=== PATIENT | male | born 1935 | race Caucasian/White ===

== ENCOUNTER 2017-06-15 08:08 | Inpatient (IN) | payer MEDICARE, MEDICAID ==
[~2017-06-15] VITALS: Ht 162.6 cm; Wt 70.8 kg
[~2017-06-15 08:08] MED LIST: ACETAMINOPHEN500 MG ORAL; ALENDRONATE SOD70 MG ORAL; ANTACID168 MG PO; ASPIRIN-LOW81 MG PO; AVODART0.5 MG PO; COLACE250 MG ORAL; DIOVAN HCT 3201 EAC1 ORAL; DIOVAN320 MG ORAL; DOXAZOSIN MESYLA4 MG ORAL; FLOMAX0.4 MG ORAL; GABAPENTIN300 MG ORAL; GABAPENTIN400 MG PO; IBUPROFEN200 MG ORAL; LIDODERM700 M1 TDERMAL; MIRALAX17 G2 ORAL; MYLANTA30 M1 PO; OMEPRAZOLE20 M2 PO; OXYCONTIN10 MG ORAL; OYSCO 500+D TA1 EAC1 PO; OYSTER SHELL W1 EACH PO; PANTOPRAZOLE SO40 MG ORAL; RA HI-CAL PLUS1 EACH PO; ROXICODONE5 MG ORAL; SENNA-GEN8.6 M1 ORAL; TRAMADOL HCL50 MG ORAL; ZOCOR20 M1 ORAL; ZOCOR20 MG ORAL
--- NOTE | 2017-06-15 08:47 | Emergency Room Report ---
History of Present Illness General Chief Complaint: Nausea, Vomiting, and Diarrhea Source: Patient Present Illness HPI 82-year-old male with hypertension p/w nausea and vomiting diarrhea for 2 days Pt reports n/v, 1 episodes of nbnb vomiting,4 episodes of watery non bloody diarrhea Denies any abdominal pain Denies fever, chills. No hx of abdominal surgeries. No history of recent hospitalizations, no recent antibiotic use Allergies: Coded Allergies: No Known Allergies (Unverified , 08/05/12) Patient History Past Medical History: see triage record Past Surgical History: none Pertinent Family History: none Reviewed Nursing Documentation: PMH: Agreed, PSxH: Agreed Nursing Documentation-PMH Past Medical History: No History, Except For Hx Cardiac Problems: Yes Hx Hypertension: Yes - high cholesterol Hx Cancer: Yes Hx Gastrointestinal Problems: Yes Hx Neurological Problems: Yes Review of Systems All Other Systems: negative except mentioned in HPI Physical Exam Vital Signs Date Time Temp Pulse Resp B/P (MAP) Pulse Ox O2 Delivery O2 Flow Rate FiO2 06/15/17 08:10 97.8 62 18 87/55 96 Room Air 97.9 Sp02 EP Interpretation: reviewed, normal General Appearance: alert, GCS 15, non-toxic, mild distress Head: normocephalic, atraumatic Eyes: bilateral eye normal inspection, bilateral eye PERRL, bilateral eye EOMI ENT: normal ENT inspection, normal pharynx, normal voice, moist mucus membranes Neck: normal inspection, full range of motion, supple Respiratory: normal inspection, lungs clear, normal breath sounds, no respiratory distress, no retraction, no wheezing, speaking full sentences, chest symmetrical Cardiovascular #1: normal inspection, regular rate, rhythm, no edema, normal capillary refill Cardiovascular #2: 2+ radial (R), 2+ radial (L) Gastrointestinal: normal inspection, non tender, soft, non-distended, no guarding, other - nontender throughout Musculoskeletal: back normal, non-tender, other - b/l elbows unable to fully extend since Neurologic: normal inspection, alert, oriented x3, responsive, motor strength/ tone normal, sensory intact, normal gait, speech normal Psychiatric: normal inspection, judgement/insight normal, memory normal Skin: normal inspection, normal color, no rash, warm/dry, well hydrated, normal turgor Medical Decision Making Diagnostic Impression: Primary Impression: Nausea, vomiting, and diarrhea Additional Impression: Anemia ER Course 82-year-old male nausea vomiting and diarrhea Differential Diagnosis: Gastritis, gastroenteritis, cholecystitis, appendicitis, diverticulitis, SBO, mesenteric ischemia, cardiac, UTI/pyelo At this time abdomen is soft nontender, not likely to have acute intra- abdominal surgical pathology, will hold CT for now. Plan: Basic labs, ua, ekg IV fluids Zofran ER course: patient given fluids/zofran anemic on lab work, states has hx of anemia mild elevation lipase but not criteria for pancreatitis mild elevation lactate getting fluids repeat abd exam nontender and soft. Disposition: Patient is to be admitted to med surg Dr Marsh Please note that this Emergency Department Report was dictated using [place] [employer] setter technology software, occasionally this can lead to erroneous entry secondary to interpretation by the dictation equipment EKG Diagnostic Results EP Interpretation: Yes Rate: normal Rhythm: NSR ST Segments: No acute changes, PVCs ASA given to patient: No Rhythm Strip EP Interpretation: Yes Rate: 70 Rhythm: NSR, no PVCs, no ectopy Chest X-ray CXR: Ordered: Yes 1 view Indication: Chest pain EP interpretation: Yes Interpretation: No consolidation, no effusion, no PTX, no acute cardiopulmonary disease Impression: No acute disease Electronically signed by Elliott Bryant MD Laboratory Tests Test 06/15/17 08:45 06/15/17 08:48 Urine Color Pale yellow Urine Appearance Clear Urine pH 6 (4.5-8.0) Urine Specific [place] 1.015 (1.005-1.035) Urine Protein Negative (NEGATIVE) Urine Glucose (UA) Negative (NEGATIVE) Urine Ketones Negative (NEGATIVE) Urine Occult Blood Negative (NEGATIVE) Urine Nitrite Negative (NEGATIVE) Urine Bilirubin Negative (NEGATIVE) Urine Urobilinogen Normal MG/DL (0.0-1.0) Urine Leukocyte Esterase Negative (NEGATIVE) White Blood Count 3.4 K/UL (4.8-10.8) L Red Blood Count 2.82 M/UL (4.70-6.10) L Hemoglobin 7.4 G/DL (14.2-18.0) L Hematocrit 23.6 % (42.0-52.0) L Mean Corpuscular Volume 84 FL (80-99) Mean Corpuscular Hemoglobin 26.4 PG (27.0-31.0) L Mean Corpuscular Hemoglobin Concent 31.5 G/DL (32.0-36.0) L Red Cell Distribution Width 14.2 % (11.6-14.8) Platelet Count 319 K/UL (150-450) Mean Platelet Volume 6.1 FL (6.5-10.1) L Neutrophils (%) (Auto) % (45.0-75.0) Lymphocytes (%) (Auto) % (20.0-45.0) Monocytes (%) (Auto) % (1.0-10.0) Eosinophils (%) (Auto) % (0.0-3.0) Basophils (%) (Auto) % (0.0-2.0) Differential Total Cells Counted 100 Neutrophils % (Manual) 61 % (45-75) Lymphocytes % (Manual) 26 % (20-45) Monocytes % (Manual) 9 % (1-10) Eosinophils % (Manual) 4 % (0-3) H Basophils % (Manual) 0 % (0-2) Band Neutrophils 0 % (0-8) Platelet Estimate Adequate Platelet Morphology Normal Hypochromasia 2+ Anisocytosis 1+ Sodium Level 136 MMOL/L (136-145) Potassium Level 4.1 MMOL/L (3.5-5.1) Chloride Level 104 MMOL/L (98-107) Carbon Dioxide Level 26 MMOL/L (21-32) Anion Gap 6 mmol/L (5-15) Blood Urea Nitrogen 28 mg/dL (7-18) H Creatinine 1.5 MG/DL (0.55-1.30) H Estimate Glomerular Filtration Rate mL/min (>60) Glucose Level 131 MG/DL (74-106) H Lactic Acid Level 2.30 mmol/L (0.66-2.22) H Calcium Level 9.0 MG/DL (8.5-10.1) Total Bilirubin 0.4 MG/DL (0.2-1.0) Aspartate Amino Transferase (AST) 19 U/L (15-37) Alanine Aminotransferase (ALT) 23 U/L (12-78) Alkaline Phosphatase 72 U/L (46-116) Pro-B-Type Natriuretic Peptide 454 pg/mL (0-125) H Total Protein 6.7 G/DL (6.4-8.2) Albumin 3.3 G/DL (3.4-5.0) L Globulin 3.4 g/dL Albumin/Globulin Ratio 1.0 (1.0-2.7) Lipase 625 U/L (73-393) H Microbiology Date/Time Source Procedure Growth Status 06/15/17 09:25 Nasal Nares Influenza Types A,B Antigen (IKER) - Final Complete Last Vital Signs Date Time Temp Pulse Resp B/P (MAP) Pulse Ox O2 Delivery O2 Flow Rate FiO2 06/15/17 08:10 97.8 62 18 87/55 96 Room Air 97.9 Disposition: HOME, SELF-CARE Condition: Improved Elliott Bryant M.D. Jun 15, 2017 08:47
[2017-06-15 08:59] LABS: HEMATOCRIT 23.6 % (42.0-52.0); HEMOGLOBIN 7.4 G/DL (14.2-18.0); MEAN CORPUSCULAR VOLUME 84 FL (80-99); PLATELET COUNT 319 K/UL (150-450); RED BLOOD COUNT 2.82 M/UL (4.70-6.10); RED CELL DISTRIBUTION WIDTH 14.2 % (11.6-14.8); WHITE BLOOD COUNT 3.4 K/UL (4.8-10.8)
[2017-06-15 08:59] LABS: APPEARANCE,URINE CLEAR; BILIRUBIN, URINE NEGATIVE (NEGATIVE); COLOR,URINE PALE YELLOW; GLUCOSE, URINE (UA) NEGATIVE (NEGATIVE); KETONES,URINE NEGATIVE (NEGATIVE); LEUKOCYTE ESTERASE ,URINE NEGATIVE (NEGATIVE); NITRITE,URINE NEGATIVE (NEGATIVE); PH,URINE 6 (4.5-8.0); PROTEIN,URINE NEGATIVE (NEGATIVE); UROBILINOGEN,URINE NORMAL MG/DL (0.0-1.0)
[2017-06-15] MEDS ORDERED: ZANTAC150 MG ORAL (09:02)
[2017-06-15] MEDS ORDERED: ASPIRIN81 MG ORAL (09:02)
[2017-06-15] MEDS ORDERED: CLOPIDOGREL75 MG ORAL (09:02)
[2017-06-15] MEDS ORDERED: ISOSORBIDE MONO30 M1 PO (09:02)
[2017-06-15] MEDS ORDERED: METOPROLOL SUCC25 MG ORAL (09:02)
[2017-06-15] MEDS ORDERED: AMLODIPINE BESY10 MG ORAL (09:02)
[2017-06-15 09:13] LABS: ANION GAP 6 mmol/L (5-15); BLOOD UREA NITROGEN 28 mg/dL (7-18); CARBON DIOXIDE 26 MMOL/L (21-32); CHLORIDE 104 MMOL/L (98-107); CREATININE 1.5 MG/DL (0.55-1.30); POTASSIUM 4.1 MMOL/L (3.5-5.1); SODIUM 136 MMOL/L (136-145)
[2017-06-15 09:19] VITALS: BP 87/55
[2017-06-15 09:24] LABS: ALANINE AMINOTRANSFERASE 23 U/L (12-78); ALBUMIN 3.3 G/DL (3.4-5.0); ALKALINE PHOSPHATASE 72 U/L (46-116); ASPARTATE AMINO TRANSFERASE 19 U/L (15-37); BILIRUBIN,TOTAL 0.4 MG/DL (0.2-1.0)
--- NOTE | 2017-06-15 10:45 | Diagnostic Imaging Report ---
Indication: Chest pain Technique: One view of the chest Comparison: 05/26/2015 Findings: Inspiration is suboptimal. There is probably retrocardiac hiatal hernia. Some atelectasis is seen at the right lung base and left retrocardiac region. Lungs and pleural spaces are otherwise clear. The heart is borderline enlarged. Impression: No definite acute process. Findings as noted
[2017-06-15] MEDS ORDERED: ATORVASTATIN CA10 MG ORAL (11:49)
[2017-06-15] MEDS ORDERED: Nitroglycerin Subl 0.4mg tab SL PRN (13:00)
[2017-06-15] MEDS ORDERED: Milk of Magnesia 30ml Ud ORAL PRN (13:00)
[2017-06-15] MEDS: Metoprolol Succinate XL 25mg tab ORAL SCH (13:00)
[2017-06-15] MEDS: Pantoprazole Inj IV SCH ×2 (15:11→21:39)
[2017-06-15 15:20] VITALS: BP 97/53
[2017-06-15 16:19] LABS: APPEARANCE,URINE CLEAR; BILIRUBIN, URINE NEGATIVE (NEGATIVE); COLOR,URINE PALE YELLOW; GLUCOSE, URINE (UA) NEGATIVE (NEGATIVE); KETONES,URINE NEGATIVE (NEGATIVE); LEUKOCYTE ESTERASE ,URINE NEGATIVE (NEGATIVE); NITRITE,URINE NEGATIVE (NEGATIVE); PH,URINE 6.5 (4.5-8.0); PROTEIN,URINE NEGATIVE (NEGATIVE); UROBILINOGEN,URINE NORMAL MG/DL (0.0-1.0)
--- NOTE | 2017-06-15 17:00 | History and Physical Report ---
DATE OF ADMISSION: 06/15/2017 CHIEF COMPLAINT/REASON FOR HOSPITALIZATION: The patient is an 82-year-old male, admitted with anemia, nausea, vomiting, diarrhea, and likely occult gastrointestinal bleed. HISTORY OF PRESENT ILLNESS: The patient is well known to me, has a history of hypertension, gastritis, osteoarthritis, and post-polio syndrome. 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 He presents now with a hemoglobin of 7.5, nausea and vomiting, and one episode of diarrhea. He has had a cough for several weeks, but no fever or chills. The family is concerned that he may have had a flu, but the rapid flu test was negative. There are no fever or chills. Because of the above, he is admitted to the hospital. PAST SURGICAL HISTORY: Prostatectomy, prostate biopsy, bilateral total knee replacement, bilateral cataracts. MEDICATIONS: Alendronate 70 mg once a week, amlodipine 10 mg daily, aspirin 81 mg two tablets daily, Plavix 75 mg daily, gabapentin 1200 mg at bedtime, isosorbide 30 mg daily, metoprolol succinate 25 mg daily, ranitidine 150 mg b.i.d., atorvastatin 10 mg at bedtime, Tylenol p.r.n. He took tramadol in the past, but not recently. ALLERGIES: None known. HABITS: He is nonsmoker and nondrinker. No use of illicit drugs. SOCIAL HISTORY: He lives at home. 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 Has family nearby. He is from his . His daughter is very involved with his care and I spoke to her today, Code Status. He is Full Code now, but does not want prolonged life support in case Code is unsuccessful. SYSTEM REVIEW: HEAD EYES, EARS, NOSE, AND THROAT: He wears bilateral hearing aids. He has had cataract surgery with stable vision. ENDOCRINE: No diabetes or thyroid disease. PULMONARY: No asthma, TB, or chronic cough, but he has had a cough recently for a few weeks. CARDIAC: He has had chest pains, abnormal stress test, but elected not to have angiography. Chest pains are under control with medical management. No history of myocardial infarction. GASTROINTESTINAL: He has had prior episodes of heme-positive stool, treated with PPI. This was apparently when he was taking possibly nonsteroidal anti-inflammatory agents but this was a few years ago. GENITOURINARY: No dysuria, hematuria, or kidney stones. He is voiding well now post prostatectomy. He has also had Lupron in the past for prostate cancer. His PSAs have been normal. 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 NEUROLOGIC: No CVA, syncope, or seizures. He walks short distances with a walker, but mostly uses a wheelchair. MUSCULOSKELETAL: Additionally, he has had low back pain. I believe lumbar spine compression fracture. HEMATOLOGIC/ONCOLOGIC: Stable. Prostate cancer as above. He has had iron-deficiency anemia, treated with IV iron in the past. PHYSICAL EXAMINATION: GENERAL: The patient is an alert man, in no acute distress. He was seen with nurses at the bedside. VITAL SIGNS: As follows, temperature 97.9 degrees, respirations 18, and blood pressure 87/55, pulse oximetry 96%. HEAD EYES, EARS, NOSE, AND THROAT: Sclerae are nonicteric. Ocular motions intact in all directions. Oral mucosa slightly dry. He is hard of hearing. NECK: No adenopathy. LUNGS: He has a moderate cough and very faint expiratory rhonchi. HEART: Rhythm is regular with a 1 to 2/6 systolic ejection murmur. ABDOMEN: Soft. No organomegaly or tenderness. GENITOURINARY: Penis and testes normal. Rectal shows a prostate slightly enlarged, 1 to 2+/4. No discrete nodules. Light brown stool on the glove. EXTREMITIES: No edema, cyanosis or clubbing. There are contractures in the elbow and total knee replacements. NEUROLOGIC: He is alert and responsive. Cranial nerves are intact. PERTINENT LABORATORY DATA: Show white count of 3.4, hemoglobin of 7.4, platelets 319. Electrolytes normal, BUN 28, creatinine 1.5, glucose 131. Lactic acid 2.3 and 1.3. IMPRESSION: 1. Gastrointestinal bleed, likely upper gastrointestinal bleed secondary to gastritis or peptic ulcer. This may be exacerbated by taking Plavix and aspirin. 2. History of recent cerebrovascular accident with no residual. 3. History of coronary artery disease. 4. History of hypertension with low blood pressure now, likely due to volume depletion and blood pressure medicines. PLAN: The patient will be hydrated. We spoke to his daughter and he is Full Code now but, does not want prolonged life support. Family has agreed to transfuse and watch him closely in view of these comorbidities. Qunetin Marsh M.D. DR: Lillian JOB#: [id number] CC:
[2017-06-15 20:00] VITALS: BP 125/67
--- NOTE | 2017-06-15 20:25 | General Progress Note ---
Assessment/Plan Assessment/Plan GI CONSULT Dictated Will arrange for EGD tomorrow Will consider colonoscopy later this week Thank you Colin Flores MD Subjective Allergies: Coded Allergies: No Known Allergies (Unverified , 08/05/12) Objective Last 24 Hour Vital Signs Date Time Temp Pulse Resp B/P (MAP) Pulse Ox O2 Delivery O2 Flow Rate FiO2 06/15/17 15:20 98.2 78 20 97/53 96 06/15/17 13:00 89 97/53 06/15/17 09:19 97.9 18 87/55 96 Room Air 97.9 06/15/17 08:10 97.8 62 18 87/55 96 Room Air 97.9 Laboratory Tests 06/15/17 08:45: Urine Color Pale yellow, Urine Appearance Clear, Urine pH 6, Urine Specific [place] 1.015, Urine Protein Negative, Urine Glucose (UA) Negative, Urine Ketones Negative, Urine Occult Blood Negative, Urine Nitrite Negative, Urine Bilirubin Negative, Urine Urobilinogen Normal, Urine Leukocyte Esterase Negative 06/15/17 08:48: White Blood Count 3.4L, Red Blood Count 2.82L, Hemoglobin 7.4L, Hematocrit 23.6L , Mean Corpuscular Volume 84, Mean Corpuscular Hemoglobin 26.4L, Mean Corpuscular Hemoglobin Concent 31.5L, Red Cell Distribution Width 14.2, Platelet Count 319, Mean Platelet Volume 6.1L, Neutrophils (%) (Auto) , Lymphocytes (%) (Auto) , Monocytes (%) (Auto) , Eosinophils (%) (Auto) , Basophils (%) (Auto) , Differential Total Cells Counted 100, Neutrophils % ( Manual) 61, Lymphocytes % (Manual) 26, Monocytes % (Manual) 9, Eosinophils % ( Manual) 4H, Basophils % (Manual) 0, Band Neutrophils 0, Platelet Estimate Adequate, Platelet Morphology Normal, Hypochromasia 2+, Anisocytosis 1+, Sodium Level 136, Potassium Level 4.1, Chloride Level 104, Carbon Dioxide Level 26, Anion Gap 6, Blood Urea Nitrogen 28H, Creatinine 1.5H, Estimat Glomerular Filtration Rate , Glucose Level 131H, Lactic Acid Level 2.30H, Calcium Level 9.0 , Total Bilirubin 0.4, Aspartate Amino Transf (AST/SGOT) 19, Alanine Aminotransferase (ALT/SGPT) 23, Alkaline Phosphatase 72, Pro-B-Type Natriuretic Peptide 454H, Total Protein 6.7, Albumin 3.3L, Globulin 3.4, Albumin/Globulin Ratio 1.0, Lipase 625H 06/15/17 10:34: Lactic Acid Level 1.30 06/15/17 15:00: Troponin I 0.023 06/15/17 15:15: Urine Color Pale yellow, Urine Appearance Clear, Urine pH 6.5, Urine Specific [place] 1.010, Urine Protein Negative, Urine Glucose (UA) Negative, Urine Ketones Negative, Urine Occult Blood Negative, Urine Nitrite Negative, Urine Bilirubin Negative, Urine Urobilinogen Normal, Urine Leukocyte Esterase Negative , Urine RBC 0-2H, Urine WBC 0, Urine Squamous Epithelial Cells None, Urine Bacteria Occasional Height (Feet): 4 Height (Inches): 11.00 Weight (Pounds): 145 TIFFANIETOBYANYI Jun 15, 2017 20:25
[2017-06-15] MEDS ORDERED: Sorbitol Solution UD 30ml ORAL ONE (20:30)
[2017-06-16] VITALS (11 sets, daily range): BP systolic 109–152; BP diastolic 55–77
--- NOTE | 2017-06-16 03:45 | Consultation ---
DATE OF CONSULTATION: 06/15/2017 GASTROENTEROLOGY CONSULTATION CONSULTING PHYSICIAN: Montserrat Flores M.D. REFERRING PHYSICIAN: Quentin Marsh M.D. CHIEF COMPLAINT: I was asked to see this patient by Dr. Quentin Marsh for evaluation of severe anemia as well as diarrhea. HISTORY OF PRESENT ILLNESS: The patient is a pleasant 82-year-old man, who has had flu-like symptoms for past month or so. For the past day or two, the patient noted nausea, vomiting, and diarrhea and was brought to the emergency room where he was found to have severe anemia and was therefore admitted. He is receiving his first blood transfusion. He denies any abdominal issues at this time. He has had cough for several weeks. Daughter thinks the patient has had colonoscopy about 5 or 10 years ago, but has never had an endoscopy. He does take aspirin and Plavix on a daily basis for history of stroke, but he is also on ranitidine twice daily. He denies gastroesophageal reflux symptoms. PAST MEDICAL HISTORY: History of prostatectomy, status post prostate biopsy, bilateral total knee replacements, bilateral cataracts, history of gastritis, osteoarthritis, post-polio syndrome, history of stroke in 2017 with minimal residual, history of anemia about three years ago which is now worse, and hypercholesterolemia. MEDICATIONS: See chart list for details. ALLERGIES: None. FAMILY HISTORY: Noncontributory. SOCIAL HISTORY: The patient lives at home. 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 He also has two daughters who look after his affairs. He is Full Code. PHYSICAL EXAMINATION: GENERAL: A pleasant man seen in his room. HEENT: Normocephalic and atraumatic. Sclerae anicteric. Oropharynx is clear. NECK: Supple. CHEST: Clear to auscultation. CARDIOVASCULAR: Revealed regular rate. ABDOMEN: Soft with good bowel sounds. There is no organomegaly. EXTREMITIES: Revealed no edema. LABORATORY DATA: Noted. ASSESSMENT: This patient presents with severe anemia requiring blood transfusion. He did have some degree of slight anemia in the past also and he did have since low blood counts and may be chronic in nature, however, on this admission, his counts are worse requiring blood transfusion. The patient should undergo an upper endoscopy to evaluate his upper gastrointestinal tract since the daughter noted the patient's stools appeared to be dark in appearance. Should the endoscopy be negative, then colonoscopy can be this week. Also, the patient may be considered for subsequent colonoscopy at a later date as medically feasible. Indications, risks, alternatives, and possible complications of both procedures were explained to the patient's daughter and all questions were answered. The patient's daughter states that she makes all decisions for this patient and will sign the forms. In addition, the patient does have recent history of diarrhea and therefore, his stool will be checked for Clostridium difficile and for cultures. Since he is anemic, also stool occult blood will be tested. RECOMMENDATIONS: 1. NPO after midnight except medications. 2. IV fluids. 3. Serial CBC. 4. Hold aspirin and Plavix endoscopy tomorrow. 5. Colonoscopy at a later date. Thank you for asking me to participate in the care of this patient. Montserrat Flores M.D. DR: CHRISTINE JOB#: [id number] CC:
--- NOTE | 2017-06-16 07:24 | Anethesia Preoperative Eval ---
Anesthesia Pre-op PMH/ROS General Date of Evaluation: Jun 16, 2017 Time of Evaluation: 07:20 Anesthesiologist: mikayla ASA Score: ASA 3 Mallampati Score Class I : Soft palate, uvula, fauces, pillars visible Class II: Soft palate, uvula, fauces visible Class III: Soft palate, base of uvula visible Class IV: Only hard plate visible Mallampati Classification: Class II Surgeon: shin Diagnosis: dysphagia Surgical Procedure: egd Anesthesia History: none Social History: smoking - nonsmoker Family History: no anesthesia problems Allergies: Coded Allergies: No Known Allergies (Unverified , 08/05/12) Medications: see eMAR Past Medical History Cardiovascular: Reports: HTN Pulmonary: Reports: asthma Gastrointestinal/Genitourinary: Reports: GERD, other - uti, prostate cancer, gi bleed Neurologic/Psychiatric: Reports: CVA Musculoskeletal/Integumentary: Reports: other - vertebral compressioin fx Anesthesia Pre-op Phys. Exam Physician Exam Last Vital Signs Date Time Temp Pulse Resp B/P (MAP) Pulse Ox O2 Delivery O2 Flow Rate FiO2 06/16/17 04:00 98.4 67 21 109/56 97 06/16/17 04:00 Room Air Constitutional: NAD Neurologic: CN 2-12 intact Cardiovascular: RRR Respiratory: CTA Gastrointestinal: S/NT/ND Airway Exam Mallampati Score: Class II MO: limited Neck: short TMD: 2fb ROM: limited Anesthesia Pre-op A/P Labs Hematology Test 06/15/17 08:48 White Blood Count 3.4 K/UL (4.8-10.8) L Red Blood Count 2.82 M/UL (4.70-6.10) L Hemoglobin 7.4 G/DL (14.2-18.0) L Hematocrit 23.6 % (42.0-52.0) L Mean Corpuscular Volume 84 FL (80-99) Mean Corpuscular Hemoglobin 26.4 PG (27.0-31.0) L Mean Corpuscular Hemoglobin Concent 31.5 G/DL (32.0-36.0) L Red Cell Distribution Width 14.2 % (11.6-14.8) Platelet Count 319 K/UL (150-450) Mean Platelet Volume 6.1 FL (6.5-10.1) L Neutrophils (%) (Auto) % (45.0-75.0) Lymphocytes (%) (Auto) % (20.0-45.0) Monocytes (%) (Auto) % (1.0-10.0) Eosinophils (%) (Auto) % (0.0-3.0) Basophils (%) (Auto) % (0.0-2.0) Differential Total Cells Counted 100 Neutrophils % (Manual) 61 % (45-75) Lymphocytes % (Manual) 26 % (20-45) Monocytes % (Manual) 9 % (1-10) Eosinophils % (Manual) 4 % (0-3) H Basophils % (Manual) 0 % (0-2) Band Neutrophils 0 % (0-8) Platelet Estimate Adequate Platelet Morphology Normal Hypochromasia 2+ Anisocytosis 1+ Chemistry Test 06/15/17 08:48 06/15/17 10:34 06/15/17 15:00 Sodium Level 136 MMOL/L (136-145) Potassium Level 4.1 MMOL/L (3.5-5.1) Chloride Level 104 MMOL/L (98-107) Carbon Dioxide Level 26 MMOL/L (21-32) Anion Gap 6 mmol/L (5-15) Blood Urea Nitrogen 28 mg/dL (7-18) H Creatinine 1.5 MG/DL (0.55-1.30) H Estimat Glomerular Filtration Rate mL/min (>60) Glucose Level 131 MG/DL (74-106) H Lactic Acid Level 2.30 mmol/L (0.66-2.22) H 1.30 mmol/L (0.66-2.22) Calcium Level 9.0 MG/DL (8.5-10.1) Total Bilirubin 0.4 MG/DL (0.2-1.0) Aspartate Amino Transf (AST/SGOT) 19 U/L (15-37) Alanine Aminotransferase (ALT/SGPT) 23 U/L (12-78) Alkaline Phosphatase 72 U/L (46-116) Pro-B-Type Natriuretic Peptide 454 pg/mL (0-125) H Total Protein 6.7 G/DL (6.4-8.2) Albumin 3.3 G/DL (3.4-5.0) L Globulin 3.4 g/dL Albumin/Globulin Ratio 1.0 (1.0-2.7) Lipase 625 U/L (73-393) H Troponin I 0.023 ng/mL (0.000-0.056) Risk Assessment & Plan Assessment: asa3 Plan: mac Status Change Before Surgery: No Pre-Antibiotics Drug: MARTHA Perdue Jun 16, 2017 07:24
[2017-06-16] MEDS: Pantoprazole Inj IV SCH ×2 (08:37→20:49)
[2017-06-16] MEDS: Metoprolol Succinate XL 25mg tab ORAL SCH (08:38)
[2017-06-16 08:39] LABS: BASOPHILS % (AUTO) 0.9 % (0.0-2.0); HEMATOCRIT 26.5 % (42.0-52.0); HEMOGLOBIN 8.8 G/DL (14.2-18.0); LYMPHOCYTES % (AUTO) 26.4 % (20.0-45.0); MEAN CORPUSCULAR VOLUME 84 FL (80-99); MONOCYTES % (AUTO) 12.1 % (1.0-10.0); NEUTROPHILS % (AUTO) 55.7 % (45.0-75.0); PLATELET COUNT 234 K/UL (150-450); RED BLOOD COUNT 3.16 M/UL (4.70-6.10); RED CELL DISTRIBUTION WIDTH 14.1 % (11.6-14.8); WHITE BLOOD COUNT 3.8 K/UL (4.8-10.8)
[2017-06-16 08:54] LABS: INR 1.1 (0.9-1.1)
[2017-06-16 09:23] LABS: ALANINE AMINOTRANSFERASE 13 U/L (12-78); ALBUMIN 2.6 G/DL (3.4-5.0); ALBUMIN/GLOBULIN RATIO 0.9 (1.0-2.7); ALKALINE PHOSPHATASE 60 U/L (46-116); ANION GAP 6 mmol/L (5-15); ASPARTATE AMINO TRANSFERASE 19 U/L (15-37); BILIRUBIN,TOTAL 0.4 MG/DL (0.2-1.0); BLOOD UREA NITROGEN 17 mg/dL (7-18); CALCIUM 7.5 MG/DL (8.5-10.1); CARBON DIOXIDE 23 MMOL/L (21-32); CHLORIDE 112 MMOL/L (98-107); CREATININE 1.3 MG/DL (0.55-1.30); POTASSIUM 4.2 MMOL/L (3.5-5.1); SODIUM 141 MMOL/L (136-145)
--- NOTE | 2017-06-16 13:57 | General Progress Note ---
Assessment/Plan Problem List: (1) Hypotension ICD Codes: I95.9 - Hypotension, unspecified SNOMED: 84811199 (2) Dehydration ICD Codes: E86.0 - Dehydration SNOMED: 01718094 (3) Anemia ICD Codes: D64.9 - Anemia, unspecified SNOMED: 423419644 (4) GI bleed ICD Codes: K92.2 - Gastrointestinal hemorrhage, unspecified SNOMED: 32192283 (5) Nausea, vomiting, and diarrhea ICD Codes: R11.2 - Nausea with vomiting, unspecified; R19.7 - Diarrhea, unspecified SNOMED: 4001935 Status Narrative bp better, no aangina, for EGD, venofer for iron deficiency Subjective Constitutional: Reports: weakness HEENT: Reports: no symptoms Cardiovascular: Reports: no symptoms Respiratory: Reports: cough Gastrointestinal/Abdominal: Reports: no symptoms Genitourinary: Reports: no symptoms Neurologic/Psychiatric: Reports: no symptoms Endocrine: Reports: no symptoms Hematologic/Lymphatic: Reports: anemia Allergies: Coded Allergies: No Known Allergies (Unverified , 08/05/12) Objective Last 24 Hour Vital Signs Date Time Temp Pulse Resp B/P (MAP) Pulse Ox O2 Delivery O2 Flow Rate FiO2 06/16/17 11:44 97.5 61 19 140/77 98 06/16/17 08:38 73 139/74 06/16/17 08:15 97.1 64 20 130/65 99 06/16/17 08:00 64 61 73 06/16/17 04:00 98.4 67 21 109/56 97 06/16/17 04:00 Room Air 06/16/17 00:00 Room Air 06/16/17 00:00 98.3 65 20 116/59 98 06/15/17 20:00 98.5 71 21 125/67 100 06/15/17 20:00 Room Air 06/15/17 15:20 98.2 78 20 97/53 96 Intake and Output 06/15/17 06/16/17 19:00 07:00 Intake Total 240 ml 500 ml Output Total 550 ml 575 ml Balance -310 ml -75 ml Intake Oral 240 ml Blood Product 500 ml Output Urine Total 550 ml 575 ml Laboratory Tests 06/15/17 15:00: Troponin I 0.023 06/15/17 15:15: Urine Color Pale yellow, Urine Appearance Clear, Urine pH 6.5, Urine Specific [place] 1.010, Urine Protein Negative, Urine Glucose (UA) Negative, Urine Ketones Negative, Urine Occult Blood Negative, Urine Nitrite Negative, Urine Bilirubin Negative, Urine Urobilinogen Normal, Urine Leukocyte Esterase Negative , Urine RBC 0-2H, Urine WBC 0, Urine Squamous Epithelial Cells None, Urine Bacteria Occasional 06/16/17 06:42: Troponin I 0.009, White Blood Count 3.8L, Red Blood Count 3.16L, Hemoglobin 8.8L , Hematocrit 26.5L, Mean Corpuscular Volume 84, Mean Corpuscular Hemoglobin 27.9 , Mean Corpuscular Hemoglobin Concent 33.2, Red Cell Distribution Width 14.1, Platelet Count 234, Mean Platelet Volume 6.1L, Neutrophils (%) (Auto) 55.7, Lymphocytes (%) (Auto) 26.4, Monocytes (%) (Auto) 12.1H, Eosinophils (%) (Auto) 5.0H, Basophils (%) (Auto) 0.9, Prothrombin Time 11.7H, Prothromb Time International Ratio 1.1, Activated Partial Thromboplast Time 26, Sodium Level 141, Potassium Level 4.2, Chloride Level 112H, Carbon Dioxide Level 23, Anion Gap 6, Blood Urea Nitrogen 17, Creatinine 1.3, Estimat Glomerular Filtration Rate , Glucose Level 85, Calcium Level 7.5L, Total Bilirubin 0.4, Aspartate Amino Transf (AST/SGOT) 19, Alanine Aminotransferase (ALT/SGPT) 13, Alkaline Phosphatase 60, Total Protein 5.6L, Albumin 2.6L, Globulin 3.0, Albumin/ Globulin Ratio 0.9L, Prostate Specific Antigen 3.48, Thyroid Stimulating Hormone (TSH) 0.863 Height (Feet): 4 Height (Inches): 11.00 Weight (Pounds): 156 General Appearance: no apparent distress EENT: normal ENT inspection Neck: non-tender Cardiovascular: normal rate, regular rhythm Respiratory/Chest: lungs clear Abdomen: non tender, soft Edema: no edema noted Arm (L), no edema noted Arm (R), no edema noted Leg (L), no edema noted Leg (R), no edema noted Pedal (L), no edema noted Pedal (R), no edema noted Generalized 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
[2017-06-16 14:31] LABS: % IRON SATURATION 4 % (15-50); IRON 11 ug/dL (50-175); TOTAL IRON BINDING CAPACITY 260 ug/dL (250-450)
--- NOTE | 2017-06-16 14:31 | Anethesia Preoperative Eval ---
Anesthesia Pre-op PMH/ROS General Date of Evaluation: Jun 16, 2017 Anesthesiologist: Amando ASA Score: ASA 3 Mallampati Score Class I : Soft palate, uvula, fauces, pillars visible Class II: Soft palate, uvula, fauces visible Class III: Soft palate, base of uvula visible Class IV: Only hard plate visible Mallampati Classification: Class II Surgeon: Sandra Diagnosis: ?GI bleed Surgical Procedure: EGD Anesthesia History: none Family History: no anesthesia problems Allergies: Coded Allergies: No Known Allergies (Unverified , 08/05/12) Medications: see eMAR Past Medical History Cardiovascular: Reports: HTN, Denies: CAD, ID, valve dz, arrhythmia, other Pulmonary: Reports: asthma, Denies: COPD, NOELLE, other Gastrointestinal/Genitourinary: Reports: GERD, other - ? GI bleed, Denies: CRI, ESRD Neurologic/Psychiatric: Reports: CVA, Denies: dementia, depression/anxiety, TIA, other Endocrine: Denies: DM, hypothyroidism, steroids, other HEENT: Denies: cataract (L), cataract (R), glaucoma, THREE AFFILIATED (L), THREE AFFILIATED (R), other Hematology/Immune: Reports: anemia, other - prostate cancer, Denies: DVT, bleeding disorder Musculoskeletal/Integumentary: Reports: other - vertebral compression fx, Denies: OA, RA, DJD, DDD, edema PSxH Narrative: TKR, cataract sx Anesthesia Pre-op Phys. Exam Physician Exam Last Vital Signs Date Time Temp Pulse Resp B/P (MAP) Pulse Ox O2 Delivery O2 Flow Rate FiO2 06/16/17 11:44 97.5 61 19 140/77 98 06/16/17 04:00 Room Air Constitutional: NAD Cardiovascular: RRR Respiratory: CTA Airway Exam Mallampati Score: Class II Neck: short Anesthesia Pre-op A/P Labs Hematology Test 06/16/17 06:42 White Blood Count 3.8 K/UL (4.8-10.8) L Red Blood Count 3.16 M/UL (4.70-6.10) L Hemoglobin 8.8 G/DL (14.2-18.0) L Hematocrit 26.5 % (42.0-52.0) L Mean Corpuscular Volume 84 FL (80-99) Mean Corpuscular Hemoglobin 27.9 PG (27.0-31.0) Mean Corpuscular Hemoglobin Concent 33.2 G/DL (32.0-36.0) Red Cell Distribution Width 14.1 % (11.6-14.8) Platelet Count 234 K/UL (150-450) Mean Platelet Volume 6.1 FL (6.5-10.1) L Neutrophils (%) (Auto) 55.7 % (45.0-75.0) Lymphocytes (%) (Auto) 26.4 % (20.0-45.0) Monocytes (%) (Auto) 12.1 % (1.0-10.0) H Eosinophils (%) (Auto) 5.0 % (0.0-3.0) H Basophils (%) (Auto) 0.9 % (0.0-2.0) Coagulation Test 06/16/17 06:42 Prothrombin Time 11.7 SEC (9.30-11.50) H Prothromb Time International Ratio 1.1 (0.9-1.1) Activated Partial Thromboplast Time 26 SEC (23-33) Chemistry Test 06/15/17 15:00 06/16/17 06:42 Troponin I 0.023 ng/mL (0.000-0.056) 0.009 ng/mL (0.000-0.056) Sodium Level 141 MMOL/L (136-145) Potassium Level 4.2 MMOL/L (3.5-5.1) Chloride Level 112 MMOL/L (98-107) H Carbon Dioxide Level 23 MMOL/L (21-32) Anion Gap 6 mmol/L (5-15) Blood Urea Nitrogen 17 mg/dL (7-18) Creatinine 1.3 MG/DL (0.55-1.30) Estimat Glomerular Filtration Rate mL/min (>60) Glucose Level 85 MG/DL (74-106) Calcium Level 7.5 MG/DL (8.5-10.1) L Iron Level Pending Unsaturated Iron Binding Pending Ferritin Pending Total Bilirubin 0.4 MG/DL (0.2-1.0) Aspartate Amino Transf (AST/SGOT) 19 U/L (15-37) Alanine Aminotransferase (ALT/SGPT) 13 U/L (12-78) Alkaline Phosphatase 60 U/L (46-116) Total Protein 5.6 G/DL (6.4-8.2) L Albumin 2.6 G/DL (3.4-5.0) L Globulin 3.0 g/dL Albumin/Globulin Ratio 0.9 (1.0-2.7) L Prostate Specific Antigen 3.48 ng/mL (0.13-4.0) Thyroid Stimulating Hormone (TSH) 0.863 uiU/mL (0.358-3.740) Risk Assessment & Plan Assessment: ASA III Plan: MAC Status Change Before Surgery: No Pre-Antibiotics Drug: N/A SHANNAN MCGRAW M.D. Jun 16, 2017 14:31
--- NOTE | 2017-06-16 14:35 | Immediate Post-Op Evaluation ---
Immediate Post-Op Evalulation Immediate Post-Op Evalulation Procedure: EGD Date of Evaluation: Jun 16, 2017 Time of Evaluation: 16:30 IV Fluids: 300 Blood Products: 0 Estimated Blood Loss: 0 Urinary Output: 0 Blood Pressure Systolic: 120 Blood Pressure Diastolic: 68 Pulse Rate: 57 Respiratory Rate: 16 O2 Sat by Pulse Oximetry: 99 Temperature (Fahrenheit): 97.3 Pain Score (1-10): 0 Nausea: No Vomiting: No Complications 0 Patient Status: awake, reacts, patent, none Hydration Status: adequate Drug: N/A SHANNAN MCGRAW M.D. Jun 16, 2017 14:35
--- NOTE | 2017-06-16 14:36 | 48 Hour Post Anesthesia Eval ---
Post Anesthesia Evaluation Procedure: EGD Date of Evaluation: Jun 16, 2017 Airway: patent Nausea: No Vomiting: No Pain Intensity: 0 Hydration Status: adequate Cardiopulmonary Status: at baseline Mental Status/LOC: patient returned to baseline Post-Anesthesia Complications: 0 Follow-up care needed: N/A - further care as per primary team SHANNAN MCGRAW M.D. Jun 16, 2017 14:36
[2017-06-16 14:44] LABS: FERRITIN 13 NG/ML (8-388)
[2017-06-16] MEDS ORDERED: DiphenhydrAMINE 50mg/ml Inj IVP PRN (14:45)
--- NOTE | 2017-06-16 15:21 | Cardiology Report ---
APPROVED REPORT EKG Measurement Heart [id number] OR 140P52 [id number] [id number] Sinus rhythm with premature supraventricular complexes Incomplete right bundle branch block Borderline ECG
--- NOTE | 2017-06-16 15:24 | Cardiology Report ---
APPROVED REPORT EKG Measurement Heart [id number] SD 140P56 [id number] Sinus rhythm with premature supraventricular complexes Incomplete right bundle branch block Borderline ECG
[2017-06-16] MEDS ORDERED: LR 1000ml 1,000 ML IVLG SCH (15:30)
[2017-06-16] MEDS ORDERED: Propofol 200mg/20ml IV ONE (16:00)
[2017-06-16] MEDS ORDERED: Lidocaine 1% MPF 10mg/ml 5ml ONE (16:00)
[2017-06-16] MEDS ORDERED: NS 500ML IV ONE (16:05)
--- NOTE | 2017-06-16 16:08 | Pre-Procedure Note/Attestation ---
Pre-Procedure Note/Attestation Complete Prior to Procedure Planned Procedure: not applicable Procedure Narrative: EGD Indications for Procedure Pre-Operative Diagnosis: UGIB Attestation I attest that I discussed the nature of the procedure; its benefits; risks and complications; and alternatives (and the risks and benefits of such alternatives ), prior to the procedure, with the patient (or the patient's legal agency sales representative). I attest that, if there was a reasonable possibility of needing a blood transfusion, the patient (or the patient's legal agency sales representative) was given the [facility] standardized written summary, pursuant to the Rik Wallace Blood Safety Act ([place] Health and Safety Code # 1645, as amended). I attest that I re-evaluated the patient just prior to the surgery and that there has been no change in the patient's H&P, except as documented below: ZACKERY MORENO Jun 16, 2017 16:08
--- NOTE | 2017-06-16 16:12 | General Progress Note ---
Assessment/Plan Assessment/Plan Assessment - Diarrhea - Anemia Recommendations - EGD today - ASA and plavix on hold - follow for recurrent diarrhea Sx - consider colonoscopy at later date POST PROCEDURE - 8-9 cm hiatal hernia - GERD with esophageal ulcer - mild non-erosive duodenitis Rec: - BID PPI - Possible colonoscopy later this week or outpatient Subjective Allergies: Coded Allergies: No Known Allergies (Unverified , 08/05/12) Subjective Feels better hungry no further diarrhea no BM overnight NPO for EGD today Objective Last 24 Hour Vital Signs Date Time Temp Pulse Resp B/P (MAP) Pulse Ox O2 Delivery O2 Flow Rate FiO2 06/16/17 11:44 97.5 61 19 140/77 98 06/16/17 08:38 73 139/74 06/16/17 08:15 97.1 64 20 130/65 99 06/16/17 08:00 64 61 73 06/16/17 04:00 98.4 67 21 109/56 97 06/16/17 04:00 Room Air 06/16/17 00:00 Room Air 06/16/17 00:00 98.3 65 20 116/59 98 06/15/17 20:00 98.5 71 21 125/67 100 06/15/17 20:00 Room Air Intake and Output 06/15/17 06/16/17 19:00 07:00 Intake Total 240 ml 625 ml Output Total 550 ml 575 ml Balance -310 ml 50 ml Intake Oral 240 ml IV Total 125 ml Blood Product 500 ml Output Urine Total 550 ml 575 ml Laboratory Tests 06/16/17 06:42: White Blood Count 3.8L, Red Blood Count 3.16L, Hemoglobin 8.8L, Hematocrit 26.5L , Mean Corpuscular Volume 84, Mean Corpuscular Hemoglobin 27.9, Mean Corpuscular Hemoglobin Concent 33.2, Red Cell Distribution Width 14.1, Platelet Count 234, Mean Platelet Volume 6.1L, Neutrophils (%) (Auto) 55.7, Lymphocytes ( %) (Auto) 26.4, Monocytes (%) (Auto) 12.1H, Eosinophils (%) (Auto) 5.0H, Basophils (%) (Auto) 0.9, Prothrombin Time 11.7H, Prothromb Time International Ratio 1.1, Activated Partial Thromboplast Time 26, Sodium Level 141, Potassium Level 4.2, Chloride Level 112H, Carbon Dioxide Level 23, Anion Gap 6, Blood Urea Nitrogen 17, Creatinine 1.3, Estimat Glomerular Filtration Rate , Glucose Level 85, Calcium Level 7.5L, Iron Level 11L, Total Iron Binding Capacity 260, Percent Iron Saturation 4L, Unsaturated Iron Binding 249, Ferritin 13, Total Bilirubin 0.4, Aspartate Amino Transf (AST/SGOT) 19, Alanine Aminotransferase ( ALT/SGPT) 13, Alkaline Phosphatase 60, Troponin I 0.009, Total Protein 5.6L, Albumin 2.6L, Globulin 3.0, Albumin/Globulin Ratio 0.9L, Prostate Specific Antigen 3.48, Thyroid Stimulating Hormone (TSH) 0.863 Height (Feet): 4 Height (Inches): 11.00 Weight (Pounds): 156 Objective Elderly man NCAT supple CTA RRR Soft NT ND no edema ZACKERY MORENO Jun 16, 2017 16:12
--- NOTE | 2017-06-16 16:25 | Endoscopy Procedure Note ---
Endoscopy Procedure Note General Indication for Procedure: UGIB Procedures Performed: EGD Operative Findings/Diagnosis: HH, GERD, EE Specimen: none Pt Tolerated Procedure Well: Yes Estimated Blood Loss: none Anesthesia Anesthesiologist: see notes Anesthesia: MAC Medications Medication Given: see anesthesia record Inserted Devices Implant(s) used?: No GI Core Measures 50 yrs or older w/o bx or poly: Not Applicable 10yrs. F/U not recommended: Not Applicable If not recommended, why?: ZACKERY MORENO Jun 16, 2017 16:25
--- NOTE | 2017-06-16 16:26 | Brief Operative Note ---
Immediate Post Operative Note Operative Note Chief Complaint: UGIB Pre-op Diagnosis: UGIB Procedure: EGD Post-op Diagnosis: - 8-9 cm hiatal hernia - GERD with esophageal ulcer - mild non-erosive duodenitis Surgeon: shin Anesthesiologist: see report Anesthesia: MAC Specimen: none Complications: none Condition: stable Fluids: recorded Estimated Blood Loss: none Drains: none Implant(s) used?: No ZACKERY MORENO Jun 16, 2017 16:26
[2017-06-16] MEDS ORDERED: Sorbitol Solution UD 30ml ORAL ONE (16:45)
[2017-06-16] MEDS: Iron Sucrose 100 MG in NS 55 ML IV SCH (21:09)
[2017-06-17] VITALS: BP 151/82
--- NOTE | 2017-06-17 00:30 | Procedure Note ---
DATE OF PROCEDURE: 06/16/2017 PROCEDURE: Upper gastrointestinal endoscopy. SURGEON: Montserrat Flores M.D. ANESTHESIA: Please see the separate anesthesiologist's notes for details. PRE-ENDOSCOPIC DIAGNOSIS: Anemia. POST-ENDOSCOPIC DIAGNOSES: 1. An 8 to 9 cm hiatal hernia. 2. Mild hernia neck erosions consistent with Micah ulcerations. 3. Gastroesophageal reflux with reflux related ulcerations in the lower esophagus. PROCEDURE: The procedure, its risks, indications, alternatives, and possible complications were explained and an informed consent was obtained. The patient was then sedated in the left lateral decubitus position and a diagnostic upper endoscope was introduced through oropharynx and advanced to the duodenum without difficulty. The endoscope was then gradually withdrawn and the mucosa was examined carefully. Examination of the upper gastrointestinal mucosa revealed the above-mentioned findings. There was no active bleeding. The endoscope was removed, and the patient was sent to recovery in good condition. COMPLICATIONS: None. ASSESSMENT: Large hiatal hernias can at times explain long-term blood loss with iron deficiency anemia due to recurrent lower esophageal ulcerations as well as Micah style ulcerations. The patient, however, should also undergo a colonoscopy at a later date to rule out any lower gastrointestinal lesion. RECOMMENDATIONS: 1. Resume clear liquid diet. 2. Proton pump inhibitor. 3. Reflux precautions. 4. Check and treat Helicobacter pylori in stool or breath test. 5. Colonoscopy at a later date. Thank you for asking me to participate in the care of this patient. Montserrat Flores M.D. DR: CHRISTINE JOB#: [id number] CC: Jeff Hensley M.D.; Fax#: [phone] [facility]
[2017-06-17 04:00] VITALS: BP 122/61
[2017-06-17] MEDS ORDERED: Nulytely 4L ORAL ONE (07:00)
[2017-06-17 08:08] VITALS: BP 129/68
[2017-06-17] MEDS: Pantoprazole Inj IV SCH ×2 (08:52→21:14)
[2017-06-17] MEDS: Metoprolol Succinate XL 25mg tab ORAL SCH (08:52)
[2017-06-17 09:34] LABS: BASOPHILS % (AUTO) 0.6 % (0.0-2.0); EOSINOPHILS % (AUTO) 2.4 % (0.0-3.0); HEMATOCRIT 27.5 % (42.0-52.0); MEAN CORPUSCULAR VOLUME 84 FL (80-99); MONOCYTES % (AUTO) 8.4 % (1.0-10.0); NEUTROPHILS % (AUTO) 68.7 % (45.0-75.0); PLATELET COUNT 223 K/UL (150-450); RED BLOOD COUNT 3.26 M/UL (4.70-6.10); RED CELL DISTRIBUTION WIDTH 14.1 % (11.6-14.8); WHITE BLOOD COUNT 4.4 K/UL (4.8-10.8)
[2017-06-17 09:54] LABS: ANION GAP 7 mmol/L (5-15); BLOOD UREA NITROGEN 11 mg/dL (7-18); CALCIUM 7.7 MG/DL (8.5-10.1); CARBON DIOXIDE 24 MMOL/L (21-32); CHLORIDE 109 MMOL/L (98-107); CREATININE 1.2 MG/DL (0.55-1.30); POTASSIUM 3.8 MMOL/L (3.5-5.1); SODIUM 140 MMOL/L (136-145)
[2017-06-17] MEDS ORDERED: Magnesium Citrate Liq Btl ORAL ONE (11:00)
[2017-06-17 12:15] VITALS: BP 150/69
--- NOTE | 2017-06-17 15:23 | General Progress Note ---
Assessment/Plan Problem List: (1) Hypotension ICD Codes: I95.9 - Hypotension, unspecified SNOMED: 48409314 (2) Dehydration ICD Codes: E86.0 - Dehydration SNOMED: 20441632 (3) Anemia ICD Codes: D64.9 - Anemia, unspecified SNOMED: 943437893 (4) GI bleed ICD Codes: K92.2 - Gastrointestinal hemorrhage, unspecified SNOMED: 76794012 (5) Nausea, vomiting, and diarrhea ICD Codes: R11.2 - Nausea with vomiting, unspecified; R19.7 - Diarrhea, unspecified SNOMED: 6243954 Assessment/Plan egd noted, prep for colonoscopy remains weak Subjective Constitutional: Reports: weakness HEENT: Reports: no symptoms Cardiovascular: Reports: no symptoms Respiratory: Reports: no symptoms Gastrointestinal/Abdominal: Reports: diarrhea Genitourinary: Reports: no symptoms Neurologic/Psychiatric: Reports: pre-existing deficit Endocrine: Reports: no symptoms Hematologic/Lymphatic: Reports: anemia Allergies: Coded Allergies: No Known Allergies (Unverified , 08/05/12) Objective Last 24 Hour Vital Signs Date Time Temp Pulse Resp B/P (MAP) Pulse Ox O2 Delivery O2 Flow Rate FiO2 06/17/17 14:40 97.5 06/17/17 12:15 97.5 57 22 150/69 99 Nasal Cannula 2.0 97.5 06/17/17 08:52 62 126/58 06/17/17 08:08 97.4 59 19 129/68 99 Nasal Cannula 2.0 97.4 06/17/17 08:00 62 68 68 06/17/17 04:00 97.7 63 19 122/61 98 97.7 06/17/17 00:00 97.6 66 19 151/82 100 97.6 06/16/17 22:00 68 68 06/16/17 20:00 97.4 62 19 151/74 99 97.4 06/16/17 16:55 97.8 60 14 139/55 99 Nasal Cannula 3.0 97.8 06/16/17 16:48 100 Nasal Cannula 4.0 06/16/17 16:47 Nasal Cannula 4.0 06/16/17 16:45 58 15 140/67 99 Nasal Cannula 3.0 06/16/17 16:35 57 17 139/70 99 Nasal Cannula 3.0 06/16/17 16:30 55 17 125/76 100 Nasal Cannula 3.0 06/16/17 16:28 207.1 57 16 99 06/16/17 16:25 97.3 57 15 120/68 99 Nasal Cannula 4.0 97.3 06/16/17 16:00 54 56 63 06/16/17 16:00 97.3 59 20 152/75 97 97.3 Intake and Output 06/16/17 06/17/17 19:00 07:00 Intake Total 1155 ml 390 ml Output Total 950 ml 650 ml Balance 205 ml -260 ml Intake Oral 200 ml IV Total 955 ml 390 ml Output Urine Total 950 ml 650 ml # Voids 2 # Bowel Movements 3 Laboratory Tests 06/16/17 22:10: Stool Occult Blood Negative 06/17/17 08:10: White Blood Count 4.4L, Red Blood Count 3.26L, Hemoglobin 9.0L, Hematocrit 27.5L , Mean Corpuscular Volume 84, Mean Corpuscular Hemoglobin 27.7, Mean Corpuscular Hemoglobin Concent 32.9, Red Cell Distribution Width 14.1, Platelet Count 223, Mean Platelet Volume 6.1L, Neutrophils (%) (Auto) 68.7, Lymphocytes ( %) (Auto) 20.0, Monocytes (%) (Auto) 8.4, Eosinophils (%) (Auto) 2.4, Basophils (%) (Auto) 0.6, Sodium Level 140, Potassium Level 3.8, Chloride Level 109H, Carbon Dioxide Level 24, Anion Gap 7, Blood Urea Nitrogen 11, Creatinine 1.2, Estimat Glomerular Filtration Rate , Glucose Level 89, Calcium Level 7.7L Height (Feet): 4 Height (Inches): 11.00 Weight (Pounds): 154 General Appearance: no apparent distress, alert EENT: normal ENT inspection Neck: normal alignment Cardiovascular: normal rate, regular rhythm Respiratory/Chest: lungs clear Abdomen: non tender, soft, no organomegaly Edema: no edema noted Arm (L), no edema noted Arm (R), no edema noted Leg (L), no edema noted Leg (R), no edema noted Pedal (L), no edema noted Pedal (R), no edema noted 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
[2017-06-17 16:00] VITALS: BP 103/71
[2017-06-17 20:00] VITALS: BP 119/57
--- NOTE | 2017-06-17 21:12 | General Progress Note ---
Assessment/Plan Assessment/Plan Assessment - Diarrhea - Anemia - 8-9 cm Hiatal hernia - possibly the etiology of anemia - GERD with esophageal ulcer Recommendations - Colonoscopy in am - ASA and plavix on hold - follow for recurrent diarrhea Sx Subjective Allergies: Coded Allergies: No Known Allergies (Unverified , 08/05/12) Subjective tolerating clears could not tolerate Golytely-->changed to Mag Citrate (++) BM Objective Last 24 Hour Vital Signs Date Time Temp Pulse Resp B/P (MAP) Pulse Ox O2 Delivery O2 Flow Rate FiO2 06/17/17 20:23 Nasal Cannula 2.0 28 06/17/17 20:23 98 Nasal Cannula 2.0 28 06/17/17 20:00 98.1 72 20 119/57 98 98.1 06/17/17 16:00 98.1 93 20 103/71 100 98.1 06/17/17 16:00 106 151 85 06/17/17 15:39 97.5 06/17/17 14:40 97.5 06/17/17 12:15 97.5 57 22 150/69 99 Nasal Cannula 2.0 97.5 06/17/17 08:52 62 126/58 06/17/17 08:08 97.4 59 19 129/68 99 Nasal Cannula 2.0 97.4 06/17/17 08:00 62 68 68 06/17/17 04:00 97.7 63 19 122/61 98 97.7 06/17/17 00:00 97.6 66 19 151/82 100 97.6 06/16/17 22:00 68 68 Intake and Output 06/16/17 06/17/17 19:00 07:00 Intake Total 1155 ml 390 ml Output Total 950 ml 650 ml Balance 205 ml -260 ml Intake Oral 200 ml IV Total 955 ml 390 ml Output Urine Total 950 ml 650 ml # Voids 2 # Bowel Movements 3 Laboratory Tests 06/16/17 22:10: Stool Occult Blood Negative 06/17/17 08:10: White Blood Count 4.4L, Red Blood Count 3.26L, Hemoglobin 9.0L, Hematocrit 27.5L , Mean Corpuscular Volume 84, Mean Corpuscular Hemoglobin 27.7, Mean Corpuscular Hemoglobin Concent 32.9, Red Cell Distribution Width 14.1, Platelet Count 223, Mean Platelet Volume 6.1L, Neutrophils (%) (Auto) 68.7, Lymphocytes ( %) (Auto) 20.0, Monocytes (%) (Auto) 8.4, Eosinophils (%) (Auto) 2.4, Basophils (%) (Auto) 0.6, Sodium Level 140, Potassium Level 3.8, Chloride Level 109H, Carbon Dioxide Level 24, Anion Gap 7, Blood Urea Nitrogen 11, Creatinine 1.2, Estimat Glomerular Filtration Rate , Glucose Level 89, Calcium Level 7.7L Height (Feet): 4 Height (Inches): 11.00 Weight (Pounds): 154 Objective Elderly man NCAT supple CTA RRR Soft NT ND no edema ZACKERY MORENO Jun 17, 2017 21:12
[2017-06-17] MEDS: Iron Sucrose 100 MG in NS 55 ML IV SCH (21:14)
[2017-06-18] VITALS (10 sets, daily range): BP systolic 119–162; BP diastolic 66–86
--- NOTE | 2017-06-18 06:57 | Anethesia Preoperative Eval ---
Anesthesia Pre-op PMH/ROS General Date of Evaluation: Jun 18, 2017 Time of Evaluation: 06:52 Anesthesiologist: mikayla ASA Score: ASA 3 Mallampati Score Class I : Soft palate, uvula, fauces, pillars visible Class II: Soft palate, uvula, fauces visible Class III: Soft palate, base of uvula visible Class IV: Only hard plate visible Mallampati Classification: Class II Surgeon: shin Diagnosis: gi bleed Surgical Procedure: colonoscopy Anesthesia History: none Social History: smoking - nonsmoker Allergies: Coded Allergies: No Known Allergies (Unverified , 08/05/12) Past Medical History Cardiovascular: Reports: HTN, HI, other - chest pain Pulmonary: Reports: asthma Gastrointestinal/Genitourinary: Reports: GERD, other - intractable hiccups, uti , prostate cancer, gi bleed, gerd, Neurologic/Psychiatric: Reports: CVA, depression/anxiety Hematology/Immune: Reports: anemia PSxH Narrative: cataract sx, knee sx Anesthesia Pre-op Phys. Exam Physician Exam Last Vital Signs Date Time Temp Pulse Resp B/P (MAP) Pulse Ox O2 Delivery O2 Flow Rate FiO2 06/18/17 04:00 98.2 67 20 130/70 99 Nasal Cannula 98.2 06/18/17 04:00 2.0 06/17/17 20:23 28 Constitutional: NAD Neurologic: CN 2-12 intact Cardiovascular: RRR Respiratory: CTA Gastrointestinal: S/NT/ND Airway Exam Mallampati Score: Class II MO: limited Neck: short TMD: 2fb ROM: limited Teeth: missing Anesthesia Pre-op A/P Labs Hematology Test 06/17/17 08:10 White Blood Count 4.4 K/UL (4.8-10.8) L Red Blood Count 3.26 M/UL (4.70-6.10) L Hemoglobin 9.0 G/DL (14.2-18.0) L Hematocrit 27.5 % (42.0-52.0) L Mean Corpuscular Volume 84 FL (80-99) Mean Corpuscular Hemoglobin 27.7 PG (27.0-31.0) Mean Corpuscular Hemoglobin Concent 32.9 G/DL (32.0-36.0) Red Cell Distribution Width 14.1 % (11.6-14.8) Platelet Count 223 K/UL (150-450) Mean Platelet Volume 6.1 FL (6.5-10.1) L Neutrophils (%) (Auto) 68.7 % (45.0-75.0) Lymphocytes (%) (Auto) 20.0 % (20.0-45.0) Monocytes (%) (Auto) 8.4 % (1.0-10.0) Eosinophils (%) (Auto) 2.4 % (0.0-3.0) Basophils (%) (Auto) 0.6 % (0.0-2.0) Chemistry Test 06/17/17 08:10 Sodium Level 140 MMOL/L (136-145) Potassium Level 3.8 MMOL/L (3.5-5.1) Chloride Level 109 MMOL/L (98-107) H Carbon Dioxide Level 24 MMOL/L (21-32) Anion Gap 7 mmol/L (5-15) Blood Urea Nitrogen 11 mg/dL (7-18) Creatinine 1.2 MG/DL (0.55-1.30) Estimat Glomerular Filtration Rate mL/min (>60) Glucose Level 89 MG/DL (74-106) Calcium Level 7.7 MG/DL (8.5-10.1) L Risk Assessment & Plan Assessment: asa3 Plan: mac Status Change Before Surgery: No Pre-Antibiotics Drug: MARTHA Perdue Jun 18, 2017 06:57
[2017-06-18 07:28] LABS: BASOPHILS % (AUTO) 0.7 % (0.0-2.0); EOSINOPHILS % (AUTO) 2.8 % (0.0-3.0); HEMATOCRIT 27.7 % (42.0-52.0); LYMPHOCYTES % (AUTO) 23.9 % (20.0-45.0); MEAN CORPUSCULAR VOLUME 84 FL (80-99); MONOCYTES % (AUTO) 9.9 % (1.0-10.0); NEUTROPHILS % (AUTO) 62.7 % (45.0-75.0); PLATELET COUNT 234 K/UL (150-450); RED BLOOD COUNT 3.28 M/UL (4.70-6.10); RED CELL DISTRIBUTION WIDTH 14.1 % (11.6-14.8); WHITE BLOOD COUNT 3.9 K/UL (4.8-10.8)
[2017-06-18 07:48] LABS: ANION GAP 7 mmol/L (5-15); BLOOD UREA NITROGEN 12 mg/dL (7-18); CALCIUM 7.6 MG/DL (8.5-10.1); CARBON DIOXIDE 24 MMOL/L (21-32); CHLORIDE 112 MMOL/L (98-107); CREATININE 1.2 MG/DL (0.55-1.30); POTASSIUM 3.5 MMOL/L (3.5-5.1); SODIUM 143 MMOL/L (136-145)
[2017-06-18] MEDS: Metoprolol Succinate XL 25mg tab ORAL SCH (08:46)
[2017-06-18] MEDS: Pantoprazole Inj IV SCH (08:46)
[2017-06-18] MEDS ORDERED: Lidocaine 1% MPF 10mg/ml 5ml ONE (10:00)
[2017-06-18] MEDS ORDERED: Propofol 200mg/20ml IV ONE (10:00)
[2017-06-18] MEDS ORDERED: Glycopyrrolate 0.2mg/ml 1ml Vial ONE (10:00)
[2017-06-18] MEDS ORDERED: NS 500ML IV ONE (10:10)
--- NOTE | 2017-06-18 10:11 | Pre-Procedure Note/Attestation ---
Pre-Procedure Note/Attestation Complete Prior to Procedure Planned Procedure: not applicable Procedure Narrative: colon Indications for Procedure Pre-Operative Diagnosis: UGIBanemia Attestation I attest that I discussed the nature of the procedure; its benefits; risks and complications; and alternatives (and the risks and benefits of such alternatives ), prior to the procedure, with the patient (or the patient's legal quality audit representative). I attest that, if there was a reasonable possibility of needing a blood transfusion, the patient (or the patient's legal quality audit representative) was given the [facility] standardized written summary, pursuant to the [place] Blood Safety Act ([place] Health and Safety Code # 1645, as amended). I attest that I re-evaluated the patient just prior to the surgery and that there has been no change in the patient's H&P, except as documented below: ZACKERY MORENO Jun 18, 2017 10:10
--- NOTE | 2017-06-18 11:06 | Endoscopy Procedure Note ---
Endoscopy Procedure Note General Indication for Procedure: Anemia Procedures Performed: colonoscopy Operative Findings/Diagnosis: divertic, normal TI Specimen: none Pt Tolerated Procedure Well: Yes Estimated Blood Loss: none Anesthesia Anesthesiologist: Brendon Delacruz Anesthesia: MAC Medications Medication Given: see anesthesia record Inserted Devices Implant(s) used?: No GI Core Measures 50 yrs or older w/o bx or poly: Not Applicable 10yrs. F/U not recommended: Not Applicable If not recommended, why?: ZACKERY MORENO Jun 18, 2017 11:06
--- NOTE | 2017-06-18 11:08 | Brief Operative Note ---
Immediate Post Operative Note Operative Note Chief Complaint: anemia Pre-op Diagnosis: anemia Procedure: colon Post-op Diagnosis: - 8-9 cm hiatal hernia - GERD with esophageal ulcer - mild non-erosive duodenitis Surgeon: shin Anesthesiologist: bhargav ibrahim Anesthesia: MAC Specimen: yes Complications: none Condition: stable Fluids: recorded Estimated Blood Loss: none Drains: none Implant(s) used?: No ZACKERY MORENO Jun 18, 2017 11:08
--- NOTE | 2017-06-18 11:10 | General Progress Note ---
Assessment/Plan Assessment/Plan Assessment - Anemia - 8-9 cm Hiatal hernia - possibly the etiology of anemia - GERD with esophageal ulcer Recommendations - Colonoscopy today - ASA and plavix on hold - resume after colonoscopy - PPI half-way for HH and GERD Subjective Allergies: Coded Allergies: No Known Allergies (Unverified , 08/05/12) Subjective (++) BM with prep NPO for colonoscopy Objective Last 24 Hour Vital Signs Date Time Temp Pulse Resp B/P (MAP) Pulse Ox O2 Delivery O2 Flow Rate FiO2 06/18/17 08:46 67 130/70 06/18/17 08:20 97.5 62 17 134/74 Nasal Cannula 97.5 06/18/17 08:00 62 61 06/18/17 04:00 98.2 67 20 130/70 99 Nasal Cannula 98.2 06/18/17 04:00 Nasal Cannula 2.0 06/18/17 00:00 97.5 68 20 119/66 97 97.5 06/18/17 00:00 Nasal Cannula 2.0 06/17/17 22:03 72 84 77 06/17/17 20:23 Nasal Cannula 2.0 28 06/17/17 20:23 98 Nasal Cannula 2.0 28 06/17/17 20:00 Nasal Cannula 2.0 06/17/17 20:00 98.1 72 20 119/57 98 98.1 06/17/17 16:00 98.1 93 20 103/71 100 98.1 06/17/17 16:00 106 151 85 06/17/17 15:39 97.5 06/17/17 14:40 97.5 06/17/17 12:15 97.5 57 22 150/69 99 Nasal Cannula 2.0 97.5 Intake and Output 06/17/17 06/18/17 19:00 07:00 Intake Total 480 ml 1065 ml Output Total 600 ml 250 ml Balance -120 ml 815 ml Intake Oral 480 ml IV Total 1065 ml Output Urine Total 600 ml 250 ml # Voids 4 3 # Bowel Movements 1 5 Laboratory Tests 06/18/17 06:12: White Blood Count 3.9L, Red Blood Count 3.28L, Hemoglobin 9.0L, Hematocrit 27.7L , Mean Corpuscular Volume 84, Mean Corpuscular Hemoglobin 27.4, Mean Corpuscular Hemoglobin Concent 32.5, Red Cell Distribution Width 14.1, Platelet Count 234, Mean Platelet Volume 6.1L, Neutrophils (%) (Auto) 62.7, Lymphocytes ( %) (Auto) 23.9, Monocytes (%) (Auto) 9.9, Eosinophils (%) (Auto) 2.8, Basophils (%) (Auto) 0.7, Sodium Level 143, Potassium Level 3.5, Chloride Level 112H, Carbon Dioxide Level 24, Anion Gap 7, Blood Urea Nitrogen 12, Creatinine 1.2, Estimat Glomerular Filtration Rate , Glucose Level 76, Calcium Level 7.6L Height (Feet): 5 Height (Inches): 4.00 Weight (Pounds): 156 Objective Elderly man NCAT supple CTA RRR Soft NT ND no edema ZACKERY MORENO Jun 18, 2017 11:10
[2017-06-18] MEDS ORDERED: Atropine Inj 1mg/10ml Syr IV PRN (11:15)
[2017-06-18] MEDS ORDERED: fentaNYL 100 mcg/2 mL IV PRN (11:15)
[2017-06-18] MEDS ORDERED: DiphenhydrAMINE 50mg/ml Inj IVP PRN (11:15)
[2017-06-18] MEDS ORDERED: Midazolam 2mg/2ml Inj IVP PRN (11:15)
--- NOTE | 2017-06-18 11:15 | Brief Operative Note ---
Immediate Post Operative Note Operative Note Chief Complaint: anemia Pre-op Diagnosis: anemia Procedure: colon Post-op Diagnosis: severe L tics, mild R tics, normal TI Surgeon: alena Anesthesiologist: bhargav ibrahim Anesthesia: moderate sedation Specimen: none Complications: none Condition: stable Fluids: recorded Estimated Blood Loss: none Drains: none Implant(s) used?: No ZACKERY MORENO Jun 18, 2017 11:15
--- NOTE | 2017-06-18 12:27 | Immediate Post-Op Evaluation ---
Immediate Post-Op Evalulation Immediate Post-Op Evalulation Procedure: colonoscopy Date of Evaluation: Jun 18, 2017 Time of Evaluation: 11:33 IV Fluids: 450ml 0.9ns Blood Products: none Estimated Blood Loss: negligible Blood Pressure Systolic: 151 Blood Pressure Diastolic: 80 Pulse Rate: 72 Respiratory Rate: 18 O2 Sat by Pulse Oximetry: 100 Temperature (Fahrenheit): 97.1 Pain Score (1-10): 0 Nausea: No Vomiting: No Complications none Patient Status: awake, reacts, patent Hydration Status: adequate Drug: MARTHA Perdue Jun 18, 2017 12:27
--- NOTE | 2017-06-18 12:30 | 48 Hour Post Anesthesia Eval ---
Post Anesthesia Evaluation Procedure: colonoscopy Date of Evaluation: Jun 18, 2017 Time of Evaluation: 11:35 Blood Pressure Systolic: 162 0: 86 Pulse Rate: 79 Respiratory Rate: 18 Temperature (Fahrenheit): 97.1 O2 Sat by Pulse Oximetry: 100 Airway: patent Nausea: No Vomiting: No Pain Intensity: 0 Hydration Status: adequate Cardiopulmonary Status: ekg obtained revealing nsr, rbbb no pac noted. preop ekg revealed sinus tachycardia psvc (PACs), rbbb. pt is hemodynamically stable Mental Status/LOC: patient returned to baseline Post-Anesthesia Complications: none Follow-up care needed: N/A MARTHA DAVIS Jun 18, 2017 12:30
[2017-06-18] MEDS ORDERED: Tubing IV Secondary IV ONE (16:32)
--- NOTE | 2017-06-18 21:02 | Procedure Note ---
DATE OF PROCEDURE: 06/18/2017 PROCEDURE: Colonoscopy. SURGEON: Montserrat Flores M.D. ANESTHESIA: Please see the separate anesthesiologist notes for details. PRE-ENDOSCOPIC DIAGNOSIS: Anemia. POST-ENDOSCOPIC DIAGNOSES: 1. Severe left-sided and mild right-sided colonic diverticulosis. 2. Normal terminal ileum. 3. No pathology to explain the patient's anemia was identified. DESCRIPTION OF PROCEDURE: The procedure, its risks, indications, alternatives, and possible complications were explained and an informed consent was obtained. The patient was then sedated. A rectal exam was done, which was unremarkable. The colonoscope was then introduced in the rectum and advanced to the terminal ileum. Findings were as listed above. The colonoscope was removed and the patient was sent to recovery in good condition. COMPLICATIONS: None. RECOMMENDATIONS: 1. Resume oral diet. 2. High-fiber intake. 3. Monitor CBC. 4. Proton-pump inhibitor and reflux precautions. Thank you very much. Montserrat Flores M.D. DR: CHRISTINE JOB#: [id number] CC:
--- NOTE | 2017-06-19 00:16 | Discharge Summary ---
DATE OF ADMISSION: 06/15/2017 DATE OF DISCHARGE: 06/18/2017 PERTINENT HISTORY: The patient is an 82-year-old man, admitted with anemia, nausea, vomiting, diarrhea, and likely chronic gastrointestinal bleeding. There is a history of CVA, prior polio, gastritis, osteoarthritis, and prostate cancer. PERTINENT PHYSICAL FINDINGS: See the dictated History and Physical. VITAL SIGNS: The patient had blood pressure of 87/55. HEENT: Oral mucosa is slightly dry. He is hard of hearing. NECK: No adenopathy. LUNGS: He has moderate cough with faint expiratory rhonchi. HEART: Regular rhythm with a 1 to 2/6 systolic ejection murmur. ABDOMEN: Soft. No tenderness. RECTAL: Prostate enlarged, grade 1-2/4. No discrete nodules. Light brown stool. EXTREMITIES: No edema, cyanosis, or clubbing. There are contractures in the elbows and total knee replacement. COURSE IN THE HOSPITAL: The patient had severe anemia with hemoglobin as low as 7.4 and he was transfused and given iron for anemia of blood loss. He also had dehydration with a BUN 28, and creatinine 1.5 on admission, improved to 12 and 1.2. He was seen by Dr. Flores in GI consultation and received PPI and endoscopy. Findings showed a large hiatal hernia and esophageal ulcer, which may have been the source of bleeding and he also was found on colonoscopy to have diverticular disease, but no overt bleeding. The patient at the time of discharge was stable, alert, able to the eat. No abdominal pain. Lungs clear. Heart, regular rhythm. Abdomen is soft and nontender. His blood pressure was normal and he was discharged home in stable condition. FINAL DIAGNOSES: 1. Gastrointestinal bleeding. 2. Hiatal hernia. 3. Esophageal ulcer. 4. Gastroesophageal reflux disease. 5. History of cerebrovascular accident. 6. Hypovolemic shock. 7. Dehydration. 8. History of hypertension. 9. History osteoarthritis. 10. 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 DISCHARGE DISPOSITION: Home on no added salt diet. DISCHARGE MEDICATIONS: Per the discharge medication list. FOLLOWUP: Follow up in the office of Dr. Marsh. Quentin Marsh M.D. DR: EAMON JOB#: [id number] CC:
== END 2017-06-18 16:33 | disposition home or self-care (01) | DRG 377 ==
LOC: EMR 08:50 → EDBEDREQ 09:13 → 4E 09:30 → EDBEDREQ 09:59 → SDSOVERFLO 06-17 14:30 → 4E 06-17 14:31
PROC: 0DJ08ZZ Inspection of Upper Intestinal Tract, Via Natural or Artificial Opening Endoscopic (ICD-10-PCS; principal; 2017-06-15)
PROC: 30233N1 Transfusion of Nonautologous Red Blood Cells into Peripheral Vein, Percutaneous Approach (ICD-10-PCS; principal; 2017-06-15)
PROC: 0DJD8ZZ Inspection of Lower Intestinal Tract, Via Natural or Artificial Opening Endoscopic (ICD-10-PCS; 2017-06-18)
DX: K25.4 Chronic or unspecified gastric ulcer with hemorrhage (principal); R57.1 Hypovolemic shock; I95.9 Hypotension, unspecified; E86.0 Dehydration; D64.9 Anemia, unspecified; K22.11 Ulcer of esophagus with bleeding; K92.2 Gastrointestinal hemorrhage, unspecified; R11.2 Nausea with vomiting, unspecified; R19.7 Diarrhea, unspecified; K44.9 Diaphragmatic hernia without obstruction or gangrene; K21.9 Gastro-esophageal reflux disease without esophagitis; K29.80 Duodenitis without bleeding; Z86.73 Personal history of transient ischemic attack (TIA), and cerebral infarction without residual deficits; I10 Essential (primary) hypertension; M19.90 Unspecified osteoarthritis, unspecified site; G14 Postpolio syndrome; Z79.02 Long term (current) use of antithrombotics/antiplatelets; I25.10 Atherosclerotic heart disease of native coronary artery without angina pectoris; Z85.46 Personal history of malignant neoplasm of prostate; M24.522 Contracture, left elbow; M24.521 Contracture, right elbow; K57.90 Diverticulosis of intestine, part unspecified, without perforation or abscess without bleeding; Z96.653 Presence of artificial knee joint, bilateral
CPT/HCPCS: 36415; 71045; 80048; 80053; 80329; 81001; 81003; 82270; 82728; 83540; 83550; 83605; 83690; 83880; 84153; 84443; 84484; 85007; 85025; 85610; 85730; 86710; 86850; 86900; 86901; 86920; 87040; 87045; 87324; 93005; 94003; 94150; 94760; 99285; J2405

== ENCOUNTER 2017-07-22 15:49 | Inpatient (IN) | payer MEDICARE, MEDICAID ==
[~2017-07-22] VITALS: Ht 134.6 cm; Wt 65.8 kg
[~2017-07-22 15:49] MED LIST changes: +AMLODIPINE BESY10 MG ORAL; +ASPIRIN81 MG ORAL; +ATORVASTATIN CA10 MG ORAL; +CLOPIDOGREL75 MG ORAL; +ISOSORBIDE MONO30 M1 PO; +METOPROLOL SUCC25 MG ORAL; +ZANTAC150 MG ORAL
[2017-07-22] MEDS ORDERED: Sodium Chloride 500ML 500 ML IV ONE (16:02)
[2017-07-22] MEDS ORDERED: DIOVAN160 MG ORAL (16:07)
--- NOTE | 2017-07-22 16:10 | Emergency Room Report ---
History of Present Illness General Chief Complaint: Abnormal Labs Source: Patient Present Illness HPI 82-year-old male presents ED. Patient referred from PMD office for low hemoglobin. PMD is Dr. Marsh. Patient has history of chronic GI bleed. Denies vomiting blood. Denies any blood in stool. Denies any blood thinners. Denies chest pain or shortness of breath. Denies abdominal pain nausea or vomiting. No other aggravating or relieving factors. Denies any other associated symptoms Allergies: Coded Allergies: No Known Allergies (Unverified , 08/05/12) Patient History Past Medical History: HTN, asthma, GERD, GI bleed, CVA/TIA Pertinent Family History: none Social History: Denies: smoking, alcohol use, drug use Immunizations: UTD Reviewed Nursing Documentation: PMH: Agreed; PSxH: Agreed Nursing Documentation-PMH Hx Cardiac Problems: Yes Hx Hypertension: Yes Hx Asthma: Yes Hx Cancer: Yes Hx Gastrointestinal Problems: Yes Hx Neurological Problems: Yes Hx Cerebrovascular Accident: Yes Review of Systems All Other Systems: negative except mentioned in HPI Physical Exam Vital Signs Date Time Temp Pulse Resp B/P (MAP) Pulse Ox O2 Delivery O2 Flow Rate FiO2 07/22/17 16:01 98.1 73 19 116/56 98 Room Air 98.1 Sp02 EP Interpretation: reviewed, normal General Appearance: no apparent distress, alert, GCS 15, non-toxic Head: normocephalic, atraumatic Eyes: bilateral eye normal inspection, bilateral eye PERRL ENT: hearing grossly normal, normal pharynx, no angioedema, normal voice Neck: full range of motion, supple/symm/no masses Respiratory: chest non-tender, lungs clear, normal breath sounds, speaking full sentences Cardiovascular #1: regular rate, rhythm, no edema Cardiovascular #2: 2+ carotid (R), 2+ carotid (L), 2+ radial (R), 2+ radial (L) , 2+ dorsalis pedis (R), 2+ dorsalis pedis (L) Gastrointestinal: normal bowel sounds, non tender, soft, non-distended, no guarding, no rebound Rectal: deferred Genitourinary: normal inspection, no CVA tenderness Musculoskeletal: back normal, gait/station normal, normal range of motion, non- tender Neurologic: alert, oriented x3, responsive, motor strength/tone normal, sensory intact, speech normal Psychiatric: judgement/insight normal, memory normal, mood/affect normal, no suicidal/homicidal ideation Reflexes: 3+ bicep (R), 3+ bicep (L), 3+ tricep (R), 3+ tricep (L), 3+ knee (R) , 3+ knee (L) Skin: normal color, no rash, warm/dry, well hydrated Lymphatic: no adenopathy Medical Decision Making Diagnostic Impression: Primary Impression: GI bleed Qualified Codes: K92.2 - Gastrointestinal hemorrhage, unspecified Additional Impressions: Anemia Qualified Codes: D64.9 - Anemia, unspecified Renal insufficiency UTI (urinary tract infection) Qualified Codes: N39.0 - Urinary tract infection, site not specified ER Course Hospital Course 82-year-old male presents to ED with low hemoglobin on lab work. 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 After initial history and physical I ordered labs, IV fluids, EKG Labs - no leukocytosis, Hb/Hct 5.9/18.5. BUN/Cr 32/1.6. UA + bacteria EKG - RBB, no acute ischemic changes interpreted by me Vital stable. PRBCs transfused. Consent obtained. Antibiotics given. Case discussed with Dr. Marsh and he agreed to accept the patient to his service for further care and support I feel this is a highly complex case requiring extensive working including EKG/ Rhythm strip, Xray/CT/US, Blood/urine lab work, repeat exams while in ED, and administration of strong opiates/narcotics for pain control, admission to hospital or close patient follow up. Diagnosis - GI bleed, anemia, renal insufficiency, UTI Patient admitted to telemetry in serious condition Labs Test 07/22/17 16:30 07/22/17 16:40 Urine Color Pale yellow Urine Appearance Cloudy Urine pH 7 (4.5-8.0) Urine Specific [place] 1.010 (1.005-1.035) Urine Protein Negative (NEGATIVE) Urine Glucose (UA) Negative (NEGATIVE) Urine Ketones Negative (NEGATIVE) Urine Occult Blood 2+ (NEGATIVE) Urine Nitrite Negative (NEGATIVE) Urine Bilirubin Negative (NEGATIVE) Urine Urobilinogen Normal MG/DL (0.0-1.0) Urine Leukocyte Esterase 2+ (NEGATIVE) Urine RBC 0-2 /HPF (0 - 0) Urine WBC 0-2 /HPF (0 - 0) Urine Squamous Epithelial Cells None /LPF (NONE/OCC) Urine Amorphous Sediment Many /LPF (NONE) Urine Bacteria Moderate /HPF (NONE) White Blood Count 4.2 K/UL (4.8-10.8) Red Blood Count 2.26 M/UL (4.70-6.10) Hemoglobin 5.9 G/DL (14.2-18.0) Hematocrit 18.5 % (42.0-52.0) Mean Corpuscular Volume 82 FL (80-99) Mean Corpuscular Hemoglobin 26.2 PG (27.0-31.0) Mean Corpuscular Hemoglobin Concent 32.1 G/DL (32.0-36.0) Red Cell Distribution Width 17.2 % (11.6-14.8) Platelet Count 287 K/UL (150-450) Mean Platelet Volume 6.5 FL (6.5-10.1) Neutrophils (%) (Auto) % (45.0-75.0) Lymphocytes (%) (Auto) % (20.0-45.0) Monocytes (%) (Auto) % (1.0-10.0) Eosinophils (%) (Auto) % (0.0-3.0) Basophils (%) (Auto) % (0.0-2.0) Prothrombin Time 11.3 SEC (9.30-11.50) Prothromb Time International Ratio 1.1 (0.9-1.1) Activated Partial Thromboplast Time 23 SEC (23-33) Sodium Level 142 MMOL/L (136-145) Potassium Level 4.4 MMOL/L (3.5-5.1) Chloride Level 108 MMOL/L (98-107) Carbon Dioxide Level 28 MMOL/L (21-32) Anion Gap 7 mmol/L (5-15) Blood Urea Nitrogen 32 mg/dL (7-18) Creatinine 1.6 MG/DL (0.55-1.30) Estimat Glomerular Filtration Rate mL/min (>60) Glucose Level 109 MG/DL (74-106) Calcium Level 8.6 MG/DL (8.5-10.1) Total Bilirubin 0.2 MG/DL (0.2-1.0) Aspartate Amino Transf (AST/SGOT) 16 U/L (15-37) Alanine Aminotransferase (ALT/SGPT) 21 U/L (12-78) Alkaline Phosphatase 69 U/L (46-116) Total Creatine Kinase 46 U/L (26-308) Creatine Kinase MB < 0.5 NG/ML (0.0-3.6) Creatine Kinase MB Relative Index 1.0 Troponin I 0.010 ng/mL (0.000-0.056) Total Protein 6.0 G/DL (6.4-8.2) Albumin 2.8 G/DL (3.4-5.0) Globulin 3.2 g/dL Albumin/Globulin Ratio 0.9 (1.0-2.7) Lipase 235 U/L (73-393) EKG Diagnostic Results Rate: normal Rhythm: NSR ST Segments: no acute changes ASA given to the pt in ED: No Rhythm Strip Diag. Results EP Interpretation: yes Rhythm: NSR, no PVC's, no ectopy Last Vital Signs Date Time Temp Pulse Resp B/P (MAP) Pulse Ox O2 Delivery O2 Flow Rate FiO2 07/22/17 16:01 98.1 73 19 116/56 98 Room Air 98.1 Status: improved Disposition: ADMITTED INPATIENT Condition: Serious Josh Esposito MD Jul 22, 2017 16:10
[2017-07-22] MEDS ORDERED: Pantoprazole Inj IV ONE (16:15)
[2017-07-22 16:38] VITALS: BP 116/56
[2017-07-22 16:57] LABS: HEMATOCRIT 18.5 % (42.0-52.0); MEAN CORPUSCULAR VOLUME 82 FL (80-99); PLATELET COUNT 287 K/UL (150-450); RED BLOOD COUNT 2.26 M/UL (4.70-6.10); RED CELL DISTRIBUTION WIDTH 17.2 % (11.6-14.8); WHITE BLOOD COUNT 4.2 K/UL (4.8-10.8)
[2017-07-22 17:03] LABS: HEMOGLOBIN 5.9 G/DL (14.2-18.0)
[2017-07-22 17:08] LABS: APPEARANCE,URINE CLOUDY; BILIRUBIN, URINE NEGATIVE (NEGATIVE); COLOR,URINE PALE YELLOW; GLUCOSE, URINE (UA) NEGATIVE (NEGATIVE); KETONES,URINE NEGATIVE (NEGATIVE); LEUKOCYTE ESTERASE ,URINE 2+ (NEGATIVE); NITRITE,URINE NEGATIVE (NEGATIVE); PH,URINE 7 (4.5-8.0); PROTEIN,URINE NEGATIVE (NEGATIVE); UROBILINOGEN,URINE NORMAL MG/DL (0.0-1.0)
[2017-07-22 17:09] LABS: INR 1.1 (0.9-1.1)
[2017-07-22 17:13] LABS: ANION GAP 7 mmol/L (5-15); BLOOD UREA NITROGEN 32 mg/dL (7-18); CALCIUM 8.6 MG/DL (8.5-10.1); CARBON DIOXIDE 28 MMOL/L (21-32); CHLORIDE 108 MMOL/L (98-107); CREATININE 1.6 MG/DL (0.55-1.30); POTASSIUM 4.4 MMOL/L (3.5-5.1); SODIUM 142 MMOL/L (136-145)
[2017-07-22 17:26] LABS: ALANINE AMINOTRANSFERASE 21 U/L (12-78); ALBUMIN 2.8 G/DL (3.4-5.0); ALBUMIN/GLOBULIN RATIO 0.9 (1.0-2.7); ALKALINE PHOSPHATASE 69 U/L (46-116); ASPARTATE AMINO TRANSFERASE 16 U/L (15-37); BILIRUBIN,TOTAL 0.2 MG/DL (0.2-1.0); CKMB < 0.5 NG/ML (0.0-3.6); CREATINE KINASE 46 U/L (26-308)
[2017-07-22 18:11] VITALS: BP 123/59
[2017-07-22 21:00] VITALS: BP 120/75
[2017-07-22] MEDS ORDERED: Miralax 17gm pkt ORAL PRN (21:15)
[2017-07-22] MEDS ORDERED: Acetaminophen 500mg (ES) tab ORAL PRN (21:15)
[2017-07-22] MEDS ORDERED: Docusate 250mg cap ORAL PRN (21:15)
[2017-07-23] VITALS: BP 126/64
[2017-07-23] MEDS: Sennosides 8.6mg ORAL SCH ×3 (00:09→17:16)
[2017-07-23] MEDS: Sucralfate 1gm tab ORAL SCH ×4 (00:10→16:30)
[2017-07-23 04:00] VITALS: BP 139/86
[2017-07-23 08:00] VITALS: BP 139/68
--- NOTE | 2017-07-23 08:46 | History and Physical Report ---
DATE OF ADMISSION: 07/22/2017 CHIEF COMPLAINT AND REASON FOR HOSPITALIZATION: The patient was admitted for severe anemia. HISTORY OF PRESENT ILLNESS: The patient is well known to me for many years. He has a history of gastritis and hiatal hernia and was hospitalized here on 05/26/2017 for low back pain and on 06/15/2017 when he had anemia and GI bleed. During that admission, he had endoscopic procedures and was seen by Dr. Flores and had large hiatal hernia with gastritis. He also had a colonoscopy. Aspirin and Plavix were held for some time and subsequently were resumed. He has had a prior stroke and underlying coronary disease. The patient has had post-polio syndrome with contractures of his arms. He has had chronic low back pain, which is better lately. He has had a history of prostate cancer with a stable course and no metastatic disease. SURGERIES: Prostatectomy, prostate biopsy, bilateral total knee replacements, bilateral cataracts. HOME MEDICATIONS: Fosamax, atorvastatin, gabapentin, aspirin, Toprol, nitroglycerin, Imdur, amlodipine, Plavix, valsartan, ranitidine, and Namenda XR. ALLERGIES: None known. HABITS: He is a nondrinker and nonsmoker. No use of illicit drugs. REVIEW OF SYSTEMS: HEAD, EYES, EARS, NOSE, AND THROAT: He wears bilateral hearing aids. He has had cataract surgery with stable vision. ENDOCRINE: No diabetes or thyroid disease. PULMONARY: No chronic cough or asthma or TB. CARDIAC: He had chest pains and an abnormal stress test as an outpatient, but elected not to have angiography. No recent chest pains. GASTROINTESTINAL: See above. GENITOURINARY: No dysuria, hematuria, or kidney stones. In the past, he took Lupron for prostate cancer, but his PSA's have been normal and Lupron was stopped for more than a year. 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 He had been using a walker, but now he is mostly in a wheelchair. He has had low back pain. NEUROLOGIC: History of CVA with minimal residual within the last 6 months, for which he was placed on Plavix and aspirin. HEMATOLOGIC: He has had a drop in his hemoglobin and iron deficiency anemia. Hemoglobin in my office this week 6.6, and last month was more than 8.5, and prior to that was normal prior to his GI bleed. PHYSICAL EXAMINATION: GENERAL: The patient is an alert man, seen in the emergency room. VITAL SIGNS: Recorded in the computer. HEAD, EYES, EARS, NOSE, AND THROAT: Sclerae are nonicteric. Ocular motions intact in all directions. Oral mucosa slightly dry. NECK: No adenopathy or thyroid enlargement. LUNGS: Clear. HEART: Regular rhythm. No murmur. ABDOMEN: Soft without organomegaly or masses. RECTAL: Light brown stool on the glove. Prostate is enlarged 1/4. I feel no nodules. EXTREMITIES: No edema, cyanosis, or clubbing. There are bilateral total knees and contractures at the elbows. NEUROLOGIC: He is alert and responsive. Cranial nerves are intact. No focal findings. IMPRESSION: 1. Anemia, iron deficiency, with gradual worsening anemia, likely due to slow gastrointestinal bleeding from hiatal hernia and severe gastritis. 2. History of recently taking aspirin and Plavix post cerebrovascular accident. 3. History of hypertension. 4. History of hyperlipidemia. 5. History of post-polio syndrome. 6. History of cerebrovascular accident with minimal residual. PLAN: His aspirin and Plavix will be discontinued. We will continue PPIs. Family and he agreed to transfusion and we will observe his clinical course. Quentin Marsh M.D. DR: TYE JOB#: [id number] CC:
[2017-07-23] MEDS ORDERED: Imdur 30mg tab ORAL SCH (09:00)
[2017-07-23] MEDS ORDERED: Metoprolol Succinate XL 25mg tab ORAL SCH (09:00)
[2017-07-23 10:02] LABS: BASOPHILS % (AUTO) 0.7 % (0.0-2.0); EOSINOPHILS % (AUTO) 2.3 % (0.0-3.0); HEMATOCRIT 29.2 % (42.0-52.0); HEMOGLOBIN 9.8 G/DL (14.2-18.0); LYMPHOCYTES % (AUTO) 13.5 % (20.0-45.0); MEAN CORPUSCULAR VOLUME 83 FL (80-99); MONOCYTES % (AUTO) 7.4 % (1.0-10.0); NEUTROPHILS % (AUTO) 76.2 % (45.0-75.0); PLATELET COUNT 255 K/UL (150-450); RED BLOOD COUNT 3.52 M/UL (4.70-6.10); RED CELL DISTRIBUTION WIDTH 14.6 % (11.6-14.8); WHITE BLOOD COUNT 5.4 K/UL (4.8-10.8)
[2017-07-23 10:12] LABS: ANION GAP 10 mmol/L (5-15); BLOOD UREA NITROGEN 26 mg/dL (7-18); CALCIUM 8.3 MG/DL (8.5-10.1); CARBON DIOXIDE 23 MMOL/L (21-32); CHLORIDE 107 MMOL/L (98-107); CREATININE 1.5 MG/DL (0.55-1.30); POTASSIUM 3.8 MMOL/L (3.5-5.1); SODIUM 140 MMOL/L (136-145)
[2017-07-23 12:00] VITALS: BP 142/76
[2017-07-23] MEDS ORDERED: OMEPRAZOLE40 M1 ORAL (16:45)
[2017-07-23] MEDS ORDERED: CARAFATE1 G1 ORAL (16:45)
--- NOTE | 2017-07-23 22:58 | General Progress Note ---
Assessment/Plan Assessment/Plan GI CONSULT Seen today Dictated Sandra Subjective Allergies: Coded Allergies: No Known Allergies (Unverified , 08/05/12) Objective Last 24 Hour Vital Signs Date Time Temp Pulse Resp B/P (MAP) Pulse Ox O2 Delivery O2 Flow Rate FiO2 07/23/17 12:00 97.3 68 19 142/76 99 Room Air 97.3 07/23/17 08:45 82 139/86 07/23/17 08:45 139/86 07/23/17 08:00 97.3 71 20 139/68 99 Room Air 97.3 07/23/17 04:19 82 07/23/17 04:00 97.7 75 20 139/86 98 Room Air 97.7 07/23/17 00:00 97.9 85 20 126/64 98 Room Air 97.9 07/22/17 23:44 89 Intake and Output 07/22/17 07/23/17 19:00 07:00 # Voids 1 1 Laboratory Tests 07/23/17 09:40: White Blood Count 5.4, Red Blood Count 3.52L, Hemoglobin 9.8#L, Hematocrit 29.2# L, Mean Corpuscular Volume 83, Mean Corpuscular Hemoglobin 27.8, Mean Corpuscular Hemoglobin Concent 33.5, Red Cell Distribution Width 14.6, Platelet Count 255, Mean Platelet Volume 6.1L, Neutrophils (%) (Auto) 76.2H, Lymphocytes (%) (Auto) 13.5L, Monocytes (%) (Auto) 7.4, Eosinophils (%) (Auto) 2.3, Basophils (%) (Auto) 0.7, Sodium Level 140, Potassium Level 3.8, Chloride Level 107, Carbon Dioxide Level 23, Anion Gap 10, Blood Urea Nitrogen 26H, Creatinine 1.5H, Estimat Glomerular Filtration Rate , Glucose Level 130H, Calcium Level 8.3L Height (Feet): 4 Height (Inches): 5.00 Weight (Pounds): 145 ZACKERY MORENO Jul 23, 2017 22:58
--- NOTE | 2017-07-24 00:31 | Discharge Summary ---
DATE OF ADMISSION: 07/22/2017 DATE OF DISCHARGE: 07/23/2017 PERTINENT HISTORY: The patient admitted with severe anemia. He has had hemoglobin in the office. He was hospitalized recently and found to have severe gastritis and hiatal hernia. PERTINENT PHYSICAL FINDINGS: See the dictated History and Physical. GENERAL: The patient is alert, in no distress. LUNGS: Clear. HEART: Regular rhythm. ABDOMEN: Soft without organomegaly or tenderness. Rectal shows light brown stool on the glove. EXTREMITIES: No edema. COURSE IN THE HOSPITAL: The patient had hemoglobin of 5.9 and he was transfused. Hemoglobin 9.8. BUN 32, creatinine 1.6, repeat 26 and 1.5. He felt well after the above, had no nausea or vomiting, no rectal bleeding, and he was discharged home in stable condition. FINAL DIAGNOSES: 1. Iron-deficiency anemia. 2. History of gastritis and hiatal hernia. 3. History of prior CVA. 4. History of hypertension. 5. History of prostate cancer without recurrence. 6. History of hyperlipidemia. 7. History of post-polio syndrome. 8. History of hypertension. DISCHARGE DISPOSITION: He was discharged home. Medications per the discharge medication list. In specific his aspirin and Plavix were discontinued. Omeprazole 40 mg daily and Carafate 1 gram t.i.d. has been added. Quentin Marsh M.D. DR: Steph JOB#: [id number] CC:
--- NOTE | 2017-07-24 06:02 | Consultation ---
DATE OF CONSULTATION: 07/23/2017 NOTE: POOR AUDIO GASTROENTEROLOGY CONSULTATION CONSULTING PHYSICIAN: Montserrat Flores M.D. CHIEF COMPLAINT: I was asked to see this patient by Dr. Quentin Marsh for evaluation of anemia. HISTORY OF PRESENT ILLNESS: The patient is a pleasant 82-year-old man with a history of gastrointestinal bleeding, comes in to the hospital due to severe anemia. He has received some blood transfusion and he feels much better now and was discharged today subsequently. The patient on a recent admission and at that time, underwent an endoscopy and then subsequently colonoscopy. The endoscopy showed a large hiatal hernia with gastritis and esophagitis and gastroesophageal reflux, which was presumed to be the site of his bleeding. His colonoscopy was unremarkable. His aspirin and Plavix were held for some time and apparently subsequently resumed. The patient has had postpolio syndrome with contractures. He denies any abdominal pain. PAST MEDICAL HISTORY: History of prostatectomy, bilateral total knee replacements, bilateral cataracts, history of gastritis, hiatal hernia, gastroesophageal reflux, and hypertension. ALLERGIES: None. REVIEW OF SYSTEMS: Otherwise negative. PHYSICAL EXAMINATION: GENERAL: A pleasant man, seen in his room. HEENT: Normocephalic and atraumatic. Sclerae anicteric. Oropharynx clear. NECK: Supple. CHEST: Clear to auscultation. CARDIOVASCULAR: Reveals a regular rate. ABDOMEN: Soft, obese with good bowel sounds. EXTREMITIES: Revealed no edema. LABORATORY DATA: Laboratory data were noted. ASSESSMENT: This patient presents with recurrent anemia, which is treated by blood transfusion. The patient has already had a GI workup and I suspect that his recurrent bleeding is from his large hiatal hernia with gastroesophageal reflux. He should be on a long-term proton pump inhibitor and also with reflux precautions. Iron supplementation was given. RECOMMENDATIONS: Per above discussion and per orders written in the chart. Thank you for asking me to participate in the care of this patient. Montserrat Flores M.D. DR: DIANA JOB#: [id number] CC: ALEKSANDER
== END 2017-07-23 18:26 | disposition home health service (06) | DRG 379 ==
LOC: EMR 16:45 → 2E 16:49 → EDBEDREQ 17:16
PROC: 30233N1 Transfusion of Nonautologous Red Blood Cells into Peripheral Vein, Percutaneous Approach (ICD-10-PCS; principal; 2017-07-23)
DX: K29.71 Gastritis, unspecified, with bleeding (principal); K44.9 Diaphragmatic hernia without obstruction or gangrene; D50.9 Iron deficiency anemia, unspecified; I10 Essential (primary) hypertension; E78.5 Hyperlipidemia, unspecified; G14 Postpolio syndrome; Z79.82 Long term (current) use of aspirin; Z79.02 Long term (current) use of antithrombotics/antiplatelets; Z86.73 Personal history of transient ischemic attack (TIA), and cerebral infarction without residual deficits; Z96.653 Presence of artificial knee joint, bilateral
CPT/HCPCS: 36415; 80048; 80053; 81003; 82550; 82553; 83690; 84484; 85007; 85025; 85610; 85730; 86850; 86900; 86901; 86920; 87086; 87181; 93005; 99285

== ENCOUNTER 2018-05-09 02:55 | Inpatient (IN) | payer MEDICARE, MEDICAID ==
[~2018-05-09] VITALS: Ht 152.4 cm; Wt 69.1 kg
[~2018-05-09 02:55] MED LIST changes: +CARAFATE1 G1 ORAL; +DIOVAN160 MG ORAL; +OMEPRAZOLE40 M1 ORAL
[2018-05-09] MEDS ORDERED: UNOBMED ×2 (03:04→07:40)
[2018-05-09 03:10] VITALS: BP 130/62
--- NOTE | 2018-05-09 03:10 | NUR ---
ED Nurse Note: Pt was brought in ED by Ambulance from home. c/o chest pain today, 11/03. Pt is A/O X4, Vital signs stable at this time. waitng for orders.
[2018-05-09] MEDS ORDERED: Nitroglycerin 2% oint pkt TOPIC ONE (03:15)
--- NOTE | 2018-05-09 03:21 | Emergency Room Report ---
History of Present Illness General Chief Complaint: Chest Pain Source: Patient, Family Member Present Illness HPI Patient presents with chest pain and shortness of breath. Apparently this is been going on nightly for one week. In the past week however he gets better with nitroglycerin. Tonight he didn't get better was quite anxious and felt like he was choking and couldn't breathe. The pain is left-sided radiating to his left shoulder. He will not quantitative at this time. There is nausea without any vomiting. He has no diarrhea. There's been no fevers chills or productive cough. Patient also is been retaining fluid with increased edema in his legs. He supposed be taking something for the edema but the daughter doesn' t know what it is. The patient is a poor historian. The last time the patient was hospitalized for "his heart" was one year ago according to family. In the medical record his heart attack was March 2017. Discharge summary from June 2017 reveals these diagnoses: 1. Iron-deficiency anemia. 2. History of gastritis and hiatal hernia. 3. History of prior CVA. 4. History of hypertension. 5. History of prostate cancer without recurrence. 6. History of hyperlipidemia. 7. History of post-polio syndrome. 8. History of hypertension. Allergies: Coded Allergies: No Known Allergies (Unverified , 08/05/12) Patient History Limited by: medical condition Past Medical History: see triage record, old chart reviewed Past Surgical History: other - knee and hip surgery Social History: Denies: smoking Social History Narrative With family Reviewed Nursing Documentation: PMH: Agreed; PSxH: Agreed Nursing Documentation-PMH Hx Cardiac Problems: Yes Hx Hypertension: Yes Hx Asthma: Yes Hx Cancer: Yes Hx Gastrointestinal Problems: Yes Hx Neurological Problems: Yes Hx Cerebrovascular Accident: Yes Review of Systems All Other Systems: limited Physical Exam Vital Signs Date Time Temp Pulse Resp B/P (MAP) Pulse Ox O2 Delivery O2 Flow Rate FiO2 05/09/18 03:00 97.5 97 16 121/61 98 Room Air Sp02 EP Interpretation: reviewed, normal General Appearance: no apparent distress, alert, Chronically Ill Head: normocephalic Eyes: bilateral eye PERRL, bilateral eye other - arcus ENT: moist mucus membranes Neck: supple Respiratory: lungs clear, normal breath sounds Cardiovascular #1: regular rate, rhythm, edema Cardiovascular #2: 2+ radial (R) Gastrointestinal: normal inspection, normal bowel sounds, non tender, no mass, non-distended Rectal: heme positive stool Musculoskeletal: other - deformity of elbows and MCP joints Neurologic: alert, motor weakness, other - Decreased hearing, oriented - X2 Psychiatric: mood/affect normal, other - Poor memory Skin: pallor Procedures Critical Care Time Critical Care Time Total Critical Care Time: 45 min bedside evaluation and treatment excludes procedures (EKG). Reason for critical care: Profound anemia in the face of cardiac illness, GI bleed Possible complications: hypotension, hypertension, AR, shock, arrhythmias, metabolic acidosis, end organ damage, respiratory failure. Interventions: Aspirin, nitrates, blood transfusion, Protonix Course: Patient presents with chest pain. Evaluation reveals profound anemia. In addition troponin is positive. Aspirin and nitrates have been started for the chest pain. Blood bank was called to arrange for transfusion. Risks and benefits of transfusion discussed with patient and family. Transfusions begun and tolerated well. Consultations: nursing staff, EMS, family, blood bank Performed by: Dr. Anthony Tolerated well condition = serious Medical Decision Making Diagnostic Impression: Primary Impression: NSTEMI (non-ST elevation myocardial infarction) Additional Impressions: Chest pain Qualified Codes: R07.89 - Other chest pain CHF (congestive heart failure) Qualified Codes: I50.9 - Heart failure, unspecified GI bleed Qualified Codes: K92.2 - Gastrointestinal hemorrhage, unspecified Profound anemia Qualified Codes: D62 - Acute posthemorrhagic anemia UTI (urinary tract infection) Qualified Codes: N39.0 - Urinary tract infection, site not specified ER Course Patient presents with chest pain and dyspnea. Differential includes acute microinfarction, congestive heart failure, GERD amongst others. Patient will be evaluated with EKG, chest x-ray and labs. Clinically he looks like he is in failure and will be treated with aspirin, nitroglycerin paste and Lasix. He's a poor historian and most likely will need to be observed to exclude acute myocardial damage. EKG without injury. Chest x-ray mild increased taylor. CBC with critical anemia. Mildly elevated BNP. Urinalysis with pyuria. Mild renal insufficiency. Rectal reveals guaiac positive stools. Protonix begun for GI bleed. Lab called with positive troponin. Aspirin and nitrates have been given. Discussed with blood bank need for emergent transfusion. In addition risks and benefits were discussed with family. He has received transfusions in the past. Rocephin given for UTI. Patient denies pain. Blood transfusion initiated. Patient tolerating well. Admit to stepdown unit Dr. Marsh. Laboratory Tests Test 05/09/18 04:10 White Blood Count 3.6 K/UL (4.8-10.8) L Red Blood Count 2.34 M/UL (4.70-6.10) L Hemoglobin 5.2 G/DL (14.2-18.0) *L Hematocrit 17.3 % (42.0-52.0) L Mean Corpuscular Volume 74 FL (80-99) L Mean Corpuscular Hemoglobin 22.4 PG (27.0-31.0) L Mean Corpuscular Hemoglobin Concent 30.3 G/DL (32.0-36.0) L Red Cell Distribution Width 20.1 % (11.6-14.8) H Platelet Count 299 K/UL (150-450) Mean Platelet Volume 6.5 FL (6.5-10.1) Neutrophils (%) (Auto) % (45.0-75.0) Lymphocytes (%) (Auto) % (20.0-45.0) Monocytes (%) (Auto) % (1.0-10.0) Eosinophils (%) (Auto) % (0.0-3.0) Basophils (%) (Auto) % (0.0-2.0) Neutrophils % (Manual) Pending Lymphocytes % (Manual) Pending Platelet Estimate Pending Platelet Morphology Pending Prothrombin Time 11.7 SEC (9.30-11.50) H Prothrombin Time INR 1.1 (0.9-1.1) PTT 22 SEC (23-33) L Urine Color Pale yellow Urine Appearance Slightly cloudy Urine pH 7 (4.5-8.0) Urine Specific [place] 1.015 (1.005-1.035) Urine Protein 1+ (NEGATIVE) H Urine Glucose (UA) Negative (NEGATIVE) Urine Ketones Negative (NEGATIVE) Urine Blood Negative (NEGATIVE) Urine Nitrite Negative (NEGATIVE) Urine Bilirubin Negative (NEGATIVE) Urine Urobilinogen Normal MG/DL (0.0-1.0) Urine Leukocyte Esterase 2+ (NEGATIVE) H Urine RBC Pending Urine WBC Pending Urine Squamous Epithelial Cells Pending Urine Bacteria Pending Sodium Level 140 MMOL/L (136-145) Potassium Level 4.1 MMOL/L (3.5-5.1) Chloride Level 107 MMOL/L (98-107) Carbon Dioxide Level 24 MMOL/L (21-32) Anion Gap 9 mmol/L (5-15) Blood Urea Nitrogen 29 mg/dL (7-18) H Creatinine 1.5 MG/DL (0.55-1.30) H Estimate Glomerular Filtration Rate mL/min (>60) Glucose Level 126 MG/DL (74-106) H Calcium Level 8.9 MG/DL (8.5-10.1) Total Bilirubin 0.3 MG/DL (0.2-1.0) Aspartate Amino Transferase (AST) 20 U/L (15-37) Alanine Aminotransferase (ALT) 27 U/L (12-78) Alkaline Phosphatase 78 U/L (46-116) Total Creatine Kinase 73 U/L (26-308) Troponin I 0.301 ng/mL (0.000-0.056) Pro-B-Type Natriuretic Peptide 4565 pg/mL (0-125) H Total Protein 6.3 G/DL (6.4-8.2) L Albumin 3.2 G/DL (3.4-5.0) L Globulin 3.1 g/dL Albumin/Globulin Ratio 1.0 (1.0-2.7) EKG Diagnostic Results Rate: normal Rhythm: NSR ST Segments: no acute changes - incomplete RBBB Rhythm Strip Diag. Results EP Interpretation: yes Rhythm: NSR, no PVC's, no ectopy Chest X-Ray Diagnostic Results Chest X-Ray Diagnostic Results : Chest X-Ray Ordered: Yes # of Views/Limited/Complete: 1 View Indication: Other EP Interpretation: Yes Interpretation: no effusion, no pneumothorax, other - chf Impression: Other Electronically Signed by: Electronically signed by Jerad Anthony MD Status: improved Disposition: ADMITTED INPATIENT Condition: Serious Jerad Anthony MD May 09, 2018 03:21
--- NOTE | 2018-05-09 03:50 | NUR ---
ED Nurse Note: Blood and urine sample collected and sent to Lab.
--- NOTE | 2018-05-09 04:23 | NUR ---
ED Nurse Note: Meds given as ordered.
[2018-05-09 04:35] LABS: HEMATOCRIT 17.3 % (42.0-52.0); MEAN CORPUSCULAR VOLUME 74 FL (80-99); PLATELET COUNT 299 K/UL (150-450); RED BLOOD COUNT 2.34 M/UL (4.70-6.10); RED CELL DISTRIBUTION WIDTH 20.1 % (11.6-14.8); WHITE BLOOD COUNT 3.6 K/UL (4.8-10.8)
[2018-05-09 04:37] LABS: HEMOGLOBIN 5.2 G/DL (14.2-18.0)
[2018-05-09 04:40] LABS: ANION GAP 9 mmol/L (5-15); BLOOD UREA NITROGEN 29 mg/dL (7-18); CALCIUM 8.9 MG/DL (8.5-10.1); CARBON DIOXIDE 24 MMOL/L (21-32); CHLORIDE 107 MMOL/L (98-107); CREATININE 1.5 MG/DL (0.55-1.30); POTASSIUM 4.1 MMOL/L (3.5-5.1); SODIUM 140 MMOL/L (136-145)
[2018-05-09 04:49] LABS: APPEARANCE,URINE SLIGHTLY CLOUDY; BILIRUBIN, URINE NEGATIVE (NEGATIVE); COLOR,URINE PALE YELLOW; GLUCOSE, URINE (UA) NEGATIVE (NEGATIVE); KETONES,URINE NEGATIVE (NEGATIVE); LEUKOCYTE ESTERASE ,URINE 2+ (NEGATIVE); NITRITE,URINE NEGATIVE (NEGATIVE); PH,URINE 7 (4.5-8.0); PROTEIN,URINE 1+ (NEGATIVE); UROBILINOGEN,URINE NORMAL MG/DL (0.0-1.0)
[2018-05-09 04:56] LABS: ALANINE AMINOTRANSFERASE 27 U/L (12-78); ALBUMIN 3.2 G/DL (3.4-5.0); ALKALINE PHOSPHATASE 78 U/L (46-116); ASPARTATE AMINO TRANSFERASE 20 U/L (15-37); BILIRUBIN,TOTAL 0.3 MG/DL (0.2-1.0); CREATINE KINASE 73 U/L (26-308)
--- NOTE | 2018-05-09 05:03 | Diagnostic Imaging Report ---
EXAM: XR Chest, 1 View CLINICAL HISTORY: CP TECHNIQUE: Frontal view of the chest. COMPARISON: 06/15/17 FINDINGS: Lungs: Low lung volumes with bronchovascular crowding. Mild linear interstitial prominence could be incidental, or could represent atypical infection or pulmonary edema in the proper clinical context. No focal consolidation, pleural effusion, or pneumothorax. Pleural space: See above. Heart: Mild cardiomegaly likely at least partially secondary to low lung volumes and portable technique. Mediastinum: Unremarkable. Bones/joints: Unremarkable. IMPRESSION: 1. Low lung volumes with bronchovascular crowding. 2. Mild linear interstitial prominence could be incidental, or could represent atypical infection or pulmonary edema in the proper clinical context. 3. Mild cardiomegaly likely at least partially secondary to low lung volumes and portable technique. 4. Otherwise no acute cardiopulmonary disease. 5. To better characterize these findings, recommend formal frontal and lateral chest radiographs.
[2018-05-09 05:09] LABS: INR 1.1 (0.9-1.1)
[2018-05-09] MEDS ORDERED: Pantoprazole Inj IVP ONE (05:15)
[2018-05-09] MEDS ORDERED: cefTRIAXone 1 GM in NS 55 ML IVPB ONE (06:15)
--- NOTE | 2018-05-09 07:10 | NUR ---
HAND-OFF: Report given to John SPEARS/ Ayo/PRATIK for continue care. Pt is A/O X4. Blood is not ready yet at this time. Pt's wheelchair at bed side.
[2018-05-09] MEDS ORDERED: Miralax 17gm pkt ORAL PRN (08:15)
[2018-05-09] MEDS ORDERED: Nitroglycerin Subl 0.4mg tab SL PRN (08:15)
[2018-05-09] MEDS ORDERED: Milk of Magnesia 30ml Ud ORAL PRN (08:15)
[2018-05-09 08:20] VITALS: BP 104/56
--- NOTE | 2018-05-09 08:20 | NUR ---
ED Nurse Note: Blood was picked up from lab after verifying with orthodontic lab technician at the lab. Blood was checked with another rn prior to begin transfusion. Transfusion started at 75cc/hr with 250ml of NS primed. VS was checked prior to transfusion and stable. Pt denied pain or chills. Nurse staying at the bedside to monitor pt.
--- NOTE | 2018-05-09 08:35 | NUR ---
ED Nurse Note: Post 15 minutes after start of blood transfusion VS done. 98.3F, 90/min, 101/52, 100%, denied pain or chills. No adverse reaction noted. Pt stable.
--- NOTE | 2018-05-09 08:40 | NUR ---
ED Nurse Note: Attempted to give report but nurse was not available. will try again.
[2018-05-09] MEDS ORDERED: Aspirin Baby 81mg ORAL SCH (09:00)
[2018-05-09] MEDS ORDERED: Docusate 100mg cap ORAL SCH (09:00)
[2018-05-09] MEDS ORDERED: Metoprolol Succinate XL 25mg tab ORAL SCH (09:00)
[2018-05-09] MEDS ORDERED: Imdur 30mg tab ORAL SCH (09:00)
--- NOTE | 2018-05-09 09:02 | NUR ---
ED Nurse Note: Report given to PRATIK Quinones with recent VS and lab, dx, admit doctor, blood transfusion status. Pt is stable. Pt will be transferred.
[2018-05-09 09:10] VITALS: BP 104/72
--- NOTE | 2018-05-09 09:15 | NUR ---
ED Nurse Note: Pt was stable and cleared to be transferred to [facility] by dr Anthony and dr Marsh. RN to RN report given. Blood transfusion continuing at 100cc/hr without adverse reaction. Pt was transferred to the unit and PRATIK Cheema received the patient and went over beloning list and signed. Pt settled and was stable in new room.
--- NOTE | 2018-05-09 09:20 | NUR ---
NURSE NOTES: Received pt fr ED,a new admission,brought to SDU per eloise awake,alert in no acute distress,denies any co chest pain at this time, with ongoing bld transfusion Ist unit of PRBC to RFA,IV site intact,SR up x2 HOB elevated ,bed lock in lowest position,will continue to monitor pt.Report given by Shanita CARTER RN.
[2018-05-09 11:16] LABS: ALANINE AMINOTRANSFERASE 26 U/L (12-78); ALBUMIN 3.1 G/DL (3.4-5.0); ALKALINE PHOSPHATASE 69 U/L (46-116); ANION GAP 6 mmol/L (5-15); ASPARTATE AMINO TRANSFERASE 23 U/L (15-37); BILIRUBIN,TOTAL 0.3 MG/DL (0.2-1.0); BLOOD UREA NITROGEN 27 mg/dL (7-18); CALCIUM 8.7 MG/DL (8.5-10.1); CARBON DIOXIDE 26 MMOL/L (21-32); CHLORIDE 107 MMOL/L (98-107); CREATININE 1.5 MG/DL (0.55-1.30); POTASSIUM 3.8 MMOL/L (3.5-5.1); SODIUM 139 MMOL/L (136-145)
[2018-05-09] MEDS: Pantoprazole Inj IVP SCH ×2 (11:27→21:07)
[2018-05-09] MEDS: Calcium Carbonate 500mg w/Vit D 200iu tab ORAL SCH ×2 (11:29→17:34)
[2018-05-09] MEDS: Docusate 250mg cap ORAL SCH ×3 (11:29→17:35)
[2018-05-09] MEDS: Sucralfate 1gm tab ORAL SCH ×3 (11:34→21:07)
--- NOTE | 2018-05-09 11:45 | NUR ---
NURSE NOTES: Ongoing bld transfusion completed,toleated well ,no transfusion reaction presented,V/S monitored and noted stable.
[2018-05-09 12:00] VITALS: BP 147/74
--- NOTE | 2018-05-09 12:25 | NUR ---
NURSE NOTES: Transfused 2nd unit of PRBC,V/S monitored,no bld transfusion reaction noted,family members at bedside, updated on pt's status.
--- NOTE | 2018-05-09 13:42 | General Progress Note ---
Assessment/Plan Assessment/Plan Assessment - Recurrent anemia, microcytic - h/o Hiatal hernia - H/o GERD Recommendations - transfuse PRN - Venofer x 5 days - PPI / carafate - Message left with DTR to discuss EGD/Colonoscopy - cardiology evaluation and clearance Thank you Montserrat Flores MD Subjective Allergies: Coded Allergies: No Known Allergies (Unverified , 08/05/12) Objective Last 24 Hour Vital Signs Date Time Temp Pulse Resp B/P (MAP) Pulse Ox O2 Delivery O2 Flow Rate FiO2 05/09/18 12:00 84 05/09/18 12:00 96.8 77 18 147/74 (98) 100 05/09/18 12:00 Nasal Cannula 2.0 05/09/18 11:29 147/74 05/09/18 11:28 97 147/74 05/09/18 10:29 Nasal Cannula 2.0 05/09/18 10:03 85 05/09/18 09:45 Nasal Cannula 2.0 05/09/18 09:15 98.3 85 17 104/72 100 Room Air 05/09/18 09:10 98.3 85 17 104/72 100 Room Air 05/09/18 08:20 98.2 85 17 104/56 100 Room Air 05/09/18 08:20 98.2 85 17 05/09/18 04:23 131/60 05/09/18 03:10 97.6 94 16 130/62 98 Room Air 05/09/18 03:10 92 16 Room Air 05/09/18 03:00 97.5 97 16 121/61 98 Room Air Intake and Output 05/08/18 05/09/18 19:00 07:00 Intake Total 100 ml Output Total 450 ml Balance -350 ml Intake Oral 100 ml Output Urine Total 450 ml Laboratory Tests 05/09/18 04:10: White Blood Count 3.6L, Red Blood Count 2.34L, Hemoglobin 5.2*L, Hematocrit 17.3L, Mean Corpuscular Volume 74L, Mean Corpuscular Hemoglobin 22.4L, Mean Corpuscular Hemoglobin Concent 30.3L, Red Cell Distribution Width 20.1H, Platelet Count 299, Mean Platelet Volume 6.5, Neutrophils (%) (Auto) , Lymphocytes (%) (Auto) , Monocytes (%) (Auto) , Eosinophils (%) (Auto) , Basophils (%) (Auto) , Differential Total Cells Counted 100, Neutrophils % ( Manual) 76H, Lymphocytes % (Manual) 17L, Monocytes % (Manual) 6, Eosinophils % ( Manual) 1, Basophils % (Manual) 0, Band Neutrophils 0, Platelet Estimate Adequate, Platelet Morphology Normal, Hypochromasia 3+, Anisocytosis 3+, Microcytosis 2+, Ovalocytes Rare, Prothrombin Time 11.7H, Prothromb Time International Ratio 1.1, Activated Partial Thromboplast Time 22L, Urine Color Pale yellow, Urine Appearance Slightly cloudy, Urine pH 7, Urine Specific [place] 1.015, Urine Protein 1+H, Urine Glucose (UA) Negative, Urine Ketones Negative, Urine Blood Negative, Urine Nitrite Negative, Urine Bilirubin Negative , Urine Urobilinogen Normal, Urine Leukocyte Esterase 2+H, Urine RBC 0-2H, Urine WBC 10-15H, Urine Squamous Epithelial Cells ModerateH, Urine Transitional Epithelial Cells FewH, Urine Amorphous Sediment FewH, Urine Bacteria Few, Sodium Level 140, Potassium Level 4.1, Chloride Level 107, Carbon Dioxide Level 24, Anion Gap 9, Blood Urea Nitrogen 29H, Creatinine 1.5H, Estimat Glomerular Filtration Rate , Glucose Level 126H, Calcium Level 8.9, Total Bilirubin 0.3, Aspartate Amino Transf (AST/SGOT) 20, Alanine Aminotransferase (ALT/SGPT) 27, Alkaline Phosphatase 78, Total Creatine Kinase 73, Troponin I 0.301H, Pro-B- Type Natriuretic Peptide 4565H, Total Protein 6.3L, Albumin 3.2L, Globulin 3.1, Albumin/Globulin Ratio 1.0 05/09/18 09:43: Sodium Level 139, Potassium Level 3.8, Chloride Level 107, Carbon Dioxide Level 26, Anion Gap 6, Blood Urea Nitrogen 27H, Creatinine 1.5H, Estimat Glomerular Filtration Rate , Glucose Level 101, Calcium Level 8.7, Total Bilirubin 0.3, Aspartate Amino Transf (AST/SGOT) 23, Alanine Aminotransferase (ALT/SGPT) 26, Alkaline Phosphatase 69, Troponin I 0.700H, Total Protein 6.3L, Albumin 3.1L, Globulin 3.2, Albumin/Globulin Ratio 1.0 Height (Feet): 5 Height (Inches): 8.00 Weight (Pounds): 150 Montserrat Flores MD May 09, 2018 13:42
[2018-05-09] MEDS ORDERED: Sorbitol Solution UD 30ml ORAL SCH ×2 (14:00→17:40)
--- NOTE | 2018-05-09 15:01 | Cardiology Report ---
APPROVED REPORT EKG Measurement Heart [id number] Sinus rhythm with premature atrial complexes Incomplete right bundle branch block Nonspecific ST abnormality Prolonged QT Abnormal ECG
--- NOTE | 2018-05-09 15:17 | NUR ---
CASE MANAGEMENT: INITIAL REVIEW 05/09/2018 83 YO M PRESENTED TO ED FROM HOME CC: [facility] PMHx: HTN. ASTHMA. CVA. SI:CP. T 97.5 HR 97 RR 16 B/P 121/61 SATS 98% ON RA WBC 3.6 HGB 5.2 HCT 17.3 BUN 29 CR 1.5 GLU 126 TROPONIN 0.301 BNP 4565 IS: ASA PO X1 NITRO TOP X1 LASIX IV X1 PATIENT ADMITTED TO [facility] 05/09/2018 @ 0500 DCP: PATIENT TO BE DISCHARGED TO HOME ONCE MEDICALLY CLEARED. PLAN OF CARE: TRANSFUSE PER PARAMETERS GI CONSULT>> POSSIBLE EGD/COLONOSCOPY CARDIO EVAL Addendum: 05/09/18 at 1844 by Grace Mack CM INTERQUAL MET FOR ACUTE
--- NOTE | 2018-05-09 15:45 | NUR ---
NURSE NOTES: On going Bld transfusion completed,V/S monitored,pt stable no bld transfusion reaction presented,family member at bedside visiting pt.
[2018-05-09 16:00] VITALS: BP 126/77
--- NOTE | 2018-05-09 16:10 | NUR ---
NURSE NOTES: transfused 3rd unit of PRBC,pt stable ,denies any c/o SOB or chest pain,bld transfusion tolerated.
--- NOTE | 2018-05-09 18:14 | History and Physical Report ---
DATE OF ADMISSION: 05/09/2018 CHIEF COMPLAINT AND REASON FOR HOSPITALIZATION: The patient is an 83-year-old man admitted with chest pain, shortness of breath, severe anemia. HISTORY OF PRESENT ILLNESS: The patient is well known to me. He has a history of post-polio syndrome, gastritis, recurrent GI bleeding, coronary artery disease, prior CVA. Apparently over the last week, he has had increasing weakness and recurrent chest pain, admitted for the above problems. He was found to have severe gastritis and hiatal hernia, has been maintained on PPI. In the past, he was on aspirin and Plavix in view of his prior stroke and coronary disease but the Plavix has been stopped but he has been maintained on aspirin. He has had dark apparently melanotic stool. He has chronic low back pain, history of prostate cancer without any metastatic disease. He lives at home with family and prior to this he was ambulatory with a walker mostly in a wheelchair. PAST SURGICAL HISTORY: Include prostatectomy, prostate biopsy, bilateral total knee replaced and bilateral cataracts. ALLERGIES: None known. HABITS: He is a nonsmoker and nondrinker. No use of illicit drugs. SYSTEM REVIEW: Head, Eyes, Ears, Nose, and throat, he wears bilateral hearing aids. He has had cataract surgery with stable vision. ENDOCRINE: No diabetes or thyroid disease. PULMONARY: No asthma, TB, or chronic cough. There is some questionable dyspnea this week. CARDIAC: He has had abnormal stress test in the past and elected not to have angiography. GASTROINTESTINAL: He has had recurrent upper GI bleeding and severe gastritis and hiatal hernia. GENITOURINARY: No dysuria, hematuria, or kidney stones. In the past several years ago, he took Lupron for prostate cancer but PSA has been normal and Lupron was stopped. MUSCULOSKELETAL: He has post-polio syndrome with contractures of the elbows and total knee replacement. He has generalized weakness. NEUROLOGIC: History of CVA with minimal residual. HEMATOLOGIC: History of iron-deficiency anemia and received intravenous iron in my office. MEDICATIONS: Home medications reviewed on the computer include the following. Aspirin 81 mg daily, Tylenol 1000 mg every 8 hours, Mylanta p.r.n., alendronate 70 mg once a week, amlodipine 10 mg daily which I am not sure if he is currently taking, Lipitor 10 mg daily, calcium carbonate one b.i.d., DSS 250 t.i.d., Avodart 0.5 mg daily, gabapentin 1200 mg at bedtime, isosorbide 30 mg daily, metoprolol 25 mg daily, omeprazole 40 mg b.i.d., MiraLAX as needed, Zantac 150 b.i.d., senna as needed, Carafate 1 g q.i.d., Diovan 160 mg daily. PHYSICAL EXAMINATION: GENERAL: The patient is a chronically ill-appearing elderly man, alert, no acute distress. He is not having chest pain at the time of my exam. VITAL SIGNS: Temperature 98.3, pulse 85, respirations 17, blood pressure 104/72. HEAD, EYES, EARS, NOSE, THROAT: He is hard of hearing. Sclerae are nonicteric. Ocular motions intact in all directions. Oral mucosa moist. NECK: No adenopathy. LUNGS: Clear. HEART: Regular rhythm. I hear no murmur. ABDOMEN: Soft without organomegaly or masses. GENITOURINARY: Penis and testes normal. RECTAL: Deferred, has been done many times in the past. EXTREMITIES: Show 1+ leg edema of the total knees. There are contractures in the elbow. NEUROLOGIC: He is alert and responsive. Ocular motions intact in all directions. Smile symmetric. Tongue is midline. He moves all extremities. PERTINENT LABORATORY DATA: Show white count of 3.6, hemoglobin 5.2, MCV 74, platelets 299. Sodium 140, potassium 4.1, chloride 107, CO2 of 24, BUN 29, creatinine 1.5. Troponin 0.301. BNP is 4565. IMPRESSION: 1. GI bleeding, acute on chronic, likely from gastritis. 2. Elevated troponin consistent with acute NV. 3. Elevated BNP and possible mild congestive heart failure. He received Lasix in the emergency room. 4. Post-polio syndrome. 5. History of prostate cancer. 6. Prior history of hypertension. 7. Iron-deficiency anemia. 8. Generalized weakness. PLAN: I have discussed in detail code status and so far he is Full Code as discussed with the family. He will be transfused, given iron, given cardiac regimen. Watch closely in view of his multiple comorbidities. Quentin Marsh M.D. DR: Steph JOB#: [id number] CC:
--- NOTE | 2018-05-09 18:59 | Consultation ---
DATE OF CONSULTATION: 05/09/2018 GASTROENTEROLOGY CONSULTATION: CONSULTING PHYSICIAN: Montserrat Flores M.D. REFERRING PHYSICIAN: Quentin Marsh M.D. CHIEF COMPLAINT: I was asked to see this patient by Dr. Quentin Marsh for evaluation of anemia. HISTORY OF PRESENT ILLNESS: The patient is an 83-year-old man with multiple medical problems who was brought into the hospital due to shortness of breath, weakness, and episode of melena. The patient has been seen previously in May and then again in June of this year. In May, he was noted to have anemia and underwent an endoscopy and colonoscopy. The endoscopy showed a large hiatal hernia with reflux esophageal ulcers in the lower esophagus. The colonoscopy was unremarkable including views of the terminal ileum. Aspirin and Plavix were held for some time. The patient was treated and the patient improved. However in June, he returned again with anemia and he was transfused again. Repeat endoscopic procedure was not done since it was done about a month previous to that. The recommendation was made for the patient to be on long-term proton pump inhibitors. Prior to admission medication list on the computer has been reviewed and includes Protonix, but this has not been verified with the family. I left a message with the patient's daughter to discuss the matters with her on the phone. In the meantime, the patient is receiving blood transfusion at this time and he is also undergoing cardiac evaluation. The patient herself does not offer much history and does not complain of any abdominal pain, nausea, vomiting, hematochezia, or any other GI symptomatology. PAST MEDICAL HISTORY: History of prostatectomy, bilateral total knee replacements, bilateral cataracts, history of gastritis, history of large hiatal hernia, history of gastroesophageal reflux disease, and history of hypertension. ALLERGIES: None. FAMILY HISTORY: Noncontributory. SOCIAL HISTORY: The patient has 4 children. He does not smoke or drink alcohol. His daughter looks after his affairs. Her name is Ana and her phone number is #[phone]. REVIEW OF SYSTEMS: Otherwise negative. PHYSICAL EXAMINATION: GENERAL: Pleasant, elderly man, seen in his room, in no distress. HEENT: Normocephalic and atraumatic. Sclerae anicteric. Oropharynx clear. NECK: Supple. CHEST: Clear to auscultation. CARDIOVASCULAR: Revealed a regular rate. ABDOMEN: Soft, flat. Good bowel sounds. There is no tenderness. EXTREMITIES: Trace edema bilaterally. Knee replacement scars. NEUROLOGIC: Nonfocal. LABORATORY DATA: Noted and it was remarkable that the patient's MCV was now down to 74 that previously was in the 80s. The patient's hemoglobin/hematocrit on admission was 5.2 and 17.3. ASSESSMENT: This patient presents with recurrent anemia despite apparent treatments with antisecretory therapy. The patient may have refractory gastroesophageal reflux disease and this will have to be re-evaluated with another endoscopy. Given the recurrence of the anemia and apparent microcytosis, another colonoscopy can also be considered and this will be offered to the patient's family. After that, a capsule endoscopy can also be considered to evaluate the small bowel. I left the message to the patient's family to call back to discuss these options. In the meantime, the patient will be treated similarly with blood transfusion and iron replacement intravenously. He should be placed on twice a day proton pump inhibitor and head of the bed should be elevated at all times. RECOMMENDATIONS: Per above discussion and per orders written in the chart. Thank you for asking me to participate in the care of this patient. Montserrat Flores M.D. DR: YVES JOB#: [id number] CC:
--- NOTE | 2018-05-09 19:30 | NUR ---
HAND-OFF: Report given to Iraj Obrien RN,pt resting in bed stable,still with ongoing blood transfusion running,family member at bedside.
[2018-05-09 20:00] VITALS: BP 130/90
--- NOTE | 2018-05-09 20:00 | NUR ---
NURSE NOTES: Received Pt is resting on the bed and awake and alert. Family at bedside. On O2 2L via nasal cannula and SaO2 98% noted. No fever noted. Finished 3rd PRBC blood transfusion without side effect. Iv site intact and no sign of infiltration noted. Placed fall precaution. Will continue to care plan.
--- NOTE | 2018-05-09 20:20 | NUR ---
NURSE NOTES: Pt is resting on the bed and awake and alert. On tele monitor with A-fib with HR 150-170's. V/S 130/95, BT : 97.7F and SaO2 98% noted. Denied pain or chest pain at this time. No SOB noted. Paged Dr. Marsh awaiting call back.
--- NOTE | 2018-05-09 20:30 | NUR ---
NURSE NOTES: Get sallie back from Dr. Marsh he said call to Dr. Phillips. Left message to Dr. Phillips and awaiting call back.
[2018-05-09] MEDS ORDERED: Iron Sucrose 100 MG in NS 55 ML IV SCH (21:00)
--- NOTE | 2018-05-09 21:10 | NUR ---
NURSE NOTES: Didn't call back from Dr. Alan Blancas gain and awaiting call back.
[2018-05-09 21:52] LABS: HEMATOCRIT 32.4 % (42.0-52.0); HEMOGLOBIN 10.2 G/DL (14.2-18.0); MEAN CORPUSCULAR VOLUME 80 FL (80-99); PLATELET COUNT 267 K/UL (150-450); RED BLOOD COUNT 4.05 M/UL (4.70-6.10); RED CELL DISTRIBUTION WIDTH 18.1 % (11.6-14.8); WHITE BLOOD COUNT 9.3 K/UL (4.8-10.8)
--- NOTE | 2018-05-09 21:54 | NUR ---
NURSE NOTES: Paged Dr. Phillips again and new order received. Will continue to monitor any change of condition.
[2018-05-09] MEDS ORDERED: Metoprolol Tartrate 10 MG in D5W 55 ML IVPB ONE (23:00)
--- NOTE | 2018-05-09 23:58 | NUR ---
NURSE NOTES: Pt is sleeping on the bed and still noted. A-fib with HR: 150-170's. Dr. Phillips visited and assessed Pt and given new order. Will continue to monitor any change of condition.
[2018-05-10] VITALS (42 sets, daily range): BP systolic 68–117; BP diastolic 30–78
--- NOTE | 2018-05-10 01:30 | NUR ---
NURSE NOTES: Noted HR is 150-170's with A-fib again. Left message to Dr. Phillips and awaiting call back.
--- NOTE | 2018-05-10 01:48 | NUR ---
NURSE NOTES: Call back from Dr. Phillips and new order received and will transfer Pt to ICU. Notified to Charge nurse and nurse scanner supervisor.
[2018-05-10] MEDS ORDERED: dilTIAZem HCl 25mg/5ml Inj IVP ONE ×2 (02:00)
--- NOTE | 2018-05-10 02:08 | NUR ---
NURSE NOTES: Call back from Dr. Phillips and new order received and will transfer Pt to ICU. Addendum: 05/10/18 at 0251 by TIEN SMITH RN RN charting error. Wrong time charting.
--- NOTE | 2018-05-10 02:10 | NUR ---
TRANSFER TO FLOOR: Patient transferred to ICU room 246-D. Report given to PRATIK Turcios. Belongings and medications given to PRATIK Turcios. Pt has denture and cell phone. Pt is awake and alert. Denied pain at this time. Family; Daughter; Caitlin Perez informed of transfer.
[2018-05-10] MEDS ORDERED: Nitroglycerin Subl 0.4mg tab SL PRN (02:15)
--- NOTE | 2018-05-10 02:30 | NUR ---
NURSE NOTES: at 0210 Received report from Iraj CHRISTIE. patient came from SDU 242-2 to ICU-D per DR. Phillips due to AFIB with RVR and patient with Cardizem drip order. Patient connected telemetry monitor HR AFIB 177. patient awake,alert able to make needs known to staff, Sinhala speaking. On 2L oxygen via N/C satting 98%. Denies any chest pain or discomfort. Body assessment done. Urinal at bedside. No s/s of acute distress noted. Instructed patient to use call light for assistance. Bed locked and in low position. Bed alarm on. Family aware of transfer. Will continue plan of care.
--- NOTE | 2018-05-10 02:45 | Consultation ---
DATE OF CONSULTATION: 05/09/2018 CARDIOLOGY CONSULTATION CONSULTING PHYSICIAN: Jerad Phillips M.D. REQUESTING PHYSICIAN: Quentin Marsh M.D. REASON FOR CONSULTATION: Rapid atrial fibrillation and elevated troponin level. HISTORY OF PRESENT ILLNESS: This 83-year-old male presented to the hospital with chest pain and shortness of breath as well as severe anemia with hemoglobin in the range of 5 g. He has had increasing weakness and recurring chest pain over the past week. He now has a known history of severe gastritis with hiatal hernia and reflux. He has had GI bleeding in the past due to the problems and has been on prior anti-platelet therapy that was tapered from aspirin and Plavix to aspirin alone. He has had dark black stool and has been increasingly weak and withdrawn. Since admission, he has had rapid atrial fibrillation and had an elevated troponin level prompting this consultation. He has had prior cardiac workups revealing the presence of single-vessel flow-limiting coronary artery disease and relatively preserved left ventricular ejection fraction. 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 MEDICATIONS: Prior to admission, reviewed and reconciled. ALLERGIES: None known. SOCIAL HISTORY: Negative for smoking, alcohol, or substance abuse. FAMILY HISTORY: Noncontributory. REVIEW OF SYSTEMS: He uses hearing aids. His hearing is poor. There is no history of abnormal blood clotting. He has been treated medically for his single-vessel coronary artery disease with stable angina. Most recent echocardiogram revealed ejection fraction in the range of 50% to 55%. His prostate cancer is in remission. 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 There is a prior history of stroke with minimal residual deficit. He has been on iron replacement for his anemia. PHYSICAL EXAMINATION: GENERAL: Ill-appearing, presently in no acute distress. VITAL SIGNS: Afebrile, blood pressure 104/70, pulse 148, and respiratory rate 18. HEENT: Conjunctivae pallor. Sclerae are anicteric. Oropharynx clear. NECK: Supple. No jugular venous distention or adenopathy. LUNGS: With good breath sounds. No wheezes or rales. CARDIAC: Irregularly irregular rhythm. Rapid rate. Normal S1 and S2. No appreciable murmur. ABDOMEN: Soft and nontender. EXTREMITIES: 1+ dependent edema. NEUROLOGIC: Nonfocal. LABORATORY AND DIAGNOSTIC DATA: On admission, hemoglobin 5.2, repeated post transfusions is 10. Sodium 140, potassium 4.1, bicarbonate 24, BUN 29, and creatinine 1.5. Troponin 0.301. Pro-natriuretic peptide 4565. EKG, sinus rhythm with premature atrial contractions, incomplete right bundle-branch block, and nonspecific ST change. Repeat EKG this afternoon reveals atrial fibrillation, rapid ventricular response, and nonspecific ST-T wave changes. IMPRESSION: 1. Severe anemia due to GI bleeding. 2. Acute coronary insufficiency due to above. 3. Paroxysmal atrial fibrillation with rapid ventricular response. 4. Ischemic cardiomyopathy. 5. Acute on chronic diastolic congestive heart failure. PLAN: 1. IV Cardizem x1 for rapid rate control followed by transition to IV maintenance made a beta-reji dosing around the clock. 2. Serial troponin level. 3. Topical nitrates. 4. Maintain hemoglobin above 8 g. 5. Hold all anti-platelet therapy. 6. Periodic diuresis based on clinical parameters and trending of natriuretic peptide assays. 7. We will follow closely. 8. The patient is high risk. Jerad Phillips M.D. DR: BEENA JOB#: [id number] CC:
--- NOTE | 2018-05-10 03:49 | NUR ---
NURSE NOTES: Patient Rhythm still AFIB with episode of long pauses like compensatory reaction from Ethan segovia, at 0417 converted to Sinus BP 82/44. Left message to Dr. Phillips by Charge nurse. Patient resting, denies any pain or chest pain. patient said he's hungry, offered food of choice according to diet. Will continue to monitor patient.Call light within easy reach. Addendum: 05/10/18 at 0439 by DONAL HAYDEN RN RN chart time for 0420.
--- NOTE | 2018-05-10 04:56 | NUR ---
NURSE NOTES: Dr. Phillips called back with new order Titrate to Cardizem 5mg/hr and give NS 250cc bolus x1 noted and carried out. patient and charge nurse aware.
[2018-05-10] MEDS ORDERED: NS 250 ML IVPB ONE (05:00)
[2018-05-10] MEDS ORDERED: Metoprolol Tartrate 10 MG in D5W 55 ML IVPB SCH (06:00)
[2018-05-10] MEDS: Sucralfate 1gm tab ORAL SCH ×4 (06:03→21:19)
--- NOTE | 2018-05-10 07:02 | NUR ---
NURSE NOTES: Patient BP 86/40 HR 66. Patient sleeping, arousable. Denies any chest pain or discomfort. Continue on Cardizem 5mg/hr. Call light within easy reach.
[2018-05-10 07:14] LABS: % IRON SATURATION 6 % (15-50); IRON 18 ug/dL (50-175); TOTAL IRON BINDING CAPACITY 300 ug/dL (250-450)
[2018-05-10 07:15] LABS: HEMATOCRIT 25.7 % (42.0-52.0); HEMOGLOBIN 8.4 G/DL (14.2-18.0); MEAN CORPUSCULAR VOLUME 79 FL (80-99); PLATELET COUNT 220 K/UL (150-450); RED BLOOD COUNT 3.26 M/UL (4.70-6.10); RED CELL DISTRIBUTION WIDTH 18.6 % (11.6-14.8); WHITE BLOOD COUNT 12.2 K/UL (4.8-10.8)
--- NOTE | 2018-05-10 07:31 | NUR ---
HAND-OFF: Report given to PRATIK Becerra. Patient BP 99/35 HR 69. Patient resting no s/s of acute distress noted.Called Ana Tucker patient's daughter and updated regarding the patient condition.
[2018-05-10 07:39] LABS: ANION GAP 8 mmol/L (5-15); BLOOD UREA NITROGEN 28 mg/dL (7-18); CALCIUM 8.1 MG/DL (8.5-10.1); CARBON DIOXIDE 25 MMOL/L (21-32); CHLORIDE 105 MMOL/L (98-107); FERRITIN 27 NG/ML (8-388); POTASSIUM 3.4 MMOL/L (3.5-5.1); SODIUM 138 MMOL/L (136-145)
--- NOTE | 2018-05-10 07:40 | NUR ---
NURSE NOTES: Received report from Karolina CHRISTIE. pt in bed, resting. Awakens to name and light shaking. A/0x3.Mexican speaking. Patient connected to monitor HR SR 90's. On 2L oxygen via N/C sat 98%. Denies any chest pain or discomfort. No s/s of acute distress noted, no active bleeding. Instructed patient to use call light for assistance. Bed locked and in low position. Bed alarm on. urinal at bedside. Cardizem drip at 3mg running via LT hand 22G. Will continue plan of care.
[2018-05-10] MEDS ORDERED: Miralax 17gm pkt ORAL PRN (08:15)
[2018-05-10] MEDS ORDERED: Milk of Magnesia 30ml Ud ORAL PRN (08:15)
[2018-05-10] MEDS: Imdur 30mg tab ORAL SCH ×2 (09:00→09:08)
[2018-05-10] MEDS: Docusate 250mg cap ORAL SCH ×3 (09:08→19:25)
[2018-05-10] MEDS: Calcium Carbonate 500mg w/Vit D 200iu tab ORAL SCH ×2 (09:08→19:25)
[2018-05-10] MEDS: Aspirin Baby 81mg ORAL SCH (09:09)
[2018-05-10] MEDS: Pantoprazole Inj IVP SCH ×2 (09:09→21:18)
--- NOTE | 2018-05-10 09:33 | NUR ---
P.T Note: P.T evaluation hold at this time. Pt was transferred to ICU. Will needed reorder to continue P.T evaluation when/as pt is stable.
--- NOTE | 2018-05-10 11:00 | NUR ---
NURSE NOTES: Pt is resting in bed, tv on. bed locked in low position. will continue to monitor.
--- NOTE | 2018-05-10 11:30 | NUR ---
NURSE NOTES: CALLED MD NELSON. LEFT MESSAGE WITH CALL CENTER TO REPORT TROPONIN LEVEL FROM THIS AM OF 0.937. AWAITING CALL BACK.
[2018-05-10] MEDS: Metoprolol 25mg tab ORAL SCH ×2 (12:00→19:26)
--- NOTE | 2018-05-10 12:00 | NUR ---
NURSE NOTES: pt BP trending low 90's. very fragile at this time. metoprolol 25mg PO. Held at this time.
--- NOTE | 2018-05-10 15:00 | NUR ---
NURSE NOTES: MD Marsh here to see pt. Order to give Lopressor when bop maintains in 100's, and to transfuse 1 unit PRBCS.
[2018-05-10] MEDS ORDERED: NS 275ml ONE (15:02)
[2018-05-10] MEDS ORDERED: Tubing IV Secondary IV ONE (15:02)
--- NOTE | 2018-05-10 15:05 | NUR ---
NURSE NOTES: Patient's BP has been SBP 88 - 91s. Lopressor has been held as a result. Msg left for Dr Phillips earlier. Patient HR is 60-70s is SR.
--- NOTE | 2018-05-10 15:06 | NUR ---
ST NOTE: BEDSIDE SWALLOW EVAL RECEIVED BEDSIDE SWALLOW EVAL ORDER CHART REVIEWED PRIOR THE EVALUATION PT IS A 83-YEAR-OLD MALE WHO WAS ADMITTED DUE TO CHEST PAIN. DYSPHAGIA RISK FACTORS: H/O CVA, ?DYSPHAGIA, PROBABLE APHASIA, LARGE HIATAL HERNIA, HTN, REFLUX ESOPHAGEAL ULCERS IN THE LOWER ESOPHAGUS, HTN, RAPID A-FIB, HEART ATTACK, PROSTATE CA, RE-CURRENT GI BLEED, POST-JIM SYNDROME PLOF: PT RESIDES AT HOME WITH FAMILY. CURRENT STATUS: PT SEEN AT BEDSIDE IN PM. ALERT, COOPERATIVE, ABLE TO FOLLOW SIMPLE DIRECTIONS, PT WITH NC(2L). GIVEN PO TRIALS: THIN(TSP/STRAW), NECTAR THICK(TSP), PUREE(TSP) AND MASTICATED CHOPPED FOOD PER RN, PT COUGHED ON THIN LIQUIDS INCONSISTENTLY. PER RN, PT'S DAUGHTER REPORTED THAT PT DECREASED ABILITY IN EXPRESSING HIMSELF VERBALLY. INITIAL IMPRESSION: PROBABLE MILD TO MODERATE OR WORSENED OROPHARYNGEAL DYSPHAGIA. PT EDENTULOUS. MILD INCREASED ORAL TRANSIT TIME AND OROPHARYNGEAL TRANSIT TIME, FAIR LARYNGEAL ELEVATION, IMMEDIATE COUGHING WITH THIN LIQUIDS(STRAW). DUE TO PT HAS H/O CVA, PT HAS RISK FOR (SILENT) ASPIRATION. RECOMMENDATIONS: 1. FOR QUALITY OF LIFE, CONTINUE ORAL DIET. CHANGED DIET TO [facility] SOFT(GROUND) WITH NECTAR THICK LIQUIDS 2. STRICT ASPIRATION/REFLUX PRECAUTIONS WITH 1TO1 ASSIST/SUPERVISION. 3. VIDEOSWALLOW STUDY IP OR OP. D/W LONI CHRISTIE. POSTED ASPIRATION/REFLUX PRECAUTIONS SIGN.
[2018-05-10 16:08] LABS: BASOPHILS % (AUTO) 0.3 % (0.0-2.0); EOSINOPHILS % (AUTO) 0.4 % (0.0-3.0); HEMATOCRIT 25.2 % (42.0-52.0); HEMOGLOBIN 8.1 G/DL (14.2-18.0); LYMPHOCYTES % (AUTO) 9.2 % (20.0-45.0); MEAN CORPUSCULAR VOLUME 79 FL (80-99); NEUTROPHILS % (AUTO) 83.1 % (45.0-75.0); PLATELET COUNT 218 K/UL (150-450); RED CELL DISTRIBUTION WIDTH 18.4 % (11.6-14.8); WHITE BLOOD COUNT 7.2 K/UL (4.8-10.8)
--- NOTE | 2018-05-10 16:38 | General Progress Note ---
Assessment/Plan Problem List: (1) anemia (2) anemia (3) anemia (4) Prostate cancer ICD Codes: C61 - Malignant neoplasm of prostate SNOMED: 159666687 (5) CHF (congestive heart failure) ICD Codes: I50.9 - Heart failure, unspecified SNOMED: 95957867 (6) GI bleed ICD Codes: K92.2 - Gastrointestinal hemorrhage, unspecified SNOMED: 84257998 (7) NSTEMI (non-ST elevation myocardial infarction) ICD Codes: I21.4 - Non-ST elevation (NSTEMI) myocardial infarction SNOMED: 271163407 (8) Atrial fibrillation with rapid ventricular response ICD Codes: I48.91 - Unspecified atrial fibrillation SNOMED: 705227252854308 (9) Gastritis ICD Codes: K29.70 - Gastritis, unspecified, without bleeding SNOMED: 4646659 Assessment/Plan transferred to icu, afib converted nsr with cardizem drip, no angina or abd pain , to monitor rhythem, transfuse 1 more unit prbc, venofer for iron deficiency, monitor cardiac and gi status, d/w daughter DNAR, icu orders updated, time 40min Subjective Constitutional: Reports: weakness Cardiovascular: Reports: irregular heart rate Respiratory: Reports: no symptoms Neurologic/Psychiatric: Reports: no symptoms Endocrine: Reports: no symptoms Allergies: Coded Allergies: No Known Allergies (Unverified , 08/05/12) Objective Last 24 Hour Vital Signs Date Time Temp Pulse Resp B/P (MAP) Pulse Ox O2 Delivery O2 Flow Rate FiO2 05/10/18 16:00 71 05/10/18 16:00 Nasal Cannula 2.0 05/10/18 15:00 69 14 91/42 (58) 97 05/10/18 14:30 69 18 88/40 (56) 97 05/10/18 14:00 74 18 101/57 (72) 98 05/10/18 13:30 70 17 107/65 (79) 97 05/10/18 13:00 69 16 100/49 (66) 100 05/10/18 12:00 Nasal Cannula 2.0 05/10/18 12:00 64 05/10/18 12:00 69 17 104/51 (68) 99 05/10/18 11:00 65 15 93/46 (62) 100 05/10/18 10:00 69 17 86/40 (55) 100 05/10/18 09:04 100 Nasal Cannula 2.0 28 05/10/18 09:03 Nasal Cannula 2.0 28 05/10/18 09:00 95/38 05/10/18 09:00 65 16 95/38 (57) 100 05/10/18 08:00 Nasal Cannula 2.0 05/10/18 08:00 69 16 81/49 (60) 100 05/10/18 08:00 90 05/10/18 07:30 98.6 65 15 93/42 (59) 100 05/10/18 07:00 66 17 86/40 (55) 100 05/10/18 06:15 71 17 90/49 (63) 100 05/10/18 06:00 72 17 75/30 (45) 100 05/10/18 05:30 73 17 85/40 (55) 100 05/10/18 05:00 73 17 81/35 (50) 100 05/10/18 04:45 74 19 83/45 (58) 99 05/10/18 04:15 73 19 68/41 (50) 99 05/10/18 04:00 Nasal Cannula 2.0 05/10/18 04:00 98.0 110 19 82/44 (57) 99 05/10/18 03:45 110 19 88/48 (61) 99 05/10/18 03:30 112 19 83/41 (55) 99 05/10/18 03:15 110 21 69/51 (57) 99 05/10/18 02:51 161 109/82 05/10/18 02:47 161 109/82 05/10/18 02:30 162 21 81/54 (63) 99 05/10/18 02:00 98.0 162 21 83/62 (69) 99 05/10/18 01:30 165 98/58 (71) 05/10/18 00:14 90 05/10/18 00:06 160 111/72 05/10/18 00:00 Nasal Cannula 2.0 05/10/18 00:00 98.8 165 18 109/74 (86) 100 05/10/18 00:00 179 05/09/18 22:42 165 135/90 05/09/18 20:40 167 05/09/18 20:00 97.7 80 18 130/90 (103) 100 05/09/18 20:00 Nasal Cannula 2.0 Intake and Output 05/09/18 05/10/18 19:00 07:00 Intake Total 1350 ml 410 ml Output Total 1350 ml 500 ml Balance 0 ml -90 ml Intake Oral 600 ml 60 ml IV Total 350 ml Blood Product 750 ml Output Urine Total 1350 ml 500 ml # Voids 2 # Bowel Movements 1 Laboratory Tests 05/09/18 21:30: White Blood Count 9.3#, Red Blood Count 4.05L, Hemoglobin 10.2#L, Hematocrit 32.4#L, Mean Corpuscular Volume 80#, Mean Corpuscular Hemoglobin 25.2L, Mean Corpuscular Hemoglobin Concent 31.4L, Red Cell Distribution Width 18.1H, Platelet Count 267, Mean Platelet Volume 6.1L, Neutrophils (%) (Auto) , Lymphocytes (%) (Auto) , Monocytes (%) (Auto) , Eosinophils (%) (Auto) , Basophils (%) (Auto) , Differential Total Cells Counted 100, Neutrophils % ( Manual) 91H, Lymphocytes % (Manual) 7L, Monocytes % (Manual) 2, Eosinophils % ( Manual) 0, Basophils % (Manual) 0, Band Neutrophils 0, Platelet Estimate Adequate, Platelet Morphology Normal, Hypochromasia 2+, Anisocytosis 2+ 05/10/18 05:35: White Blood Count 12.2H, Red Blood Count 3.26L, Hemoglobin 8.4L, Hematocrit 25.7L, Mean Corpuscular Volume 79L, Mean Corpuscular Hemoglobin 25.8L, Mean Corpuscular Hemoglobin Concent 32.6, Red Cell Distribution Width 18.6H, Platelet Count 220, Mean Platelet Volume 6.4L, Neutrophils (%) (Auto) , Lymphocytes (%) (Auto) , Monocytes (%) (Auto) , Eosinophils (%) (Auto) , Basophils (%) (Auto) , Differential Total Cells Counted 100, Neutrophils % ( Manual) 96H, Lymphocytes % (Manual) 2L, Monocytes % (Manual) 2, Eosinophils % ( Manual) 0, Basophils % (Manual) 0, Band Neutrophils 0, Platelet Estimate Adequate, Platelet Morphology Normal, Hypochromasia 1+, Anisocytosis 1+, Sodium Level 138, Potassium Level 3.4L, Chloride Level 105, Carbon Dioxide Level 25, Anion Gap 8, Blood Urea Nitrogen 28H, Creatinine 2.0H, Estimat Glomerular Filtration Rate , Glucose Level 115H, Calcium Level 8.1L, Iron Level 18L, Total Iron Binding Capacity 300, Percent Iron Saturation 6L, Unsaturated Iron Binding 282, Ferritin 27, Troponin I 0.937H, Thyroid Stimulating Hormone (TSH) 0.331L 05/10/18 15:10: White Blood Count 7.2, Red Blood Count 3.20L, Hemoglobin 8.1L, Hematocrit 25.2L , Mean Corpuscular Volume 79L, Mean Corpuscular Hemoglobin 25.4L, Mean Corpuscular Hemoglobin Concent 32.3, Red Cell Distribution Width 18.4H, Platelet Count 218, Mean Platelet Volume 6.2L, Neutrophils (%) (Auto) 83.1H, Lymphocytes (%) (Auto) 9.2L, Monocytes (%) (Auto) 7.0, Eosinophils (%) (Auto) 0.4, Basophils (%) (Auto) 0.3 Height (Feet): 5 Height (Inches): 8.00 Weight (Pounds): 150 EENT: normal ENT inspection, other - hearing Neck: normal alignment Cardiovascular: regular rhythm Respiratory/Chest: lungs clear, normal breath sounds Abdomen: non tender, soft Edema: 1+ Leg (L), 1+ Leg (R) 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
--- NOTE | 2018-05-10 17:15 | NUR ---
CASE MANAGEMENT: REVIEW SI: CHEST PAIN . ANEMIA T 98.6 HR 72 RR 17 BP 68/41 SAT 100% NC/2L H/H 8.1/25.2 TROPONIN I 0.937 IS: VENOFER IV QHS LIPITOR PO QHS GABAPENTIN PO QHS LOPRESSOR PO Q12HR ASA PO QD CARDIZEM IV Q24HR ICU STATUS DCP: PATIENT IS FROM HOME
--- NOTE | 2018-05-10 17:30 | NUR ---
NURSE NOTES: Diego caballero, will endorse to PM RN to taper Cardizem drip down at 1830.
--- NOTE | 2018-05-10 19:30 | NUR ---
NURSE NOTES: Recvd.quiet in bed awake,alert able to follows simple command upper/Lower ext.contracted.See V/S. Scope SR.Cardizem drip in progress at 3mg/hr.Hx of At-Fib with RVR.See Latest H/H.See order for poss.bld.Tx.Repositioned in Bed Kept Comfortable.
--- NOTE | 2018-05-10 20:05 | General Progress Note ---
Assessment/Plan Assessment/Plan Assessment - Recurrent anemia, microcytic - h/o Hiatal hernia - H/o GERD - a fib with RHR Recommendations - transfuse PRN - Venofer x 5 days - PPI / carafate - Message left with DTR to discuss - cardiology evaluation and f/u Subjective Allergies: Coded Allergies: No Known Allergies (Unverified , 08/05/12) Subjective transferred to ICU due to rapid a fib no abdominal pain no call back from daughter yet Objective Last 24 Hour Vital Signs Date Time Temp Pulse Resp B/P (MAP) Pulse Ox O2 Delivery O2 Flow Rate FiO2 05/10/18 19:26 73 115/56 05/10/18 16:00 71 05/10/18 16:00 Nasal Cannula 2.0 05/10/18 15:00 69 14 91/42 (58) 97 05/10/18 14:30 69 18 88/40 (56) 97 05/10/18 14:00 74 18 101/57 (72) 98 05/10/18 13:30 70 17 107/65 (79) 97 05/10/18 13:00 69 16 100/49 (66) 100 05/10/18 12:00 Nasal Cannula 2.0 05/10/18 12:00 64 05/10/18 12:00 69 17 104/51 (68) 99 05/10/18 11:00 65 15 93/46 (62) 100 05/10/18 10:00 69 17 86/40 (55) 100 05/10/18 09:04 100 Nasal Cannula 2.0 28 05/10/18 09:03 Nasal Cannula 2.0 28 05/10/18 09:00 95/38 05/10/18 09:00 65 16 95/38 (57) 100 05/10/18 08:00 Nasal Cannula 2.0 05/10/18 08:00 69 16 81/49 (60) 100 05/10/18 08:00 90 05/10/18 07:30 98.6 65 15 93/42 (59) 100 05/10/18 07:00 66 17 86/40 (55) 100 05/10/18 06:15 71 17 90/49 (63) 100 05/10/18 06:00 72 17 75/30 (45) 100 05/10/18 05:30 73 17 85/40 (55) 100 05/10/18 05:00 73 17 81/35 (50) 100 05/10/18 04:45 74 19 83/45 (58) 99 05/10/18 04:15 73 19 68/41 (50) 99 05/10/18 04:00 Nasal Cannula 2.0 05/10/18 04:00 98.0 110 19 82/44 (57) 99 05/10/18 03:45 110 19 88/48 (61) 99 05/10/18 03:30 112 19 83/41 (55) 99 05/10/18 03:15 110 21 69/51 (57) 99 05/10/18 02:51 161 109/82 05/10/18 02:47 161 109/82 05/10/18 02:30 162 21 81/54 (63) 99 05/10/18 02:00 98.0 162 21 83/62 (69) 99 05/10/18 01:30 165 98/58 (71) 05/10/18 00:14 90 05/10/18 00:06 160 111/72 05/10/18 00:00 Nasal Cannula 2.0 05/10/18 00:00 98.8 165 18 109/74 (86) 100 05/10/18 00:00 179 05/09/18 22:42 165 135/90 05/09/18 20:40 167 Intake and Output 05/09/18 05/10/18 19:00 07:00 Intake Total 1350 ml 410 ml Output Total 1350 ml 500 ml Balance 0 ml -90 ml Intake Oral 600 ml 60 ml IV Total 350 ml Blood Product 750 ml Output Urine Total 1350 ml 500 ml # Voids 2 # Bowel Movements 1 Laboratory Tests 05/09/18 21:30: White Blood Count 9.3#, Red Blood Count 4.05L, Hemoglobin 10.2#L, Hematocrit 32.4#L, Mean Corpuscular Volume 80#, Mean Corpuscular Hemoglobin 25.2L, Mean Corpuscular Hemoglobin Concent 31.4L, Red Cell Distribution Width 18.1H, Platelet Count 267, Mean Platelet Volume 6.1L, Neutrophils (%) (Auto) , Lymphocytes (%) (Auto) , Monocytes (%) (Auto) , Eosinophils (%) (Auto) , Basophils (%) (Auto) , Differential Total Cells Counted 100, Neutrophils % ( Manual) 91H, Lymphocytes % (Manual) 7L, Monocytes % (Manual) 2, Eosinophils % ( Manual) 0, Basophils % (Manual) 0, Band Neutrophils 0, Platelet Estimate Adequate, Platelet Morphology Normal, Hypochromasia 2+, Anisocytosis 2+ 05/10/18 05:35: White Blood Count 12.2H, Red Blood Count 3.26L, Hemoglobin 8.4L, Hematocrit 25.7L, Mean Corpuscular Volume 79L, Mean Corpuscular Hemoglobin 25.8L, Mean Corpuscular Hemoglobin Concent 32.6, Red Cell Distribution Width 18.6H, Platelet Count 220, Mean Platelet Volume 6.4L, Neutrophils (%) (Auto) , Lymphocytes (%) (Auto) , Monocytes (%) (Auto) , Eosinophils (%) (Auto) , Basophils (%) (Auto) , Differential Total Cells Counted 100, Neutrophils % ( Manual) 96H, Lymphocytes % (Manual) 2L, Monocytes % (Manual) 2, Eosinophils % ( Manual) 0, Basophils % (Manual) 0, Band Neutrophils 0, Platelet Estimate Adequate, Platelet Morphology Normal, Hypochromasia 1+, Anisocytosis 1+, Sodium Level 138, Potassium Level 3.4L, Chloride Level 105, Carbon Dioxide Level 25, Anion Gap 8, Blood Urea Nitrogen 28H, Creatinine 2.0H, Estimat Glomerular Filtration Rate , Glucose Level 115H, Calcium Level 8.1L, Iron Level 18L, Total Iron Binding Capacity 300, Percent Iron Saturation 6L, Unsaturated Iron Binding 282, Ferritin 27, Troponin I 0.937H, Thyroid Stimulating Hormone (TSH) 0.331L 05/10/18 15:10: White Blood Count 7.2, Red Blood Count 3.20L, Hemoglobin 8.1L, Hematocrit 25.2L , Mean Corpuscular Volume 79L, Mean Corpuscular Hemoglobin 25.4L, Mean Corpuscular Hemoglobin Concent 32.3, Red Cell Distribution Width 18.4H, Platelet Count 218, Mean Platelet Volume 6.2L, Neutrophils (%) (Auto) 83.1H, Lymphocytes (%) (Auto) 9.2L, Monocytes (%) (Auto) 7.0, Eosinophils (%) (Auto) 0.4, Basophils (%) (Auto) 0.3 Height (Feet): 5 Height (Inches): 8.00 Weight (Pounds): 150 Objective Elderly man NCAT supple CTR IR/IR abd soft NT ND no edema Montserrat Flores MD May 10, 2018 20:05
--- NOTE | 2018-05-10 20:30 | NUR ---
NURSE NOTES: 1 unit PRBC started inf.See V/S.Scope SR.Denies CP.Observed for S/S of Tx Reaction.
--- NOTE | 2018-05-10 20:43 | NUR ---
HAND-OFF: Report given to to transfuse 04/27 PRBC's and taper off cardiazem drip..
[2018-05-10] MEDS ORDERED: Iron Sucrose 100 MG in NS 55 ML IV SCH (21:00)
[2018-05-10] MEDS: Iron Sucrose 100 MG in NS 55 ML IV SCH (21:18)
--- NOTE | 2018-05-10 23:00 | NUR ---
NURSE NOTES: Above Bld.Tx.consumed,Transfusion satisfactory.See V/S.Scope Rhythm same.Due meds recvd.Hs care rendered.Cardizem drip Taper Off 1hr after metoprolol rcvd.
[2018-05-11] VITALS (24 sets, daily range): BP systolic 98–135; BP diastolic 48–93
--- NOTE | 2018-05-11 02:00 | NUR ---
NURSE NOTES: Sound asleep.resp. unlabored.P.Ud15-664% on 2L/NC.Off Cardizem drip.Scope remain SR occ.to rare pac's. .
--- NOTE | 2018-05-11 02:15 | Progress Note ---
DATE: 05/10/2018 SUBJECTIVE: The patient was transferred to the intensive care unit early this morning due to persistent rapid atrial fibrillation with lower range blood pressure despite infusions of metoprolol and diltiazem intravenously. I started a diltiazem drip in the emergency room and low range blood pressure was treated with fluid challenge. The patient ultimately converted to sinus rhythm. Blood pressure has remained on the low side. Hemoglobin has dropped again. PHYSICAL EXAMINATION: VITAL SIGNS: Blood pressure 93/42, pulse 65, respiratory rate 15. Afebrile. Monitored rhythm sinus with atrial ectopy. LUNGS: Good breath sounds. No wheezing. HEART: Regular rhythm and rate. Normal S1, S2 with a fourth heart sound. ABDOMEN: Soft, no edema. LABS: White count 12.2, hemoglobin 8.4. Potassium 3.4, BUN 28, creatinine 2.0. Troponin 0.937. Iron saturation 6%. IMPRESSION: 1. Severe anemia. 2. Chronic GI bleeding. 3. Severe iron deficiency. 4. Acute on chronic renal failure. 5. Hypokalemia. 6. Paroxysmal atrial fibrillation with rapid ventricular response. 7. Acute myocardial infarction precipitated by severe anemia and coronary hypoperfusion. 8. Mild protein-calorie malnutrition. PLAN: 1. Transfusion. 2. Serial hemoglobins. 3. Transition from IV diltiazem to oral regimen that includes diltiazem and beta-reji. 4. No anti-platelet or anticoagulant at this time. 5. IV iron replacement. 6. Monitor volume status and cardiorenal parameters closely. 7. Fluid challenge in between transfusions for low range blood pressure. Jerad Phillips M.D. DR: YARIEL JOB#: [id number] CC:
--- NOTE | 2018-05-11 04:00 | NUR ---
NURSE NOTES: Ashlee Bernal.blood drawn for cbc/cmp etc.spec.to Lab.Voided freely.Remain OFF amioda. drip Scope Pattern remain SINUS.No CP.Nuero status same.
[2018-05-11 05:51] LABS: BASOPHILS % (AUTO) 0.8 % (0.0-2.0); EOSINOPHILS % (AUTO) 2.6 % (0.0-3.0); HEMATOCRIT 27.4 % (42.0-52.0); HEMOGLOBIN 8.8 G/DL (14.2-18.0); MEAN CORPUSCULAR VOLUME 80 FL (80-99); MONOCYTES % (AUTO) 8.8 % (1.0-10.0); NEUTROPHILS % (AUTO) 68.8 % (45.0-75.0); PLATELET COUNT 213 K/UL (150-450); RED BLOOD COUNT 3.42 M/UL (4.70-6.10); RED CELL DISTRIBUTION WIDTH 18.5 % (11.6-14.8); WHITE BLOOD COUNT 4.4 K/UL (4.8-10.8)
[2018-05-11] MEDS: Sucralfate 1gm tab ORAL SCH ×4 (06:12→21:16)
[2018-05-11 06:34] LABS: ALANINE AMINOTRANSFERASE 23 U/L (12-78); ALBUMIN 2.7 G/DL (3.4-5.0); ALBUMIN/GLOBULIN RATIO 0.9 (1.0-2.7); ALKALINE PHOSPHATASE 63 U/L (46-116); ANION GAP 10 mmol/L (5-15); ASPARTATE AMINO TRANSFERASE 18 U/L (15-37); BILIRUBIN,TOTAL 0.9 MG/DL (0.2-1.0); BLOOD UREA NITROGEN 33 mg/dL (7-18); CALCIUM 8.1 MG/DL (8.5-10.1); CARBON DIOXIDE 24 MMOL/L (21-32); CHLORIDE 105 MMOL/L (98-107); CREATININE 1.9 MG/DL (0.55-1.30); POTASSIUM 3.9 MMOL/L (3.5-5.1); SODIUM 139 MMOL/L (136-145)
--- NOTE | 2018-05-11 07:15 | NUR ---
NURSE NOTES: Report received form PRATIK Dumont. Pt is awake, alert, and oriented. Mainly Faroese speaking. Sinus rhythm on supervisory clerk in 60's. On N/C 2L. O2 sat 100%. IV to right FA G20, left hand G22, and left UA G22 patent and asymptomatic. Bed in lowest position. Side rails up x3. Will resume plan of care.
[2018-05-11] MEDS: Pantoprazole Inj IVP SCH ×2 (08:53→20:28)
[2018-05-11] MEDS: Imdur 30mg tab ORAL SCH (08:53)
[2018-05-11] MEDS: Aspirin Baby 81mg ORAL SCH (08:53)
[2018-05-11] MEDS: Calcium Carbonate 500mg w/Vit D 200iu tab ORAL SCH ×2 (08:54→17:46)
[2018-05-11] MEDS: Docusate 250mg cap ORAL SCH ×3 (08:54→17:46)
[2018-05-11] MEDS: Metoprolol 25mg tab ORAL SCH ×2 (08:54→20:29)
--- NOTE | 2018-05-11 09:24 | NUR ---
NURSE NOTES: Fed patient 1:1. Pt ate 75% breakfast. Family at bedside. Will continue to monitor.
--- NOTE | 2018-05-11 10:00 | NUR ---
NURSE NOTES: Assisted to use commode for small normal BM. Pt back to bed and resting and watching TV.
--- NOTE | 2018-05-11 12:11 | NUR ---
NURSE NOTES: Family at bedside. Sinus rhythm on monitor car operator with HR 60's. New IVs inserted. Pt tolerated well. Will continue to monitor.
--- NOTE | 2018-05-11 12:59 | NUR ---
CASE MANAGEMENT: REVIEW SI: CHEST PAIN . ANEMIA T 98.1 HR 59 RR 14 BP 98/64 SAT 100% NC/2L WBC 4.4 H/H 8.8/27.4 BUN 33 CR 1.9 TROPONIN I 0.637 IS: VENOFER IV QHS LIPITOR PO QHS GABAPENTIN PO QHS LOPRESSOR PO Q12HR ASA PO QD CARDIZEM IV Q24HR ICU STATUS DCP: PATIENT IS FROM HOME
--- NOTE | 2018-05-11 13:58 | NUR ---
ST NOTE: SWALLOW/SPEECH/LANGUAGE STATUS FOLLOWED UP PT'S CONDITIONS. CHART REVIEWED. PT SEEN AT BEDSIDE IN PM. ALERT, COOPERATIVE, FOLLOWS SIMPLE DIRECTIONS. PT WITH NC(2L). PER PT, FEELING BETTER TODAY. PER RN, ODESSA BAIN, PT TOLERATED WELL WITH PUREED FOOD WITHOUT OVERT S/S OF ASPIRATION, HOWEVER, PT INCREASED MASTICATION TIME WITH GROUND FOOD, AND COUGHING WAS NOTED A FEW TIME DURING MEALS. LUNCH TRAY IS AT BEDSIDE, PT CONSUMED 50% OF THE TRAY. PT DECLINED FURTHER MASTICATED SOLID BUT TOOK A FEW TEASPOON OF NECTAR THICK LIQUIDS, MILD INCREASED ORAL TRANSIT TIME AND OROPHARYNGEAL TRANSIT TIME, FAIR LARYNGEAL ELEVATION, NO OVERT S/S OF ASPIRATION. CHANGED DIET TO MOIST PUREE WITH NECTAR THICK LIQUIDS WITH STRICT ASPIRATION PRECAUTIONS WITH 1TO1 FEEDING. UPDATED ASPIRATION PRECAUTIONS SIGN. D/W THE STAFF.
--- NOTE | 2018-05-11 14:02 | General Progress Note ---
Assessment/Plan Problem List: (1) anemia (2) anemia (3) anemia (4) Prostate cancer ICD Codes: C61 - Malignant neoplasm of prostate SNOMED: 913052254 (5) CHF (congestive heart failure) ICD Codes: I50.9 - Heart failure, unspecified SNOMED: 03447724 Qualifiers: Qualified Codes: I50.9 - Heart failure, unspecified (6) GI bleed ICD Codes: K92.2 - Gastrointestinal hemorrhage, unspecified SNOMED: 63635115 Qualifiers: Qualified Codes: K92.2 - Gastrointestinal hemorrhage, unspecified (7) NSTEMI (non-ST elevation myocardial infarction) ICD Codes: I21.4 - Non-ST elevation (NSTEMI) myocardial infarction SNOMED: 249025854 (8) Atrial fibrillation with rapid ventricular response ICD Codes: I48.91 - Unspecified atrial fibrillation SNOMED: 901313256994185 (9) Gastritis ICD Codes: K29.70 - Gastritis, unspecified, without bleeding SNOMED: 1677140 (10) KRISTINE (acute kidney injury) ICD Codes: N17.9 - Acute kidney failure, unspecified SNOMED: 15772861 Assessment/Plan transferred to icu, afib converted nsr with cardizem drip, now off, no angina or abd pain, to monitor rhythem, transfuse 1 more unit prbc 05/10 , venofer for iron deficiency, monitor cardiac and gi status, d/w daughter DNAR, kristine likely prerenal hydrate cautiously Subjective Constitutional: Reports: weakness HEENT: Reports: no symptoms Cardiovascular: Reports: no symptoms Respiratory: Reports: no symptoms Gastrointestinal/Abdominal: Reports: no symptoms Genitourinary: Reports: no symptoms Neurologic/Psychiatric: Reports: no symptoms Endocrine: Reports: no symptoms Hematologic/Lymphatic: Reports: anemia Allergies: Coded Allergies: No Known Allergies (Unverified , 08/05/12) Objective Last 24 Hour Vital Signs Date Time Temp Pulse Resp B/P (MAP) Pulse Ox O2 Delivery O2 Flow Rate FiO2 05/11/18 13:00 66 21 112/54 (73) 100 05/11/18 12:00 Nasal Cannula 2.0 05/11/18 12:00 62 17 98/64 (75) 100 05/11/18 11:00 61 17 124/56 (78) 99 05/11/18 10:00 65 17 124/56 (78) 99 05/11/18 09:00 70 16 116/55 (75) 100 05/11/18 08:54 60 115/51 05/11/18 08:53 115/51 05/11/18 08:00 60 14 115/51 (72) 100 05/11/18 08:00 Nasal Cannula 2.0 05/11/18 07:42 63 05/11/18 07:00 98.1 60 14 130/68 (88) 100 05/11/18 06:00 59 15 119/62 (81) 100 05/11/18 05:00 60 15 124/56 (78) 100 05/11/18 04:00 97.8 62 15 125/64 (84) 100 05/11/18 04:00 Nasal Cannula 2.0 05/11/18 04:00 64 05/11/18 03:00 60 14 114/55 (74) 100 05/11/18 02:00 60 15 110/54 (72) 100 05/11/18 01:00 60 15 105/52 (69) 100 05/11/18 00:00 60 05/11/18 00:00 98.3 57 24 106/51 (69) 100 05/11/18 00:00 Nasal Cannula 2.0 05/10/18 23:00 63 18 109/55 (73) 98 05/10/18 22:30 61 17 103/50 (67) 98 05/10/18 22:00 62 17 103/64 (77) 98 05/10/18 21:30 64 19 100/54 (69) 99 05/10/18 21:00 97.9 70 19 108/78 (88) 99 05/10/18 20:30 71 20 116/58 (77) 99 05/10/18 20:00 69 18 112/56 (74) 98 05/10/18 20:00 Nasal Cannula 2.0 05/10/18 20:00 71 05/10/18 19:30 70 18 115/64 (81) 98 05/10/18 19:26 73 115/56 05/10/18 19:00 70 18 115/56 (75) 98 05/10/18 18:30 69 17 115/64 (81) 97 05/10/18 18:00 98.6 69 16 117/58 (77) 98 05/10/18 17:30 67 14 108/55 (72) 98 05/10/18 17:00 68 16 103/52 (69) 98 05/10/18 16:30 71 18 99/64 (76) 98 05/10/18 16:00 71 05/10/18 16:00 Nasal Cannula 2.0 05/10/18 16:00 98.3 69 16 114/58 (76) 97 05/10/18 15:30 71 17 108/58 (75) 97 05/10/18 15:00 69 14 91/42 (58) 97 05/10/18 14:30 69 18 88/40 (56) 97 Intake and Output 05/10/18 05/11/18 19:00 07:00 Intake Total 503 ml 669 ml Output Total 150 ml 380 ml Balance 353 ml 289 ml Intake Oral 250 ml 300 ml IV Total 253 ml 69 ml Blood Product 300 ml Output Urine Total 150 ml 380 ml # Voids 2 Laboratory Tests 05/10/18 15:10: White Blood Count 7.2, Red Blood Count 3.20L, Hemoglobin 8.1L, Hematocrit 25.2L , Mean Corpuscular Volume 79L, Mean Corpuscular Hemoglobin 25.4L, Mean Corpuscular Hemoglobin Concent 32.3, Red Cell Distribution Width 18.4H, Platelet Count 218, Mean Platelet Volume 6.2L, Neutrophils (%) (Auto) 83.1H, Lymphocytes (%) (Auto) 9.2L, Monocytes (%) (Auto) 7.0, Eosinophils (%) (Auto) 0.4, Basophils (%) (Auto) 0.3 05/11/18 05:00: White Blood Count 4.4L, Red Blood Count 3.42L, Hemoglobin 8.8L, Hematocrit 27.4L , Mean Corpuscular Volume 80, Mean Corpuscular Hemoglobin 25.7L, Mean Corpuscular Hemoglobin Concent 32.1, Red Cell Distribution Width 18.5H, Platelet Count 213, Mean Platelet Volume 6.9, Neutrophils (%) (Auto) 68.8, Lymphocytes (%) (Auto) 19.0L, Monocytes (%) (Auto) 8.8, Eosinophils (%) (Auto) 2.6, Basophils (%) (Auto) 0.8, Sodium Level 139, Potassium Level 3.9, Chloride Level 105, Carbon Dioxide Level 24, Anion Gap 10, Blood Urea Nitrogen 33H, Creatinine 1.9H, Estimat Glomerular Filtration Rate , Glucose Level 83, Calcium Level 8.1L, Magnesium Level 1.7L, Total Bilirubin 0.9, Aspartate Amino Transf ( AST/SGOT) 18, Alanine Aminotransferase (ALT/SGPT) 23, Alkaline Phosphatase 63, Troponin I 0.637H, Pro-B-Type Natriuretic Peptide 2734H, Total Protein 5.8L, Albumin 2.7L, Globulin 3.1, Albumin/Globulin Ratio 0.9L Height (Feet): 5 Height (Inches): 8.00 Weight (Pounds): 143 General Appearance: no apparent distress, alert EENT: normal ENT inspection Neck: normal alignment Cardiovascular: normal rate, regular rhythm Respiratory/Chest: lungs clear, normal breath sounds Abdomen: non tender, soft, no organomegaly Edema: trace edema Neurologic: cardiology nurse practitioner II-XII grossly normal Quentin Marsh MD May 11, 2018 14:02
--- NOTE | 2018-05-11 15:00 | NUR ---
NURSE NOTES: Dr Marsh here to see the patient. Updated him with pt's current condition. Order to transfer pt to Tele received, noted, and carried out. Notified Charge nurse.
--- NOTE | 2018-05-11 17:50 | NUR ---
NURSE NOTES: Fed patient purred moist diet. Pt had90% dinner. No acute distress noted. Dr Phillips here to see the patient. Updated him with pt current condition. No new orders.
[2018-05-11] MEDS ORDERED: Magnesium Oxide 400mg tab ORAL SCH (18:00)
--- NOTE | 2018-05-11 19:20 | NUR ---
HAND-OFF: Report given to PRATIK Mcclain.
--- NOTE | 2018-05-11 19:21 | NUR ---
NURSE NOTES: Endorsement received from Priscilla chong RN. Patient awake and alert. Setswana speaking. Sinus rhythm on the monitor. On 2LPM nasal cannula. No complain of pain or discomfort. With right upper arm g22, left wrist g22, right wrist g22. Ongoing D5W 100ml/hr with a discontinue time at 1915H. IVF discontinued. Bed locked and in low position. Bed alarm on. Call light within reach.
--- NOTE | 2018-05-11 21:00 | NUR ---
NURSE NOTES: Patient reported mild pain on left leg. Assisted to reposition. PRN tylenol given.
[2018-05-11] MEDS: Iron Sucrose 100 MG in NS 55 ML IV SCH (21:16)
--- NOTE | 2018-05-11 22:01 | General Progress Note ---
Assessment/Plan Assessment/Plan Assessment - Recurrent anemia, microcytic - h/o Hiatal hernia - H/o GERD - a fib with RHR Recommendations - transfuse PRN - Venofer x 5 days - PPI / carafate - Message left with DTR to discuss - cardiology evaluation and f/u Subjective Allergies: Coded Allergies: No Known Allergies (Unverified , 08/05/12) Subjective Seen in ICU d/w RN HR better Objective Last 24 Hour Vital Signs Date Time Temp Pulse Resp B/P (MAP) Pulse Ox O2 Delivery O2 Flow Rate FiO2 05/11/18 21:53 97.7 05/11/18 20:29 70 135/72 05/11/18 20:00 Nasal Cannula 2.0 05/11/18 19:00 74 20 111/55 (73) 98 05/11/18 18:00 72 22 123/86 (98) 97 05/11/18 17:00 73 19 131/67 (88) 100 05/11/18 16:00 Nasal Cannula 2.0 05/11/18 16:00 97.7 70 17 109/55 (73) 100 05/11/18 15:43 69 05/11/18 15:00 68 18 108/49 (68) 99 05/11/18 14:00 68 21 108/48 (68) 99 05/11/18 13:00 66 21 112/54 (73) 100 05/11/18 12:05 61 05/11/18 12:00 Nasal Cannula 2.0 05/11/18 12:00 97.9 62 17 98/64 (75) 100 05/11/18 11:00 61 17 124/56 (78) 99 05/11/18 10:00 65 17 124/56 (78) 99 05/11/18 09:00 70 16 116/55 (75) 100 05/11/18 08:54 60 115/51 05/11/18 08:53 115/51 05/11/18 08:00 60 14 115/51 (72) 100 05/11/18 08:00 Nasal Cannula 2.0 05/11/18 07:42 63 05/11/18 07:00 98.1 60 14 130/68 (88) 100 05/11/18 06:00 59 15 119/62 (81) 100 05/11/18 05:00 60 15 124/56 (78) 100 05/11/18 04:00 97.8 62 15 125/64 (84) 100 05/11/18 04:00 Nasal Cannula 2.0 05/11/18 04:00 64 05/11/18 03:00 60 14 114/55 (74) 100 05/11/18 02:00 60 15 110/54 (72) 100 05/11/18 01:00 60 15 105/52 (69) 100 05/11/18 00:00 60 05/11/18 00:00 98.3 57 24 106/51 (69) 100 05/11/18 00:00 Nasal Cannula 2.0 05/10/18 23:00 63 18 109/55 (73) 98 05/10/18 22:30 61 17 103/50 (67) 98 05/10/18 22:00 62 17 103/64 (77) 98 Intake and Output 05/10/18 05/11/18 19:00 07:00 Intake Total 503 ml 669 ml Output Total 150 ml 380 ml Balance 353 ml 289 ml Intake Oral 250 ml 300 ml IV Total 253 ml 69 ml Blood Product 300 ml Output Urine Total 150 ml 380 ml # Voids 2 Laboratory Tests 05/11/18 05:00: White Blood Count 4.4L, Red Blood Count 3.42L, Hemoglobin 8.8L, Hematocrit 27.4L , Mean Corpuscular Volume 80, Mean Corpuscular Hemoglobin 25.7L, Mean Corpuscular Hemoglobin Concent 32.1, Red Cell Distribution Width 18.5H, Platelet Count 213, Mean Platelet Volume 6.9, Neutrophils (%) (Auto) 68.8, Lymphocytes (%) (Auto) 19.0L, Monocytes (%) (Auto) 8.8, Eosinophils (%) (Auto) 2.6, Basophils (%) (Auto) 0.8, Sodium Level 139, Potassium Level 3.9, Chloride Level 105, Carbon Dioxide Level 24, Anion Gap 10, Blood Urea Nitrogen 33H, Creatinine 1.9H, Estimat Glomerular Filtration Rate , Glucose Level 83, Calcium Level 8.1L, Magnesium Level 1.7L, Total Bilirubin 0.9, Aspartate Amino Transf ( AST/SGOT) 18, Alanine Aminotransferase (ALT/SGPT) 23, Alkaline Phosphatase 63, Troponin I 0.637H, Pro-B-Type Natriuretic Peptide 2734H, Total Protein 5.8L, Albumin 2.7L, Globulin 3.1, Albumin/Globulin Ratio 0.9L Height (Feet): 5 Height (Inches): 8.00 Weight (Pounds): 143 Objective Elderly man NCAT supple CTR IR/IR abd soft NT ND no edema Montserrat Flores MD May 11, 2018 22:01
--- NOTE | 2018-05-11 23:00 | Progress Note ---
DATE: 05/11/2018 CARDIOLOGY PROGRESS NOTE SUBJECTIVE: The patient feels better and is less congested with no new bleeding noted. He remains in sinus rhythm with atrial ectopy. OBJECTIVE: VITAL SIGNS: Blood pressure 112/54, pulse 66, respirations 21. LUNGS: Coarse breath sounds. HEART: Regular rhythm and rate. Normal S1, S2. ABDOMEN: Soft. EXTREMITIES: Trace edema. LABORATORY DATA: White count 4.4 and hemoglobin 8.8. Potassium 3.9, BUN 33, and creatinine 1.9. Troponin 0.637. Albumin 2.7. Pro-natriuretic peptide 2734. IMPRESSION: 1. Severe anemia. 2. GI bleed. 3. Acute myocardial infarction. 4. Acute on chronic diastolic congestive heart failure. 5. Hypertensive heart disease. 6. Post-polio syndrome. 7. Iron-deficiency anemia. 8. Paroxysmal atrial fibrillation. 9. Paroxysmal atrial ectopy. PLAN: 1. Transfer to telemetry unit. 2. Oral diltiazem. 3. Serial hemoglobin. 4. Avoid antiplatelet therapy. 5. Monitor electrolytes and replace accordingly. 6. Maintain beta-blockade, but discontinue aspirin due to bleeding risk. Jerad Phillips M.D. DR: DIONTE JOB#: [id number] CC:
--- NOTE | 2018-05-11 23:00 | NUR ---
NURSE NOTES: Patient asleep. Appears comfortable.
[2018-05-12] VITALS (12 sets, daily range): BP systolic 100–132; BP diastolic 51–84
--- NOTE | 2018-05-12 01:00 | NUR ---
NURSE NOTES: No shortness of breath. Sinus rhythm on the monitor
--- NOTE | 2018-05-12 03:00 | NUR ---
NURSE NOTES: Patient asleep. Vital signs stable.
--- NOTE | 2018-05-12 04:00 | NUR ---
NURSE NOTES: Patient awake, bed bath, change of linens done.
[2018-05-12 05:55] LABS: BASOPHILS % (AUTO) 0.6 % (0.0-2.0); EOSINOPHILS % (AUTO) 3.3 % (0.0-3.0); HEMATOCRIT 27.5 % (42.0-52.0); HEMOGLOBIN 8.6 G/DL (14.2-18.0); LYMPHOCYTES % (AUTO) 16.1 % (20.0-45.0); MEAN CORPUSCULAR VOLUME 81 FL (80-99); NEUTROPHILS % (AUTO) 69.9 % (45.0-75.0); PLATELET COUNT 197 K/UL (150-450); RED BLOOD COUNT 3.38 M/UL (4.70-6.10); WHITE BLOOD COUNT 4.7 K/UL (4.8-10.8)
--- NOTE | 2018-05-12 06:00 | NUR ---
TRANSFER TO FLOOR: Patient transferred to Telemetry room 220-2, endorsed to Lluvia RN, per SBAR. Belongings and medications endorsed to the nurse, kept at bedside. Patient's medications from home still at the pharmacy with the deposit tag kept in the patient's chart. Bed locked and in low position with alarm on. Instructed on how to use call light, patient verbalized understanding
--- NOTE | 2018-05-12 06:00 | NUR ---
NURSE NOTES: Patient transferred from ICU by eloise, no c/o pain,no respiratory distress noted ,tolerated portable oxygen well.Received report from PRATIK Mcclain.Patient A&Ox 4,Romansh speaking,SR on structural ironworker,2L/min N/C, diminished lung sound on auscultation,BS active in all quadrants,IV asymptomatic intact,no accucheck,skin intact,bed secured in a low safety position,call light within a reach,will continue to monitor.Belongings list signed,patient has walker at bedside.
[2018-05-12] MEDS ORDERED: Nitroglycerin Subl 0.4mg tab SL PRN (06:15)
[2018-05-12] MEDS: Sucralfate 1gm tab ORAL SCH ×4 (06:42→20:33)
[2018-05-12 07:10] LABS: ANION GAP 9 mmol/L (5-15); BLOOD UREA NITROGEN 27 mg/dL (7-18); CALCIUM 8.4 MG/DL (8.5-10.1); CARBON DIOXIDE 23 MMOL/L (21-32); CHLORIDE 109 MMOL/L (98-107); CREATININE 1.7 MG/DL (0.55-1.30); POTASSIUM 4.2 MMOL/L (3.5-5.1); SODIUM 141 MMOL/L (136-145)
--- NOTE | 2018-05-12 07:22 | NUR ---
HAND-OFF: Report given to PRATIK Cross.Patient stable.
--- NOTE | 2018-05-12 08:13 | NUR ---
NURSE NOTES: Pt in bed in low position, HOB in fowlers and pt eating breakfast on 1:1 feeder, Pt Ox3 and calm and cooperative, pt is a Kyrgyz speaker, IVs intact and asymptomatic, pt denies pain, pt bed bound, bed alarm on, no s/s of distress or sob noted.
[2018-05-12] MEDS ORDERED: Miralax 17gm pkt ORAL PRN (08:15)
[2018-05-12] MEDS ORDERED: Milk of Magnesia 30ml Ud ORAL PRN (08:15)
[2018-05-12] MEDS: Imdur 30mg tab ORAL SCH (09:25)
[2018-05-12] MEDS: Magnesium Oxide 400mg tab ORAL SCH ×3 (09:25→17:01)
[2018-05-12] MEDS: Calcium Carbonate 500mg w/Vit D 200iu tab ORAL SCH ×2 (09:25→17:00)
[2018-05-12] MEDS: Docusate 250mg cap ORAL SCH ×3 (09:25→17:00)
[2018-05-12] MEDS: Metoprolol 25mg tab ORAL SCH ×2 (09:26→20:34)
[2018-05-12] MEDS: Pantoprazole Inj IVP SCH ×2 (09:27→20:33)
--- NOTE | 2018-05-12 13:21 | NUR ---
ST NOTE: SWALLOW/SPEECH STATUS PT SEEN AT BEDSIDE IN PM. ALERT, COOPERATIVE. PT WITH NC(2L). ABLE TO EXPRESS BASIC WANTS AND NEEDS VERBALLY. PT COMPLETED LUNCH AND PT TOLERATED PUREE WITH NECTAR THICK LIQUIDS WITHOUT OVERT S/S OF ASPIRATION. PT CONSUMED 90-95% OF THE TRAY. PT REQUIRED 1TO1 FEEDING. D/W RNJARRED RE: PT'S CONDITIONS AND DIET CONSISTENCIES. SPOKE TO JOVANNA CANO. PER FREIGHT ELEVATOR ERECTOR, PT TOLERATED WELL WITH THE DIET WITHOUT OVERT S/S OF ASPIRATION.
[2018-05-12] MEDS ORDERED: Tubing IV Secondary IV ONE (15:03)
[2018-05-12] MEDS ORDERED: NS 275ml ONE (15:03)
--- NOTE | 2018-05-12 17:07 | NUR ---
CASE MANAGEMENT:REVIEW 05/12/18 SI: AMI. SEVERE ANEMIA. AC/CHR CHF. PAFIB 97.9 64 21 132/72 97% ON 2L/NC H/H-8.6/27.5 TROPONIN(+) 0.463 BUN+27 CR+1.7 IS: IV VENOFER QHS NEURONTIN QHS IMDUR PO QD LOPRESSOR PO Q12 IV PROTONIX Q12 CARAFATE PO AC+HS : TELEMETRY STATUS DCP: FROM HOME
--- NOTE | 2018-05-12 19:13 | General Progress Note ---
Assessment/Plan Problem List: (1) anemia (2) anemia (3) anemia (4) Prostate cancer ICD Codes: C61 - Malignant neoplasm of prostate SNOMED: 632238705 (5) CHF (congestive heart failure) ICD Codes: I50.9 - Heart failure, unspecified SNOMED: 33281417 Qualifiers: Qualified Codes: I50.9 - Heart failure, unspecified (6) GI bleed ICD Codes: K92.2 - Gastrointestinal hemorrhage, unspecified SNOMED: 93457965 Qualifiers: Qualified Codes: K92.2 - Gastrointestinal hemorrhage, unspecified (7) NSTEMI (non-ST elevation myocardial infarction) ICD Codes: I21.4 - Non-ST elevation (NSTEMI) myocardial infarction SNOMED: 091518419 (8) Atrial fibrillation with rapid ventricular response ICD Codes: I48.91 - Unspecified atrial fibrillation SNOMED: 602363196129430 (9) Gastritis ICD Codes: K29.70 - Gastritis, unspecified, without bleeding SNOMED: 1480457 (10) KRISTINE (acute kidney injury) ICD Codes: N17.9 - Acute kidney failure, unspecified SNOMED: 14511026 Assessment/Plan transferred to icu, afib converted nsr with cardizem drip, now off, no angina or abd pain, to monitor rhythem, transfuse 1 more unit prbc 05/10 , venofer for iron deficiency, monitor cardiac and gi status, d/w daughter DNAR, kristine likely prerenal hydrate cautiously, now on t3le unit, feels better, check cbc bmp in am Subjective Constitutional: Reports: weakness HEENT: Reports: no symptoms Cardiovascular: Reports: no symptoms Respiratory: Reports: no symptoms Gastrointestinal/Abdominal: Reports: no symptoms Genitourinary: Reports: no symptoms Neurologic/Psychiatric: Reports: pre-existing deficit Endocrine: Reports: no symptoms Hematologic/Lymphatic: Reports: anemia Allergies: Coded Allergies: No Known Allergies (Unverified , 08/05/12) Objective Last 24 Hour Vital Signs Date Time Temp Pulse Resp B/P (MAP) Pulse Ox O2 Delivery O2 Flow Rate FiO2 05/12/18 16:00 97.9 64 21 132/72 (92) 97 64 05/12/18 15:29 64 05/12/18 12:00 97.8 62 18 123/66 (85) 97 62 1/16/19 12:00 60 05/12/18 12:00 Nasal Cannula 2.0 05/12/18 09:56 97.7 05/12/18 09:26 68 127/73 05/12/18 09:25 127/73 05/12/18 08:17 Nasal Cannula 2.0 28 05/12/18 08:17 99 Nasal Cannula 2.0 28 05/12/18 08:00 100.7 20 127/73 (91) 98 05/12/18 08:00 Nasal Cannula 2.0 05/12/18 07:39 68 05/12/18 06:04 97.9 05/12/18 06:00 98.3 65 18 128/74 (92) 100 05/12/18 05:40 61 14 113/70 (84) 100 05/12/18 05:00 61 15 119/69 (86) 100 05/12/18 04:00 97.9 63 16 121/84 (96) 100 05/12/18 04:00 63 05/12/18 04:00 Nasal Cannula 2.0 05/12/18 03:00 61 16 100/53 (69) 100 05/12/18 02:00 63 14 132/83 (99) 100 05/12/18 02:00 61 100/53 05/12/18 01:00 64 16 117/59 (78) 100 05/12/18 00:00 Nasal Cannula 2.0 05/12/18 00:00 64 05/12/18 00:00 97.9 65 17 129/51 (77) 99 05/11/18 23:00 64 16 132/83 (99) 100 05/11/18 22:00 64 16 125/65 (85) 100 05/11/18 21:00 66 19 121/93 (102) 100 05/11/18 20:29 70 135/72 05/11/18 20:00 97.6 72 20 135/72 (93) 100 05/11/18 20:00 72 05/11/18 20:00 Nasal Cannula 2.0 28 05/11/18 20:00 Nasal Cannula 2.0 05/11/18 20:00 98 Nasal Cannula 2.0 28 Intake and Output 05/11/18 05/12/18 19:00 07:00 Intake Total 450 ml 260 ml Output Total 360 ml 1500 ml Balance 90 ml -1240 ml Intake Oral 100 ml 0 ml IV Total 350 ml 260 ml Output Urine Total 360 ml 1500 ml # Voids 2 5 # Bowel Movements 2 Laboratory Tests 05/12/18 04:20: White Blood Count 4.7L, Red Blood Count 3.38L, Hemoglobin 8.6L, Hematocrit 27.5L , Mean Corpuscular Volume 81, Mean Corpuscular Hemoglobin 25.5L, Mean Corpuscular Hemoglobin Concent 31.4L, Red Cell Distribution Width 19.0H, Platelet Count 197, Mean Platelet Volume 6.1L, Neutrophils (%) (Auto) 69.9, Lymphocytes (%) (Auto) 16.1L, Monocytes (%) (Auto) 10.0, Eosinophils (%) (Auto) 3.3H, Basophils (%) (Auto) 0.6, Sodium Level 141, Potassium Level 4.2, Chloride Level 109H, Carbon Dioxide Level 23, Anion Gap 9, Blood Urea Nitrogen 27H, Creatinine 1.7H, Estimat Glomerular Filtration Rate , Glucose Level 96, Calcium Level 8.4L, Troponin I 0.463H, Pro-B-Type Natriuretic Peptide 3156H Height (Feet): 5 Height (Inches): 8.00 Weight (Pounds): 161 General Appearance: no apparent distress, alert EENT: normal ENT inspection Neck: normal alignment Cardiovascular: normal rate, regular rhythm Respiratory/Chest: lungs clear Abdomen: non tender, soft Extremities: no calf tenderness Edema: trace edema Neurologic: exhibit designer II-XII grossly normal Quentin Marsh MD May 12, 2018 19:13
--- NOTE | 2018-05-12 19:29 | NUR ---
NURSE NOTES: Received report from Magda Melissa RN. Pt was on the BSC and had BM. Staff helped him to go back to the bed from BSC, and it is not safe for the pt due to unsteady gait. Using bedpan was instructed and pt verbalized the understanding. BSC was removed from the room. Currently, pt is restinh in the bed w/o distress in 2L NC, is able to make needs known. Safety measures are applied w/ bed alarm on, bed in lowest position w/ side rails up x2. Call light and side table are w/in reach. IV sites are asymptomatic for infection. Will follow plans of care.
--- NOTE | 2018-05-12 19:40 | NUR ---
NURSE NOTES: Per md gonzalez, he stated that if the pt blood chemistry remains the same or improves, pt would mostlikely leave tomorrow.
--- NOTE | 2018-05-12 19:46 | NUR ---
HAND-OFF: Report given to Juanita Obrien rn .
--- NOTE | 2018-05-12 20:47 | General Progress Note ---
Assessment/Plan Assessment/Plan Assessment - Recurrent anemia, microcytic - h/o Hiatal hernia - H/o GERD - a fib with RHR Recommendations - transfuse PRN - Venofer - PPI / carafate - DTR to get home med list - cardiology f/u - GI w/u can be done as outpatient Subjective Allergies: Coded Allergies: No Known Allergies (Unverified , 08/05/12) Subjective out of ICU feels OK d/w DTR DTR not sure if patient compliant with GI meds She will get me home med list tomorrow Objective Last 24 Hour Vital Signs Date Time Temp Pulse Resp B/P (MAP) Pulse Ox O2 Delivery O2 Flow Rate FiO2 05/12/18 20:34 69 109/79 05/12/18 19:01 69 05/12/18 16:00 97.9 64 21 132/72 (92) 97 64 05/12/18 15:29 64 05/12/18 12:00 97.8 62 18 123/66 (85) 97 62 05/12/18 12:00 60 05/12/18 12:00 Nasal Cannula 2.0 05/12/18 09:56 97.7 05/12/18 09:26 68 127/73 05/12/18 09:25 127/73 05/12/18 08:17 Nasal Cannula 2.0 28 05/12/18 08:17 99 Nasal Cannula 2.0 28 05/12/18 08:00 100.7 20 127/73 (91) 98 05/12/18 08:00 Nasal Cannula 2.0 05/12/18 07:39 68 05/12/18 06:04 97.9 05/12/18 06:00 98.3 65 18 128/74 (92) 100 05/12/18 05:40 61 14 113/70 (84) 100 05/12/18 05:00 61 15 119/69 (86) 100 05/12/18 04:00 97.9 63 16 121/84 (96) 100 05/12/18 04:00 63 05/12/18 04:00 Nasal Cannula 2.0 05/12/18 03:00 61 16 100/53 (69) 100 05/12/18 02:00 63 14 132/83 (99) 100 05/12/18 02:00 61 100/53 05/12/18 01:00 64 16 117/59 (78) 100 05/12/18 00:00 Nasal Cannula 2.0 05/12/18 00:00 64 05/12/18 00:00 97.9 65 17 129/51 (77) 99 05/11/18 23:00 64 16 132/83 (99) 100 05/11/18 22:00 64 16 125/65 (85) 100 05/11/18 21:00 66 19 121/93 (102) 100 Intake and Output 05/11/18 05/12/18 19:00 07:00 Intake Total 450 ml 260 ml Output Total 360 ml 1500 ml Balance 90 ml -1240 ml Intake Oral 100 ml 0 ml IV Total 350 ml 260 ml Output Urine Total 360 ml 1500 ml # Voids 2 5 # Bowel Movements 2 Laboratory Tests 05/12/18 04:20: White Blood Count 4.7L, Red Blood Count 3.38L, Hemoglobin 8.6L, Hematocrit 27.5L , Mean Corpuscular Volume 81, Mean Corpuscular Hemoglobin 25.5L, Mean Corpuscular Hemoglobin Concent 31.4L, Red Cell Distribution Width 19.0H, Platelet Count 197, Mean Platelet Volume 6.1L, Neutrophils (%) (Auto) 69.9, Lymphocytes (%) (Auto) 16.1L, Monocytes (%) (Auto) 10.0, Eosinophils (%) (Auto) 3.3H, Basophils (%) (Auto) 0.6, Sodium Level 141, Potassium Level 4.2, Chloride Level 109H, Carbon Dioxide Level 23, Anion Gap 9, Blood Urea Nitrogen 27H, Creatinine 1.7H, Estimat Glomerular Filtration Rate , Glucose Level 96, Calcium Level 8.4L, Troponin I 0.463H, Pro-B-Type Natriuretic Peptide 3156H Height (Feet): 5 Height (Inches): 8.00 Weight (Pounds): 161 Objective Elderly man NCAT supple CTR IR/IR abd soft NT ND no edema Montserrat Flores MD May 12, 2018 20:47
[2018-05-12] MEDS ORDERED: Iron Sucrose 100 MG in NS 55 ML IV SCH (21:00)
[2018-05-12] MEDS ORDERED: Loperamide 2mg cap ORAL PRN (21:00)
--- NOTE | 2018-05-12 21:05 | NUR ---
NURSE NOTES: Pt had one time of loose stool. Called Dr. Marsh's office at , and got TO per Dr. Mcdermott for Imodium 2mg in a cap, Q6HR. Will carry the order.
--- NOTE | 2018-05-12 23:07 | NUR ---
NURSE NOTES: Called DTR, Ana and updates are given. Pt is resting pleasantly in the bed w/o distress in 2L NC. Will continue to monitor.
--- NOTE | 2018-05-12 23:45 | Progress Note ---
CARDIOLOGY PROGRESS NOTE DATE: 05/12/2018 SUBJECTIVE: The patient did not have any new bleeding noted. Last packed red blood cell transfusion was 05/10/2018. He has no chest pain. He remains in sinus rhythm with nonsustained atrial ectopy. OBJECTIVE: VITAL SIGNS: Blood pressure 132/72, pulse 64, and respirations 21. LUNGS: Clear. CARDIAC: Regular. Normal S1, S2. ABDOMEN: Soft. No focal tenderness. EXTREMITIES: No edema. LABORATORY DATA: Hemoglobin 8.6. Potassium 4.2, BUN 27, and creatinine 1.7. Troponin down to 0.463 and Pro-natriuretic peptide is 3100. IMPRESSION: 1. Severe anemia. 2. Acute myocardial infarction. 3. Acute on chronic diastolic congestive heart failure. 4. Paroxysmal atrial fibrillation with rapid ventricular response, now maintaining sinus rhythm. 5. Premature atrial contractions. 6. Acute on chronic renal failure. PLAN: 1. Continue beta-reji and statin as well as long-acting nitrates. 2. No need for additional diltiazem. 3. Off anti-platelet therapy due to bleeding risk. 4. No plans for cardioembolic prophylaxis with anticoagulation either due to bleeding risk. 5. Monitor volume status and cardiorenal parameters. 6. Consider diuresis based on these findings. Jerad Phillips M.D. : SAM JOB#: [id number] CC:
[2018-05-13] VITALS: BP 117/81
[2018-05-13 04:00] VITALS: BP 129/65
[2018-05-13] MEDS: Sucralfate 1gm tab ORAL SCH ×3 (06:05→17:09)
--- NOTE | 2018-05-13 06:23 | NUR ---
NURSE NOTES: Bed had been zeroed with SCDs machine hanging when pt was off the bed. Today's daily wt is 152 lbs.
[2018-05-13 07:22] LABS: BASOPHILS % (AUTO) 0.7 % (0.0-2.0); EOSINOPHILS % (AUTO) 3.8 % (0.0-3.0); HEMATOCRIT 30.1 % (42.0-52.0); HEMOGLOBIN 9.5 G/DL (14.2-18.0); MEAN CORPUSCULAR VOLUME 80 FL (80-99); MONOCYTES % (AUTO) 10.6 % (1.0-10.0); NEUTROPHILS % (AUTO) 66.9 % (45.0-75.0); PLATELET COUNT 223 K/UL (150-450); RED BLOOD COUNT 3.75 M/UL (4.70-6.10); RED CELL DISTRIBUTION WIDTH 19.5 % (11.6-14.8); WHITE BLOOD COUNT 3.5 K/UL (4.8-10.8)
--- NOTE | 2018-05-13 07:22 | NUR ---
HAND-OFF: Report given to PRATIK Ram. Pt was cleaned and linens are changed. HOB kept >30 degree. Stable condition.
[2018-05-13 07:40] VITALS: BP 137/81
[2018-05-13 07:44] LABS: ANION GAP 10 mmol/L (5-15); BLOOD UREA NITROGEN 20 mg/dL (7-18); CALCIUM 8.6 MG/DL (8.5-10.1); CARBON DIOXIDE 25 MMOL/L (21-32); CHLORIDE 105 MMOL/L (98-107); CREATININE 1.6 MG/DL (0.55-1.30); POTASSIUM 3.6 MMOL/L (3.5-5.1); SODIUM 140 MMOL/L (136-145)
--- NOTE | 2018-05-13 08:36 | NUR ---
NURSE NOTES: Rcvd Report from Yo, pt in bed with HOB in high fowlers and in low position, pt eating breakfast in bed by himself, no complaints of pain denies pain, pt insist on using bedside commode and was instructed that it is dangers due to his inability to support himself and his weight, pt continues to insist to use the commode staff aware and will comply with patient wishes with 2 staff member always present in assisting the pt, IV intact, pt not receiving IV fluids, pt might be d/c today back to home. Ox4 Yi speaker, pt on 2L nc with O2 sat in the mid 90's, no s/s of distress noted.
[2018-05-13] MEDS: Metoprolol 25mg tab ORAL SCH (10:16)
[2018-05-13] MEDS: Imdur 30mg tab ORAL SCH (10:17)
[2018-05-13] MEDS: Calcium Carbonate 500mg w/Vit D 200iu tab ORAL SCH ×2 (10:17→17:08)
[2018-05-13] MEDS: Magnesium Oxide 400mg tab ORAL SCH ×3 (10:17→17:08)
[2018-05-13] MEDS: Docusate 250mg cap ORAL SCH ×3 (10:17→17:08)
[2018-05-13] MEDS: Pantoprazole Inj IVP SCH (10:17)
--- NOTE | 2018-05-13 10:17 | NUR ---
REHAB MED PT NOTE CONSULT SUNIL BRODYTED, PATIENT WILL BENEFIT FROM SKILLED PT DURING STAY FOR RETURN TO [facility]. RECOMMEND SNF VS HOME PT AT [place]. PLAN OF CARE INITIATED. MARLEEN PLAZA PT DPT Addendum: 05/13/18 at 1018 by MARLEEN PLAZA PT Amended: Links added.
--- NOTE | 2018-05-13 10:51 | NUR ---
NURSE NOTES: dr Marsh called regarding pt to fax over the labs and medication list to [phone], upon fax confirmation it stated unsuccessful, called Dr walsh and they gave me [phone] and [phone] faxed to both. numbers. called Dr walsh for confirmation.
[2018-05-13 12:00] VITALS: BP 134/71
[2018-05-13 16:00] VITALS: BP 121/70
--- NOTE | 2018-05-13 17:46 | General Progress Note ---
Assessment/Plan Assessment/Plan Assessment - Recurrent anemia, microcytic - h/o Hiatal hernia - H/o GERD - a fib with RHR Recommendations - transfuse PRN - Venofer - PPI / carafate - DTR to get home med list - cardiology f/u - GI w/u can be done as outpatient Subjective Allergies: Coded Allergies: No Known Allergies (Unverified , 08/05/12) Subjective out of ICU feels OK d/w DTR again not able to get me med list advised to make f/u to see me post d/c Objective Last 24 Hour Vital Signs Date Time Temp Pulse Resp B/P (MAP) Pulse Ox O2 Delivery O2 Flow Rate FiO2 05/13/18 16:00 98.3 83 22 121/70 (87) 95 05/13/18 12:00 99.2 60 20 134/71 (92) 97 05/13/18 11:51 58 05/13/18 10:17 102/66 05/13/18 10:16 66 102/66 05/13/18 08:30 Nasal Cannula 2.0 05/13/18 07:56 68 05/13/18 07:40 98.1 62 18 137/81 (99) 95 05/13/18 04:00 98.1 65 18 129/65 (86) 95 05/13/18 03:36 67 05/13/18 00:00 97.9 73 18 117/81 (93) 99 05/12/18 23:14 62 05/12/18 21:00 Nasal Cannula 2.0 05/12/18 20:47 Nasal Cannula 2.0 28 05/12/18 20:47 99 Nasal Cannula 2.0 28 05/12/18 20:34 69 109/79 05/12/18 20:00 98.2 69 20 109/79 (89) 100 05/12/18 19:01 69 Intake and Output 05/12/18 05/13/18 19:00 07:00 Intake Total 860 ml 240 ml Output Total 300 ml 2500 ml Balance 560 ml -2260 ml Intake Oral 860 ml 240 ml Output Urine Total 300 ml 2500 ml # Voids 4 # Bowel Movements 1 2 Laboratory Tests 05/13/18 06:34: White Blood Count 3.5L, Red Blood Count 3.75L, Hemoglobin 9.5L, Hematocrit 30.1L , Mean Corpuscular Volume 80, Mean Corpuscular Hemoglobin 25.4L, Mean Corpuscular Hemoglobin Concent 31.6L, Red Cell Distribution Width 19.5H, Platelet Count 223, Mean Platelet Volume 7.1, Neutrophils (%) (Auto) 66.9, Lymphocytes (%) (Auto) 18.0L, Monocytes (%) (Auto) 10.6H, Eosinophils (%) (Auto ) 3.8H, Basophils (%) (Auto) 0.7, Sodium Level 140, Potassium Level 3.6, Chloride Level 105, Carbon Dioxide Level 25, Anion Gap 10, Blood Urea Nitrogen 20H, Creatinine 1.6H, Estimat Glomerular Filtration Rate , Glucose Level 96, Calcium Level 8.6 Height (Feet): 5 Height (Inches): 8.00 Weight (Pounds): 152 Objective Elderly man NCAT supple CTR IR/IR abd soft NT ND no edema Montserrat Flores MD May 13, 2018 17:46
[2018-05-13] MEDS ORDERED: OMEPRAZOLE40 M1 ORAL (17:57)
[2018-05-13] MEDS ORDERED: METOPROLOL SUCC50 MG ORAL (17:57)
--- NOTE | 2018-05-13 18:46 | NUR ---
DISCHARGER ORDER NOTES recvd order for dc, family notified, aftercare plan and med recon given to the pt and family, IV removed, pt aware of discharge, daughter was contacted regarding dc, pt vital wnl, pt Ox4 which is baseline. 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
--- NOTE | 2018-05-13 18:51 | NUR ---
NURSE NOTES: Md Marsh gave patient 1 prescription for Metropolol 50mg TID for 30 and Omeprazole 40mg bid total of 60.. this will be to the family on [employer].
--- NOTE | 2018-05-13 19:06 | NUR ---
HAND-OFF: Report given to Radha Hodge.
--- NOTE | 2018-05-13 19:20 | NUR ---
NURSE NOTES: Report received from PRATIK Cross. Pt is lying comfortably in semi-fowlers with no signs of distress. Pt A+Ox4 and denies pain/SOB. Respirations are even and unlabored on room air. IV site removed for discharge. Bed is at lowest position, brakes engaged, siderails x2, bed alarm on, and call light within reach. Pt is in stable condition and will be discharged shortly upon family's arrival. Will continue to monitor.
[2018-05-13] MEDS ORDERED: Tubing IV Secondary IV ONE (19:44)
--- NOTE | 2018-05-13 19:48 | Cardiology Report ---
APPROVED REPORT EKG Measurement Heart [id number] GA 138P1 [id number] Normal sinus rhythm T wave abnormality, consider inferior ischemia T wave abnormality, consider anterior ischemia Abnormal ECG
--- NOTE | 2018-05-13 19:51 | NUR ---
NURSE NOTES: monitor tech, IV site, and wristband removed by previous shift. Belongings list and discharge paperwork signed by family member. Pt discharged safely with family.
--- NOTE | 2018-05-13 23:45 | Discharge Summary ---
DATE OF ADMISSION: 05/09/2018 DATE OF DISCHARGE: 05/13/2018 PERTINENT HISTORY: The patient is admitted with chest pain, shortness of breath, and severe anemia. He has a history of hiatal hernia, severe gastritis, coronary artery disease, post-polio syndrome, and prior CVA. PERTINENT PHYSICAL FINDINGS: GENERAL: The patient is alert, chronically ill-appearing. LUNGS: Clear. HEART: Regular rhythm. ABDOMEN: Soft. EXTREMITIES: A 1+ edema. NEUROLOGIC: No focal weakness. COURSE IN THE HOSPITAL: He had a hemoglobin of 5.2 on admission, elevated BNP of 4565, and elevated troponin of 0.301. He was transfused and given cardiac care. His chest pain abated. He also received IV iron in the hospital. He had paroxysmal atrial fibrillation since the ICU and placed on a Cardizem drip and converted to sinus rhythm and stayed in sinus rhythm. Consultants were Dr. Jerad Phillips and Dr. Flores. The patient improved. On the day of discharge, his hemoglobin was 9.5 and BUN 20 and creatinine 1.6. Potassium is 3.6. He had no abdominal pain or chest pain. Baring well. He is in sinus rhythm and was discharged home in stable condition. FINAL DIAGNOSES: 1. Severe anemia, secondary to blood loss. 2. Severe gastritis. 3. Hiatal hernia. 4. Acute [id number] myocardial infarction, provoked by severe anemia. 5. Paroxysmal atrial fibrillation. 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 DISCHARGE DISPOSITION: Home on a regular diet. DISCHARGE MEDICATIONS: Per the discharge medication list. FOLLOWUP: Follow up by Dr. Marsh in the office. Quentin Marsh M.D. DR: KRYSTAL JOB#: [id number] CC:
--- NOTE | 2018-05-14 01:45 | Progress Note ---
DATE: 05/13/2018 CARDIOLOGY PROGRESS NOTE: SUBJECTIVE: The patient has no recurring bleeding noted. He has no chest pain or shortness of breath or abdominal discomfort. He is at his baseline mentation. OBJECTIVE: VITAL SIGNS: Blood pressure 121/70, pulse 83, respirations 22. Monitored rhythm sinus with atrial ectopy. LUNGS: Good breath sounds. No wheezing. Regular rhythm and rate. Normal S1, S2 with a fourth heart sound. ABDOMEN: Soft. No edema. LABORATORY DATA: White count 3.5 and hemoglobin 9.5. Potassium 3.6, BUN 20, and creatinine 1.6. IMPRESSION: 1. Severe anemia, resolved posttransfusion. 2. GI bleeding, recovered due to GERD and hiatal hernia. 3. Paroxysmal atrial fibrillation with rapid ventricular response, now converted and maintained in sinus rhythm. 4. 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 5. Acute myocardial infarction precipitated by rapid atrial fibrillation and coronary hypoperfusion in the setting of known single-vessel coronary artery disease. PLAN: 1. Maintain current cardiovascular regimen. 2. Outpatient followup. 3. No anti-platelet or anticoagulants due to bleeding risk. Jerad Phillips M.D. DR: DIONTE JOB#: [id number] CC:
--- NOTE | 2018-05-14 02:00 | Progress Note ---
DATE: 05/13/2018 CARDIOLOGY PROGRESS NOTE: SUBJECTIVE: The patient has no recurring bleeding noted. He has no chest pain or shortness of breath or abdominal discomfort. He is at his baseline mentation. OBJECTIVE: VITAL SIGNS: Blood pressure 121/70, pulse 83, respirations 22. Monitored rhythm sinus with atrial ectopy. LUNGS: Good breath sounds. No wheezing. HEART: Regular rhythm and rate. Normal S1, S2 with a fourth heart sound. ABDOMEN: Soft. EXTREMITIES: No edema. LABORATORY DATA: White count 3.5 and hemoglobin 9.5. Potassium 3.6, BUN 20, and creatinine 1.6. IMPRESSION: 1. Severe anemia, resolved posttransfusion. 2. GI bleeding, recovered due to GERD and hiatal hernia. 3. Paroxysmal atrial fibrillation with rapid ventricular response, now converted and maintained in sinus rhythm. 4. 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 5. Acute myocardial infarction precipitated by rapid atrial fibrillation and coronary hypoperfusion in the setting of known single-vessel coronary artery disease. PLAN: 1. Maintain current cardiovascular regimen. 2. Outpatient followup. 3. No anti-platelet or anticoagulants due to bleeding risk. Jerad Phillips M.D. DR: DIONTE JOB#: [id number] CC:
== END 2018-05-13 19:45 | disposition home or self-care (01) | DRG 377 ==
LOC: EMR 04:00 → 2W 05:00 → EDBEDREQ 05:18 → EDBEDREQSVC 05:18 → EDBEDREQ 05:46 → ICU 05-10 02:05 → 2E 05-12 05:52
PROC: 30233N1 Transfusion of Nonautologous Red Blood Cells into Peripheral Vein, Percutaneous Approach (ICD-10-PCS; principal; 2018-05-09)
DX: K29.71 Gastritis, unspecified, with bleeding (principal); I50.33 Acute on chronic diastolic (congestive) heart failure; I21.4 Non-ST elevation (NSTEMI) myocardial infarction; D62 Acute posthemorrhagic anemia; I13.0 Hypertensive heart and chronic kidney disease with heart failure and stage 1 through stage 4 chronic kidney disease, or unspecified chronic kidney disease; N17.9 Acute kidney failure, unspecified; E44.1 Mild protein-calorie malnutrition; D50.0 Iron deficiency anemia secondary to blood loss (chronic); K21.9 Gastro-esophageal reflux disease without esophagitis; K44.9 Diaphragmatic hernia without obstruction or gangrene; N18.9 Chronic kidney disease, unspecified; I48.0 Paroxysmal atrial fibrillation; K29.70 Gastritis, unspecified, without bleeding; G14 Postpolio syndrome; Z96.653 Presence of artificial knee joint, bilateral; H91.90 Unspecified hearing loss, unspecified ear; I25.118 Atherosclerotic heart disease of native coronary artery with other forms of angina pectoris; Z85.46 Personal history of malignant neoplasm of prostate; I25.5 Ischemic cardiomyopathy; E87.6 Hypokalemia; I49.1 Atrial premature depolarization; Z79.82 Long term (current) use of aspirin; G89.29 Other chronic pain; M54.5 Low back pain; Z66 Do not resuscitate
CPT/HCPCS: 36415; 71045; 80048; 80053; 81003; 82550; 82728; 83540; 83550; 83735; 83880; 84443; 84484; 85007; 85025; 85610; 85730; 86850; 86900; 86901; 86920; 87086; 93005; 93306; 94760; 96365; 96375; 99285; J8499

== ENCOUNTER 2020-05-03 10:26 | Inpatient (IN) | payer MEDICARE, MEDICAID ==
[~2020-05-03] VITALS: Ht 157.5 cm; Wt 59.9 kg
[~2020-05-03 10:26] MED LIST changes: +METOPROLOL SUCC50 MG ORAL; +UNOBMED
[2020-05-03] MEDS ORDERED: dexAMETHasone 10mg/ml Inj IV ONE (10:45)
[2020-05-03] MEDS ORDERED: Azithromycin 500 MG in NS 275 ML IVPB ONE (10:45)
[2020-05-03] MEDS ORDERED: cefTRIAXone 1 GM in NS 55 ML IV ONE (10:45)
--- NOTE | 2020-05-03 10:54 | Emergency Room Report ---
History of Present Illness General Chief Complaint: Dyspnea/Respdistress Source: Patient, Family Member, Medical Record Present Illness HPI 85-year-old male with past medical history of hypertension, dyslipidemia, AFib, prostate CA, arthritis sent by Dr. Marsh for low SPO2 level. Patient was diagnosed with COVID-19 approximately 3 weeks ago and has had a complicated course. Daughter is at bedside and states that patient has had anorexia, fatigue, myalgias, shortness of breath, and dry cough. She states that he is barely eating. Patient lives alone usually, however has his nephew helping around the house to take care of him. The patient's symptoms were gradual onset, severity was moderate, duration since 21 days, however worse over the last 2 days. Quality: Generally weak Past medical history: Hypertension, dyslipidemia, arthritis, afib, prostate CA Past surgical history: Denies Smoking: Denies Alcohol use: Denies Drug use: Denies Review of systems: CONST: No fevers ++ chills, No night sweats PULMONARY: ++ cough, ++ shortness of breath CARDIAC: No chest pain, No palpitations GI: No vomiting, No diarrhea , No melena_or_BRBPR : No dysuria, No hematuria, No discharge NEURO: No new_focal_weakness_or_numbness, No confusion, No vision changes 14 point Review of Systems is otherwise negative except per HPI Physical Exam: GENERAL: Awake_alert_ nontoxic, no acute distress Spo2 88% on RA -normal EYES: Extraocular muscles are intact. Conjunctivae clear. Lids without swelling ENT: External nose and ear normal_in_appearance. Oropharynx clear. Head_atraumatic, Moist_oral_mucosa NECK: No JVD. No meningismus. No thyromegaly. Supple. Trachea midline RESP: Increased respiratory effort. Coarse breath sounds bilaterally. Subcostal retractions. Tachypneic CARDIAC: Tachycardic and regular rhytm. No_significant pedal edema. ABDOMEN: Soft. Nondistended. Nontender_No_rebound_or_guarding. No pulsatile mass MSK: Normal muscle tone, without rigidity. Extremities without asymmetric deformity or swelling. SKIN: Warm and dry. No visible cyanosis or pallor. No petechiae NEUROLOGIC: Alert, oriented x3. Motor_and_sensation_grossly_intact. No truncal ataxia. Gait_normal Psych: Normal mood and affect, normal judgment and insight - COORDINATION OF CARE Case was discussed with: Patient , Patient's Family , Patient's Physician Any labs and imaging that were ordered were interpreted as part of the medical decision making: Medical Decision Making/Plan: Differential includes COVID 19, pneumonia, bronchitis, CHF, pulmonary edema, pulmonary embolism, pleural effusion among others. On initial evaluation, patient looks dehydrated appearing. Mucous membranes are dry. He has significant work of breathing and is saturating 88% on room air. Due to this he was placed on supplemental oxygen with SPO2 greater than 90%. CXR shows multifocal pneumonia suggestive of COVID-19.. Seems to be consistent with pneumonia, rather than CHF. Labs show multiple abnormalities. Patient is septic from COVID-19. Currently not on pressors and not in septic shock. He has signs of endorgan damage including pulmonary, cardiac, and renal Patient has lactate elevation of 3.3. KRISTINE 2.7. Troponin 0.197, likely demand ischemia. BNP is also elevated at 6790. Patient refused NS 30 cc/kg bolus secondary to history of COVID-19, CHF, and renal disease. Cannot diurese patient due to sepsis EKG showed AFib RVR. BP is stable currently. Patient was rate controlled with diltiazem 20 mg IV as well as diltiazem 30 mg p.o. Presentation not consistent with ischemia / ACS. Based on the patients PSI/PORT score, has high enough mortality risk that inpatient admission for IV antibiotics and clinical observation is most appropriate. Patient given Ceftriaxone / Azithromycin/decadron and IVF. I spoke with Dr. Marsh, and reviewed the patients presentation, workup, results, and treatment. They will admit the patient for further care and evaluation, and assume care of the patient at this time. - CRITICAL CARE TIME - I spent 75 minutes of critical care time. This time excludes any separately billable procedures. Organ systems at risk include: Pulmonary / respiratory Treatments/Evaluations: Emergent and rapid respiratory assessment and management with continuous monitoring. Advanced airway equipment at the ready, while the patient's respiratory symptoms were stabilized. Given the patients presentation with pneumonia with hypoxic respiratory failure, there existed the potential for imminent deterioration in the patient's condition due to respiratory compromise. Organ systems at risk for failure without immediate intervention include pulmonary / respiratory. This time was spent reviewing the patients records, reviewing vital signs, reassessing the patients clinical status, discussing the case and care with staff and consultants, and performing high-complexity medical decision making. I considered the possibility of Bipap vs intubation , but at this time the patient is protecting their airway and maintaining their saturation on supplemental oxygen so will defer intubation at this time, although they will be closely monitored for any further deterioration. Allergies: Coded Allergies: No Known Allergies (Unverified , 08/05/12) COVID-19 Screening Contact w/high risk pt: No Experienced COVID-19 symptoms?: Yes COVID-19 Testing performed ACID DUMPER: Yes COVID-19 Screening: Positive COVID-19 COVID-19 Testing Source: 04/30/20 Nursing Documentation-[facility] Past Medical History: No History, Except For Hx Cardiac Problems: Yes Hx Hypertension: Yes Hx Asthma: Yes Hx Cancer: Yes Hx Gastrointestinal Problems: Yes Hx Neurological Problems: Yes Hx Cerebrovascular Accident: Yes Physical Exam Vital Signs Date Time Temp Pulse Resp B/P (MAP) Pulse Ox O2 Delivery O2 Flow Rate FiO2 05/03/20 10:41 76 24 136/83 (100) 89 Room Air Sp02 EP Interpretation: reviewed, abnormal Medical Decision Making Diagnostic Impression: Primary Impression: COVID-19 Additional Impressions: Renal failure NSTEMI (non-ST elevated myocardial infarction) CHF exacerbation Lactic acidosis Hypoxia Multifocal pneumonia Atrial fibrillation with rapid ventricular response KRISTINE (acute kidney injury) Hypertension Gastritis Prostate cancer EKG Diagnostic Results PA Scribe Text 12-lead EKG (interpreted by me) Time: 1116 Indication: Rhythm analysis Tracing visualized and Interpreted by me. Rhythm: afib RVR Rate: 163 bpm QTc: 549 Morphology: No_significant_ST_elevations_or_depressions, No STEMI Impression: Afib RVR Rhythm Strip Diag. Results Rhythm Strip Time: 13:26 Rate: 120 Rhythm: no PVC's, no ectopy Chest X-Ray Diagnostic Results Chest X-Ray Diagnostic Results : PA Scribe Text Chest X-Ray: Views: [ 1 ] view(s) Indication: Shortness of breath Findings: Normal heart size. Mediastinum normal. Multifocal infiltrate Impression: COVID-19, cardiomegaly, atelectasis The X-ray(s) were independently viewed and interpreted contemporaneously Electronically signed by , Anna Izaguirre DO Reevaluation Time: 11:24 Last Vital Signs Date Time Temp Pulse Resp B/P (MAP) Pulse Ox O2 Delivery O2 Flow Rate FiO2 05/03/20 10:41 76 24 136/83 (100) 89 Room Air Status: improved Disposition: ADMITTED INPATIENT Admit Decision Time: 12:00 Condition: Critical Anna Izaguirre D.O. May 03, 2020 10:54
[2020-05-03 11:00] VITALS: BP 132/81
--- NOTE | 2020-05-03 11:00 | NUR ---
ED Nurse Note: Pt wheeled into ED by family, pt is referred by Dr Marsh. He has c/o SOB, and per family member, was desating to 83% last night. Pt is set up on NC 5L 96%, HR 160, ERMD aware of vital signs. IV established, blood sent.
[2020-05-03] MEDS ORDERED: ALBUTEROL2.5 MG/3 M INH (11:03)
[2020-05-03] MEDS ORDERED: FERROUS SULFAT325 MG ORAL (11:03)
[2020-05-03] MEDS ORDERED: MONTELUKAST SOD10 MG ORAL (11:03)
[2020-05-03] MEDS ORDERED: AMOX TR-K CLV1 EAC1 ORAL (11:03)
[2020-05-03] MEDS ORDERED: NAMENDA10 MG ORAL (11:03)
[2020-05-03] MEDS ORDERED: ASPIRIN81 MG ORAL (11:03)
[2020-05-03] MEDS ORDERED: DYAZIDE1 CAP ORAL (11:03)
[2020-05-03] MEDS ORDERED: dilTIAZem HCl 25mg/5ml Inj IVP ONE ×2 (11:30→12:15)
[2020-05-03 12:08] LABS: HEMATOCRIT 54.3 % (42.0-52.0); HEMOGLOBIN 16.4 G/DL (14.2-18.0); MEAN CORPUSCULAR VOLUME 84 FL (80-99); PLATELET COUNT 275 K/UL (150-450); RED CELL DISTRIBUTION WIDTH 17.4 % (11.6-14.8); WHITE BLOOD COUNT 10.9 K/UL (4.8-10.8)
[2020-05-03] MEDS ORDERED: dilTIAZem HCl 30mg tab ORAL ONE (12:15)
[2020-05-03 12:17] LABS: ANION GAP 15 mmol/L (5-15); BLOOD UREA NITROGEN 93 mg/dL (7-18); CALCIUM 9.9 MG/DL (8.5-10.1); CARBON DIOXIDE 21 MMOL/L (21-32); CHLORIDE 115 MMOL/L (98-107); CREATININE 2.7 MG/DL (0.55-1.30); POTASSIUM 4.1 MMOL/L (3.5-5.1); SODIUM 151 MMOL/L (136-145)
[2020-05-03 12:19] LABS: INR 1.3 (0.9-1.1)
[2020-05-03] MEDS ORDERED: Nitroglycerin Subl 0.4mg tab SL PRN (12:30)
[2020-05-03] MEDS ORDERED: Miralax 17gm pkt ORAL PRN ×2 (12:30)
[2020-05-03] MEDS ORDERED: Albuterol ud Inhalation HHN PRN (12:30)
[2020-05-03] MEDS: dilTIAZem HCl 60mg tab ORAL SCH ×3 (12:30→23:23)
[2020-05-03] MEDS: dexAMETHasone 10mg/ml Inj IV SCH (12:30)
--- NOTE | 2020-05-03 12:30 | NUR ---
ED Nurse Note: HR down to 132. ERMD aware.
[2020-05-03 12:31] LABS: ALANINE AMINOTRANSFERASE 476 U/L (12-78); ALBUMIN 2.7 G/DL (3.4-5.0); ALBUMIN/GLOBULIN RATIO 0.5 (1.0-2.7); ALKALINE PHOSPHATASE 168 U/L (46-116); ASPARTATE AMINO TRANSFERASE 391 U/L (15-37); CREATINE KINASE 253 U/L (26-308); FERRITIN 558 NG/ML (8-388); LACTATE DEHYDROGENASE 658 U/L (81-234); PHOSPHORUS 3.9 MG/DL (2.5-4.9)
[2020-05-03] MEDS ORDERED: Albuterol 90mcg Inhaler 8gm INH PRN (12:45)
[2020-05-03] MEDS: Aspirin Baby 81mg ORAL SCH (12:48)
[2020-05-03] MEDS: Docusate 100mg cap ORAL SCH ×2 (12:49→20:38)
[2020-05-03 13:10] VITALS: BP 130/74
[2020-05-03 13:37] LABS: APPEARANCE,URINE CLEAR; BILIRUBIN, URINE NEGATIVE (NEGATIVE); GLUCOSE, URINE (UA) NEGATIVE (NEGATIVE); KETONES,URINE 1+ (NEGATIVE); LEUKOCYTE ESTERASE ,URINE 1+ (NEGATIVE); NITRITE,URINE NEGATIVE (NEGATIVE); PH,URINE 5 (4.5-8.0); PROTEIN,URINE 2+ (NEGATIVE); UROBILINOGEN,URINE NORMAL MG/DL (0.0-1.0)
[2020-05-03 13:44] LABS: COLOR,URINE YELLOW
--- NOTE | 2020-05-03 14:38 | Diagnostic Imaging Report ---
Procedure: XRAY Chest 1v Reason for study: Reason For Exam: COUGH Comparison films: 05/09/2018. FINDINGS: A single one view chest is obtained. Vascularity is normal. Bilateral hazy infiltrates noted. Cardiac and mediastinal silhouette are within normal limits. CP angles are sharp. The bony thorax appear unremarkable. IMPRESSION: Bilateral diffuse hazy infiltrates.
[2020-05-03] MEDS ORDERED: D5NS 1,000 ML IV SCH (15:00)
--- NOTE | 2020-05-03 15:14 | History and Physical Report ---
DATE OF ADMISSION: 05/03/2020 CHIEF COMPLAINT AND REASON FOR HOSPITALIZATION: The patient is admitted with hypoxemia, COVID-19 pneumonia, atrial fibrillation with rapid ventricular response. HISTORY OF PRESENT ILLNESS: The patient is well known to me, was seen in my office, I believe on 04/23/2020 with cough and wheezing, but no hypoxemia. He was given the medical management and subsequently had a COVID-19 test that was positive. The family elected to keep him at home and has been monitoring his pulse ox and symptoms, and today or late last night developed hypoxemia for the first time with saturation in the mid 80s, and the family called me and he came to the emergency room. He is in mild respiratory distress. He has had wheezing, anorexia, and cough and was dehydrated, encouraging oral fluids. 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 ALLERGIES: None known. PAST SURGICAL HISTORY: Bilateral total knee replacement, right total hip, left ankle surgery, right inguinal hernia, circumcision, prostate biopsy, right and left total knees. HOME MEDICATIONS: 1. Fosamax 70 mg once a week. 2. Atorvastatin 10 mg daily. 3. Gabapentin 800 mg at bedtime. 4. Toprol 50 mg daily. 5. Nitroglycerin p.r.n. 6. Omeprazole 40 mg daily. 7. Namenda XR 21 mg daily. 8. Aspirin 81 mg daily. 9. Tylenol p.r.n. 10. Multivitamins 1 daily. 11. Ferrous sulfate 325 mg daily. 12. Also recently, he has been started on dexamethasone 6 mg daily, doxycycline 100 mg b.i.d., and he received a dose of ivermectin one time. REVIEW OF SYSTEMS: HEAD, EYES, EARS, NOSE, AND THROAT: He has decreased hearing. Vision is good. ENDOCRINE: No diabetes or thyroid disease. PULMONARY: Problems as above. No prior history of TB. CARDIAC: History of hypertension and stable angina pectoris. Atrial fibrillation is new. GASTROINTESTINAL: He has had gastritis in the past with heme-positive stools and anemia. GENITOURINARY: No dysuria, hematuria. There is a history of prostate cancer. NEUROLOGIC: See history of present illness. PHYSICAL EXAMINATION: GENERAL: The patient is seen in the emergency department. VITAL SIGNS: Pulse went from 76 to 186, now is in the 130s, blood pressure 136/83, pulse ox 89 on room air. HEAD, EYES, EARS, NOSE, AND THROAT: He is hard of hearing. Sclerae are nonicteric. Oral mucosa is slightly dry. NECK: No adenopathy. LUNGS: Bilateral wheezing. He is in mild distress. HEART: Irregularly irregular. No murmur. ABDOMEN: Soft without organomegaly. EXTREMITIES: No edema. There are contractions of the elbow. He has total knees. NEUROLOGIC: He is alert. He is very weak. There is a facial asymmetry. He moves all extremities. LABORATORY DATA: Labs are pending. Imaging shows bilateral infiltrates consistent with COVID-19. IMPRESSION: 1. COVID-19 pneumonia. 2. Acute hypoxemic respiratory failure. 3. Atrial fibrillation with rapid ventricular response. 4. Coronary artery disease. 5. History of hypertension. 6. History of prostate cancer. 7. History of gastritis. 8. History of cognitive impairment, likely Alzheimer's. 9. History of lacunar stroke. 10. Dehydration. PLAN: DNR-directed plan. Detailed orders are given. We will watch him closely in view of his comorbidities. Appropriate consultations have been called. Case is discussed with the family. Quentin Marsh M.D. DR: SARAH JOB#: [id number] CC:
[2020-05-03 15:22] VITALS: BP 127/72
--- NOTE | 2020-05-03 16:32 | NUR ---
ED Nurse Note: Report given to Carola CHRISTIE.
[2020-05-03] MEDS: Potassium Chloride 10 MEQ in 1/2 NS 1000ml 1,000 ML IV SCH (16:38)
--- NOTE | 2020-05-03 17:10 | NUR ---
ED Nurse Note: Pt transferred to SDU with all belongings. Pt is a&ox0. Taken up with monitor.
--- NOTE | 2020-05-03 17:32 | NUR ---
NURSE NOTES: Pt received from Alana CHRISTIE. Pt awake alert eyes track. Vitals as follows: 20 resp, 151/69, 53 hr, 95 % on 5 liters NC, 96.6 F axillary. Flacc score 0. belongins form signed. tele box placed. no distress noted. Bed low and locked, call light placed within reach. reinforcement needed radiation safety officer light use as there is cognitive barrier. Medication brought up by Alana CHRISTIE, will take down to pharmacy shortly.
[2020-05-03] MEDS: Calcium Carbonate 500mg w/Vit D 200iu tab ORAL SCH (18:00)
[2020-05-03] MEDS: Sennosides 8.6mg tab ORAL SCH (18:52)
[2020-05-03] MEDS: Memantine 5 MG TAB ORAL SCH (18:53)
[2020-05-03] MEDS: Enoxaparin 80mg Inj SUBQ SCH (18:54)
--- NOTE | 2020-05-03 19:28 | NUR ---
NURSE NOTES: Received report from Naveen Adam, pt. in bed awake, appears to be alert to name x's1, no signs or symptoms of acute cardiac or respiratory distress noted, bed alarm on, side rails up x's3 and safety brakes engaged, call light within easy reach, pt. appears to be tolerating current NC settings 5L- sating at 95%- no distress noted, pt. appears clean and dry, Rt. AC 22G running 1/2NS +10 Meqs at 125cc/hr- Iv intact and patent, safety measures continued, will continue with plan of care. Addendum: 05/03/20 at 1938 by BRIANDA PEREZ RN RN correction to message above received report from NAVEEN DODGE- toby Adam.
--- NOTE | 2020-05-03 19:29 | NUR ---
NURSE HAND-OFF REPORT: Important Events on Shift:[Pt arrived from ED, cardizem given for fast heart rate, please note SCD's not placed because elevated D-Dimer] Patient Status: [DNR DNI] Diet: [Regular pending St eval, do not give thin liquids, pt can not tolerate] Pending Orders: [] Pending Results/Labs:[] Pending MD notification:[Ask Dr. Dalton for Venous duplex] Latest Vital Signs: Temperature 98.0 , Pulse 126 , B/P 151 /69 , Respiratory Rate 25 , O2 SAT 97 , Room Air, O2 Flow Rate 5.0 . Vital Sign Comment: [] EKG Rhythm: Sinus Tachycardia Rhythm change?: MD Notified?: - MD Response: Latest Mayo Fall Score: 60 Fall Risk: High Risk Safety Measures: Call light Within Reach, Bed Alarm Zone 1, Side Rails Side Rails x2, Bed position Low and Locked. Fall Precautions: Yellow Socks Yellow Gown Report given to [Sadie RN].
[2020-05-03 20:00] VITALS: BP 134/75
[2020-05-03] MEDS ORDERED: Imdur 30mg tab ORAL SCH (21:00)
--- NOTE | 2020-05-03 23:49 | NUR ---
NURSE NOTES: bed bath given, linens changed, oral care provided, repositioned and turned pt- pt. appears to be tolerating nasal canula settings- no distress noted, HOB elevated- Aspiration and skin precautions observed, isolation precautions observed, will continue to monitor pt. and with plan of care.
[2020-05-04] VITALS: BP 131/72
[2020-05-04] MEDS: Potassium Chloride 10 MEQ in 1/2 NS 1000ml 1,000 ML IV SCH ×4 (00:08→22:14)
[2020-05-04 04:00] VITALS: BP 121/68
[2020-05-04] MEDS: dilTIAZem HCl 60mg tab ORAL SCH (05:08)
--- NOTE | 2020-05-04 07:01 | NUR ---
NURSE HAND-OFF REPORT: Important Events on Shift:none Patient Status: stable Diet: Regular nektar thick Pending Orders: Pending Results/Labs: Pending MD notification: Latest Vital Signs: Temperature 97.1 , Pulse 118 , B/P 137 /62 , Respiratory Rate 22 , O2 SAT 96 , Room Air, O2 Flow Rate 5.0 . Vital Sign Comment: EKG Rhythm: A fib - A flutter w/ BBB, PVC Rhythm change?: N MD Notified?: - MD Response: Latest Mayo Fall Score: 60 Fall Risk: High Risk Safety Measures: Call light Within Reach, Bed Alarm Zone 3, Side Rails Side Rails x3, Bed position Low and Locked. Fall Precautions: Yellow Socks Yellow Gown Door Sign Patient Fall Education Report given to Naveen Srivastava, aware to f/u on any abnormal am labs.
[2020-05-04 07:07] LABS: HEMATOCRIT 44.2 % (42.0-52.0); HEMOGLOBIN 13.5 G/DL (14.2-18.0); MEAN CORPUSCULAR VOLUME 83 FL (80-99); PLATELET COUNT 263 K/UL (150-450); RED CELL DISTRIBUTION WIDTH 17.9 % (11.6-14.8); WHITE BLOOD COUNT 12.4 K/UL (4.8-10.8)
--- NOTE | 2020-05-04 07:08 | NUR ---
NURSE NOTES: Pt received from Sadie CHRISTIE. Pt in bed awake and resting. no distres noted. on NS 5 liters, Sat at 94%. Pt states he is hungry, will assist him with breakfast shortly. Bed low and locked call light within reach
[2020-05-04 07:31] LABS: CREATININE 1.9 MG/DL (0.55-1.30); POTASSIUM 3.6 MMOL/L (3.5-5.1)
[2020-05-04 08:00] VITALS: BP 120/86
[2020-05-04] MEDS: Docusate 100mg cap ORAL SCH (08:05)
--- NOTE | 2020-05-04 08:06 | NUR ---
NURSE NOTES: Please note, colace and protonix not given in am because pt cannot swallow whole pills and I cannot crush these two. Will ask Dr. Marsh for alternatives shortly.
[2020-05-04] MEDS: Aspirin Baby 81mg ORAL SCH (08:25)
[2020-05-04] MEDS: Sennosides 8.6mg tab ORAL SCH ×2 (08:25→17:07)
[2020-05-04] MEDS: Memantine 5 MG TAB ORAL SCH ×2 (08:25→17:07)
[2020-05-04] MEDS: Calcium Carbonate 500mg w/Vit D 200iu tab ORAL SCH (08:25)
[2020-05-04] MEDS: dexAMETHasone 10mg/ml Inj IV SCH (08:26)
--- NOTE | 2020-05-04 08:29 | NUR ---
NURSE NOTES: Re Fosamx, again cant crush, pt not able tp swallow whole foods, has weak cough even while feeding pure breakfast. Wll ask Dr. Marsh for alternative shortly.
[2020-05-04] MEDS: Montelukast 10mg tablet ORAL SCH (08:32)
[2020-05-04] MEDS ORDERED: Milk of Magnesia 30ml Ud ORAL PRN (09:45)
--- NOTE | 2020-05-04 10:16 | General Progress Note ---
Subjective ROS Limited/Unobtainable: Yes Allergies: Coded Allergies: No Known Allergies (Unverified , 08/05/12) Objective Last 24 Hour Vital Signs Date Time Temp Pulse Resp B/P (MAP) Pulse Ox O2 Delivery O2 Flow Rate FiO2 05/04/20 09:14 109 120/86 05/04/20 08:00 97.1 109 18 120/86 (97) 91 109 05/04/20 08:00 129 05/04/20 08:00 Nasal Cannula 5.0 05/04/20 05:08 118 137/62 05/04/20 04:00 5.0 05/04/20 04:00 Nasal Cannula 5.0 05/04/20 04:00 97.1 116 22 121/68 (85) 96 05/04/20 03:31 137 05/04/20 00:38 103 05/04/20 00:00 97.4 100 22 131/72 (91) 95 05/04/20 00:00 Nasal Cannula 5.0 05/04/20 00:00 5.0 05/03/20 23:23 111 132/78 05/03/20 20:38 134/75 05/03/20 20:38 125 134/75 05/03/20 20:00 97.1 125 24 134/75 (94) 94 05/03/20 20:00 5.0 05/03/20 20:00 Nasal Cannula 5.0 05/03/20 19:21 127 05/03/20 18:53 126 151/69 05/03/20 18:27 Nasal Cannula 5.0 05/03/20 17:10 98.0 119 25 124/76 97 Room Air 5.0 05/03/20 15:22 98.0 123 27 127/72 98 Room Air 05/03/20 13:10 98.0 144 25 130/74 97 Room Air 05/03/20 12:48 120 112/80 05/03/20 12:31 121 114/76 05/03/20 12:30 124 115/76 05/03/20 12:30 121 114/76 05/03/20 11:46 186 106/78 05/03/20 11:00 160 26 Nasal Cannula 5.0 96 05/03/20 11:00 98.0 160 26 132/81 96 Room Air 05/03/20 10:41 76 24 136/83 (100) 89 Room Air Intake and Output 05/03/20 05/04/20 19:00 07:00 Intake Total 125 ml 1484 ml Output Total 130 ml Balance -5 ml 1484 ml Intake Oral 0 ml IV Total 125 ml 1484 ml Output Urine Total 130 ml # Voids 1 3 Laboratory Tests 05/03/20 11:02: Arterial Blood pH 7.505H, Arterial Blood Partial Pressure CO2 24.6*L, Arterial Blood Partial Pressure O2 74.4L, Arterial Blood HCO3 19.0L, Arterial Blood Oxygen Saturation 94.8L, Arterial Blood Base Excess -2.1L, Samson Test Positive 05/03/20 11:30: White Blood Count 10.9H, Red Blood Count 6.50H, Hemoglobin 16.4, Hematocrit 54.3H, Mean Corpuscular Volume 84, Mean Corpuscular Hemoglobin 25.2L, Mean Corpuscular Hemoglobin Concent 30.1L, Red Cell Distribution Width 17.4H, Plat elet Count 275, Mean Platelet Volume 6.3L, Neutrophils (%) (Auto) , Lymphocytes (%) (Auto) , Monocytes (%) (Auto) , Eosinophils (%) (Auto) , Basophils (%) (Auto) , Differential Total Cells Counted 100, Neutrophils % (Manual) 97H, Lymphocytes % (Manual) 2L, Monocytes % (Manual) 1, Eosinophils % (Manual) 0, Basophils % (Manual) 0, Band Neutrophils 0, Platelet Estimate Adequate, Platelet Morphology Normal, Anisocytosis 1+, Prothrombin Time 13.8H, Prothromb Time International Ratio 1.3H, Activated Partial Thromboplast Time 26, D-Dimer 12.69H , Sodium Level 151H, Potassium Level 4.1, Chloride Level 115H, Carbon Dioxide Level 21, Anion Gap 15, Blood Urea Nitrogen 93H, Creatinine 2.7H, Estimat Glomerular Filtration Rate 22.6, Glucose Level 153H, Lactic Acid Level 3.30H, Calcium Level 9.9, Phosphorus Level 3.9, Magnesium Level 2.8H, Ferritin 558H, Total Bilirubin 1.0, Aspartate Amino Transf (AST/SGOT) 391H, Alanine Aminotransferase (ALT/SGPT) 476H, Alkaline Phosphatase 168H, Lactate Dehydrogenase 658H, Total Creatine Kinase 253, Troponin I 0.197H, C-Reactive Protein, Quantitative [Pending], Pro-B-Type Natriuretic Peptide 6790H, Total Protein 8.6H, Albumin 2.7L, Globulin 5.9, Albumin/Globulin Ratio 0.5L, Lipase 350 05/03/20 12:15: Urine Color Yellow, Urine Appearance Clear, Urine pH 5, Urine Specific Vida 1.020, Urine Protein 2+H, Urine Glucose (UA) Negative, Urine Ketones 1+H, Urine Blood Negative, Urine Nitrite Negative, Urine Bilirubin Negative, Urine Urobilinogen Normal, Urine Leukocyte Esterase 1+H, Urine RBC 0, Urine WBC 0-2, Urine Squamous Epithelial Cells Occasional, Urine Bacteria Occasional 05/04/20 04:29: White Blood Count 12.4H, Red Blood Count 5.30, Hemoglobin 13.5L, Hematocrit 44.2, Mean Corpuscular Volume 83, Mean Corpuscular Hemoglobin 25.6L, Mean Corpus cular Hemoglobin Concent 30.6L, Red Cell Distribution Width 17.9H, Platelet Count 263, Mean Platelet Volume 7.4, Neutrophils (%) (Auto) , Lymphocytes (%) (Auto) , Monocytes (%) (Auto) , Eosinophils (%) (Auto) , Basophils (%) (Auto) , Neutrophils % (Manual) [Pending], Lymphocytes % (Manual) [Pending], Platelet Estimate [Pending], Platelet Morphology [Pending], Sodium Level 155H, Potassium Level 3.6, Chloride Level 121H, Carbon Dioxide Level 22, Anion Gap 13, Blood Urea Nitrogen 91H, Creatinine 1.9H, Estimat Glomerular Filtration Rate 33.9, Glucose Level 149H, Calcium Level 9.0, Phosphorus Level 3.0, Magnesium Level 2.6H, Troponin I 0.121H Height (Feet): 5 Height (Inches): 2.00 Weight (Pounds): 132 General Appearance: alert, mild distress EENT: normal ENT inspection Neck: normal alignment Cardiovascular: regularly irregular, tachycardia Respiratory/Chest: rhonchi - bilaterally Abdomen: non tender Edema: no edema noted Arm (L), no edema noted Arm (R), no edema noted Leg (L), no edema noted Leg (R), no edema noted Pedal (L), no edema noted Pedal (R), no edema noted Generalized Neurologic: 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 forwarder 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 II-XII Assessment/Plan Problem List: (1) NSTEMI (non-ST elevated myocardial infarction) ICD Codes: I21.4 - Non-ST elevation (NSTEMI) myocardial infarction SNOMED: 17924946 (2) Multifocal pneumonia ICD Codes: J18.9 - Pneumonia, unspecified organism SNOMED: 592305953 (3) COVID-19 ICD Codes: U07.1 - COVID-19 SNOMED: 363481518 (4) Atrial fibrillation with rapid ventricular response ICD Codes: I48.91 - Unspecified atrial fibrillation SNOMED: 717822632382508 (5) KRISTINE (acute kidney injury) ICD Codes: N17.9 - Acute kidney failure, unspecified SNOMED: 93591099 (6) Dehydration ICD Codes: E86.0 - Dehydration SNOMED: 02362476 (7) Gastritis ICD Codes: K29.70 - Gastritis, unspecified, without bleeding SNOMED: 8538563 Assessment/Plan: continue steroids, hydration pul care, SS insulin increase diltiazem Quentin Marsh MD May 04, 2020 10:16
--- NOTE | 2020-05-04 11:23 | Consultation ---
History of Present Illness General Date patient seen: May 04, 2020 Time patient seen: 10:15 Chief Complaint: Dyspnea/Respdistress Referring physician: Dr Marsh Reason for Consultation: PNA, COVID Present Illness HPI 85 years old male with past medical history of hypertension, atrial fibrillation, prostate cancer, dyslipidemia, arthritis, diagnosed with COVID-19 approximately 3 weeks ago , had a complicated course . Patient apparently lives alone and according to his daughter had fatigue , myalgias ,shortness of breath , dry cough, and anorexia. Upon evaluation chest x-ray showed multifocal pneumonia , suggestive of COVID- 19. Patient was hypoxic and demonstrated significant work of breathing , saturating 88% on room air. Patient was placed on supplemental oxygen with subsequent improvement in saturation. Rapid COVID-19 in emergency department was positive. Ferritin 558, LDH 658 CRP not done D-dimer 12.69 Troponin 0.197, repeated 0.121 . EKG revealed atrial fibrillation with RVR , proBNP 6790 Rate was controlled with IV Cardizem and then started on Cardizem p.o. WBC 10.9, hemoglobin 16.4 ,hematocrit 54.3. This morning WBC 12.4. Sodium 151, chloride 115. BUN 93, creatinine 2.7. Glucose 153. Lactic acid 3.3. Elevated LFT AST 391m ALT 476 albumin 2.7 In emergency department patient received empiric antibiotic , liter of fluids and admitted for further management to [facility] isolation room. Pulmonary consult was requested to assist in management of this patient. Allergies: Coded Allergies: No Known Allergies (Unverified , 08/05/12) Medication History Scheduled Acetaminophen* (Tylenol Extra Strength*), 1,000 MG ORAL EVERY 8 HOURS Alendronate Sodium* (Fosamax*), 70 MG ORAL ONCE A WEEK, (Reported) Amlodipine Besylate* (Amlodipine Besylate*), 10 MG ORAL DAILY, (Reported) Amoxicillin/Potassium Clav 500-125 Mg Tab* (Amox Tr-K Clv 500-125 Mg Tab*), 1 TAB ORAL EVERY 12 HOURS, (Reported) Aspirin* (Aspirin*), 81 MG ORAL DAILY, (Reported) Atorvastatin Calcium* (Lipitor*), 10 MG ORAL BEDTIME, (Reported) Calcium Carbonate/Vitamin D3 ([place] 500+D Tablet), 1 EACH PO BID, (Reported) Docusate Sodium (Docusate Sodium), 250 MG ORAL TID Dutasteride (Avodart), 0.5 MG PO DAILY, (Reported) Ferrous Sulfate* (Ferrous Sulfate*), 324 MG ORAL DAILY, (Reported) Gabapentin* (Gabapentin*), 1,200 MG ORAL BEDTIME, (Reported) Isosorbide Mononitrate (Isosorbide Mononitrate Er), 30 MG PO DAILY, (Reported) Memantine Hcl* (Namenda*), 21 MG ORAL DAILY, (Reported) Metoprolol Succinate* (Metoprolol Succinate*), 25 MG ORAL DAILY, (Reported) Metoprolol Succinate* (Metoprolol Succinate*), 50 MG ORAL DAILY Montelukast Sodium* (Montelukast Sodium*), 10 MG ORAL DAILY, (Reported) Omeprazole (Omeprazole), 40 MG ORAL DAILY Omeprazole (Omeprazole), 40 MG ORAL DAILY Ranitidine Hcl* (Zantac*), 150 MG ORAL TWICE A DAY, (Reported) Sennosides (Senna-Gen), 17.2 MG ORAL BID Sucralfate* (Carafate*), 1 GM ORAL AC+HS Triamterene/Hctz (Triamterene-Hctz 37.5-25 mg Cp), 1 CAP ORAL DAILY, (Reported) Valsartan (Diovan), 160 MG ORAL BID, (Reported) Scheduled PRN Al Hydroxide/mg Hydroxide (Mag-Al Liquid), 30 ML PO Q4HR PRN for Hiccups Albuterol Sulfate* (Albuterol Sulfate Hhn*), 3 ML INH Q4H PRN for Shortness of Breath, (Reported) Polyethylene Glycol 3350* (Miralax*), 17 GM ORAL DAILY PRN for Constipation Miscellaneous Medications Unable to Obtain Medications (Unable To Obtain Meds), (Reported) Unable to Obtain Medications (Unable To Obtain Meds), (Reported) Patient History Healthcare decision maker Resuscitation status DNR/DNI status Advanced Directive on File Past Medical/Surgical History Past Medical/Surgical History: (1) Lumbar compression fracture (2) anemia (3) Renal failure (4) NSTEMI (non-ST elevated myocardial infarction) (5) CHF exacerbation (6) Hypertension (7) Prostate cancer (8) Gastritis (9) COVID-19 Review of Systems ROS Narrative unable to obtain given patient/s medical condition Physical Exam General Appearance: other - somnolent, arousable, thin, elderly Ukrainian male in NAD Lines, tubes and drains: peripheral HEENT: normocephalic, atraumatic, anicteric Neck: non-tender Respiratory/Chest: no respiratory distress, no accessory muscle use, other - few scattered rhonchi ; O2 5 L via NC Cardiovascular/Chest: irregularly irregular - A fib with RVR Abdomen: normal bowel sounds, non tender, soft Extremities: no calf tenderness, no edema Skin Exam: warm/dry Neurologic: abnormal gait Musculoskeletal: atrophy - BLE Last 24 Hour Vital Signs Date Time Temp Pulse Resp B/P (MAP) Pulse Ox O2 Delivery O2 Flow Rate FiO2 05/04/20 09:14 109 120/86 05/04/20 08:00 97.1 109 18 120/86 (97) 91 109 05/04/20 08:00 129 05/04/20 08:00 Nasal Cannula 5.0 05/04/20 05:08 118 137/62 05/04/20 04:00 5.0 05/04/20 04:00 Nasal Cannula 5.0 05/04/20 04:00 97.1 116 22 121/68 (85) 96 05/04/20 03:31 137 05/04/20 00:38 103 05/04/20 00:00 97.4 100 22 131/72 (91) 95 05/04/20 00:00 Nasal Cannula 5.0 05/04/20 00:00 5.0 05/03/20 23:23 111 132/78 05/03/20 20:38 134/75 05/03/20 20:38 125 134/75 05/03/20 20:00 97.1 125 24 134/75 (94) 94 05/03/20 20:00 5.0 05/03/20 20:00 Nasal Cannula 5.0 05/03/20 19:21 127 05/03/20 18:53 126 151/69 05/03/20 18:27 Nasal Cannula 5.0 05/03/20 17:10 98.0 119 25 124/76 97 Room Air 5.0 05/03/20 15:22 98.0 123 27 127/72 98 Room Air 05/03/20 13:10 98.0 144 25 130/74 97 Room Air 05/03/20 12:48 120 112/80 05/03/20 12:31 121 114/76 05/03/20 12:30 124 115/76 05/03/20 12:30 121 114/76 05/03/20 11:46 186 106/78 Intake and Output 05/03/20 05/04/20 19:00 07:00 Intake Total 125 ml 1484 ml Output Total 130 ml Balance -5 ml 1484 ml Intake Oral 0 ml IV Total 125 ml 1484 ml Output Urine Total 130 ml # Voids 1 3 Laboratory Tests Test 05/03/20 11:30 05/03/20 12:15 05/04/20 04:29 White Blood Count 10.9 K/UL (4.8-10.8) H 12.4 K/UL (4.8-10.8) H Red Blood Count 6.50 M/UL (4.70-6.10) H 5.30 M/UL (4.70-6.10) Hemoglobin 16.4 G/DL (14.2-18.0) 13.5 G/DL (14.2-18.0) L Hematocrit 54.3 % (42.0-52.0) H 44.2 % (42.0-52.0) Mean Corpuscular Volume 84 FL (80-99) 83 FL (80-99) Mean Corpuscular Hemoglobin 25.2 PG (27.0-31.0) L 25.6 PG (27.0-31.0) L Mean Corpuscular Hemoglobin Concent 30.1 G/DL (32.0-36.0) L 30.6 G/DL (32.0-36.0) L Red Cell Distribution Width 17.4 % (11.6-14.8) H 17.9 % (11.6-14.8) H Platelet Count 275 K/UL (150-450) 263 K/UL (150-450) Mean Platelet Volume 6.3 FL (6.5-10.1) L 7.4 FL (6.5-10.1) Neutrophils (%) (Auto) % (45.0-75.0) % (45.0-75.0) Lymphocytes (%) (Auto) % (20.0-45.0) % (20.0-45.0) Monocytes (%) (Auto) % (1.0-10.0) % (1.0-10.0) Eosinophils (%) (Auto) % (0.0-3.0) % (0.0-3.0) Basophils (%) (Auto) % (0.0-2.0) % (0.0-2.0) Differential Total Cells Counted 100 100 Neutrophils % (Manual) 97 % (45-75) H 93 % (45-75) H Lymphocytes % (Manual) 2 % (20-45) L 4 % (20-45) L Monocytes % (Manual) 1 % (1-10) 3 % (1-10) Eosinophils % (Manual) 0 % (0-3) 0 % (0-3) Basophils % (Manual) 0 % (0-2) 0 % (0-2) Band Neutrophils 0 % (0-8) 0 % (0-8) Platelet Estimate Adequate Adequate Platelet Morphology Normal Normal Anisocytosis 1+ 1+ Prothrombin Time 13.8 SEC (9.30-11.50) H Prothromb Time International Ratio 1.3 (0.9-1.1) H Activated Partial Thromboplast Time 26 SEC (23-33) D-Dimer 12.69 mg/L FEU (0.00-0.49) H Sodium Level 151 MMOL/L (136-145) H 155 MMOL/L (136-145) H Potassium Level 4.1 MMOL/L (3.5-5.1) 3.6 MMOL/L (3.5-5.1) Chloride Level 115 MMOL/L (98-107) H 121 MMOL/L (98-107) H Carbon Dioxide Level 21 MMOL/L (21-32) 22 MMOL/L (21-32) Anion Gap 15 mmol/L (5-15) 13 mmol/L (5-15) Blood Urea Nitrogen 93 mg/dL (7-18) H 91 mg/dL (7-18) H Creatinine 2.7 MG/DL (0.55-1.30) H 1.9 MG/DL (0.55-1.30) H Estimat Glomerular Filtration Rate 22.6 mL/min (>60) 33.9 mL/min (>60) Glucose Level 153 MG/DL (74-106) H 149 MG/DL (74-106) H Lactic Acid Level 3.30 mmol/L (0.4-2.0) H Calcium Level 9.9 MG/DL (8.5-10.1) 9.0 MG/DL (8.5-10.1) Phosphorus Level 3.9 MG/DL (2.5-4.9) 3.0 MG/DL (2.5-4.9) Magnesium Level 2.8 MG/DL (1.8-2.4) H 2.6 MG/DL (1.8-2.4) H Ferritin 558 NG/ML (8-388) H Total Bilirubin 1.0 MG/DL (0.2-1.0) Aspartate Amino Transf (AST/SGOT) 391 U/L (15-37) H Alanine Aminotransferase (ALT/SGPT) 476 U/L (12-78) H Alkaline Phosphatase 168 U/L (46-116) H Lactate Dehydrogenase 658 U/L (81-234) H Total Creatine Kinase 253 U/L (26-308) Troponin I 0.197 ng/mL (0.000-0.056) 0.121 ng/mL (0.000-0.056) C-Reactive Protein, Quantitative Pending Pro-B-Type Natriuretic Peptide 6790 pg/mL (0-125) H Total Protein 8.6 G/DL (6.4-8.2) H Albumin 2.7 G/DL (3.4-5.0) L Globulin 5.9 g/dL Albumin/Globulin Ratio 0.5 (1.0-2.7) L Lipase 350 U/L (73-393) Urine Color Yellow Urine Appearance Clear Urine pH 5 (4.5-8.0) Urine Specific May 1.020 (1.005-1.035) Urine Protein 2+ (NEGATIVE) H Urine Glucose (UA) Negative (NEGATIVE) Urine Ketones 1+ (NEGATIVE) H Urine Blood Negative (NEGATIVE) Urine Nitrite Negative (NEGATIVE) Urine Bilirubin Negative (NEGATIVE) Urine Urobilinogen Normal MG/DL (0.0-1.0) Urine Leukocyte Esterase 1+ (NEGATIVE) H Urine RBC 0 /HPF (0 - 0) Urine WBC 0-2 /HPF (0 - 0) Urine Squamous Epithelial Cells Occasional /LPF Urine Bacteria Occasional /HPF (NONE) Microbiology Date/Time Source Procedure Growth Status 1/7/21 11:30 Nasopharynx SARS-CoV-2 RdRp Gene Assay - Final Complete Height (Feet): 5 Height (Inches): 2.00 Weight (Pounds): 132 Medications Current Medications Medications (Trade) Dose Ordered Sig/Gilma Route PRN Reason Start Time Stop Time Status Last Admin Dose Admin Acetaminophen (Tylenol) 650 mg Q4H PRN ORAL Mild Pain (Pain Scale 1-3) 05/03/20 12:30 06/02/20 12:29 Acetaminophen (Tylenol) 650 mg Q4H PRN ORAL fever 05/03/20 12:30 06/02/20 12:29 Al Hydroxide/Mg Hydroxide (Mylanta) 30 ml Q4H PRN ORAL HICCUPS 05/03/20 12:30 06/02/20 12:29 Albuterol Sulfate (Proventil MDI) 1 puff Q4H PRN INH Shortness of Breath 05/03/20 12:45 08/01/20 12:44 Aspirin (ASA) 81 mg DAILY ORAL 05/03/20 12:30 06/17/20 12:29 05/04/20 08:25 Atorvastatin Calcium (Lipitor) 10 mg BEDTIME ORAL 05/03/20 21:00 08/01/20 20:59 05/03/20 20:37 Dexamethasone Sodium Phosphate (Decadron 10mg/ ml Inj) 6 mg DAILY IV 05/03/20 12:30 05/12/20 09:01 05/04/20 08:26 Dextrose (Dextrose 50%) 25 ml Q30M PRN IV Hypoglycemia 05/03/20 12:30 08/01/20 12:29 Dextrose (Dextrose 50%) 50 ml Q30M PRN IV Hypoglycemia 05/03/20 12:30 08/01/20 12:29 Diltiazem HCl (Cardizem Tab) 90 mg Q6HR ORAL 05/04/20 12:00 06/03/20 11:59 Enoxaparin Sodium (Lovenox) 70 mg Q24H SUBQ 05/03/20 18:00 08/01/20 17:59 05/03/20 18:54 Famotidine (Pepcid) 20 mg BID ORAL 05/04/20 18:00 08/02/20 17:59 Gabapentin (Neurontin) 400 mg QHS ORAL 05/04/20 21:00 06/03/20 20:59 Isosorbide Mononitrate (Imdur) 30 mg QHS ORAL 05/03/20 21:00 06/02/20 20:59 05/03/20 20:38 Magnesium Hydroxide (Mom) 30 ml BIDPRN PRN ORAL Constipation 05/04/20 09:45 06/03/20 09:44 Memantine (Namenda) 5 mg BID ORAL 05/03/20 18:00 06/02/20 17:59 05/04/20 08:25 Metoprolol Tartrate (Lopressor) 25 mg EVERY 12 HOURS ORAL 05/03/20 12:30 08/01/20 12:29 05/04/20 09:14 Montelukast Sodium (Singulair) 10 mg DAILY ORAL 05/04/20 09:00 08/02/20 08:59 05/04/20 08:32 Nitroglycerin (Ntg) 0.4 mg Q5M PRN SL Prn Chest Pain 05/03/20 12:30 06/02/20 12:29 Ondansetron HCl (Zofran) 4 mg Q6H PRN IVP Nausea & Vomiting 05/03/20 12:30 06/02/20 12:29 Polyethylene Glycol (Miralax) 17 gm DAILYPRN PRN ORAL Constipation 05/03/20 12:30 06/02/20 12:29 Potassium Chloride 10 meq/ Sodium Chloride 1,005 ml @ 125 mls/hr Q8H3M IV 05/03/20 16:00 06/02/20 15:59 05/04/20 00:08 Sennosides (Senokot) 17.2 mg BID ORAL 05/03/20 18:00 06/02/20 17:59 05/04/20 08:25 Assessment/Plan Status Narrative ASSESSMENT COVID PNA Elevated troponin, possible NSTEMI Atrial fibrillation with rapid ventricular response KRISTINE Dehydration Transaminitis Protein calorie malnutrition Prostate cancer PLAN OF CARE [facility] isolation Date of sx onset: about 3 wks prior to presentation to ED Positive test: rapid COVID 05/03/20 + O2 5 L NC titrate to keep sat > 92% HFA Dex Day# 2 ( 05/03/20 -) REM not a candidate given renal function DVT PPX: Lovenox D dimer -12.59-trend Trend CRP-pending Abx need -> per ID recs Aggressive hydration Monitor volumes and renal function serial troponin,cardio eval pending trend LFT ST eval pending aspiration precautions' nutritional consult Fup with consultants recs DNR/DNI status Discuss further GOC case discussed and evaluated by supervising physician Bethany Smith NP May 04, 2020 11:22
[2020-05-04 12:00] VITALS: BP 120/77
--- NOTE | 2020-05-04 12:28 | Cardiology Progress Note ---
Subjective DATE OF SERVICE: May 04, 2020 Alert Tolerates crushed meds Saturating 95% on 6L N/C Monitor: Atrial fibrillation with rapid rates Objective Last 24 Hour Vital Signs Date Time Temp Pulse Resp B/P (MAP) Pulse Ox O2 Delivery O2 Flow Rate FiO2 05/04/20 09:14 109 120/86 05/04/20 08:00 97.1 109 18 120/86 (97) 91 109 05/04/20 08:00 129 05/04/20 08:00 Nasal Cannula 5.0 05/04/20 05:08 118 137/62 05/04/20 04:00 5.0 05/04/20 04:00 Nasal Cannula 5.0 05/04/20 04:00 97.1 116 22 121/68 (85) 96 05/04/20 03:31 137 05/04/20 00:38 103 05/04/20 00:00 97.4 100 22 131/72 (91) 95 05/04/20 00:00 Nasal Cannula 5.0 05/04/20 00:00 5.0 05/03/20 23:23 111 132/78 05/03/20 20:38 134/75 05/03/20 20:38 125 134/75 05/03/20 20:00 97.1 125 24 134/75 (94) 94 05/03/20 20:00 5.0 05/03/20 20:00 Nasal Cannula 5.0 05/03/20 19:21 127 05/03/20 18:53 126 151/69 05/03/20 18:27 Nasal Cannula 5.0 05/03/20 17:10 98.0 119 25 124/76 97 Room Air 5.0 05/03/20 15:22 98.0 123 27 127/72 98 Room Air 05/03/20 13:10 98.0 144 25 130/74 97 Room Air 05/03/20 12:48 120 112/80 05/03/20 12:31 121 114/76 05/03/20 12:30 124 115/76 05/03/20 12:30 121 114/76 ROS: unchanged from 05/03/20 HEENT: normal ENT inspection RHYTHM: Afib, other - occ ventricular ectopy LUNGS: no accessory muscle use, bilateral rhonchi CARDIAC: normal S1 and S2, irregularly irregular ABDOMEN: normal bowel sounds, non tender, soft EXTREMITIES: normal range of motion, trace edema Laboratory Tests Test 05/03/20 12:15 05/04/20 04:29 Urine Color Yellow Urine Appearance Clear Urine pH 5 (4.5-8.0) Urine Specific [place] 1.020 (1.005-1.035) Urine Protein 2+ (NEGATIVE) H Urine Glucose (UA) Negative (NEGATIVE) Urine Ketones 1+ (NEGATIVE) H Urine Blood Negative (NEGATIVE) Urine Nitrite Negative (NEGATIVE) Urine Bilirubin Negative (NEGATIVE) Urine Urobilinogen Normal MG/DL (0.0-1.0) Urine Leukocyte Esterase 1+ (NEGATIVE) H Urine RBC 0 /HPF (0 - 0) Urine WBC 0-2 /HPF (0 - 0) Urine Squamous Epithelial Cells Occasional /LPF Urine Bacteria Occasional /HPF (NONE) White Blood Count 12.4 K/UL (4.8-10.8) H Red Blood Count 5.30 M/UL (4.70-6.10) Hemoglobin 13.5 G/DL (14.2-18.0) L Hematocrit 44.2 % (42.0-52.0) Mean Corpuscular Volume 83 FL (80-99) Mean Corpuscular Hemoglobin 25.6 PG (27.0-31.0) L Mean Corpuscular Hemoglobin Concent 30.6 G/DL (32.0-36.0) L Red Cell Distribution Width 17.9 % (11.6-14.8) H Platelet Count 263 K/UL (150-450) Mean Platelet Volume 7.4 FL (6.5-10.1) Neutrophils (%) (Auto) % (45.0-75.0) Lymphocytes (%) (Auto) % (20.0-45.0) Monocytes (%) (Auto) % (1.0-10.0) Eosinophils (%) (Auto) % (0.0-3.0) Basophils (%) (Auto) % (0.0-2.0) Differential Total Cells Counted 100 Neutrophils % (Manual) 93 % (45-75) H Lymphocytes % (Manual) 4 % (20-45) L Monocytes % (Manual) 3 % (1-10) Eosinophils % (Manual) 0 % (0-3) Basophils % (Manual) 0 % (0-2) Band Neutrophils 0 % (0-8) Platelet Estimate Adequate Platelet Morphology Normal Anisocytosis 1+ Sodium Level 155 MMOL/L (136-145) H Potassium Level 3.6 MMOL/L (3.5-5.1) Chloride Level 121 MMOL/L (98-107) H Carbon Dioxide Level 22 MMOL/L (21-32) Anion Gap 13 mmol/L (5-15) Blood Urea Nitrogen 91 mg/dL (7-18) H Creatinine 1.9 MG/DL (0.55-1.30) H Estimat Glomerular Filtration Rate 33.9 mL/min (>60) Glucose Level 149 MG/DL (74-106) H Calcium Level 9.0 MG/DL (8.5-10.1) Phosphorus Level 3.0 MG/DL (2.5-4.9) Magnesium Level 2.6 MG/DL (1.8-2.4) H Troponin I 0.121 ng/mL (0.000-0.056) Microbiology Date/Time Source Procedure Growth Status 05/03/20 11:30 Nasopharynx SARS-CoV-2 RdRp Gene Assay - Final Complete Assessment/Plan Assessment/Plan COVID 19 PNA PAFib with RVR Ac/chr diastolic CHF Acute coronary insuff with possible NSTEMI Cerebrovascular disease with dementia Hx GI bleed due to gastritis Additional therapy for rate control. May consider amiodarone conversion. Anti-virals/steroids/anti-coagulation Long acting meds changed - so they can be crushed. Jerad Phillips MD May 04, 2020 12:28
[2020-05-04] MEDS ORDERED: Metoprolol Tartrate 10 MG in D5W 55 ML IVPB SCH (12:34)
--- NOTE | 2020-05-04 12:36 | NUR ---
NURSE NOTES: Dr. Phillips here making rounds,notified troponin - 0.121 ,with medication ordered
--- NOTE | 2020-05-04 12:52 | Cardiology Report ---
APPROVED REPORT EKG Measurement Heart [id number] <Conclusion> Atrial fibrillation with rapid ventricular response with premature ventricular or aberrantly conducted complexes Right bundle branch block T wave abnormality, consider inferior ischemia Abnormal ECG
--- NOTE | 2020-05-04 12:56 | Cardiology Report ---
APPROVED REPORT EKG Measurement Heart [id number] [id number] <Conclusion> Atrial flutter with variable block Incomplete right bundle branch block ST & T wave abnormality, consider inferior ischemia ST & T wave abnormality, consider anterior ischemia Abnormal ECG
--- NOTE | 2020-05-04 13:15 | Consultation ---
DATE OF CONSULTATION: 05/04/2020 INFECTIOUS DISEASE CONSULTATION CONSULTING PHYSICIAN: Evan Canales MD. REFERRING PHYSICIAN: Quentin Marsh MD. REASON FOR CONSULTATION: COVID-19 pneumonia. HISTORY OF PRESENTING ILLNESS: This is an 85-year-old gentleman with history of inguinal hernia, bilateral total knee replacement, right total hip arthroplasty, left ankle surgery, and prostate biopsy, who comes in with respiratory distress and cough. He was found to have COVID-19 pneumonia and an Infectious Diseases consultation has been obtained for antibiotics. PAST MEDICAL HISTORY: 1. History of right-sided inguinal hernia. 2. History of total bilateral knee replacement. 3. History of right total hip replacement. 4. History of left ankle surgery. 5. Prostate biopsy. SOCIAL HISTORY: Unknown. FAMILY HISTORY: Unknown. REVIEW OF SYSTEMS: Unable to obtain currently. MEDICATIONS: As an inpatient, he is on gabapentin, famotidine, diltiazem, milk of magnesia, montelukast, Imdur, atorvastatin, Senokot, Namenda, enoxaparin, potassium, albuterol, dexamethasone, Mylanta, Zofran, MiraLAX, Tylenol, nitroglycerin, metoprolol, and aspirin. ALLERGIES: No known drug allergies. PHYSICAL EXAMINATION: VITAL SIGNS: Temperature 97.1, T-max of 98, pulse of 109, respiratory rate 18, blood pressure 120/86. O2 saturation of 91% on 5 liters of oxygen. Examination deferred due to COVID-19. LABORATORY DATA: White count 12.4, hemoglobin 13.5, hematocrit 44.2, MCV 83, platelet count 253,000, neutrophils of 93%. Sodium 155, potassium 3.6, chloride 121, bicarb 22, BUN 91, creatinine 1.9. Glucose 149. Calcium 9. AST 391, ALT 476, alkaline phosphatase 168. LDH 658. CK 253. Troponin 0.12. C-reactive protein pending. Beta-natriuretic peptide 6790. Total protein 8.6, albumin 2.7. UA is showing 0 to 2 white cells. COVID-19 test was positive. Chest x-ray is showing diffuse bilateral hazy infiltrates. ASSESSMENT: This is an 85-year-old gentleman with history of inguinal hernia and bilateral knee replacement, who comes in with cough and is found to have, 1. COVID-19 pneumonia. He is on 5 liters of oxygen with O2 saturation of 97%. 2. History of bilateral knee replacement. 3. History of inguinal hernia. 4. Renal failure. PLAN: 1. We will start the patient on ivermectin one dose. 2. Continue dexamethasone, day #2. 3. We will follow up the patient clinically. 4. Continue isolation. I would like to thank Dr. Quentin Marsh for this consultation. Evan Canales M.D. DR: HCRISTI JOB#: [id number] CC:
--- NOTE | 2020-05-04 13:21 | NUR ---
Care ManagerWeb User Experience Strategist 85 y/o male from home sent by Dr. Marsh CC: Respiratory distress, desaturation, reported by family, to 83% last night on RA SI: Respiratory Failure, COVID PNA, Leukocytosis, NSTEMI, KRISTINE, Afib with RVR T-98, HR-160, RR 26, BP 132/81 O2 5L NC WBC 10.9, Troponin 0.197, BUN 93, Creatinine 2.7, Pro B Beth 6790, Lactate Dehydrogenase Chest X ray-Bilateral diffuse hazy infiltrates. IS: NACL Bolus Decadron IV Rocephin IV Azithromycin IV Cardizem IVP X 3 D5/NS IV @ 100cc/hr Enoxaparin SQ ASA 81mg PO Metroprolol PO Nitroglycerin SL X 3 Admit to SDU SDU Status DCP: Pending hospitalization
[2020-05-04] MEDS: dilTIAZem HCl 90mg tab ORAL SCH ×3 (15:30→23:08)
--- NOTE | 2020-05-04 15:36 | NUR ---
NURSE NOTES: Please note delay in cardizem admin because pt was given IV metoprolol and did not want to give both at once. 1 hour after metoprolol however confirmed with Darlyn pharmacist that it would be ok to give.
--- NOTE | 2020-05-04 15:48 | NUR ---
NURSE NOTES: Pt lower abdomen noted to be slightly more firm than yesterday, did bladder scan. 202ml noted. left vm for Dr. gonzalez to ask if he wants to do a farley. Pt does void as evident by wet chucks. Penis not suitable for condom cath.
--- NOTE | 2020-05-04 15:58 | NUR ---
Speech Pathology Note (Bedside Dysphagia Evaluation) Brief Note: Mr. Tucker is an 85 year old male presents with progressive pulmonary insufficiency in setting of COVID 19 3 weeks ago. Pt was reportedly seen by PCP Dr. Marsh at his clinic on 04/23/2020 for worsening COVID symptoms. Subsequently pt was advised to take to ED on 05/03/2020 for hypoxemia in 80's on room. On 05/03/2020 at ED, In light of elevated inflammatory marker with abnormal CXR, hypoxemia and concerning for bacterial source of infection, he was given ceftriaxone, azithromycin, and dexamethasone along with IV fluid for dehydration with BUN/Creatine 93/2.7. Upon admission, Pt was consulted for cardiology for history of CAD, CHF, TIA possible embolic etiology in 2017 with elevated troponin and BNP at ED. Pulmonary and ID consulted for COVID 19 and dyspnea and hypoxemia. PMH/PSH: Prostate CA without metastasis, Childhood polio, CAD, CHF, Hyperlipidemia, HTN, Gastritis, Hiatal Hernia, bilateral knee replacement, total hip replacement, left ankle surgery, right inguinal hernia repair. ABG 05/03/2020: 7.505/24.6/74.4/19/98/-2.1 (5liter via NC) BUN/ Creatine: 91from 93 and 1.9 from 2.7 WBC 12.4 from 10.9. Vital Signs: Temp: 97.1~98.3, Pulse: 109~116, BP: 120/77~125/74, SPO2 91~96% 5 liter CODE Status: DNR/DNI Findings at bedside: Mr. Tucker presents with tachypnea (24~30/min). SPO2 is 89~93 on 5 liter. He is unable to complete sentence to express his needs in Swedish. He is clearly able to say "[place]qua" with one breathe at a time. The oral mucosa is very dry. He was given apple sauce, [place] thick water and thin water. He shows s.s of aspiration s.s on thin liquid water, characterized by cough and desaturation to 84. No cough or desaturation on thick liquid or apple sauce. Interpretation: 1. Oropharyngeal dysphagia with s.s of aspiration on thin liquid 2. Aspiration risk with tachypnea, hiatal hernia and dysphagia 3. High risk of respiratory failure Plan: 1. Pureed and thick liquid for medication -Supportive care 2. Aspiration precaution at all time 3. Supportive and comfort focus care if he continues to decline in pulmonary function, oxygenation Pankaj Bell
[2020-05-04 16:00] VITALS: BP 121/81
--- NOTE | 2020-05-04 16:30 | Consultation ---
DATE OF CONSULTATION: 05/03/2020 CARDIOLOGY CONSULTATION CONSULTING PHYSICIAN: Jerad Phillips MD REASON FOR CONSULTATION: Atrial fibrillation with rapid ventricular response. HISTORY OF PRESENT ILLNESS: This 85-year-old male was diagnosed 3 weeks ago with COVID-19. He has been managed at home. He has had increasing anorexia, fatigue, myalgias, weakness, and dry cough with shortness of breath. His oral intake has been minimal. His symptoms have progressed prompting hospitalization. The patient has not had chest pain or palpitations, but he was noted to have rapid atrial fibrillation in the emergency room. PAST MEDICAL HISTORY: Cerebrovascular disease, hypertensive heart disease, coronary atherosclerosis with history of myocardial infarction, paroxysmal atrial fibrillation, hyperlipidemia, osteoarthritis, degenerative disk disease, and prostate cancer. ALLERGIES: None known. MEDICATIONS: Reviewed and reconciled. FAMILY HISTORY: Noncontributory. SOCIAL HISTORY: Negative for smoking, alcohol, or substance abuse. REVIEW OF SYSTEMS: Outpatient echocardiogram in the last year revealed normal ejection fraction, a diastolic relaxation abnormality, mild degenerative valve disease with regurgitation, and minimal aortic stenosis. There is no history of flow-limiting coronary disease. The patient has a class 1 anginal pattern on long-acting nitrates. He has had history of diastolic heart failure compensated with his regular medications. He does have dependent edema at times. He does have prior history of atrial fibrillation, but that was only associated with prior GI bleed and hospital stay. There is no history of diabetes mellitus or thyroid disorder. PHYSICAL EXAMINATION: VITAL SIGNS: Oxygen saturation on room air 88%, blood pressure 147/62, heart rate 128, and respiratory rate 24. HEENT: Normocephalic and atraumatic. Temporal wasting. Oropharynx clear. Mucous membranes dry. NECK: Supple. Jugular venous pressure normal. No accessory muscle use. LUNGS: With coarse breath sounds and rhonchi. CARDIAC: Irregularly irregular rhythm. Rapid rate. Normal S1, S2 with a 1/6 systolic murmur at base. ABDOMEN: Soft, nontender. EXTREMITIES: Trace edema. NEUROLOGIC: Symmetric lower extremity weakness. Slight resting tremor. No asterixis. LABORATORY AND DIAGNOSTIC DATA: EKG, atrial flutter/fibrillation with rapid ventricular response and nonspecific ST-T wave changes. Chest x-ray reveals interstitial infiltrates. Labs reviewed. IMPRESSION: 1. COVID-19 pneumonia. 2. Paroxysmal atrial fibrillation and flutter with rapid ventricular response. 3. Acute coronary insufficiency and possible [id number] myocardial infarction with mild elevation of troponin level. 4. Hypoxia. 5. Acute on chronic diastolic congestive heart failure. 6. Hypovolemia and dehydration. 7. [id number] protein-calorie malnutrition. PLAN: Cardiac monitoring. IV beta-reji and diltiazem. Consideration for amiodarone conversion once metabolically stabilized. Oxygenation. Hydration. Anticoagulation with Lovenox. Monitor and replace electrolytes. Topical nitrates. Serial troponin level. Advance directives confirmed with the patient's daughter and Dr. Mrash for DNR. Jerad Phillips M.D. DR: Sujit JOB#: [id number] CC:
[2020-05-04] MEDS: Enoxaparin 80mg Inj SUBQ SCH (17:08)
--- NOTE | 2020-05-04 18:40 | NUR ---
NURSE HAND-OFF REPORT: Important Events on Shift:[no remarkable events, however pt heart continues to be tachy at rest (highs of 140;s) resolved with IV metoprolol and po cardizem. Pt also placed on venturi as he seems to breathe predominantly with his mouth and not nose. ] Patient Status: [DNR/DNI] Diet: [Regular pure moist] Pending Orders: [] Pending Results/Labs:[] Pending MD notification:[Please update Dr. Marsh about change in 02 delivery] Latest Vital Signs: Temperature 97.1 , Pulse 119 , B/P 131 /56 , Respiratory Rate 19 , O2 SAT 96 , Room Air, O2 Flow Rate 5.0 . Vital Sign Comment: [dropped to 90% on NC at end of shift, placed on venturi 10 liters 40%] EKG Rhythm: Atrial Fibrillation Rhythm change?: N MD Notified?: - MD Response: Latest Mayo Fall Score: 60 Fall Risk: High Risk Safety Measures: Call light Within Reach, Bed Alarm Zone 3, Side Rails Side Rails x3, Bed position Low and Locked. Fall Precautions: Yellow Socks Yellow Gown Door Sign Patient Fall Education Report given to [pending rn assignment]. Addendum: 05/04/20 at 1915 by Carola Waggoner RN Report given to Mary CHRISTIE
--- NOTE | 2020-05-04 19:19 | NUR ---
NURSE NOTES: Received report from Naveen Srivastava, pt. in bed awake, appears to be alert to name x's1, no signs or symptoms of acute cardiac or respiratory distress noted, appears to be resting comfortably in bed watching television, bed alarm on, side rails up x's3 and safety brakes engaged, call light within easy reach, pt. appears to be tolerating current Venturi mask settings 10 L fio2 at 40% - sating at 9%- no distress noted, pt. appears clean and dry, Rt. AC 22G running 1/2NS +10 MEQS at 125cc/hr- Iv intact and patent, safety measures continued, oral care provided, repositioned and turned pt., will continue with plan of care. Addendum: 05/04/20 at 1921 by BRIANDA PEREZ RN RN correction to message above sating at 94%.
[2020-05-04 20:00] VITALS: BP 122/62
--- NOTE | 2020-05-04 20:00 | NUR ---
NURSE NOTES pt. changed to Non-rebreather mask 15L Fio2 at 100%- as pt. was desating to mid 80's and SOB- pt. now sating at 98%- will continue to monitor pt. and with plan of care.
[2020-05-04] MEDS: Nitroglycerin 2% oint pkt TOPIC SCH (20:07)
[2020-05-04] MEDS: Metoprolol Tartrate 50mg tab ORAL SCH (20:07)
[2020-05-05] VITALS: BP 125/76
--- NOTE | 2020-05-05 01:00 | NUR ---
NURSE NOTES: bed bath given, linens changed, oral care provided, repositioned and turned pt- pt. appears to be tolerating current non-rebreather mask settings- sating at 98%-no distress noted, HOB elevated- Aspiration and skin precautions observed, isolation precautions observed, will continue to monitor pt. and with plan of care.
[2020-05-05 04:00] VITALS: BP 119/74
--- NOTE | 2020-05-05 04:18 | NUR ---
NURSE NOTES: Pt. sinus bradycardia on monitor- remains stable- asymptomatic- easily awoken to name- will do EKG and continue to monitor patient.
[2020-05-05] MEDS: dilTIAZem HCl 90mg tab ORAL SCH (05:04)
[2020-05-05 06:13] LABS: HEMATOCRIT 38.4 % (42.0-52.0); HEMOGLOBIN 12.5 G/DL (14.2-18.0); MEAN CORPUSCULAR VOLUME 81 FL (80-99); PLATELET COUNT 250 K/UL (150-450); RED BLOOD COUNT 4.72 M/UL (4.70-6.10); RED CELL DISTRIBUTION WIDTH 18.1 % (11.6-14.8); WHITE BLOOD COUNT 18.2 K/UL (4.8-10.8)
[2020-05-05 06:23] LABS: CALCIUM 8.2 MG/DL (8.5-10.1); CREATININE 1.5 MG/DL (0.55-1.30); POTASSIUM 3.9 MMOL/L (3.5-5.1)
--- NOTE | 2020-05-05 06:44 | NUR ---
NURSE NOTES: Several attempts made to insert another IV- tried with another RN- - but unsuccessful- will endorse to am nurse- to f/u with MD- regarding poss PICC line insertion.
--- NOTE | 2020-05-05 07:21 | NUR ---
NURSE NOTES: Received report from PRATIK Hernandez. Patient is AO x1 in bed asleep at this time. Patient on Non rebreather 15L satting at 95%, no signs of respiratory distress at this time. No pain or discomfort noted. Bed in lowest position, locked with side rails x2 up. Call light within reach.
--- NOTE | 2020-05-05 07:22 | NUR ---
NURSE HAND-OFF REPORT: Important Events on Shift:bradycardia Patient Status: stable Diet: nektar thick regular diet Pending Orders: Pending Results/Labs: Pending MD notification: Latest Vital Signs: Temperature 97.0 , Pulse 52 , B/P 113 /64 , Respiratory Rate 24 , O2 SAT 100 , Room Air, O2 Flow Rate 15.0 . Vital Sign Comment: EKG Rhythm: SB w/ BBB Rhythm change?: y Notified?: y Response: message left awaiting for call back. Latest Mayo Fall Score: 60 Fall Risk: High Risk Safety Measures: Call light Within Reach, Bed Alarm Zone 3, Side Rails Side Rails x3, Bed position Low and Locked. Fall Precautions: Yellow Socks Yellow Gown Door Sign Patient Fall Education Report given to PRATIK Suarez, aware to f/u on any abnormal am labs- and cardiac issues change in rhythm.
[2020-05-05 08:00] VITALS: BP 129/80
--- NOTE | 2020-05-05 08:01 | Pulmonology Progress Note ---
Subjective ROS Limited/Unobtainable: Yes Allergies: Coded Allergies: No Known Allergies (Unverified , 08/05/12) Subjective leukocytosis trending up, no fevers last night desaturated and was placed on 15 L VM troponin trending down creat trending down was in A fib with keena and recently converted to SB Objective Last 24 Hour Vital Signs Date Time Temp Pulse Resp B/P (MAP) Pulse Ox O2 Delivery O2 Flow Rate FiO2 05/05/20 05:04 52 113/64 05/05/20 04:00 97.0 59 24 119/74 (89) 100 05/05/20 04:00 Venturi Mask 15.0 05/05/20 03:30 47 05/05/20 00:00 97.5 61 22 125/76 (92) 96 05/05/20 00:00 Venturi Mask 15.0 05/04/20 23:43 53 05/04/20 23:08 54 115/63 05/04/20 20:07 122/62 05/04/20 20:07 89 122/62 05/04/20 20:00 Venturi Mask 15.0 05/04/20 20:00 97.7 88 20 122/62 (82) 96 05/04/20 19:24 104 05/04/20 18:24 119 131/56 05/04/20 16:00 104 05/04/20 16:00 97.1 98 19 121/81 (94) 96 98 05/04/20 16:00 Nasal Cannula 5.0 05/04/20 15:30 110 127/78 05/04/20 13:14 127 125/74 05/04/20 12:00 Nasal Cannula 5.0 05/04/20 12:00 108 05/04/20 12:00 98.3 101 19 120/77 (91) 97 101 05/04/20 09:14 109 120/86 05/04/20 08:00 97.1 109 18 120/86 (97) 91 109 05/04/20 08:00 129 05/04/20 08:00 Nasal Cannula 5.0 Intake and Output 0 05/04/20 05/05/20 19:00 07:00 Intake Total 1560 ml 1344 ml Output Total 400 ml Balance 1160 ml 1344 ml Intake Oral 250 ml IV Total 1310 ml 1344 ml Output Urine Total 400 ml # Voids 2 1 # Bowel Movements 1 Objective General Appearance: somnolent, arousable, thin, elderly C[place] male in NAD Lines, tubes and drains: peripheral HEENT: normocephalic, atraumatic, anicteric Neck: non-tender Respiratory/Chest: no respiratory distress, no accessory muscle use, other - few scattered rhonchi ; O2 5 L via NC Cardiovascular/Chest: irregularly irregular - A fib with RVR Abdomen: normal bowel sounds, non tender, soft Extremities: no calf tenderness, no edema Skin Exam: warm/dry Neurologic: abnormal gait Musculoskeletal: atrophy - BLE Microbiology Date/Time Source Procedure Growth Status 05/03/20 11:30 Nasopharynx SARS-CoV-2 RdRp Gene Assay - Final Complete Laboratory Tests 05/05/20 04:00: White Blood Count 18.2H, Red Blood Count 4.72, Hemoglobin 12.5L, Hematocrit 38.4L, Mean Corpuscular Volume 81, Mean Corpuscular Hemoglobin 26.4L, Mean Corpuscular Hemoglobin Concent 32.5, Red Cell Distribution Width 18.1H, Platelet Count 250, Mean Platelet Volume 6.9, Neutrophils (%) (Auto) , Lymphocytes (%) (Auto) , Monocytes (%) (Auto) , Eosinophils (%) (Auto) , Basophils (%) (Auto) , Neutrophils % (Manual) [Pending], Lymphocytes % (Manual) [Pending], Platelet Estimate [Pending], Platelet Morphology [Pending], D-Dimer 5.85H, Sodium Level 153H, Potassium Level 3.9, Chloride Level 123H, Carbon Dioxide Level 20L, Anion Gap 10, Blood Urea Nitrogen 81H, Creatinine 1.5H, Estimat Glomerular Filtration Rate 44.6, Glucose Level 130H, Calcium Level 8.2L, C-Reactive Protein, Quantitative [Pending] Current Medications Medications (Trade) Dose Ordered Sig/Gilma Route PRN Reason Start Time Stop Time Status Last Admin Dose Admin Acetaminophen (Tylenol) 650 mg Q4H PRN ORAL Mild Pain (Pain Scale 1-3) 05/03/20 12:30 06/02/20 12:29 Acetaminophen (Tylenol) 650 mg Q4H PRN ORAL fever 05/03/20 12:30 06/02/20 12:29 Al Hydroxide/Mg Hydroxide (Mylanta) 30 ml Q4H PRN ORAL HICCUPS 05/03/20 12:30 06/02/20 12:29 Albuterol Sulfate (Proventil MDI) 1 puff Q4H PRN INH Shortness of Breath 05/03/20 12:45 08/01/20 12:44 Aspirin (ASA) 81 mg DAILY ORAL 05/03/20 12:30 06/17/20 12:29 05/04/20 08:25 Atorvastatin Calcium (Lipitor) 10 mg BEDTIME ORAL 05/03/20 21:00 08/01/20 20:59 05/04/20 20:06 Dexamethasone Sodium Phosphate (Decadron 10mg/ ml Inj) 6 mg DAILY IV 05/03/20 12:30 05/12/20 09:01 05/04/20 08:26 Dextrose (Dextrose 50%) 25 ml Q30M PRN IV Hypoglycemia 05/03/20 12:30 08/01/20 12:29 Dextrose (Dextrose 50%) 50 ml Q30M PRN IV Hypoglycemia 05/03/20 12:30 08/01/20 12:29 Diltiazem HCl (Cardizem Tab) 90 mg Q6HR ORAL 05/04/20 12:00 06/03/20 11:59 05/04/20 18:24 Enoxaparin Sodium (Lovenox) 70 mg Q24H SUBQ 05/03/20 18:00 08/01/20 17:59 05/04/20 17:08 Famotidine (Pepcid) 20 mg BID ORAL 05/04/20 18:00 08/02/20 17:59 05/04/20 17:07 Gabapentin (Neurontin) 400 mg QHS ORAL 05/04/20 21:00 06/03/20 20:59 05/04/20 20:06 Magnesium Hydroxide (Mom) 30 ml BIDPRN PRN ORAL Constipation 05/04/20 09:45 06/03/20 09:44 Memantine (Namenda) 5 mg BID ORAL 05/03/20 18:00 06/02/20 17:59 05/04/20 17:07 Metoprolol Tartrate (Lopressor) 50 mg EVERY 12 HOURS ORAL 05/04/20 21:00 08/01/20 12:29 05/04/20 20:07 Montelukast Sodium (Singulair) 10 mg DAILY ORAL 05/04/20 09:00 08/02/20 08:59 05/04/20 08:32 Nitroglycerin (Nitro-Bid) 1 inch BEDTIME TOPIC 05/04/20 21:00 06/03/20 20:59 05/04/20 20:07 Nitroglycerin (Ntg) 0.4 mg Q5M PRN SL Prn Chest Pain 05/03/20 12:30 06/02/20 12:29 Ondansetron HCl (Zofran) 4 mg Q6H PRN IVP Nausea & Vomiting 05/03/20 12:30 06/02/20 12:29 Polyethylene Glycol (Miralax) 17 gm DAILYPRN PRN ORAL Constipation 05/03/20 12:30 06/02/20 12:29 Potassium Chloride 10 meq/ Sodium Chloride 1,005 ml @ 125 mls/hr Q8H3M IV 05/03/20 16:00 06/02/20 15:59 05/04/20 22:14 Sennosides (Senokot) 17.2 mg BID ORAL 05/03/20 18:00 06/02/20 17:59 05/04/20 17:07 Assessment/Plan Assessment/Plan ASSESSMENT COVID PNA Elevated troponin, possible NSTEMI Atrial fibrillation with rapid ventricular response KRISTINE Dehydration Transaminitis Protein calorie malnutrition Prostate cancer PLAN OF CARE DORIS isolation Date of sx onset: about 3 wks prior to presentation to ED Positive test: rapid COVID 05/03/20 + O2 15 L VM titrate to keep sat > 92% HFA Dex Day# 3 ( 05/03/20 -) REM not a candidate given renal function /p Ivermectin x 1 05/04 DVT PPX: Lovenox D dimer -12.59-5.85 Trend CRP-pending Abx need -> per ID recs, currently off abx fup CXR BSSE noted, high aspiration risk aspiration precautions Aggressive hydration Monitor volumes and renal function, creat trending down serial troponin -trending down cardio follows trend LFT nutritional consult Fup with consultants recs DNR/DNI status Discuss further GOC case discussed and evaluated by supervising physician Bethany Smith NP May 05, 2020 08:01
[2020-05-05] MEDS: Aspirin Baby 81mg ORAL SCH (08:44)
[2020-05-05] MEDS: Montelukast 10mg tablet ORAL SCH (08:44)
[2020-05-05] MEDS: Sennosides 8.6mg tab ORAL SCH ×2 (08:44→17:15)
[2020-05-05] MEDS: Memantine 5 MG TAB ORAL SCH ×2 (08:44→17:15)
[2020-05-05] MEDS: Potassium Chloride 10 MEQ in 1/2 NS 1000ml 1,000 ML IV SCH (08:46)
[2020-05-05] MEDS: Metoprolol Tartrate 50mg tab ORAL SCH ×2 (08:46→21:01)
[2020-05-05] MEDS: dexAMETHasone 10mg/ml Inj IV SCH (08:46)
--- NOTE | 2020-05-05 11:12 | Infectious Diseases Prog Note ---
Assessment/Plan Assessment/Plan A; COVID19 pneumonia Acute renal failure improving Hypoxemia Atrial fibrillation NSTEMI P: 1. Received ivermectin 2. Continue dexamethasone, day #3 3. We will follow up the patient clinically. 4. Continue isolation. Subjective ROS Limited/Unobtainable: Yes Constitutional: Denies: fever Neurologic: Reports: confusion, other - on restraint Allergies: Coded Allergies: No Known Allergies (Unverified , 08/05/12) Objective Last 24 Hour Vital Signs Date Time Temp Pulse Resp B/P (MAP) Pulse Ox O2 Delivery O2 Flow Rate FiO2 05/05/20 08:46 99 129/80 05/05/20 08:00 75 05/05/20 08:00 96.3 99 20 129/80 (96) 100 05/05/20 08:00 Venturi Mask 15.0 05/05/20 05:04 52 113/64 05/05/20 04:00 97.0 59 24 119/74 (89) 100 05/05/20 04:00 Venturi Mask 15.0 05/05/20 03:30 47 05/05/20 00:00 97.5 61 22 125/76 (92) 96 05/05/20 00:00 Venturi Mask 15.0 05/04/20 23:43 53 05/04/20 23:08 54 115/63 05/04/20 20:07 122/62 05/04/20 20:07 89 122/62 05/04/20 20:00 Venturi Mask 15.0 05/04/20 20:00 97.7 88 20 122/62 (82) 96 05/04/20 19:24 104 05/04/20 18:24 119 131/56 05/04/20 16:00 104 05/04/20 16:00 97.1 98 19 121/81 (94) 96 98 05/04/20 16:00 Nasal Cannula 5.0 05/04/20 15:30 110 127/78 05/04/20 13:14 127 125/74 05/04/20 12:00 Nasal Cannula 5.0 05/04/20 12:00 108 05/04/20 12:00 98.3 101 19 120/77 (91) 97 101 Height (Feet): 5 Height (Inches): 2.00 Weight (Pounds): 132 HEENT: mucous membranes moist Respiratory/Chest: other - oxygen by NRB mask 15 L/min Cardiovascular: normal rate Abdomen: soft, non tender Extremities: no edema, other - left arm deformity Neurologic/Psychiatric: alert, disoriented Microbiology Date/Time Source Procedure Growth Status 05/03/20 11:30 Nasopharynx SARS-CoV-2 RdRp Gene Assay - Final Complete Laboratory Tests Test 05/05/20 04:00 White Blood Count 18.2 K/UL (4.8-10.8) H Red Blood Count 4.72 M/UL (4.70-6.10) Hemoglobin 12.5 G/DL (14.2-18.0) L Hematocrit 38.4 % (42.0-52.0) L Mean Corpuscular Volume 81 FL (80-99) Mean Corpuscular Hemoglobin 26.4 PG (27.0-31.0) L Mean Corpuscular Hemoglobin Concent 32.5 G/DL (32.0-36.0) Red Cell Distribution Width 18.1 % (11.6-14.8) H Platelet Count 250 K/UL (150-450) Mean Platelet Volume 6.9 FL (6.5-10.1) Neutrophils (%) (Auto) % (45.0-75.0) Lymphocytes (%) (Auto) % (20.0-45.0) Monocytes (%) (Auto) % (1.0-10.0) Eosinophils (%) (Auto) % (0.0-3.0) Basophils (%) (Auto) % (0.0-2.0) Differential Total Cells Counted 100 Neutrophils % (Manual) 97 % (45-75) H Lymphocytes % (Manual) 1 % (20-45) L Monocytes % (Manual) 2 % (1-10) Eosinophils % (Manual) 0 % (0-3) Basophils % (Manual) 0 % (0-2) Band Neutrophils 0 % (0-8) Platelet Estimate Adequate Platelet Morphology Normal Anisocytosis 1+ D-Dimer 5.85 mg/L FEU (0.00-0.49) H Sodium Level 153 MMOL/L (136-145) H Potassium Level 3.9 MMOL/L (3.5-5.1) Chloride Level 123 MMOL/L (98-107) H Carbon Dioxide Level 20 MMOL/L (21-32) L Anion Gap 10 mmol/L (5-15) Blood Urea Nitrogen 81 mg/dL (7-18) H Creatinine 1.5 MG/DL (0.55-1.30) H Estimat Glomerular Filtration Rate 44.6 mL/min (>60) Glucose Level 130 MG/DL (74-106) H Calcium Level 8.2 MG/DL (8.5-10.1) L C-Reactive Protein, Quantitative Pending Current Medications Medications (Trade) Dose Ordered Sig/Gilma Route PRN Reason Start Time Stop Time Status Last Admin Dose Admin Acetaminophen (Tylenol) 650 mg Q4H PRN ORAL Mild Pain (Pain Scale 1-3) 05/03/20 12:30 06/02/20 12:29 Acetaminophen (Tylenol) 650 mg Q4H PRN ORAL fever 05/03/20 12:30 06/02/20 12:29 Al Hydroxide/Mg Hydroxide (Mylanta) 30 ml Q4H PRN ORAL HICCUPS 05/03/20 12:30 06/02/20 12:29 Albuterol Sulfate (Proventil MDI) 1 puff Q4H PRN INH Shortness of Breath 05/03/20 12:45 08/01/20 12:44 Aspirin (ASA) 81 mg DAILY ORAL 05/03/20 12:30 06/17/20 12:29 05/05/20 08:44 Atorvastatin Calcium (Lipitor) 10 mg BEDTIME ORAL 05/03/20 21:00 08/01/20 20:59 05/04/20 20:06 Dexamethasone Sodium Phosphate (Decadron 10mg/ ml Inj) 6 mg DAILY IV 05/03/20 12:30 05/12/20 09:01 05/05/20 08:46 Dextrose (Dextrose 50%) 25 ml Q30M PRN IV Hypoglycemia 05/03/20 12:30 08/01/20 12:29 Dextrose (Dextrose 50%) 50 ml Q30M PRN IV Hypoglycemia 05/03/20 12:30 08/01/20 12:29 Dextrose/ Electrolytes 1,000 ml @ 100 mls/hr Q10H IV 05/05/20 11:30 06/04/20 11:29 Diltiazem HCl (Cardizem Tab) 60 mg Q6HR ORAL 05/05/20 12:00 06/03/20 11:59 Enoxaparin Sodium (Lovenox) 70 mg Q24H SUBQ 05/03/20 18:00 08/01/20 17:59 05/04/20 17:08 Famotidine (Pepcid) 20 mg BID ORAL 05/04/20 18:00 08/02/20 17:59 05/05/20 08:45 Gabapentin (Neurontin) 400 mg QHS ORAL 05/04/20 21:00 06/03/20 20:59 05/04/20 20:06 Magnesium Hydroxide (Mom) 30 ml BIDPRN PRN ORAL Constipation 05/04/20 09:45 06/03/20 09:44 Memantine (Namenda) 5 mg BID ORAL 05/03/20 18:00 06/02/20 17:59 05/05/20 08:44 Metoprolol Tartrate (Lopressor) 50 mg EVERY 12 HOURS ORAL 05/04/20 21:00 08/01/20 12:29 05/05/20 08:46 Montelukast Sodium (Singulair) 10 mg DAILY ORAL 05/04/20 09:00 08/02/20 08:59 05/05/20 08:44 Nitroglycerin (Nitro-Bid) 1 inch BEDTIME TOPIC 05/04/20 21:00 06/03/20 20:59 05/04/20 20:07 Nitroglycerin (Ntg) 0.4 mg Q5M PRN SL Prn Chest Pain 05/03/20 12:30 06/02/20 12:29 Ondansetron HCl (Zofran) 4 mg Q6H PRN IVP Nausea & Vomiting 05/03/20 12:30 06/02/20 12:29 Polyethylene Glycol (Miralax) 17 gm DAILYPRN PRN ORAL Constipation 05/03/20 12:30 06/02/20 12:29 Sennosides (Senokot) 17.2 mg BID ORAL 05/03/20 18:00 06/02/20 17:59 05/05/20 08:44 Juanito Grier MD May 05, 2020 11:12
[2020-05-05 12:00] VITALS: BP 150/70
[2020-05-05] MEDS ORDERED: dilTIAZem HCl 60mg tab ORAL SCH (12:00)
--- NOTE | 2020-05-05 12:45 | Consultation ---
History of Present Illness General Date patient seen: May 05, 2020 Reason for Hospitalization: Dyspnea/Respdistress Present Illness HPI This is a very unfortunate 85-year-old male multimedical comorbidities upper extremity contractures who is currently Covid positive admitted to [facility] pneumonia on treatment identified to have poor peripheral access loss IV access and surgery called to evaluate and assist with care. Leukocytosis abnormal labs dehydration requiring resuscitation medications. Patient seen, patient evaluate, chart reviewed. Case discussed with nursing staff. Allergies: Coded Allergies: No Known Allergies (Unverified , 08/05/12) COVID-19 Screening Contact w/high risk pt: Yes Experienced COVID-19 symptoms?: Yes Coronavirus symptoms experienc: Shortness of Breath Medication History Scheduled Acetaminophen* (Tylenol Extra Strength*), 1,000 MG ORAL EVERY 8 HOURS Alendronate Sodium* (Fosamax*), 70 MG ORAL ONCE A WEEK, (Reported) Amlodipine Besylate* (Amlodipine Besylate*), 10 MG ORAL DAILY, (Reported) Amoxicillin/Potassium Clav 500-125 Mg Tab* (Amox Tr-K Clv 500-125 Mg Tab*), 1 TAB ORAL EVERY 12 HOURS, (Reported) Aspirin* (Aspirin*), 81 MG ORAL DAILY, (Reported) Atorvastatin Calcium* (Lipitor*), 10 MG ORAL BEDTIME, (Reported) Calcium Carbonate/Vitamin D3 ([place]co 500+D Tablet), 1 EACH PO BID, (Reported) Docusate Sodium (Docusate Sodium), 250 MG ORAL TID Dutasteride (Avodart), 0.5 MG PO DAILY, (Reported) Ferrous Sulfate* (Ferrous Sulfate*), 324 MG ORAL DAILY, (Reported) Gabapentin* (Gabapentin*), 1,200 MG ORAL BEDTIME, (Reported) Isosorbide Mononitrate (Isosorbide Mononitrate Er), 30 MG PO DAILY, (Reported) Memantine Hcl* (Namenda*), 21 MG ORAL DAILY, (Reported) Metoprolol Succinate* (Metoprolol Succinate*), 25 MG ORAL DAILY, (Reported) Metoprolol Succinate* (Metoprolol Succinate*), 50 MG ORAL DAILY Montelukast Sodium* (Montelukast Sodium*), 10 MG ORAL DAILY, (Reported) Omeprazole (Omeprazole), 40 MG ORAL DAILY Omeprazole (Omeprazole), 40 MG ORAL DAILY Ranitidine Hcl* (Zantac*), 150 MG ORAL TWICE A DAY, (Reported) Sennosides (Senna-Gen), 17.2 MG ORAL BID Sucralfate* (Carafate*), 1 GM ORAL AC+HS Triamterene/Hctz (Triamterene-Hctz 37.5-25 mg Cp), 1 CAP ORAL DAILY, (Reported) Valsartan (Diovan), 160 MG ORAL BID, (Reported) Scheduled PRN Al Hydroxide/mg Hydroxide (Mag-Al Liquid), 30 ML PO Q4HR PRN for Hiccups Albuterol Sulfate* (Albuterol Sulfate Hhn*), 3 ML INH Q4H PRN for Shortness of Breath, (Reported) Polyethylene Glycol 3350* (Miralax*), 17 GM ORAL DAILY PRN for Constipation Miscellaneous Medications Unable to Obtain Medications (Unable To Obtain Meds), (Reported) Unable to Obtain Medications (Unable To Obtain Meds), (Reported) Patient History Limited by: age, medical condition History Provided By: Medical Record, PMD Healthcare decision maker Resuscitation status Advanced Directive on File Past Medical/Surgical History Past Medical/Surgical History: (1) Intractable hiccups (2) Obstructed Chang catheter (3) Leaking of urine (4) Abnormal urogenital findings (5) Chang catheter in place (6) Gait abnormality (7) Hypotension (8) anemia (9) anemia (10) UTI (urinary tract infection) (11) GI bleed (12) Chest pain (13) Lactic acidosis (14) Renal failure (15) Hypoxia (16) NSTEMI (non-ST elevated myocardial infarction) (17) CHF exacerbation (18) Multifocal pneumonia (19) Gastritis (20) Prostate cancer (21) Hypertension (22) KRISTINE (acute kidney injury) (23) Atrial fibrillation with rapid ventricular response (24) COVID-19 (25) Dehydration (26) Lumbar compression fracture (27) anemia Review of Systems Review of Symptoms General ROS: no weight loss or fever Psychological ROS: no depression or mood changes, no memory loss Ophthalmic ROS: no visual changes or eye irritation ENT ROS: no nasal congestion, hearing loss, dizziness Allergy and Immunology ROS: no allergic symptoms or urticaria Hematological and Lymphatic ROS: no swollen glands, unusual bleeding or bruising Endocrine ROS: no polyuria, polydipsia, weight changes, temperature intolerance Respiratory ROS: no cough, shortness of breath, or wheezing Cardiovascular ROS: no chest pain or dyspnea on exertion Gastrointestinal ROS: denies abdominal pain, bright red blood in stool. Musculoskeletal ROS: no myalgias or arthralgias Neurological ROS: no TIA or stroke symptoms Dermatological ROS: no new or changing skin lesions, rashes or pruritis Physical Exam Physical Exam General appearance: alert, cooperative, no distress, appears stated age Head: Normocephalic, without obvious abnormality, atraumatic Eyes: conjunctivae/corneas clear. PERRL, EOM's intact. Fundi benign Throat: Lips, mucosa, and tongue normal. Teeth and gums normal Neck: supple, symmetrical, trachea midline, no adenopathy, thyroid: not enlarged, symmetric, no tenderness/mass/nodules, no carotid bruit and no JVD Lungs: clear to auscultation bilaterally Heart: regular rate and rhythm, S1, S2 normal, no murmur, click, rub or gallop Abdomen: soft, non-tender. Bowel sounds normal. No masses, no organomegaly Extremities: extremities contracted upper extremities limited access Pulses: 2+ and symmetric Skin: Skin color, texture, turgor normal. No rashes or lesions Neurologic: Grossly normal Last 24 Hour Vital Signs Date Time Temp Pulse Resp B/P (MAP) Pulse Ox O2 Delivery O2 Flow Rate FiO2 05/05/20 08:46 99 129/80 05/05/20 08:00 75 05/05/20 08:00 96.3 99 20 129/80 (96) 100 05/05/20 08:00 Venturi Mask 15.0 05/05/20 05:04 52 113/64 05/05/20 04:00 97.0 59 24 119/74 (89) 100 05/05/20 04:00 Venturi Mask 15.0 05/05/20 03:30 47 05/05/20 00:00 97.5 61 22 125/76 (92) 96 05/05/20 00:00 Venturi Mask 15.0 05/04/20 23:43 53 05/04/20 23:08 54 115/63 05/04/20 20:07 122/62 05/04/20 20:07 89 122/62 05/04/20 20:00 Venturi Mask 15.0 05/04/20 20:00 97.7 88 20 122/62 (82) 96 05/04/20 19:24 104 05/04/20 18:24 119 131/56 05/04/20 16:00 104 05/04/20 16:00 97.1 98 19 121/81 (94) 96 98 05/04/20 16:00 Nasal Cannula 5.0 05/04/20 15:30 110 127/78 05/04/20 13:14 127 125/74 Intake and Output 05/04/20 05/05/20 19:00 07:00 Intake Total 1560 ml 1344 ml Output Total 400 ml Balance 1160 ml 1344 ml Intake Oral 250 ml IV Total 1310 ml 1344 ml Output Urine Total 400 ml # Voids 2 1 # Bowel Movements 1 Laboratory Tests Test 05/05/20 04:00 White Blood Count 18.2 K/UL (4.8-10.8) H Red Blood Count 4.72 M/UL (4.70-6.10) Hemoglobin 12.5 G/DL (14.2-18.0) L Hematocrit 38.4 % (42.0-52.0) L Mean Corpuscular Volume 81 FL (80-99) Mean Corpuscular Hemoglobin 26.4 PG (27.0-31.0) L Mean Corpuscular Hemoglobin Concent 32.5 G/DL (32.0-36.0) Red Cell Distribution Width 18.1 % (11.6-14.8) H Platelet Count 250 K/UL (150-450) Mean Platelet Volume 6.9 FL (6.5-10.1) Neutrophils (%) (Auto) % (45.0-75.0) Lymphocytes (%) (Auto) % (20.0-45.0) Monocytes (%) (Auto) % (1.0-10.0) Eosinophils (%) (Auto) % (0.0-3.0) Basophils (%) (Auto) % (0.0-2.0) Differential Total Cells Counted 100 Neutrophils % (Manual) 97 % (45-75) H Lymphocytes % (Manual) 1 % (20-45) L Monocytes % (Manual) 2 % (1-10) Eosinophils % (Manual) 0 % (0-3) Basophils % (Manual) 0 % (0-2) Band Neutrophils 0 % (0-8) Platelet Estimate Adequate Platelet Morphology Normal Anisocytosis 1+ D-Dimer 5.85 mg/L FEU (0.00-0.49) H Sodium Level 153 MMOL/L (136-145) H Potassium Level 3.9 MMOL/L (3.5-5.1) Chloride Level 123 MMOL/L (98-107) H Carbon Dioxide Level 20 MMOL/L (21-32) L Anion Gap 10 mmol/L (5-15) Blood Urea Nitrogen 81 mg/dL (7-18) H Creatinine 1.5 MG/DL (0.55-1.30) H Estimat Glomerular Filtration Rate 44.6 mL/min (>60) Glucose Level 130 MG/DL (74-106) H Calcium Level 8.2 MG/DL (8.5-10.1) L C-Reactive Protein, Quantitative Pending Height (Feet): 5 Height (Inches): 2.00 Weight (Pounds): 132 Medications Current Medications Medications (Trade) Dose Ordered Sig/Gilma Route PRN Reason Start Time Stop Time Status Last Admin Dose Admin Acetaminophen (Tylenol) 650 mg Q4H PRN ORAL Mild Pain (Pain Scale 1-3) 05/03/20 12:30 06/02/20 12:29 Acetaminophen (Tylenol) 650 mg Q4H PRN ORAL fever 05/03/20 12:30 06/02/20 12:29 Al Hydroxide/Mg Hydroxide (Mylanta) 30 ml Q4H PRN ORAL HICCUPS 05/03/20 12:30 06/02/20 12:29 Albuterol Sulfate (Proventil MDI) 1 puff Q4H PRN INH Shortness of Breath 05/03/20 12:45 08/01/20 12:44 Aspirin (ASA) 81 mg DAILY ORAL 05/03/20 12:30 06/17/20 12:29 05/05/20 08:44 Atorvastatin Calcium (Lipitor) 10 mg BEDTIME ORAL 05/03/20 21:00 08/01/20 20:59 05/04/20 20:06 Dexamethasone Sodium Phosphate (Decadron 10mg/ ml Inj) 6 mg DAILY IV 05/03/20 12:30 05/12/20 09:01 05/05/20 08:46 Dextrose (Dextrose 50%) 25 ml Q30M PRN IV Hypoglycemia 05/03/20 12:30 08/01/20 12:29 Dextrose (Dextrose 50%) 50 ml Q30M PRN IV Hypoglycemia 05/03/20 12:30 08/01/20 12:29 Dextrose/ Electrolytes 1,000 ml @ 100 mls/hr Q10H IV 05/05/20 11:30 06/04/20 11:29 Diltiazem HCl (Cardizem Tab) 60 mg Q6HR ORAL 05/05/20 12:00 06/03/20 11:59 Enoxaparin Sodium (Lovenox) 70 mg Q24H SUBQ 05/03/20 18:00 08/01/20 17:59 05/04/20 17:08 Famotidine (Pepcid) 20 mg BID ORAL 05/04/20 18:00 08/02/20 17:59 05/05/20 08:45 Gabapentin (Neurontin) 400 mg QHS ORAL 05/04/20 21:00 06/03/20 20:59 05/04/20 20:06 Magnesium Hydroxide (Mom) 30 ml BIDPRN PRN ORAL Constipation 05/04/20 09:45 06/03/20 09:44 Memantine (Namenda) 5 mg BID ORAL 05/03/20 18:00 06/02/20 17:59 05/05/20 08:44 Metoprolol Tartrate (Lopressor) 50 mg EVERY 12 HOURS ORAL 05/04/20 21:00 08/01/20 12:29 05/05/20 08:46 Montelukast Sodium (Singulair) 10 mg DAILY ORAL 05/04/20 09:00 08/02/20 08:59 05/05/20 08:44 Nitroglycerin (Nitro-Bid) 1 inch BEDTIME TOPIC 05/04/20 21:00 06/03/20 20:59 05/04/20 20:07 Nitroglycerin (Ntg) 0.4 mg Q5M PRN SL Prn Chest Pain 05/03/20 12:30 06/02/20 12:29 Ondansetron HCl (Zofran) 4 mg Q6H PRN IVP Nausea & Vomiting 05/03/20 12:30 06/02/20 12:29 Polyethylene Glycol (Miralax) 17 gm DAILYPRN PRN ORAL Constipation 05/03/20 12:30 06/02/20 12:29 Sennosides (Senokot) 17.2 mg BID ORAL 05/03/20 18:00 06/02/20 17:59 05/05/20 08:44 Assessment/Plan Problem List: (1) Lactic acidosis Assessment & Plan: Patient with dehydration lactic acidosis abnormal labs requiring IV fluids and medications. Poor peripheral access at this time. Patient lost IV access. Considerations for central venous catheter was done. Given patient's condition overall comorbidities and current medications required including fluids will attempt further management with peripheral access though it is very difficult in this patient. Will consider peripherally inserted tunneled catheter as well and then considerations of central venous catheter as well if necessary. For now was able to obtain a hand IV peripherally. We will continue for this. If falter failure will proceed with potential PICC for central venous. Thank you for allowing participation care will follow recommendations ICD Codes: E87.2 - Acidosis SNOMED: 88845570, 07967670962802 (2) Renal failure ICD Codes: N19 - Unspecified kidney failure SNOMED: 27115418 (3) Hypoxia ICD Codes: R09.02 - Hypoxemia SNOMED: 476864061 (4) NSTEMI (non-ST elevated myocardial infarction) ICD Codes: I21.4 - Non-ST elevation (NSTEMI) myocardial infarction SNOMED: 33175089 (5) CHF exacerbation ICD Codes: I50.9 - Heart failure, unspecified SNOMED: 591162122, 87526329842386 (6) Multifocal pneumonia ICD Codes: J18.9 - Pneumonia, unspecified organism SNOMED: 966356794 (7) Gastritis ICD Codes: K29.70 - Gastritis, unspecified, without bleeding SNOMED: 3103881 (8) Prostate cancer ICD Codes: C61 - Malignant neoplasm of prostate SNOMED: 808525320 (9) Hypertension ICD Codes: I10 - Essential (primary) hypertension SNOMED: 96763513 (10) KRISTINE (acute kidney injury) ICD Codes: N17.9 - Acute kidney failure, unspecified SNOMED: 77129598 (11) Atrial fibrillation with rapid ventricular response ICD Codes: I48.91 - Unspecified atrial fibrillation SNOMED: 904532203838620 (12) COVID-19 Assessment & Plan: Covid positive on treatment Requiring fluids meds dec ICD Codes: U07.1 - COVID-19 SNOMED: 451255487 (13) Dehydration ICD Codes: E86.0 - Dehydration SNOMED: 39868291 (14) Lumbar compression fracture ICD Codes: S32.000A - Wedge compression fracture of unspecified lumbar vertebra, initial encounter for closed fracture SNOMED: 724401105 (15) anemia (16) Gait abnormality ICD Codes: R26.9 - Unspecified abnormalities of gait and mobility SNOMED: 10352982 (17) UTI (urinary tract infection) ICD Codes: N39.0 - Urinary tract infection, site not specified SNOMED: 84176130 (18) Chest pain ICD Codes: R07.9 - Chest pain, unspecified SNOMED: 74003873 (19) Hypotension ICD Codes: I95.9 - Hypotension, unspecified SNOMED: 76220555 (20) GI bleed ICD Codes: K92.2 - Gastrointestinal hemorrhage, unspecified SNOMED: 71320842 (21) Leaking of urine ICD Codes: R32 - Unspecified urinary incontinence SNOMED: 841279186 (22) Intractable hiccups ICD Codes: R06.6 - Hiccough SNOMED: 34845542 (23) Abnormal urogenital findings ICD Codes: R89.9 - Unspecified abnormal finding in specimens from other organs, systems and tissues SNOMED: 576086197 (24) Chang catheter in place ICD Codes: Z92.89 - Personal history of other medical treatment SNOMED: 502839337 (25) Obstructed Chang catheter ICD Codes: T83.098A - Other mechanical complication of other indwelling urethral catheter, initial encounter SNOMED: 355845990 (26) anemia (27) anemia Yamil Oquendo May 05, 2020 12:45
[2020-05-05] MEDS: D5W w/KCl 20mEq 1,000 ML IV SCH ×2 (12:59→21:02)
[2020-05-05] MEDS: dilTIAZem HCl 60mg tab ORAL SCH ×2 (14:43→21:04)
--- NOTE | 2020-05-05 15:59 | General Progress Note ---
Subjective ROS Limited/Unobtainable: Yes Allergies: Coded Allergies: No Known Allergies (Unverified , 08/05/12) Objective Last 24 Hour Vital Signs Date Time Temp Pulse Resp B/P (MAP) Pulse Ox O2 Delivery O2 Flow Rate FiO2 05/05/20 14:43 95 128/84 05/05/20 13:00 97 132/82 05/05/20 12:00 96.4 72 19 150/70 (96) 96 05/05/20 12:00 Venturi Mask 15.0 05/05/20 12:00 62 05/05/20 08:46 99 129/80 05/05/20 08:00 75 05/05/20 08:00 96.3 99 20 129/80 (96) 100 05/05/20 08:00 Venturi Mask 15.0 05/05/20 06:48 97 Non-Rebreather 15.0 100 05/05/20 05:04 52 113/64 05/05/20 04:00 97.0 59 24 119/74 (89) 100 05/05/20 04:00 Venturi Mask 15.0 05/05/20 03:30 47 05/05/20 00:00 97.5 61 22 125/76 (92) 96 05/05/20 00:00 Venturi Mask 15.0 05/04/20 23:43 53 05/04/20 23:08 54 115/63 05/04/20 20:07 122/62 05/04/20 20:07 89 122/62 05/04/20 20:00 Venturi Mask 15.0 05/04/20 20:00 97.7 88 20 122/62 (82) 96 05/04/20 19:24 104 05/04/20 18:24 119 131/56 05/04/20 16:00 104 05/04/20 16:00 97.1 98 19 121/81 (94) 96 98 05/04/20 16:00 Nasal Cannula 5.0 Intake and Output 05/04/20 05/05/20 19:00 07:00 Intake Total 1560 ml 1344 ml Output Total 400 ml Balance 1160 ml 1344 ml Intake Oral 250 ml IV Total 1310 ml 1344 ml Output Urine Total 400 ml # Voids 2 1 # Bowel Movements 1 Laboratory Tests 05/05/20 04:00: White Blood Count 18.2H, Red Blood Count 4.72, Hemoglobin 12.5L, Hematocrit 38.4L, Mean Corpuscular Volume 81, Mean Corpuscular Hemoglobin 26.4L, Mean Corpuscular Hemoglobin Concent 32.5, Red Cell Distribution Width 18.1H, Platelet Count 250, Mean Platelet Volume 6.9, Neutrophils (%) (Auto) , Lymphocytes (%) (Auto) , Monocytes (%) (Auto) , Eosinophils (%) (Auto) , Basophils (%) (Auto) , Differential Total Cells Counted 100, Neutrophils % (Manual) 97H, Lymphocytes % (Manual) 1L, Monocytes % (Manual) 2, Eosinophils % (Manual) 0, Basophils % (Ma nual) 0, Band Neutrophils 0, Platelet Estimate Adequate, Platelet Morphology Normal, Anisocytosis 1+, D-Dimer 5.85H, Sodium Level 153H, Potassium Level 3.9, Chloride Level 123H, Carbon Dioxide Level 20L, Anion Gap 10, Blood Urea Nitrogen 81H, Creatinine 1.5H, Estimat Glomerular Filtration Rate 44.6, Glucose Level 130H, Calcium Level 8.2L, C-Reactive Protein, Quantitative [Pending] Height (Feet): 5 Height (Inches): 2.00 Weight (Pounds): 132 General Appearance: alert Neck: normal alignment Cardiovascular: regular rhythm Respiratory/Chest: accessory muscle use Abdomen: non tender Edema: no edema noted Arm (L), no edema noted Arm (R), no edema noted Leg (L), no edema noted Leg (R), no edema noted Pedal (L), no edema noted Pedal (R), no edema noted Generalized Neurologic: other - old VII weak Assessment/Plan Problem List: (1) NSTEMI (non-ST elevated myocardial infarction) ICD Codes: I21.4 - Non-ST elevation (NSTEMI) myocardial infarction SNOMED: 46067215 (2) Multifocal pneumonia ICD Codes: J18.9 - Pneumonia, unspecified organism SNOMED: 971863887 (3) COVID-19 ICD Codes: U07.1 - COVID-19 SNOMED: 672643434 (4) Atrial fibrillation with rapid ventricular response ICD Codes: I48.91 - Unspecified atrial fibrillation SNOMED: 062854900274582 (5) KRISTINE (acute kidney injury) ICD Codes: N17.9 - Acute kidney failure, unspecified SNOMED: 58802406 (6) Dehydration ICD Codes: E86.0 - Dehydration SNOMED: 43852351 (7) Gastritis ICD Codes: K29.70 - Gastritis, unspecified, without bleeding SNOMED: 0950336 Assessment/Plan: continue steroids, hydration pul m care, SS insulin diltiazem tele, remains high risk Quentin Marsh MD May 05, 2020 15:59
[2020-05-05 16:00] VITALS: BP 138/80
[2020-05-05] MEDS: Enoxaparin 80mg Inj SUBQ SCH (17:17)
--- NOTE | 2020-05-05 17:36 | Cardiology Progress Note ---
Subjective DATE OF SERVICE: May 05, 2020 Alert Tolerates crushed meds Saturating 95% on 6L N/C Monitor: Atrial fibrillation with rapid rates has converted to sinus bradycardia with slow rates at times. Objective Last 24 Hour Vital Signs Date Time Temp Pulse Resp B/P (MAP) Pulse Ox O2 Delivery O2 Flow Rate FiO2 05/05/20 16:00 65 05/05/20 16:00 96.7 64 18 138/80 (99) 96 05/05/20 16:00 Venturi Mask 15.0 05/05/20 14:43 95 128/84 05/05/20 13:00 97 132/82 05/05/20 12:00 96.4 72 19 150/70 (96) 96 05/05/20 12:00 Venturi Mask 15.0 05/05/20 12:00 62 05/05/20 08:46 99 129/80 05/05/20 08:00 75 05/05/20 08:00 96.3 99 20 129/80 (96) 100 05/05/20 08:00 Venturi Mask 15.0 05/05/20 06:48 97 Non-Rebreather 15.0 100 05/05/20 05:04 52 113/64 05/05/20 04:00 97.0 59 24 119/74 (89) 100 05/05/20 04:00 Venturi Mask 15.0 05/05/20 03:30 47 05/05/20 00:00 97.5 61 22 125/76 (92) 96 05/05/20 00:00 Venturi Mask 15.0 05/04/20 23:43 53 05/04/20 23:08 54 115/63 05/04/20 20:07 122/62 05/04/20 20:07 89 122/62 05/04/20 20:00 Venturi Mask 15.0 05/04/20 20:00 97.7 88 20 122/62 (82) 96 05/04/20 19:24 104 05/04/20 18:24 119 131/56 ROS: unchanged from 05/03/20 HEENT: normal ENT inspection RHYTHM: NSR, SB, PACs, other - occ ventricular ectopy LUNGS: no accessory muscle use, bilateral rhonchi CARDIAC: normal S1 and S2, irregularly irregular ABDOMEN: normal bowel sounds, non tender, soft EXTREMITIES: normal range of motion, trace edema Laboratory Tests Test 05/05/20 04:00 White Blood Count 18.2 K/UL (4.8-10.8) H Red Blood Count 4.72 M/UL (4.70-6.10) Hemoglobin 12.5 G/DL (14.2-18.0) L Hematocrit 38.4 % (42.0-52.0) L Mean Corpuscular Volume 81 FL (80-99) Mean Corpuscular Hemoglobin 26.4 PG (27.0-31.0) L Mean Corpuscular Hemoglobin Concent 32.5 G/DL (32.0-36.0) Red Cell Distribution Width 18.1 % (11.6-14.8) H Platelet Count 250 K/UL (150-450) Mean Platelet Volume 6.9 FL (6.5-10.1) Neutrophils (%) (Auto) % (45.0-75.0) Lymphocytes (%) (Auto) % (20.0-45.0) Monocytes (%) (Auto) % (1.0-10.0) Eosinophils (%) (Auto) % (0.0-3.0) Basophils (%) (Auto) % (0.0-2.0) Differential Total Cells Counted 100 Neutrophils % (Manual) 97 % (45-75) H Lymphocytes % (Manual) 1 % (20-45) L Monocytes % (Manual) 2 % (1-10) Eosinophils % (Manual) 0 % (0-3) Basophils % (Manual) 0 % (0-2) Band Neutrophils 0 % (0-8) Platelet Estimate Adequate Platelet Morphology Normal Anisocytosis 1+ D-Dimer 5.85 mg/L FEU (0.00-0.49) H Sodium Level 153 MMOL/L (136-145) H Potassium Level 3.9 MMOL/L (3.5-5.1) Chloride Level 123 MMOL/L (98-107) H Carbon Dioxide Level 20 MMOL/L (21-32) L Anion Gap 10 mmol/L (5-15) Blood Urea Nitrogen 81 mg/dL (7-18) H Creatinine 1.5 MG/DL (0.55-1.30) H Estimat Glomerular Filtration Rate 44.6 mL/min (>60) Glucose Level 130 MG/DL (74-106) H Calcium Level 8.2 MG/DL (8.5-10.1) L C-Reactive Protein, Quantitative Pending Microbiology Date/Time Source Procedure Growth Status 05/03/20 11:30 Nasopharynx SARS-CoV-2 RdRp Gene Assay - Final Complete Assessment/Plan Assessment/Plan COVID 19 PNA PAFib with RVR converted Sinus bradycardia with PAC's due to meds. Ac/chr diastolic CHF Acute coronary insuff with possible NSTEMI Cerebrovascular disease with dementia Hx GI bleed due to gastritis Additional therapy for rate control. Anti-virals/steroids/anti-coagulation Long acting meds changed - so they can be crushed. Decreased cardizem dose in view of slow heart rate. Jerad Phillips MD May 05, 2020 17:36
--- NOTE | 2020-05-05 19:25 | NUR ---
NURSE HAND-OFF REPORT: Important Events on Shift:Restraint started at 1000 Patient Status: Stable Diet: Regular nectar thick liquid Pending Orders: NA Pending Results/Labs:NA Pending MD notification:NA Latest Vital Signs: Temperature 96.7 , Pulse 65 , B/P 138 /80 , Respiratory Rate 18 , O2 SAT 96 , Room Air, O2 Flow Rate 15.0 . Vital Sign Comment: Stable EKG Rhythm: Sinus Rhythm Rhythm change?: N MD Notified?: N - MD Response: Latest Mayo Fall Score: 60 Fall Risk: High Risk Safety Measures: Call light Within Reach, Bed Alarm Zone 3, Side Rails Side Rails x3, Bed position Low and Locked. Fall Precautions: Yellow Socks Yellow Gown Door Sign Patient Fall Education Report given to PRATIK Mendes.
--- NOTE | 2020-05-05 19:40 | NUR ---
NURSE NOTES: Pt received from PRATIK Vaughn alert and oriented to name only. On 15L NRB mask, saturating at 94%. On Bilateral soft wrist restraints due to repeated attempts to remove O2 mask and IV line, pulses equal bilaterally, no swelling or redness noted. IV site asymptomatic and patent on R hand 24g running to D5W with 20 Kcl at 100. Bed in lowest position, bed alarm on. Call light and belongings within reach.
[2020-05-05 20:00] VITALS: BP 140/79
[2020-05-05] MEDS: Nitroglycerin 2% oint pkt TOPIC SCH (21:02)
[2020-05-06] VITALS: BP 119/74
[2020-05-06 04:00] VITALS: BP 147/89
[2020-05-06] MEDS: dilTIAZem HCl 60mg tab ORAL SCH ×3 (05:42→22:00)
[2020-05-06] MEDS: D5W w/KCl 20mEq 1,000 ML IV SCH ×2 (05:58→18:08)
--- NOTE | 2020-05-06 07:10 | NUR ---
NURSE HAND-OFF REPORT: Important Events on Shift: Pt maintained O2 saturation of 90-94% on 15L NRB, periodically attempts to remove NRB mask with restraints. Bilateral soft wrist restraints maintained for pt safety. Aspiration precautions implemented. Patient Status: Ongoing Diet: Regular, pureed thick. Pending Orders: PICC line insertion Pending Results/Labs: n/a Pending MD notification: n/a Latest Vital Signs: Temperature 97.7 , Pulse 62 , B/P 147 /89 , Respiratory Rate 28 , O2 SAT 94 , Room Air, O2 Flow Rate 15.0 . Vital Sign Comment: WNL EKG Rhythm: SR w BBB Rhythm change?: N MD Notified?: N Response: Latest Mayo Fall Score: 60 Fall Risk: High Risk Safety Measures: Call light Within Reach, Bed Alarm Zone 3, Side Rails Side Rails x3, Bed position Low and Locked. Fall Precautions: Yes Yellow Socks Yellow Gown Door Sign Patient Fall Education Report given to PRATIK Ayers.
--- NOTE | 2020-05-06 07:11 | NUR ---
NURSE NOTES: Received report from Vaughn CHRISTIE.
[2020-05-06 08:00] VITALS: BP 156/74
[2020-05-06 08:19] LABS: HEMATOCRIT 47.8 % (42.0-52.0); HEMOGLOBIN 14.9 G/DL (14.2-18.0); MEAN CORPUSCULAR VOLUME 83 FL (80-99); PLATELET COUNT 252 K/UL (150-450); RED BLOOD COUNT 5.77 M/UL (4.70-6.10); RED CELL DISTRIBUTION WIDTH 18.5 % (11.6-14.8); WHITE BLOOD COUNT 20.3 K/UL (4.8-10.8)
[2020-05-06 08:37] LABS: CALCIUM 9.1 MG/DL (8.5-10.1); CREATININE 1.5 MG/DL (0.55-1.30); POTASSIUM 4.2 MMOL/L (3.5-5.1)
--- NOTE | 2020-05-06 08:40 | NUR ---
NURSE NOTES: Pt. in bed, awake, alert, confused, eyes open. Cont. on non-rebreather 15L. No grimacing noted. IV site at right hand #24g. in placed patent/intact. Bilateral soft wrist restrains in placed. +CMS. Bed in low position, locked. Call light within reach. Will cont. to monitor.
--- NOTE | 2020-05-06 09:45 | Pulmonology Progress Note ---
Subjective ROS Limited/Unobtainable: Yes Constitutional: Denies: fever Allergies: Coded Allergies: No Known Allergies (Unverified , 08/05/12) Subjective leukocytosis trending up, no fevers remains on 100% NRM troponin trending down creat trending down Objective Last 24 Hour Vital Signs Date Time Temp Pulse Resp B/P (MAP) Pulse Ox O2 Delivery O2 Flow Rate FiO2 05/06/20 08:00 97.7 60 20 156/74 (101) 93 05/06/20 05:42 62 147/89 05/06/20 04:00 62 05/06/20 04:00 97.7 69 28 147/89 (108) 94 05/06/20 04:00 Non-Rebreather 15.0 05/06/20 00:00 Non-Rebreather 15.0 05/06/20 00:00 97.7 98 24 119/74 (89) 98 05/06/20 00:00 65 05/05/20 21:04 99 140/79 05/05/20 21:02 140/79 05/05/20 21:01 99 140/79 05/05/20 20:00 69 05/05/20 20:00 99.0 99 24 140/79 (99) 99 05/05/20 20:00 Non-Rebreather 15.0 05/05/20 16:00 65 05/05/20 16:00 96.7 64 18 138/80 (99) 96 05/05/20 16:00 Venturi Mask 15.0 05/05/20 14:43 95 128/84 05/05/20 13:00 97 132/82 05/05/20 12:00 96.4 72 19 150/70 (96) 96 05/05/20 12:00 Venturi Mask 15.0 05/05/20 12:00 62 Intake and Output 05/05/20 05/06/20 19:00 07:00 Intake Total 850 ml 750 ml Balance 850 ml 750 ml Intake Oral 250 ml 150 ml IV Total 600 ml 600 ml # Voids 2 3 # Bowel Movements 1 1 Objective General Appearance: somnolent, arousable, thin, elderly Nigerian male in NAD Lines, tubes and drains: peripheral HEENT: normocephalic, atraumatic, anicteric Neck: non-tender Respiratory/Chest: no respiratory distress, no accessory muscle use, few scattered rhonchi ; O2 NRM Cardiovascular/Chest: irregularly irregular - Abdomen: normal bowel sounds, non tender, soft Extremities: no calf tenderness, no edema Skin Exam: warm/dry Neurologic: abnormal gait Musculoskeletal: atrophy - BLE Microbiology Date/Time Source Procedure Growth Status 05/05/20 16:47 Nasal Not Otherwise Specified - Final Complete 05/05/20 16:47 Nasal Not Otherwise Specified - Final Complete 05/03/20 11:30 Nasopharynx SARS-CoV-2 RdRp Gene Assay - Final Complete 05/03/20 11:30 Blood Blood Culture - Preliminary NO GROWTH AFTER 48 HOURS Resulted 05/03/20 11:30 Blood Blood Culture - Preliminary NO GROWTH AFTER 48 HOURS Resulted Laboratory Tests 05/06/20 07:10: White Blood Count 20.3H, Red Blood Count 5.77, Hemoglobin 14.9, Hematocrit 47.8, Mean Corpuscular Volume 83, Mean Corpuscular Hemoglobin 25.7L, Mean Corpuscular Hemoglobin Concent 31.1L, Red Cell Distribution Width 18.5H, Platelet Count 252, Mean Platelet Volume 7.6, Neutrophils (%) (Auto) , Lymphocytes (%) (Auto) , Monocytes (%) (Auto) , Eosinophils (%) (Auto) , Basophils (%) (Auto) , Neutrophils % (Manual) [Pending], Lymphocytes % (Manual) [Pending], Platelet Estimate [Pending], Platelet Morphology [Pending], Sodium Level 155H, Potassium Level 4.2, Chloride Level 121H, Carbon Dioxide Level 22, Anion Gap 12, Blood Urea Nitrogen 61H, Creatinine 1.5H, Estimat Glomerular Filtration Rate 44.6, Glucose Level 155H, Calcium Level 9.1, Phosphorus Level 2.9 Current Medications Medications (Trade) Dose Ordered Sig/Gilma Route PRN Reason Start Time Stop Time Status Last Admin Dose Admin Acetaminophen (Tylenol) 650 mg Q4H PRN ORAL Mild Pain (Pain Scale 1-3) 05/03/20 12:30 06/02/20 12:29 Acetaminophen (Tylenol) 650 mg Q4H PRN ORAL fever 05/03/20 12:30 06/02/20 12:29 Al Hydroxide/Mg Hydroxide (Mylanta) 30 ml Q4H PRN ORAL HICCUPS 05/03/20 12:30 06/02/20 12:29 Albuterol Sulfate (Proventil MDI) 1 puff Q4H PRN INH Shortness of Breath 05/03/20 12:45 08/01/20 12:44 Aspirin (ASA) 81 mg DAILY ORAL 05/03/20 12:30 06/17/20 12:29 05/05/20 08:44 Atorvastatin Calcium (Lipitor) 10 mg BEDTIME ORAL 05/03/20 21:00 08/01/20 20:59 05/05/20 21:01 Dexamethasone Sodium Phosphate (Decadron 10mg/ ml Inj) 6 mg DAILY IV 05/03/20 12:30 05/12/20 09:01 05/05/20 08:46 Dextrose (Dextrose 50%) 25 ml Q30M PRN IV Hypoglycemia 05/03/20 12:30 08/01/20 12:29 Dextrose (Dextrose 50%) 50 ml Q30M PRN IV Hypoglycemia 05/03/20 12:30 08/01/20 12:29 Dextrose/ Electrolytes 1,000 ml @ 100 mls/hr Q10H IV 05/05/20 11:30 06/04/20 11:29 05/06/20 05:58 Diltiazem HCl (Cardizem Tab) 60 mg Q8HR ORAL 05/05/20 14:00 06/03/20 11:59 05/06/20 05:42 Enoxaparin Sodium (Lovenox) 70 mg Q24H SUBQ 05/03/20 18:00 08/01/20 17:59 05/05/20 17:17 Famotidine (Pepcid) 20 mg BID ORAL 05/04/20 18:00 08/02/20 17:59 05/05/20 17:15 Gabapentin (Neurontin) 400 mg QHS ORAL 05/04/20 21:00 06/03/20 20:59 05/05/20 21:00 Magnesium Hydroxide (Mom) 30 ml BIDPRN PRN ORAL Constipation 05/04/20 09:45 06/03/20 09:44 Memantine (Namenda) 5 mg BID ORAL 05/03/20 18:00 06/02/20 17:59 05/05/20 17:15 Metoprolol Tartrate (Lopressor) 50 mg EVERY 12 HOURS ORAL 05/04/20 21:00 08/01/20 12:29 1/9/21 21:01 Montelukast Sodium (Singulair) 10 mg DAILY ORAL 05/04/20 09:00 08/02/20 08:59 05/05/20 08:44 Nitroglycerin (Nitro-Bid) 1 inch BEDTIME TOPIC 05/04/20 21:00 06/03/20 20:59 05/05/20 21:02 Nitroglycerin (Ntg) 0.4 mg Q5M PRN SL Prn Chest Pain 05/03/20 12:30 06/02/20 12:29 Ondansetron HCl (Zofran) 4 mg Q6H PRN IVP Nausea & Vomiting 05/03/20 12:30 06/02/20 12:29 Polyethylene Glycol (Miralax) 17 gm DAILYPRN PRN ORAL Constipation 05/03/20 12:30 06/02/20 12:29 Sennosides (Senokot) 17.2 mg BID ORAL 05/03/20 18:00 06/02/20 17:59 05/05/20 17:15 Assessment/Plan Assessment/Plan ASSESSMENT COVID PNA Elevated troponin, possible NSTEMI Atrial fibrillation with rapid ventricular response KRISTINE Dehydration Transaminitis Protein calorie malnutrition Prostate cancer PLAN OF CARE DORIS isolation Date of sx onset: about 3 wks prior to presentation to ED Positive test: rapid COVID 05/03/20 + O2 15 L VM titrate to keep sat > 92% HFA Dex Day# 4 ( 05/03/20 -) REM not a candidate given renal function s/p Ivermectin x 1 05/04 DVT PPX: Lovenox D dimer -12.59-5.85 Venous Dupelx BLE Trend CRP-pending -59.8 Abx need -> per ID recs, currently off abx fup CXR BSSE noted, high aspiration risk aspiration precautions Aggressive hydration Monitor volumes and renal function, creat trending down serial troponin -trending down cardio follows trend LFT nutritional consult Fup with consultants recs DNR/DNI status Discuss further GOC case discussed and evaluated by supervising physician Bethany Smith NP May 06, 2020 09:45
[2020-05-06] MEDS: dexAMETHasone 10mg/ml Inj IV SCH (10:06)
[2020-05-06] MEDS: Memantine 5 MG TAB ORAL SCH ×2 (10:07→18:00)
[2020-05-06] MEDS: Metoprolol Tartrate 50mg tab ORAL SCH ×3 (10:07→21:00)
[2020-05-06] MEDS: Sennosides 8.6mg tab ORAL SCH ×2 (10:07→18:00)
[2020-05-06] MEDS: Aspirin Baby 81mg ORAL SCH (10:07)
[2020-05-06] MEDS: Montelukast 10mg tablet ORAL SCH (10:07)
[2020-05-06 12:00] VITALS: BP 140/68
--- NOTE | 2020-05-06 13:52 | Surgery Progress Note ---
Surgery Progress Note Subjective Additional Comments iv line stable for now no n/v comfortable as can be labs noted meds reviewed picc tomorrow Objective Last 24 Hour Vital Signs Date Time Temp Pulse Resp B/P (MAP) Pulse Ox O2 Delivery O2 Flow Rate FiO2 05/06/20 12:00 Non-Rebreather 15.0 05/06/20 10:07 60 156/74 05/06/20 08:00 97.7 60 20 156/74 (101) 93 05/06/20 08:00 Non-Rebreather 15.0 05/06/20 08:00 60 05/06/20 05:42 62 147/89 05/06/20 04:00 62 05/06/20 04:00 97.7 69 28 147/89 (108) 94 05/06/20 04:00 Non-Rebreather 15.0 05/06/20 00:00 Non-Rebreather 15.0 05/06/20 00:00 97.7 98 24 119/74 (89) 98 05/06/20 00:00 65 05/05/20 21:04 99 140/79 05/05/20 21:02 140/79 05/05/20 21:01 99 140/79 05/05/20 20:00 69 05/05/20 20:00 99.0 99 24 140/79 (99) 99 05/05/20 20:00 Non-Rebreather 15.0 05/05/20 16:00 65 05/05/20 16:00 96.7 64 18 138/80 (99) 96 05/05/20 16:00 Venturi Mask 15.0 05/05/20 14:43 95 128/84 I&O Intake and Output 05/05/20 05/06/20 19:00 07:00 Intake Total 850 ml 750 ml Balance 850 ml 750 ml Intake Oral 250 ml 150 ml IV Total 600 ml 600 ml # Voids 2 3 # Bowel Movements 1 1 Dressing: saturated Cardiovascular: RSR Respiratory: decreased breath sounds Abdomen: soft, non-tender, present bowel sounds Extremities: no tenderness, no cyanosis Laboratory Tests Test 05/06/20 07:10 White Blood Count 20.3 K/UL (4.8-10.8) H Red Blood Count 5.77 M/UL (4.70-6.10) Hemoglobin 14.9 G/DL (14.2-18.0) Hematocrit 47.8 % (42.0-52.0) Mean Corpuscular Volume 83 FL (80-99) Mean Corpuscular Hemoglobin 25.7 PG (27.0-31.0) L Mean Corpuscular Hemoglobin Concent 31.1 G/DL (32.0-36.0) L Red Cell Distribution Width 18.5 % (11.6-14.8) H Platelet Count 252 K/UL (150-450) Mean Platelet Volume 7.6 FL (6.5-10.1) Neutrophils (%) (Auto) % (45.0-75.0) Lymphocytes (%) (Auto) % (20.0-45.0) Monocytes (%) (Auto) % (1.0-10.0) Eosinophils (%) (Auto) % (0.0-3.0) Basophils (%) (Auto) % (0.0-2.0) Differential Total Cells Counted 100 Neutrophils % (Manual) 97 % (45-75) H Lymphocytes % (Manual) 2 % (20-45) L Monocytes % (Manual) 1 % (1-10) Eosinophils % (Manual) 0 % (0-3) Basophils % (Manual) 0 % (0-2) Band Neutrophils 0 % (0-8) Platelet Estimate Adequate Platelet Morphology Normal Anisocytosis 1+ Sodium Level 155 MMOL/L (136-145) H Potassium Level 4.2 MMOL/L (3.5-5.1) Chloride Level 121 MMOL/L (98-107) H Carbon Dioxide Level 22 MMOL/L (21-32) Anion Gap 12 mmol/L (5-15) Blood Urea Nitrogen 61 mg/dL (7-18) H Creatinine 1.5 MG/DL (0.55-1.30) H Estimat Glomerular Filtration Rate 44.6 mL/min (>60) Glucose Level 155 MG/DL (74-106) H Calcium Level 9.1 MG/DL (8.5-10.1) Phosphorus Level 2.9 MG/DL (2.5-4.9) Plan Problems: (1) Lactic acidosis Assessment & Plan: Patient with dehydration lactic acidosis abnormal labs requiring IV fluids and medications. Poor peripheral access at this time. Patient lost IV access. Considerations for central venous catheter was done. Given patient's condition overall comorbidities and current medications required including fluids will attempt further management with peripheral access though it is very difficult in this patient. Will consider peripherally inserted tunneled catheter as well and then considerations of central venous catheter as well if necessary. For now was able to obtain a hand IV peripherally. We will continue for this. If falter failure will proceed with potential PICC for central venous. Thank you for allowing participation care will follow recommendations (2) Renal failure (3) Hypoxia (4) NSTEMI (non-ST elevated myocardial infarction) (5) CHF exacerbation (6) Multifocal pneumonia (7) Gastritis (8) Prostate cancer (9) Hypertension (10) KRISTINE (acute kidney injury) (11) Atrial fibrillation with rapid ventricular response (12) COVID-19 Assessment & Plan: Covid positive on treatment Requiring fluids meds dec (13) Dehydration (14) Lumbar compression fracture (15) anemia (16) Gait abnormality (17) UTI (urinary tract infection) (18) Chest pain (19) Hypotension (20) GI bleed (21) Leaking of urine (22) Intractable hiccups (23) Abnormal urogenital findings (24) Chang catheter in place (25) Obstructed Chang catheter (26) anemia (27) anemia Yamil Oquendo May 06, 2020 13:52
[2020-05-06] MEDS ORDERED: Lidocaine 1% Plain 30 ml INJ PRN (14:00)
[2020-05-06] MEDS ORDERED: Heparin1,000 units/500ml Premix(Conc:2 units/ml) IV PRN (14:00)
--- NOTE | 2020-05-06 14:18 | NUR ---
NURSE NOTES: Seen by Dr. Marsh updated him regarding pt. easily desat when remove his NRB. Everytime we give p.o meds it needs to be fast. Made him aware his saturation with 15L NRB is at 91% sat.
[2020-05-06 16:00] VITALS: BP 144/76
--- NOTE | 2020-05-06 16:00 | NUR ---
NURSE NOTES: Dtr. of pt. name Vilma and gave her update. She appreciated the update.
--- NOTE | 2020-05-06 16:46 | NUR ---
NURSE NOTES: Called Dr. Phillips (mail messenger contractor Dr. Luis) and left message regarding HR 200. EKG done and result A.Bharti with RVR. Pt. DNR/DNI. Addendum: 05/06/20 at 1648 by GARRET MEDELLIN RN RN Awaiting for response.
[2020-05-06] MEDS: Enoxaparin 80mg Inj SUBQ SCH (18:10)
--- NOTE | 2020-05-06 18:41 | NUR ---
NURSE NOTES: Co-worker called and paged Dr. Luis. Also awaiting for response.
--- NOTE | 2020-05-06 19:31 | NUR ---
NURSE HAND-OFF REPORT: A.Fib with RVR called Dr. Valera twice. Awaiting for response. Important Events on Shift: A.Fib with RVR Patient Status: tachy. Diet: regular NTL Pending Orders: AWAITING FOR DR. VALERA. Pending Results/Labs:x Pending MD notification: Dr. Valera Latest Vital Signs: Temperature 97.0 , Pulse 170 , B/P 144 /76 , Respiratory Rate 26 , O2 SAT 91 , Room Air, O2 Flow Rate 15.0 . Vital Sign Comment: elevated HR. EKG Rhythm: Sinus Tachycardia Rhythm change?: N MD Notified?: N - MD Response: Latest Mayo Fall Score: 60 Fall Risk: High Risk Safety Measures: Call light Within Reach, Bed Alarm Zone 3, Side Rails Side Rails x3, Bed position Low and Locked. Fall Precautions: Yellow Socks Yellow Gown Door Sign Patient Fall Education Report given to Kam CHRISTIE.
--- NOTE | 2020-05-06 19:32 | NUR ---
NURSE NOTES: Pt received from [facility] RN alert and oriented to name only. On 15L NRB mask, saturating at 93%. On Bilateral soft wrist restraints due pulling devices and iv. Pulses equal bilaterally, no swelling or redness noted. IV site asymptomatic and patent on R hand 24g running to D5W with 20 Kcl at 75. Bed in lowest position, bed alarm on. Call light and belongings within reach. Continue to monitor.
[2020-05-06 20:00] VITALS: BP 110/73
[2020-05-06] MEDS: Dyna-Hex 2% Top Sol 2oz TOPIC SCH (20:00)
--- NOTE | 2020-05-06 20:33 | General Progress Note ---
Subjective ROS Limited/Unobtainable: Yes Allergies: Coded Allergies: No Known Allergies (Unverified , 08/05/12) Objective Last 24 Hour Vital Signs Date Time Temp Pulse Resp B/P (MAP) Pulse Ox O2 Delivery O2 Flow Rate FiO2 05/06/20 19:30 96 Non-Rebreather 15.0 100 05/06/20 16:00 97.0 170 26 144/76 (98) 91 05/06/20 16:00 Non-Rebreather 15.0 05/06/20 14:40 139 05/06/20 12:00 96.6 70 20 140/68 (92) 93 05/06/20 12:00 Non-Rebreather 15.0 05/06/20 10:17 70 05/06/20 10:07 60 156/74 05/06/20 08:00 97.7 60 20 156/74 (101) 93 05/06/20 08:00 Non-Rebreather 15.0 05/06/20 08:00 60 05/06/20 05:42 62 147/89 05/06/20 04:00 62 05/06/20 04:00 97.7 69 28 147/89 (108) 94 05/06/20 04:00 Non-Rebreather 15.0 05/06/20 00:00 Non-Rebreather 15.0 05/06/20 00:00 97.7 98 24 119/74 (89) 98 05/06/20 00:00 65 05/05/20 21:04 99 140/79 05/05/20 21:02 140/79 05/05/20 21:01 99 140/79 Intake and Output 05/05/20 05/06/20 19:00 07:00 Intake Total 850 ml 750 ml Balance 850 ml 750 ml Intake Oral 250 ml 150 ml IV Total 600 ml 600 ml # Voids 2 3 # Bowel Movements 1 1 Laboratory Tests 05/06/20 07:10: White Blood Count 20.3H, Red Blood Count 5.77, Hemoglobin 14.9, Hematocrit 47.8, Mean Corpuscular Volume 83, Mean Corpuscular Hemoglobin 25.7L, Mean Corpuscular Hemoglobin Concent 31.1L, Red Cell Distribution Width 18.5H, Platelet Count 252, Mean Platelet Volume 7.6, Neutrophils (%) (Auto) , Lymphocytes (%) (Auto) , Monocytes (%) (Auto) , Eosinophils (%) (Auto) , Basophils (%) (Auto) , Differential Total Cells Counted 100, Neutrophils % (Manual) 97H, Lymphocytes % (Manual) 2L, Monocytes % (Manual) 1, Eosinophils % (Manual) 0, Basophils % (Man ual) 0, Band Neutrophils 0, Platelet Estimate Adequate, Platelet Morphology Normal, Anisocytosis 1+, Sodium Level 155H, Potassium Level 4.2, Chloride Level 121H, Carbon Dioxide Level 22, Anion Gap 12, Blood Urea Nitrogen 61H, Creatinine 1.5H, Estimat Glomerular Filtration Rate 44.6, Glucose Level 155H, Calcium Level 9.1, Phosphorus Level 2.9 Height (Feet): 5 Height (Inches): 2.00 Weight (Pounds): 132 General Appearance: moderate distress Neck: normal alignment Cardiovascular: regular rhythm Respiratory/Chest: accessory muscle use, rhonchi - bilaterally Abdomen: soft Edema: no edema noted Arm (L), no edema noted Arm (R), no edema noted Leg (L), no edema noted Leg (R), no edema noted Pedal (L), no edema noted Pedal (R), no edema noted Generalized Neurologic: disoriented Assessment/Plan Problem List: (1) NSTEMI (non-ST elevated myocardial infarction) ICD Codes: I21.4 - Non-ST elevation (NSTEMI) myocardial infarction SNOMED: 81472023 (2) Multifocal pneumonia ICD Codes: J18.9 - Pneumonia, unspecified organism SNOMED: 424948280 (3) COVID-19 ICD Codes: U07.1 - COVID-19 SNOMED: 601504518 (4) Atrial fibrillation with rapid ventricular response ICD Codes: I48.91 - Unspecified atrial fibrillation SNOMED: 039531228522425 (5) KRISTINE (acute kidney injury) ICD Codes: N17.9 - Acute kidney failure, unspecified SNOMED: 90650202 (6) Dehydration ICD Codes: E86.0 - Dehydration SNOMED: 54708573 (7) Gastritis ICD Codes: K29.70 - Gastritis, unspecified, without bleeding SNOMED: 3602158 Assessment/Plan: continue steroids, hydration pul m care, SS insulin diltiazem metoprolol tele, remains high risk Quentin Marsh MD May 06, 2020 20:33
[2020-05-06] MEDS: Nitroglycerin 2% oint pkt TOPIC SCH (20:59)
[2020-05-07] VITALS: BP 103/60
--- NOTE | 2020-05-07 01:03 | Cardiology Progress Note ---
Subjective DATE OF SERVICE: May 06, 2020 Still with episodes of rapid AFib. Tolerates crushed meds Saturating 95% on 6L N/C Monitor: Atrial fibrillation with rapid rates has converted to sinus bradycardia with slow rates at times. Objective Last 24 Hour Vital Signs Date Time Temp Pulse Resp B/P (MAP) Pulse Ox O2 Delivery O2 Flow Rate FiO2 05/07/20 00:00 Non-Rebreather 15.0 05/07/20 00:00 88 05/07/20 00:00 97.2 77 20 103/60 (74) 93 05/06/20 22:00 90 110/73 05/06/20 21:00 90 110/73 05/06/20 20:59 110/73 05/06/20 20:00 96.8 90 21 110/73 (85) 91 05/06/20 20:00 Non-Rebreather 15.0 05/06/20 20:00 77 05/06/20 19:30 96 Non-Rebreather 15.0 100 05/06/20 16:00 97.0 170 26 144/76 (98) 91 05/06/20 16:00 Non-Rebreather 15.0 05/06/20 14:40 139 05/06/20 12:00 96.6 70 20 140/68 (92) 93 05/06/20 12:00 Non-Rebreather 15.0 05/06/20 10:17 70 05/06/20 10:07 60 156/74 05/06/20 08:00 97.7 60 20 156/74 (101) 93 05/06/20 08:00 Non-Rebreather 15.0 05/06/20 08:00 60 05/06/20 05:42 62 147/89 05/06/20 04:00 62 05/06/20 04:00 97.7 69 28 147/89 (108) 94 05/06/20 04:00 Non-Rebreather 15.0 ROS: unchanged from 05/03/20 HEENT: normal ENT inspection RHYTHM: NSR, SB, PACs, other - occ ventricular ectopy LUNGS: no accessory muscle use, bilateral rhonchi CARDIAC: normal S1 and S2, irregularly irregular ABDOMEN: normal bowel sounds, non tender, soft EXTREMITIES: normal range of motion, trace edema Laboratory Tests Test 05/06/20 07:10 White Blood Count 20.3 K/UL (4.8-10.8) H Red Blood Count 5.77 M/UL (4.70-6.10) Hemoglobin 14.9 G/DL (14.2-18.0) Hematocrit 47.8 % (42.0-52.0) Mean Corpuscular Volume 83 FL (80-99) Mean Corpuscular Hemoglobin 25.7 PG (27.0-31.0) L Mean Corpuscular Hemoglobin Concent 31.1 G/DL (32.0-36.0) L Red Cell Distribution Width 18.5 % (11.6-14.8) H Platelet Count 252 K/UL (150-450) Mean Platelet Volume 7.6 FL (6.5-10.1) Neutrophils (%) (Auto) % (45.0-75.0) Lymphocytes (%) (Auto) % (20.0-45.0) Monocytes (%) (Auto) % (1.0-10.0) Eosinophils (%) (Auto) % (0.0-3.0) Basophils (%) (Auto) % (0.0-2.0) Differential Total Cells Counted 100 Neutrophils % (Manual) 97 % (45-75) H Lymphocytes % (Manual) 2 % (20-45) L Monocytes % (Manual) 1 % (1-10) Eosinophils % (Manual) 0 % (0-3) Basophils % (Manual) 0 % (0-2) Band Neutrophils 0 % (0-8) Platelet Estimate Adequate Platelet Morphology Normal Anisocytosis 1+ Sodium Level 155 MMOL/L (136-145) H Potassium Level 4.2 MMOL/L (3.5-5.1) Chloride Level 121 MMOL/L (98-107) H Carbon Dioxide Level 22 MMOL/L (21-32) Anion Gap 12 mmol/L (5-15) Blood Urea Nitrogen 61 mg/dL (7-18) H Creatinine 1.5 MG/DL (0.55-1.30) H Estimat Glomerular Filtration Rate 44.6 mL/min (>60) Glucose Level 155 MG/DL (74-106) H Calcium Level 9.1 MG/DL (8.5-10.1) Phosphorus Level 2.9 MG/DL (2.5-4.9) Microbiology Date/Time Source Procedure Growth Status 1/9/21 16:47 Nasal Not Otherwise Specified - Final Complete 05/05/20 16:47 Nasal Not Otherwise Specified - Final Complete Assessment/Plan Assessment/Plan COVID 19 PNA PAFib with RVR converted Sinus bradycardia with PAC's due to meds. Ac/chr diastolic CHF Acute coronary insuff with possible NSTEMI Cerebrovascular disease with dementia Hx GI bleed due to gastritis Additional therapy for rate control. Anti-virals/steroids/anti-coagulation Long acting meds changed - so they can be crushed. Adjust cardizem dose again - to control heart rates without bradycardic episodes. Jerad Phillips MD May 07, 2020 01:03
[2020-05-07 04:00] VITALS: BP 116/82
[2020-05-07] MEDS: dilTIAZem HCl 60mg tab ORAL SCH ×4 (05:36→23:22)
[2020-05-07] MEDS: D5W w/KCl 20mEq 1,000 ML IV SCH (05:36)
[2020-05-07 06:34] LABS: HEMATOCRIT 44.6 % (42.0-52.0); HEMOGLOBIN 13.6 G/DL (14.2-18.0); MEAN CORPUSCULAR VOLUME 84 FL (80-99); PLATELET COUNT 178 K/UL (150-450); RED BLOOD COUNT 5.32 M/UL (4.70-6.10); RED CELL DISTRIBUTION WIDTH 18.3 % (11.6-14.8)
[2020-05-07 06:48] LABS: WHITE BLOOD COUNT 26.1 K/UL (4.8-10.8)
--- NOTE | 2020-05-07 07:15 | NUR ---
NURSE HAND-OFF REPORT: Important Events on Shift:[] Patient Status: [STABLE] Diet: [] Pending Orders: [] Pending Results/Labs:[] Pending MD notification:[] Latest Vital Signs: Temperature 97.1 , Pulse 100 , B/P 116 /82 , Respiratory Rate 20 , O2 SAT 92 , Room Air, O2 Flow Rate 15.0 . Vital Sign Comment: [] EKG Rhythm: Sinus Rhythm Rhythm change?: N MD Notified?: N - MD Response: Latest Mayo Fall Score: 60 Fall Risk: High Risk Safety Measures: Call light Within Reach, Bed Alarm Zone 3, Side Rails Side Rails x3, Bed position Low and Locked. Fall Precautions: Yellow Socks Yellow Gown Door Sign Patient Fall Education Report given to [JORGE CHRISTIE].
[2020-05-07 07:49] LABS: CALCIUM 8.8 MG/DL (8.5-10.1); CREATININE 2.6 MG/DL (0.55-1.30); PHOSPHORUS 4.8 MG/DL (2.5-4.9); POTASSIUM 5.4 MMOL/L (3.5-5.1)
[2020-05-07 08:00] VITALS: BP 137/81
--- NOTE | 2020-05-07 08:00 | NUR ---
NURSE NOTES: noted swollen, non-pitting on the right side. will call dr gonzalez for orders.
[2020-05-07] MEDS: Metoprolol Tartrate 50mg tab ORAL SCH ×2 (08:28→09:00)
[2020-05-07] MEDS: dexAMETHasone 10mg/ml Inj IV SCH (08:29)
[2020-05-07] MEDS: Sennosides 8.6mg tab ORAL SCH ×3 (08:29→17:23)
[2020-05-07] MEDS: Montelukast 10mg tablet ORAL SCH ×2 (08:29→09:00)
[2020-05-07] MEDS: Memantine 5 MG TAB ORAL SCH ×2 (08:29→17:23)
[2020-05-07] MEDS: Aspirin Baby 81mg ORAL SCH ×2 (08:29→09:00)
[2020-05-07] MEDS ORDERED: dilTIAZem HCl 25mg/5ml Inj IVP SCH (09:15)
[2020-05-07] MEDS ORDERED: dilTIAZem HCl 50mg/10ml Inj IVP SCH (09:30)
--- NOTE | 2020-05-07 10:26 | Pulmonology Progress Note ---
Subjective ROS Limited/Unobtainable: Yes Constitutional: Denies: fever Allergies: Coded Allergies: No Known Allergies (Unverified , 08/05/12) Subjective leukocytosis trending up, no fevers remains on 100% NRM creat trending up this am just converted back to A fib with RVR Objective Last 24 Hour Vital Signs Date Time Temp Pulse Resp B/P (MAP) Pulse Ox O2 Delivery O2 Flow Rate FiO2 05/07/20 09:31 150 137/81 05/07/20 08:00 151 05/07/20 08:00 Non-Rebreather 15.0 05/07/20 08:00 96.4 72 24 137/81 (99) 94 05/07/20 06:59 92 Non-Rebreather 15.0 100 05/07/20 05:36 100 116/82 05/07/20 04:00 76 05/07/20 04:00 97.1 100 20 116/82 (93) 92 05/07/20 04:00 Non-Rebreather 15.0 05/07/20 00:00 Non-Rebreather 15.0 05/07/20 00:00 88 05/07/20 00:00 97.2 77 20 103/60 (74) 93 05/06/20 22:00 90 110/73 05/06/20 21:00 90 110/73 05/06/20 20:59 110/73 05/06/20 20:00 96.8 90 21 110/73 (85) 91 05/06/20 20:00 Non-Rebreather 15.0 05/06/20 20:00 77 05/06/20 19:30 96 Non-Rebreather 15.0 100 05/06/20 16:00 97.0 170 26 144/76 (98) 91 05/06/20 16:00 Non-Rebreather 15.0 05/06/20 14:40 139 05/06/20 12:00 96.6 70 20 140/68 (92) 93 05/06/20 12:00 Non-Rebreather 15.0 Intake and Output 05/06/20 05/07/20 19:00 07:00 Intake Total 200 ml Balance 200 ml Intake Oral 200 ml # Voids 3 2 # Bowel Movements 2 4 Objective General Appearance: somnolent, arousable, thin, elderly [place] male in NAD Lines, tubes and drains: peripheral HEENT: normocephalic, atraumatic, anicteric Neck: non-tender Respiratory/Chest: no respiratory distress, no accessory muscle use, few scattered rhonchi ; O2 NRM Cardiovascular/Chest: irregularly irregular - tachy Abdomen: normal bowel sounds, non tender, soft Extremities: no calf tenderness, no edema Skin Exam: warm/dry Neurologic: abnormal gait Musculoskeletal: atrophy - BLE Microbiology Date/Time Source Procedure Growth Status 05/05/20 16:47 Nasal Not Otherwise Specified - Final Complete 05/05/20 16:47 Nasal Not Otherwise Specified - Final Complete Laboratory Tests 05/07/20 04:49: White Blood Count 26.1*H, Red Blood Count 5.32, Hemoglobin 13.6L, Hematocrit 44.6, Mean Corpuscular Volume 84, Mean Corpuscular Hemoglobin 25.7L, Mean Corpuscular Hemoglobin Concent 30.6L, Red Cell Distribution Width 18.3H, Platelet Count 178, Mean Platelet Volume 7.7, Neutrophils (%) (Auto) , Lymphocytes (%) (Auto) , Monocytes (%) (Auto) , Eosinophils (%) (Auto) , Basophils (%) (Auto) , Differential Total Cells Counted 100, Neutrophils % (Manual) 97H, Lymphocytes % (Manual) 2L, Monocytes % (Manual) 1, Eosinophils % (Manual) 0, Basophils % (Manual) 0, Band Neutrophils 0, Platelet Estimate Adequate, Platelet Morphology Normal, Red Blood Cell Morphology Normal, Sodium Level 151H, Potassium Level 5.4H, Chloride Level 120H, Carbon Dioxide Level 13L, Anion Gap 18H, Blood Urea Nitrogen 80H, Creatinine 2.6#H, Estimat Glomerular Filtration Rate 23.6, Glucose Level 239H, Calcium Level 8.8, Phosphorus Level 4.8, Magnesium Level 2.8H Current Medications Medications (Trade) Dose Ordered Sig/Gilma Route PRN Reason Start Time Stop Time Status Last Admin Dose Admin Acetaminophen (Tylenol) 650 mg Q4H PRN ORAL Mild Pain (Pain Scale 1-3) 05/03/20 12:30 06/02/20 12:29 Acetaminophen (Tylenol) 650 mg Q4H PRN ORAL fever 05/03/20 12:30 06/02/20 12:29 Al Hydroxide/Mg Hydroxide (Mylanta) 30 ml Q4H PRN ORAL HICCUPS 05/03/20 12:30 06/02/20 12:29 Albuterol Sulfate (Proventil MDI) 1 puff Q4H PRN INH Shortness of Breath 05/03/20 12:45 08/01/20 12:44 Aspirin (ASA) 81 mg DAILY ORAL 05/03/20 12:30 06/17/20 12:29 05/06/20 10:07 Atorvastatin Calcium (Lipitor) 10 mg BEDTIME ORAL 05/03/20 21:00 08/01/20 20:59 05/05/20 21:01 Chlorhexidine Gluconate (Leilani-Hex 2%) 1 applic DAILY@2000 TOPIC 05/06/20 20:00 08/04/20 19:59 05/06/20 20:00 Dexamethasone Sodium Phosphate (Decadron 10mg/ ml Inj) 6 mg DAILY IV 05/03/20 12:30 05/12/20 09:01 05/07/20 08:29 Dextrose (Dextrose 50%) 25 ml Q30M PRN IV Hypoglycemia 05/03/20 12:30 08/01/20 12:29 Dextrose (Dextrose 50%) 50 ml Q30M PRN IV Hypoglycemia 05/03/20 12:30 08/01/20 12:29 Dextrose/ Electrolytes 1,000 ml @ 75 mls/hr [id number] IV 05/05/20 11:30 06/04/20 11:29 05/07/20 05:36 Diltiazem HCl (Cardizem Tab) 60 mg Q6HR ORAL 05/07/20 06:00 06/03/20 11:59 Enoxaparin Sodium (Lovenox) 70 mg Q24H SUBQ 05/03/20 18:00 08/01/20 17:59 05/06/20 18:10 Famotidine (Pepcid) 20 mg BID ORAL 05/04/20 18:00 08/02/20 17:59 05/06/20 10:07 Gabapentin (Neurontin) 400 mg QHS ORAL 05/04/20 21:00 06/03/20 20:59 05/05/20 21:00 Heparin Sodium/ Sodium Chloride (Heparin 1000 units/500ml Premix) 1,000 unit ONCE PRN IV for line placement 05/06/20 14:00 05/09/20 13:59 Lidocaine HCl (Xylocaine 1% 30ml) 30 ml ONCE PRN INJ for line placement 05/06/20 14:00 05/09/20 13:59 Magnesium Hydroxide (Mom) 30 ml BIDPRN PRN ORAL Constipation 05/04/20 09:45 06/03/20 09:44 Memantine (Namenda) 5 mg BID ORAL 05/03/20 18:00 06/02/20 17:59 05/07/20 08:29 Metoprolol Tartrate (Lopressor) 50 mg EVERY 12 HOURS ORAL 05/04/20 21:00 08/01/20 12:29 05/06/20 10:07 Montelukast Sodium (Singulair) 10 mg DAILY ORAL 05/04/20 09:00 08/02/20 08:59 05/06/20 10:07 Nitroglycerin (Nitro-Bid) 1 inch BEDTIME TOPIC 05/04/20 21:00 06/03/20 20:59 05/06/20 20:59 Nitroglycerin (Ntg) 0.4 mg Q5M PRN SL Prn Chest Pain 05/03/20 12:30 06/02/20 12:29 Ondansetron HCl (Zofran) 4 mg Q6H PRN IVP Nausea & Vomiting 05/03/20 12:30 06/02/20 12:29 Polyethylene Glycol (Miralax) 17 gm DAILYPRN PRN ORAL Constipation 05/03/20 12:30 06/02/20 12:29 Sennosides (Senokot) 17.2 mg BID ORAL 05/03/20 18:00 06/02/20 17:59 05/06/20 10:07 Assessment/Plan Assessment/Plan ASSESSMENT COVID PNA Elevated troponin, possible NSTEMI Atrial fibrillation with rapid ventricular response KRISTINE Dehydration Transaminitis Protein calorie malnutrition Prostate cancer PLAN OF CARE DORIS isolation Date of sx onset: about 3 wks prior to presentation to ED Positive test: rapid COVID 05/03/20 + O2 15 L VM titrate to keep sat > 92% HFA Dex Day# 5 ( 05/03/20 -) REM not a candidate given renal function s/p Ivermectin x 1 05/04 DVT PPX: Lovenox D dimer -12.59-5.85 Venous Duplex BLE Trend CRP-pending -59.8 Abx need -> per ID recs, currently off abx fup CXR BSSE noted, high aspiration risk aspiration precautions Aggressive hydration Monitor volumes and renal function, creat up again this am - per furtehr nephro recs serial troponin -trending down cardio follows , rate control - per cardio, on cardizem trend LFT nutritional consult Fup with consultants recs DNR/DNI status Discuss further GOC case discussed and evaluated by supervising physician Bethany Smith NP May 07, 2020 10:26
--- NOTE | 2020-05-07 11:00 | NUR ---
NURSE NOTES: attempted to call dr gonzalez regarding patient k level of 5.4, na level of 151 and mag of 2.8.unsucessful attempt.unable to connect to the office. will try again later.
[2020-05-07] MEDS: Metoprolol Tartrate 10 MG in D5W 55 ML IVPB SCH ×4 (11:21→23:13)
--- NOTE | 2020-05-07 11:50 | Infectious Diseases Prog Note ---
Assessment/Plan Assessment/Plan antibiotics : none A 1. COVID-19 pneumonia. on 15 liters of oxygen with O2 saturation of 93%. s/p ivermectin 2. History of bilateral knee replacement. 3. History of inguinal hernia. 4. Renal failure. PLAN: 1. d/c dexamethasone 2. start solumedrol 3. We will follow up the patient clinically. 4. Continue isolation. Subjective ROS Limited/Unobtainable: Yes Allergies: Coded Allergies: No Known Allergies (Unverified , 08/05/12) Objective Last 24 Hour Vital Signs Date Time Temp Pulse Resp B/P (MAP) Pulse Ox O2 Delivery O2 Flow Rate FiO2 05/07/20 11:21 150 137/81 05/07/20 09:31 150 137/81 05/07/20 08:00 151 05/07/20 08:00 Non-Rebreather 15.0 05/07/20 08:00 96.4 72 24 137/81 (99) 94 05/07/20 06:59 92 Non-Rebreather 15.0 100 05/07/20 05:36 100 116/82 05/07/20 04:00 76 05/07/20 04:00 97.1 100 20 116/82 (93) 92 05/07/20 04:00 Non-Rebreather 15.0 05/07/20 00:00 Non-Rebreather 15.0 05/07/20 00:00 88 05/07/20 00:00 97.2 77 20 103/60 (74) 93 05/06/20 22:00 90 110/73 05/06/20 21:00 90 110/73 05/06/20 20:59 110/73 05/06/20 20:00 96.8 90 21 110/73 (85) 91 05/06/20 20:00 Non-Rebreather 15.0 05/06/20 20:00 77 05/06/20 19:30 96 Non-Rebreather 15.0 100 05/06/20 16:00 97.0 170 26 144/76 (98) 91 05/06/20 16:00 Non-Rebreather 15.0 05/06/20 14:40 139 05/06/20 12:00 96.6 70 20 140/68 (92) 93 05/06/20 12:00 Non-Rebreather 15.0 Height (Feet): 5 Height (Inches): 2.00 Weight (Pounds): 132 Microbiology Date/Time Source Procedure Growth Status 05/05/20 16:47 Nasal Not Otherwise Specified - Final Complete 05/05/20 16:47 Nasal Not Otherwise Specified - Final Complete Laboratory Tests Test 05/07/20 04:49 White Blood Count 26.1 K/UL (4.8-10.8) *H Red Blood Count 5.32 M/UL (4.70-6.10) Hemoglobin 13.6 G/DL (14.2-18.0) L Hematocrit 44.6 % (42.0-52.0) Mean Corpuscular Volume 84 FL (80-99) Mean Corpuscular Hemoglobin 25.7 PG (27.0-31.0) L Mean Corpuscular Hemoglobin Concent 30.6 G/DL (32.0-36.0) L Red Cell Distribution Width 18.3 % (11.6-14.8) H Platelet Count 178 K/UL (150-450) Mean Platelet Volume 7.7 FL (6.5-10.1) Neutrophils (%) (Auto) % (45.0-75.0) Lymphocytes (%) (Auto) % (20.0-45.0) Monocytes (%) (Auto) % (1.0-10.0) Eosinophils (%) (Auto) % (0.0-3.0) Basophils (%) (Auto) % (0.0-2.0) Differential Total Cells Counted 100 Neutrophils % (Manual) 97 % (45-75) H Lymphocytes % (Manual) 2 % (20-45) L Monocytes % (Manual) 1 % (1-10) Eosinophils % (Manual) 0 % (0-3) Basophils % (Manual) 0 % (0-2) Band Neutrophils 0 % (0-8) Platelet Estimate Adequate Platelet Morphology Normal Red Blood Cell Morphology Normal Sodium Level 151 MMOL/L (136-145) H Potassium Level 5.4 MMOL/L (3.5-5.1) H Chloride Level 120 MMOL/L (98-107) H Carbon Dioxide Level 13 MMOL/L (21-32) L Anion Gap 18 mmol/L (5-15) H Blood Urea Nitrogen 80 mg/dL (7-18) H Creatinine 2.6 MG/DL (0.55-1.30) #H Estimat Glomerular Filtration Rate 23.6 mL/min (>60) Glucose Level 239 MG/DL (74-106) H Calcium Level 8.8 MG/DL (8.5-10.1) Phosphorus Level 4.8 MG/DL (2.5-4.9) Magnesium Level 2.8 MG/DL (1.8-2.4) H Current Medications Medications (Trade) Dose Ordered Sig/Gilma Route PRN Reason Start Time Stop Time Status Last Admin Dose Admin Acetaminophen (Tylenol) 650 mg Q4H PRN ORAL Mild Pain (Pain Scale 1-3) 05/03/20 12:30 06/02/20 12:29 Acetaminophen (Tylenol) 650 mg Q4H PRN ORAL fever 05/03/20 12:30 06/02/20 12:29 Al Hydroxide/Mg Hydroxide (Mylanta) 30 ml Q4H PRN ORAL HICCUPS 05/03/20 12:30 06/02/20 12:29 Albuterol Sulfate (Proventil MDI) 1 puff Q4H PRN INH Shortness of Breath 05/03/20 12:45 08/01/20 12:44 Aspirin (ASA) 81 mg DAILY ORAL 05/03/20 12:30 06/17/20 12:29 05/06/20 10:07 Atorvastatin Calcium (Lipitor) 10 mg BEDTIME ORAL 05/03/20 21:00 08/01/20 20:59 05/05/20 21:01 Chlorhexidine Gluconate (Leilani-Hex 2%) 1 applic DAILY@2000 TOPIC 05/06/20 20:00 08/04/20 19:59 05/06/20 20:00 Dexamethasone Sodium Phosphate (Decadron 10mg/ ml Inj) 6 mg DAILY IV 05/03/20 12:30 05/12/20 09:01 05/07/20 08:29 Dextrose (Dextrose 50%) 25 ml Q30M PRN IV Hypoglycemia 05/03/20 12:30 08/01/20 12:29 Dextrose (Dextrose 50%) 50 ml Q30M PRN IV Hypoglycemia 05/03/20 12:30 08/01/20 12:29 Dextrose/ Electrolytes 1,000 ml @ 75 mls/hr [id number] IV 05/05/20 11:30 06/04/20 11:29 05/07/20 05:36 Diltiazem HCl (Cardizem Tab) 60 mg Q6HR ORAL 05/07/20 06:00 06/03/20 11:59 Enoxaparin Sodium (Lovenox) 70 mg Q24H SUBQ 05/03/20 18:00 08/01/20 17:59 05/06/20 18:10 Famotidine (Pepcid) 20 mg BID ORAL 05/04/20 18:00 08/02/20 17:59 05/06/20 10:07 Gabapentin (Neurontin) 400 mg QHS ORAL 05/04/20 21:00 06/03/20 20:59 05/05/20 21:00 Heparin Sodium/ Sodium Chloride (Heparin 1000 units/500ml Premix) 1,000 unit ONCE PRN IV for line placement 05/06/20 14:00 05/09/20 13:59 Lidocaine HCl (Xylocaine 1% 30ml) 30 ml ONCE PRN INJ for line placement 05/06/20 14:00 05/09/20 13:59 Magnesium Hydroxide (Mom) 30 ml BIDPRN PRN ORAL Constipation 05/04/20 09:45 06/03/20 09:44 Memantine (Namenda) 5 mg BID ORAL 05/03/20 18:00 06/02/20 17:59 05/07/20 08:29 Metoprolol Tartrate 10 mg/ Dextrose 65 ml @ 130 mls/hr Q6HR IVPB 05/07/20 10:30 06/06/20 10:29 05/07/20 11:21 Montelukast Sodium (Singulair) 10 mg DAILY ORAL 05/04/20 09:00 08/02/20 08:59 05/06/20 10:07 Nitroglycerin (Nitro-Bid) 1 inch BEDTIME TOPIC 05/04/20 21:00 06/03/20 20:59 05/06/20 20:59 Nitroglycerin (Ntg) 0.4 mg Q5M PRN SL Prn Chest Pain 05/03/20 12:30 06/02/20 12:29 Ondansetron HCl (Zofran) 4 mg Q6H PRN IVP Nausea & Vomiting 05/03/20 12:30 06/02/20 12:29 Polyethylene Glycol (Miralax) 17 gm DAILYPRN PRN ORAL Constipation 05/03/20 12:30 06/02/20 12:29 Sennosides (Senokot) 17.2 mg BID ORAL 05/03/20 18:00 06/02/20 17:59 05/06/20 10:07 Evan Canales MD May 07, 2020 11:50
[2020-05-07 12:00] VITALS: BP 137/81
[2020-05-07] MEDS: Solu-MEDROL 40mg Inj IVP SCH ×2 (12:07→20:38)
--- NOTE | 2020-05-07 14:32 | NUR ---
RADIOLOGY NOTE: LEFT UPPER EXTREMITY PICC LINE PLACEMENT BY DR. JACKSON DIAZ AT 1350 HRS. FA
--- NOTE | 2020-05-07 14:38 | NUR ---
Electronic Systems TechnicianManufacturing Engineering Technician SI: Respiratory Failure, COVID PNA, Leukocytosis, NSTEMI, KRISTINE, Afib with RVR T-96.3 (ax), HR-150, RR 24, BP 137/81 15 L O2 NRM FiO2 100% WBC 26.1, BUN 80, Creatinine 2.6, NA+ 151, K+5.4 IS: SoluMedrol IV D5 IV @ 75cc/hr Enoxaparin SQ ASA 81mg PO SDU Status
[2020-05-07 16:00] VITALS: BP 131/78
--- NOTE | 2020-05-07 16:05 | General Progress Note ---
Subjective ROS Limited/Unobtainable: Yes Allergies: Coded Allergies: No Known Allergies (Unverified , 08/05/12) Objective Last 24 Hour Vital Signs Date Time Temp Pulse Resp B/P (MAP) Pulse Ox O2 Delivery O2 Flow Rate FiO2 05/07/20 12:05 150 137/81 05/07/20 12:00 96.3 72 24 137/81 (99) 94 05/07/20 12:00 Non-Rebreather 15.0 05/07/20 12:00 15.0 100 05/07/20 11:52 84 05/07/20 11:21 150 137/81 05/07/20 09:31 150 137/81 05/07/20 08:00 15.0 100 05/07/20 08:00 151 05/07/20 08:00 Non-Rebreather 15.0 05/07/20 08:00 96.4 72 24 137/81 (99) 94 05/07/20 06:59 92 Non-Rebreather 15.0 100 05/07/20 05:36 100 116/82 05/07/20 04:00 76 05/07/20 04:00 97.1 100 20 116/82 (93) 92 05/07/20 04:00 Non-Rebreather 15.0 05/07/20 00:00 Non-Rebreather 15.0 05/07/20 00:00 88 05/07/20 00:00 97.2 77 20 103/60 (74) 93 05/06/20 22:00 90 110/73 05/06/20 21:00 90 110/73 05/06/20 20:59 110/73 05/06/20 20:00 96.8 90 21 110/73 (85) 91 05/06/20 20:00 Non-Rebreather 15.0 05/06/20 20:00 77 05/06/20 19:30 96 Non-Rebreather 15.0 100 Intake and Output 05/06/20 05/07/20 19:00 07:00 Intake Total 200 ml Balance 200 ml Intake Oral 200 ml # Voids 3 2 # Bowel Movements 2 4 Laboratory Tests 05/07/20 04:49: White Blood Count 26.1*H, Red Blood Count 5.32, Hemoglobin 13.6L, Hematocrit 44.6, Mean Corpuscular Volume 84, Mean Corpuscular Hemoglobin 25.7L, Mean Corpuscular Hemoglobin Concent 30.6L, Red Cell Distribution Width 18.3H, Platelet Count 178, Mean Platelet Volume 7.7, Neutrophils (%) (Auto) , Lymphocytes (%) (Auto) , Monocytes (%) (Auto) , Eosinophils (%) (Auto) , Basophils (%) (Auto) , Differential Total Cells Counted 100, Neutrophils % (Manual) 97H, Lymphocytes % (Manual) 2L, Monocytes % (Manual) 1, Eosinophils % (Manual) 0, Basophils % (Manual) 0, Band Neutrophils 0, Platelet Estimate Adequate, Platelet Morphology Normal, Red Blood Cell Morphology Normal, Sodium Level 151H, Potassium Level 5.4H, Chloride Level 120H, Carbon Dioxide Level 13L, Anion Gap 18H, Blood Urea Nitrogen 80H, Creatinine 2.6#H, Estimat Glomerular Filtration Rate 23.6, Glucose Level 239H, Calcium Level 8.8, Phosphorus Level 4.8, Magnesium Level 2.8H Height (Feet): 5 Height (Inches): 2.00 Weight (Pounds): 132 General Appearance: lethargic, confused, moderate distress EENT: normal ENT inspection Neck: normal alignment Cardiovascular: regularly irregular Respiratory/Chest: accessory muscle use, rhonchi - bilaterally Abdomen: soft Edema: no edema noted Arm (L), no edema noted Arm (R), no edema noted Leg (L), no edema noted Leg (R), no edema noted Pedal (L), no edema noted Pedal (R), no edema noted Generalized Neurologic: abnormal cadence specialists II-XII, disoriented Assessment/Plan Problem List: (1) NSTEMI (non-ST elevated myocardial infarction) ICD Codes: I21.4 - Non-ST elevation (NSTEMI) myocardial infarction SNOMED: 54570723 (2) Multifocal pneumonia ICD Codes: J18.9 - Pneumonia, unspecified organism SNOMED: 138590955 (3) COVID-19 ICD Codes: U07.1 - COVID-19 SNOMED: 796603391 (4) Atrial fibrillation with rapid ventricular response ICD Codes: I48.91 - Unspecified atrial fibrillation SNOMED: 143299488692678 (5) KRISTINE (acute kidney injury) ICD Codes: N17.9 - Acute kidney failure, unspecified SNOMED: 53040393 (6) Dehydration ICD Codes: E86.0 - Dehydration SNOMED: 72415223 (7) Gastritis ICD Codes: K29.70 - Gastritis, unspecified, without bleeding SNOMED: 7458534 Assessment/Plan: continue steroids, hydration iv adjusted pul m care, SS insulin diltiazem metoprolol tele, remains high risk discuss palliative care with family Quentin Marsh MD May 07, 2020 16:05
--- NOTE | 2020-05-07 16:20 | Brief Operative Note ---
Immediate Post Operative Note Operative Note Pre-op Diagnosis: needs IV access Procedure: PICC Post-op Diagnosis: same as pre-op Surgeon: Syeda Bonilla Specimen: none Complications: none Fluids: none Implant(s) used?: No Marlon Bonilla MD May 07, 2020 16:20
--- NOTE | 2020-05-07 16:26 | NUR ---
NURSE NOTES: post void residual done. resulted to 124ml.
--- NOTE | 2020-05-07 16:27 | Diagnostic Imaging Report ---
Indications: Needs long-term IV access Technique: Procedure performed at bedside. Procedural timeout performed. Ultrasound confirms patent compressible left brachial vein. Total sterile technique, including sterile probe cover and sterile gel, sterile gloves, hand hygiene, hat, mask,, sterile gown, large sterile drape, and preparation with 2% chlorhexidine utilized. Local anesthesia with 1% lidocaine. Under real-time ultrasound guidance, puncture trachea vein using 21-gauge needle, passage 0.018 guidewire, exchange for 4 [place] peel-away sheath. 4 [place] are dual-lumen power PICC cut to 37 cm. It was inserted through the peel-away sheath. Peel-away sheath and guidewire removed. Catheter fixed to the skin. Both catheter ports aspirated and flushed. Patient tolerated procedure well, without immediate complication. Followup chest x-ray obtained, documents catheter tip position at the innominate venous confluence Impression: Successful bedside placement of left arm PICC under sonographic guidance, as described above.
[2020-05-07] MEDS: Enoxaparin 80mg Inj SUBQ SCH (17:21)
--- NOTE | 2020-05-07 19:06 | Surgery Progress Note ---
Surgery Progress Note Subjective Additional Comments picc line placed today more comfortable no n/v Objective Last 24 Hour Vital Signs Date Time Temp Pulse Resp B/P (MAP) Pulse Ox O2 Delivery O2 Flow Rate FiO2 05/07/20 17:42 152 131/78 05/07/20 17:22 66 131/78 05/07/20 16:00 15.0 100 05/07/20 16:00 96.4 66 24 131/78 (95) 94 05/07/20 16:00 Non-Rebreather 15.0 05/07/20 15:21 144 05/07/20 12:05 150 137/81 05/07/20 12:00 96.3 72 24 137/81 (99) 94 05/07/20 12:00 Non-Rebreather 15.0 05/07/20 12:00 15.0 100 05/07/20 11:52 84 05/07/20 11:21 150 137/81 05/07/20 09:31 150 137/81 05/07/20 08:00 15.0 100 05/07/20 08:00 151 05/07/20 08:00 Non-Rebreather 15.0 05/07/20 08:00 96.4 72 24 137/81 (99) 94 05/07/20 06:59 92 Non-Rebreather 15.0 100 05/07/20 05:36 100 116/82 05/07/20 04:00 76 05/07/20 04:00 97.1 100 20 116/82 (93) 92 05/07/20 04:00 Non-Rebreather 15.0 05/07/20 00:00 Non-Rebreather 15.0 05/07/20 00:00 88 05/07/20 00:00 97.2 77 20 103/60 (74) 93 05/06/20 22:00 90 110/73 05/06/20 21:00 90 110/73 05/06/20 20:59 110/73 05/06/20 20:00 96.8 90 21 110/73 (85) 91 05/06/20 20:00 Non-Rebreather 15.0 05/06/20 20:00 77 05/06/20 19:30 96 Non-Rebreather 15.0 100 I&O Intake and Output 05/06/20 05/07/20 19:00 07:00 Intake Total 200 ml Balance 200 ml Intake Oral 200 ml # Voids 3 2 # Bowel Movements 2 4 Dressing: saturated Cardiovascular: RSR Respiratory: decreased breath sounds Abdomen: non-tender, present bowel sounds Extremities: no tenderness, no cyanosis Laboratory Tests Test 05/07/20 04:49 White Blood Count 26.1 K/UL (4.8-10.8) *H Red Blood Count 5.32 M/UL (4.70-6.10) Hemoglobin 13.6 G/DL (14.2-18.0) L Hematocrit 44.6 % (42.0-52.0) Mean Corpuscular Volume 84 FL (80-99) Mean Corpuscular Hemoglobin 25.7 PG (27.0-31.0) L Mean Corpuscular Hemoglobin Concent 30.6 G/DL (32.0-36.0) L Red Cell Distribution Width 18.3 % (11.6-14.8) H Platelet Count 178 K/UL (150-450) Mean Platelet Volume 7.7 FL (6.5-10.1) Neutrophils (%) (Auto) % (45.0-75.0) Lymphocytes (%) (Auto) % (20.0-45.0) Monocytes (%) (Auto) % (1.0-10.0) Eosinophils (%) (Auto) % (0.0-3.0) Basophils (%) (Auto) % (0.0-2.0) Differential Total Cells Counted 100 Neutrophils % (Manual) 97 % (45-75) H Lymphocytes % (Manual) 2 % (20-45) L Monocytes % (Manual) 1 % (1-10) Eosinophils % (Manual) 0 % (0-3) Basophils % (Manual) 0 % (0-2) Band Neutrophils 0 % (0-8) Platelet Estimate Adequate Platelet Morphology Normal Red Blood Cell Morphology Normal Sodium Level 151 MMOL/L (136-145) H Potassium Level 5.4 MMOL/L (3.5-5.1) H Chloride Level 120 MMOL/L (98-107) H Carbon Dioxide Level 13 MMOL/L (21-32) L Anion Gap 18 mmol/L (5-15) H Blood Urea Nitrogen 80 mg/dL (7-18) H Creatinine 2.6 MG/DL (0.55-1.30) #H Estimat Glomerular Filtration Rate 23.6 mL/min (>60) Glucose Level 239 MG/DL (74-106) H Calcium Level 8.8 MG/DL (8.5-10.1) Phosphorus Level 4.8 MG/DL (2.5-4.9) Magnesium Level 2.8 MG/DL (1.8-2.4) H Plan Problems: (1) Lactic acidosis Assessment & Plan: Patient with dehydration lactic acidosis abnormal labs requiring IV fluids and medications. Poor peripheral access at this time. Patient lost IV access. Considerations for central venous catheter was done. Given patient's condition overall comorbidities and current medications required including fluids will attempt further management with peripheral access though it is very difficult in this patient. Will consider peripherally inserted tunneled catheter as well and then considerations of central venous catheter as well if necessary. For now was able to obtain a hand IV peripherally. We will continue for this. If falter failure will proceed with potential PICC for central venous. Thank you for allowing participation care will follow recommendations Procedure performed at bedside. Procedural timeout performed. Ultrasound confirms patent compressible left brachial vein. Total sterile technique, including sterile probe cover and sterile gel, sterile gloves, hand hygiene, hat, mask,, sterile gown, large sterile drape, and preparation with 2% chlorhexidine utilized. Local anesthesia with 1% lidocaine. Under real-time ultrasound guidance, puncture trachea vein using 21-gauge needle, passage 0.018 guidewire, exchange for 4 [place] peel-away sheath. 4 [place] are dual-lumen power PICC cut to 37 cm. It was inserted through the peel-away sheath. Peel-away sheath and guidewire removed. Catheter fixed to the skin. Both catheter ports aspirated and flushed. Patient tolerated procedure well, without immediate complication. Followup chest x-ray obtained, documents catheter tip position at the innominate venous confluence (2) Renal failure (3) Hypoxia (4) NSTEMI (non-ST elevated myocardial infarction) (5) CHF exacerbation (6) Multifocal pneumonia (7) Gastritis (8) Prostate cancer (9) Hypertension (10) KRISTINE (acute kidney injury) (11) Atrial fibrillation with rapid ventricular response (12) COVID-19 Assessment & Plan: Covid positive on treatment Requiring fluids meds dec (13) Dehydration (14) Lumbar compression fracture (15) anemia (16) Gait abnormality (17) UTI (urinary tract infection) (18) Chest pain (19) Hypotension (20) GI bleed (21) Leaking of urine (22) Intractable hiccups (23) Abnormal urogenital findings (24) Chang catheter in place (25) Obstructed Chang catheter (26) anemia (27) anemia Yamil Oquendo May 07, 2020 19:06
--- NOTE | 2020-05-07 19:10 | NUR ---
NURSE NOTES: Pt received from [facility] Whitt. A/O x1. open eyes when called. On 15L NRB mask, saturating at 92%. On pvc monitor with Hr of 142 bpm Afib. IV site asymptomatic and patent on R hand 24g running to D5W at 75. With Picc line on L upper arm, intact, patent and flushed well. Bed in lowest position, bed alarm on. Call light and belongings within reach. Continue to monitor.
--- NOTE | 2020-05-07 19:18 | NUR ---
NURSE HAND-OFF REPORT: Important Events on Shift:converted back to afib rvr Patient Status: full code Diet: regular, pureed moist Pending Orders: Pending Results/Labs:[] Pending MD notification:[] Latest Vital Signs: Temperature 96.4 , Pulse 152 , B/P 131 /78 , Respiratory Rate 24 , O2 SAT 94 , Room Air, O2 Flow Rate 15.0 . Vital Sign Comment: stable EKG Rhythm: Atrial Fibrillation Rhythm change?: N MD Notified?: Y -dr charlie BLACKWELL Response: new orders Orders Received Latest Mayo Fall Score: 70 Fall Risk: High Risk Safety Measures: Call light Within Reach, Bed Alarm Zone 2, Side Rails Side Rails x3, Bed position Low and Locked. Fall Precautions: Yellow Socks Report given to papo rn.
[2020-05-07 20:00] VITALS: BP 150/55
[2020-05-07] MEDS: Dyna-Hex 2% Top Sol 2oz TOPIC SCH (20:37)
[2020-05-07] MEDS: Nitroglycerin 2% oint pkt TOPIC SCH (20:39)
--- NOTE | 2020-05-07 20:44 | NUR ---
NURSE NOTES: Non admin scheduled lipitor and gabapentin, pt doesn't opened mouth tried to give some apple sauce but failed. Risks for aspiration.
--- NOTE | 2020-05-07 21:25 | Cardiology Progress Note ---
Subjective DATE OF SERVICE: May 07, 2020 Still with episodes of rapid AFib; req'd IV diltiazem and metoprolol today. No longer tolerating oral intake or crushed meds Saturating 95% on 6L N/C Monitor: Atrial fibrillation with rapid rates has converted to sinus bradycardia with slow rates at times. Objective Last 24 Hour Vital Signs Date Time Temp Pulse Resp B/P (MAP) Pulse Ox O2 Delivery O2 Flow Rate FiO2 05/07/20 20:39 150/55 05/07/20 17:42 152 131/78 05/07/20 17:22 66 131/78 05/07/20 16:00 15.0 100 05/07/20 16:00 96.4 66 24 131/78 (95) 94 05/07/20 16:00 Non-Rebreather 15.0 05/07/20 15:21 144 05/07/20 12:05 150 137/81 05/07/20 12:00 96.3 72 24 137/81 (99) 94 05/07/20 12:00 Non-Rebreather 15.0 05/07/20 12:00 15.0 100 05/07/20 11:52 84 05/07/20 11:21 150 137/81 05/07/20 09:31 150 137/81 05/07/20 08:00 15.0 100 05/07/20 08:00 151 05/07/20 08:00 Non-Rebreather 15.0 05/07/20 08:00 96.4 72 24 137/81 (99) 94 05/07/20 06:59 92 Non-Rebreather 15.0 100 05/07/20 05:36 100 116/82 05/07/20 04:00 76 05/07/20 04:00 97.1 100 20 116/82 (93) 92 05/07/20 04:00 Non-Rebreather 15.0 05/07/20 00:00 Non-Rebreather 15.0 05/07/20 00:00 88 05/07/20 00:00 97.2 77 20 103/60 (74) 93 05/06/20 22:00 90 110/73 ROS: unchanged from 05/03/20 HEENT: normal ENT inspection RHYTHM: NSR, SB, PACs, other - occ ventricular ectopy LUNGS: no accessory muscle use, bilateral rhonchi CARDIAC: normal S1 and S2, irregularly irregular ABDOMEN: normal bowel sounds, non tender, soft EXTREMITIES: normal range of motion, trace edema Laboratory Tests Test 05/07/20 04:49 White Blood Count 26.1 K/UL (4.8-10.8) *H Red Blood Count 5.32 M/UL (4.70-6.10) Hemoglobin 13.6 G/DL (14.2-18.0) L Hematocrit 44.6 % (42.0-52.0) Mean Corpuscular Volume 84 FL (80-99) Mean Corpuscular Hemoglobin 25.7 PG (27.0-31.0) L Mean Corpuscular Hemoglobin Concent 30.6 G/DL (32.0-36.0) L Red Cell Distribution Width 18.3 % (11.6-14.8) H Platelet Count 178 K/UL (150-450) Mean Platelet Volume 7.7 FL (6.5-10.1) Neutrophils (%) (Auto) % (45.0-75.0) Lymphocytes (%) (Auto) % (20.0-45.0) Monocytes (%) (Auto) % (1.0-10.0) Eosinophils (%) (Auto) % (0.0-3.0) Basophils (%) (Auto) % (0.0-2.0) Differential Total Cells Counted 100 Neutrophils % (Manual) 97 % (45-75) H Lymphocytes % (Manual) 2 % (20-45) L Monocytes % (Manual) 1 % (1-10) Eosinophils % (Manual) 0 % (0-3) Basophils % (Manual) 0 % (0-2) Band Neutrophils 0 % (0-8) Platelet Estimate Adequate Platelet Morphology Normal Red Blood Cell Morphology Normal Sodium Level 151 MMOL/L (136-145) H Potassium Level 5.4 MMOL/L (3.5-5.1) H Chloride Level 120 MMOL/L (98-107) H Carbon Dioxide Level 13 MMOL/L (21-32) L Anion Gap 18 mmol/L (5-15) H Blood Urea Nitrogen 80 mg/dL (7-18) H Creatinine 2.6 MG/DL (0.55-1.30) #H Estimat Glomerular Filtration Rate 23.6 mL/min (>60) Glucose Level 239 MG/DL (74-106) H Calcium Level 8.8 MG/DL (8.5-10.1) Phosphorus Level 4.8 MG/DL (2.5-4.9) Magnesium Level 2.8 MG/DL (1.8-2.4) H Microbiology Date/Time Source Procedure Growth Status 05/05/20 16:47 Nasal Not Otherwise Specified - Final Complete 05/05/20 16:47 Nasal Not Otherwise Specified - Final Complete Assessment/Plan Assessment/Plan COVID 19 PNA PAFib with RVR Sinus bradycardia with PAC's due to meds. Ac/chr diastolic CHF Acute coronary insuff with possible NSTEMI Cerebrovascular disease with dementia Hx GI bleed due to gastritis Dysphagia IV therapy for rate control until oral intake resumes. Anti-virals/steroids/anti-coagulation Resume meds that can be crushed once he can tolerate orals again. Jerad Phillips MD May 07, 2020 21:25
--- NOTE | 2020-05-07 22:15 | NUR ---
NURSE NOTES: post void residual done. resulted to 50ml
--- NOTE | 2020-05-07 23:22 | NUR ---
NURSE NOTES: Non admin schedule missy abreu doesn't opened mouth tried to give some apple sauce but failed. Risks for aspiration.
[2020-05-08] VITALS: BP 117/62
--- NOTE | 2020-05-08 03:53 | NUR ---
NURSE NOTES: post void residual done. resulted to 0ml
[2020-05-08 04:00] VITALS: BP 153/74
--- NOTE | 2020-05-08 05:09 | NUR ---
NURSE NOTES: Called and spoke with Dr phillips that patient converted to Afib from NSR and after dose of metoprolol pt converted to SB. Took ekg and shows SR with occasional premature ventricular complexes. Per Dr Phillips to hold dose of Metoprolol if hr below 60bpm.
[2020-05-08] MEDS: Metoprolol Tartrate 10 MG in D5W 55 ML IVPB SCH ×5 (05:21→23:34)
[2020-05-08] MEDS: dilTIAZem HCl 60mg tab ORAL SCH ×3 (05:31→17:03)
[2020-05-08 06:18] LABS: HEMATOCRIT 43.9 % (42.0-52.0); HEMOGLOBIN 13.4 G/DL (14.2-18.0); MEAN CORPUSCULAR VOLUME 85 FL (80-99); PLATELET COUNT 125 K/UL (150-450); RED BLOOD COUNT 5.19 M/UL (4.70-6.10); RED CELL DISTRIBUTION WIDTH 18.2 % (11.6-14.8)
[2020-05-08 06:56] LABS: CALCIUM 8.2 MG/DL (8.5-10.1); CREATININE 1.9 MG/DL (0.55-1.30); POTASSIUM 4.2 MMOL/L (3.5-5.1)
--- NOTE | 2020-05-08 07:00 | NUR ---
NURSE NOTES: received patient report from papo rn. patient is on bed asleep.on non-rebreather mask, tolerating. not in acute distress, bed is low and locked for safety.
--- NOTE | 2020-05-08 07:18 | NUR ---
NURSE HAND-OFF REPORT: Important Events on Shift: Pt converted to SB, Dr guerra made aware. Patient Status: Fair Diet: Regular, pureed Pending Orders: Pending Results/Labs: Pending MD notification: Latest Vital Signs: Temperature 96.6 , Pulse 56 , B/P 153 /74 , Respiratory Rate 22 , O2 SAT 97 , Room Air, O2 Flow Rate 15.0 . Vital Sign Comment: EKG Rhythm: Sinus Bradycardia Rhythm change?: N MD Notified?: Y -dr charlie BLACKWELL Response: Hold Metoprolol if hr<60 Latest Mayo Fall Score: 70 Fall Risk: High Risk Safety Measures: Call light Within Reach, Bed Alarm Zone 2, Side Rails Side Rails x3, Bed position Low and Locked. Fall Precautions: Yellow Socks Report given to Peri Dangelo RN.
[2020-05-08 07:57] VITALS: BP 171/89
[2020-05-08] MEDS: Aspirin Baby 81mg ORAL SCH (08:24)
[2020-05-08] MEDS: Solu-MEDROL 40mg Inj IVP SCH ×2 (08:24→20:45)
[2020-05-08] MEDS: Sennosides 8.6mg tab ORAL SCH ×2 (08:25→17:04)
[2020-05-08] MEDS: Memantine 5 MG TAB ORAL SCH ×2 (08:25→17:03)
[2020-05-08] MEDS: Montelukast 10mg tablet ORAL SCH (08:25)
--- NOTE | 2020-05-08 08:41 | Diagnostic Imaging Report ---
Indication: Bilateral lower extremity edema Technique: Grayscale and duplex images of the bilateral lower extremity veins Comparison: None Findings: Bilaterally, grayscale and duplex images demonstrate no evidence of intraluminal thrombus. Normal phasic Doppler waveforms, demonstrating normal augmentation response and no evidence of valvular insufficiency. Greater saphenous vein(s) and tibial veins are patent. Normal compressibility. Impression: Negative for evidence of lower extremity deep venous thrombosis bilaterally
--- NOTE | 2020-05-08 09:00 | NUR ---
NURSE NOTES: bladder scan done, resulted to 52ml only.Dr gonzalez is aware.
--- NOTE | 2020-05-08 09:37 | Cardiology Progress Note ---
Subjective DATE OF SERVICE: May 08, 2020 Still with recurring episodes of rapid AFib; req'd IV diltiazem and metoprolol almost daily. No longer tolerating oral intake or crushed meds Saturating 95% on 6L N/C Monitor: Atrial fibrillation with rapid rates; when converted, has sinus bradycardia with slow rates at times. Objective Last 24 Hour Vital Signs Date Time Temp Pulse Resp B/P (MAP) Pulse Ox O2 Delivery O2 Flow Rate FiO2 05/08/20 08:00 15.0 100 05/08/20 08:00 Non-Rebreather 15.0 05/08/20 05:31 56 153/74 05/08/20 05:21 56 153/74 05/08/20 04:00 96.6 55 22 153/74 (100) 97 05/08/20 04:00 Non-Rebreather 15.0 05/08/20 04:00 15.0 100 05/08/20 03:02 57 05/08/20 00:43 63 05/08/20 00:00 97.9 68 22 117/62 (80) 93 05/08/20 00:00 Non-Rebreather 15.0 05/08/20 00:00 15.0 100 05/07/20 23:22 87 160/80 05/07/20 23:13 87 160/80 05/07/20 23:01 145 05/07/20 20:39 150/55 05/07/20 20:00 96.8 64 22 150/55 (86) 95 05/07/20 20:00 15.0 100 05/07/20 20:00 Non-Rebreather 15.0 05/07/20 19:02 73 05/07/20 17:42 152 131/78 05/07/20 17:22 66 131/78 05/07/20 16:00 15.0 100 05/07/20 16:00 96.4 66 24 131/78 (95) 94 05/07/20 16:00 Non-Rebreather 15.0 05/07/20 15:21 144 05/07/20 12:05 150 137/81 05/07/20 12:00 96.3 72 24 137/81 (99) 94 05/07/20 12:00 Non-Rebreather 15.0 05/07/20 12:00 15.0 100 05/07/20 11:52 84 05/07/20 11:21 150 137/81 ROS: unchanged from 05/03/20 HEENT: normal ENT inspection RHYTHM: NSR, SB, PACs, other - occ ventricular ectopy LUNGS: no accessory muscle use, bilateral rhonchi CARDIAC: normal S1 and S2, irregularly irregular ABDOMEN: normal bowel sounds, non tender, soft EXTREMITIES: normal range of motion, trace edema Laboratory Tests Test 05/08/20 04:35 White Blood Count 19.0 K/UL (4.8-10.8) H Red Blood Count 5.19 M/UL (4.70-6.10) Hemoglobin 13.4 G/DL (14.2-18.0) L Hematocrit 43.9 % (42.0-52.0) Mean Corpuscular Volume 85 FL (80-99) Mean Corpuscular Hemoglobin 25.9 PG (27.0-31.0) L Mean Corpuscular Hemoglobin Concent 30.6 G/DL (32.0-36.0) L Red Cell Distribution Width 18.2 % (11.6-14.8) H Platelet Count 125 K/UL (150-450) L Mean Platelet Volume 8.7 FL (6.5-10.1) Neutrophils (%) (Auto) % (45.0-75.0) Lymphocytes (%) (Auto) % (20.0-45.0) Monocytes (%) (Auto) % (1.0-10.0) Eosinophils (%) (Auto) % (0.0-3.0) Basophils (%) (Auto) % (0.0-2.0) Neutrophils % (Manual) Pending Lymphocytes % (Manual) Pending Platelet Estimate Pending Platelet Morphology Pending Sodium Level 149 MMOL/L (136-145) H Potassium Level 4.2 MMOL/L (3.5-5.1) Chloride Level 119 MMOL/L (98-107) H Carbon Dioxide Level 16 MMOL/L (21-32) L Anion Gap 14 mmol/L (5-15) Blood Urea Nitrogen 85 mg/dL (7-18) H Creatinine 1.9 MG/DL (0.55-1.30) H Estimat Glomerular Filtration Rate 33.9 mL/min (>60) Glucose Level 239 MG/DL (74-106) H Calcium Level 8.2 MG/DL (8.5-10.1) L C-Reactive Protein, Quantitative 19.4 mg/dL (0.00-0.90) H Microbiology Date/Time Source Procedure Growth Status 05/05/20 16:47 Nasal Not Otherwise Specified - Final Complete 05/05/20 16:47 Nasal Not Otherwise Specified - Final Complete Assessment/Plan Assessment/Plan COVID 19 PNA PAFib with RVR Sinus bradycardia with PAC's due to meds. Ac/chr diastolic CHF Acute coronary insuff with possible NSTEMI Cerebrovascular disease with dementia Hx GI bleed due to gastritis Dysphagia IV therapy for rate control until oral intake resumes - will place on cardizem gtts. Anti-virals/steroids/anti-coagulation Resume meds that can be crushed once he can tolerate orals again. Jerad Phillips MD May 08, 2020 09:37
--- NOTE | 2020-05-08 09:40 | NUR ---
NURSE NOTES: left a message to dr guerra regarding high SBP, running from 180 to 202. awaiting callback and new order.
--- NOTE | 2020-05-08 10:31 | Infectious Diseases Prog Note ---
Assessment/Plan Assessment/Plan A; COVID19 pneumonia Acute renal failure improving Hypoxemia Atrial fibrillation NSTEMI Leukocytosis P: 1. Received ivermectin 2. Continue Solumedrol 3. We will follow up the patient clinically. 4. Continue isolation. Subjective ROS Limited/Unobtainable: Yes Allergies: Coded Allergies: No Known Allergies (Unverified , 08/05/12) Objective Last 24 Hour Vital Signs Date Time Temp Pulse Resp B/P (MAP) Pulse Ox O2 Delivery O2 Flow Rate FiO2 05/08/20 08:00 15.0 100 05/08/20 08:00 Non-Rebreather 15.0 05/08/20 07:57 53 05/08/20 07:57 96.1 58 24 171/89 (116) 98 05/08/20 05:31 56 153/74 05/08/20 05:21 56 153/74 05/08/20 04:00 96.6 55 22 153/74 (100) 97 05/08/20 04:00 Non-Rebreather 15.0 05/08/20 04:00 15.0 100 05/08/20 03:02 57 05/08/20 00:43 63 05/08/20 00:00 97.9 68 22 117/62 (80) 93 05/08/20 00:00 Non-Rebreather 15.0 05/08/20 00:00 15.0 100 05/07/20 23:22 87 160/80 05/07/20 23:13 87 160/80 05/07/20 23:01 145 05/07/20 20:39 150/55 05/07/20 20:00 96.8 64 22 150/55 (86) 95 05/07/20 20:00 15.0 100 05/07/20 20:00 Non-Rebreather 15.0 05/07/20 19:02 73 05/07/20 17:42 152 131/78 05/07/20 17:22 66 131/78 05/07/20 16:00 15.0 100 05/07/20 16:00 96.4 66 24 131/78 (95) 94 05/07/20 16:00 Non-Rebreather 15.0 05/07/20 15:21 144 05/07/20 12:05 150 137/81 05/07/20 12:00 96.3 72 24 137/81 (99) 94 05/07/20 12:00 Non-Rebreather 15.0 05/07/20 12:00 15.0 100 05/07/20 11:52 84 05/07/20 11:21 150 137/81 Height (Feet): 5 Height (Inches): 2.00 Weight (Pounds): 132 HEENT: mucous membranes moist Respiratory/Chest: other - oxygen by NRB mask, DLT2=822%, 15 L/min Cardiovascular: bradycardia, other - PICC line Extremities: no edema Neurologic/Psychiatric: other - sleeping Microbiology Date/Time Source Procedure Growth Status 05/05/20 16:47 Nasal Not Otherwise Specified - Final Complete 05/05/20 16:47 Nasal Not Otherwise Specified - Final Complete Laboratory Tests Test 05/08/20 04:35 White Blood Count 19.0 K/UL (4.8-10.8) H Red Blood Count 5.19 M/UL (4.70-6.10) Hemoglobin 13.4 G/DL (14.2-18.0) L Hematocrit 43.9 % (42.0-52.0) Mean Corpuscular Volume 85 FL (80-99) Mean Corpuscular Hemoglobin 25.9 PG (27.0-31.0) L Mean Corpuscular Hemoglobin Concent 30.6 G/DL (32.0-36.0) L Red Cell Distribution Width 18.2 % (11.6-14.8) H Platelet Count 125 K/UL (150-450) L Mean Platelet Volume 8.7 FL (6.5-10.1) Neutrophils (%) (Auto) % (45.0-75.0) Lymphocytes (%) (Auto) % (20.0-45.0) Monocytes (%) (Auto) % (1.0-10.0) Eosinophils (%) (Auto) % (0.0-3.0) Basophils (%) (Auto) % (0.0-2.0) Differential Total Cells Counted 100 Neutrophils % (Manual) 98 % (45-75) H Lymphocytes % (Manual) 1 % (20-45) L Monocytes % (Manual) 1 % (1-10) Eosinophils % (Manual) 0 % (0-3) Basophils % (Manual) 0 % (0-2) Band Neutrophils 0 % (0-8) Platelet Estimate Decreased L Platelet Morphology Normal Hypochromasia 1+ Anisocytosis 1+ Sodium Level 149 MMOL/L (136-145) H Potassium Level 4.2 MMOL/L (3.5-5.1) Chloride Level 119 MMOL/L (98-107) H Carbon Dioxide Level 16 MMOL/L (21-32) L Anion Gap 14 mmol/L (5-15) Blood Urea Nitrogen 85 mg/dL (7-18) H Creatinine 1.9 MG/DL (0.55-1.30) H Estimat Glomerular Filtration Rate 33.9 mL/min (>60) Glucose Level 239 MG/DL (74-106) H Calcium Level 8.2 MG/DL (8.5-10.1) L C-Reactive Protein, Quantitative 19.4 mg/dL (0.00-0.90) H Current Medications Medications (Trade) Dose Ordered Sig/Gilma Route PRN Reason Start Time Stop Time Status Last Admin Dose Admin Acetaminophen (Tylenol) 650 mg Q4H PRN ORAL Mild Pain (Pain Scale 1-3) 05/03/20 12:30 06/02/20 12:29 Acetaminophen (Tylenol) 650 mg Q4H PRN ORAL fever 05/03/20 12:30 06/02/20 12:29 Al Hydroxide/Mg Hydroxide (Mylanta) 30 ml Q4H PRN ORAL HICCUPS 05/03/20 12:30 06/02/20 12:29 Albuterol Sulfate (Proventil MDI) 1 puff Q4H PRN INH Shortness of Breath 05/03/20 12:45 08/01/20 12:44 Aspirin (ASA) 81 mg DAILY ORAL 05/03/20 12:30 06/17/20 12:29 05/06/20 10:07 Atorvastatin Calcium (Lipitor) 10 mg BEDTIME ORAL 05/03/20 21:00 08/01/20 20:59 05/05/20 21:01 Chlorhexidine Gluconate (Leilani-Hex 2%) 1 applic DAILY@2000 TOPIC 05/06/20 20:00 08/04/20 19:59 05/07/20 20:37 Dextrose 1,000 ml @ 150 mls/hr Q6H40M IV 05/07/20 14:15 06/06/20 14:14 05/08/20 04:43 Dextrose (Dextrose 50%) 25 ml Q30M PRN IV Hypoglycemia 05/03/20 12:30 08/01/20 12:29 Dextrose (Dextrose 50%) 50 ml Q30M PRN IV Hypoglycemia 05/03/20 12:30 08/01/20 12:29 Diltiazem HCl (Cardizem Tab) 60 mg Q6HR ORAL 05/07/20 06:00 06/03/20 11:59 Enoxaparin Sodium (Lovenox) 70 mg Q24H SUBQ 05/03/20 18:00 08/01/20 17:59 05/07/20 17:21 Famotidine (Pepcid) 20 mg BID ORAL 05/04/20 18:00 08/02/20 17:59 05/06/20 10:07 Gabapentin (Neurontin) 400 mg QHS ORAL 05/04/20 21:00 06/03/20 20:59 05/05/20 21:00 Heparin Sodium/ Sodium Chloride (Heparin 1000 units/500ml Premix) 1,000 unit ONCE PRN IV for line placement 05/06/20 14:00 05/09/20 13:59 Lidocaine HCl (Xylocaine 1% 30ml) 30 ml ONCE PRN INJ for line placement 05/06/20 14:00 05/09/20 13:59 Magnesium Hydroxide (Mom) 30 ml BIDPRN PRN ORAL Constipation 05/04/20 09:45 06/03/20 09:44 Memantine (Namenda) 5 mg BID ORAL 05/03/20 18:00 06/02/20 17:59 05/07/20 08:29 Methylprednisolone Sodium Succinate (Solu-MEDROL) 40 mg EVERY 12 HOURS IVP 05/07/20 12:00 08/05/20 11:59 05/08/20 08:24 Metoprolol Tartrate 10 mg/ Dextrose 65 ml @ 130 mls/hr Q6HR IVPB 05/07/20 10:30 06/06/20 10:29 05/07/20 23:13 Montelukast Sodium (Singulair) 10 mg DAILY ORAL 05/04/20 09:00 08/02/20 08:59 05/06/20 10:07 Nitroglycerin (Nitro-Bid) 1 inch BEDTIME TOPIC 05/04/20 21:00 06/03/20 20:59 05/07/20 20:39 Nitroglycerin (Ntg) 0.4 mg Q5M PRN SL Prn Chest Pain 05/03/20 12:30 06/02/20 12:29 Ondansetron HCl (Zofran) 4 mg Q6H PRN IVP Nausea & Vomiting 05/03/20 12:30 06/02/20 12:29 Polyethylene Glycol (Miralax) 17 gm DAILYPRN PRN ORAL Constipation 05/03/20 12:30 06/02/20 12:29 Sennosides (Senokot) 17.2 mg BID ORAL 05/03/20 18:00 06/02/20 17:59 05/06/20 10:07 Juanito Grier MD May 08, 2020 10:31
--- NOTE | 2020-05-08 11:02 | Pulmonology Progress Note ---
Subjective ROS Limited/Unobtainable: Yes Constitutional: Denies: fever Allergies: Coded Allergies: No Known Allergies (Unverified , 08/05/12) Subjective leukocytosis trending down, no fevers remains on 100% NRM Objective Last 24 Hour Vital Signs Date Time Temp Pulse Resp B/P (MAP) Pulse Ox O2 Delivery O2 Flow Rate FiO2 05/08/20 08:00 15.0 100 05/08/20 08:00 Non-Rebreather 15.0 05/08/20 07:57 53 05/08/20 07:57 96.1 58 24 171/89 (116) 98 05/08/20 05:31 56 153/74 05/08/20 05:21 56 153/74 05/08/20 04:00 96.6 55 22 153/74 (100) 97 05/08/20 04:00 Non-Rebreather 15.0 05/08/20 04:00 15.0 100 05/08/20 03:02 57 05/08/20 00:43 63 05/08/20 00:00 97.9 68 22 117/62 (80) 93 05/08/20 00:00 Non-Rebreather 15.0 05/08/20 00:00 15.0 100 05/07/20 23:22 87 160/80 05/07/20 23:13 87 160/80 05/07/20 23:01 145 05/07/20 20:39 150/55 05/07/20 20:00 96.8 64 22 150/55 (86) 95 05/07/20 20:00 15.0 100 05/07/20 20:00 Non-Rebreather 15.0 05/07/20 19:02 73 05/07/20 17:42 152 131/78 05/07/20 17:22 66 131/78 05/07/20 16:00 15.0 100 05/07/20 16:00 96.4 66 24 131/78 (95) 94 05/07/20 16:00 Non-Rebreather 15.0 05/07/20 15:21 144 05/07/20 12:05 150 137/81 05/07/20 12:00 96.3 72 24 137/81 (99) 94 05/07/20 12:00 Non-Rebreather 15.0 05/07/20 12:00 15.0 100 05/07/20 11:52 84 05/07/20 11:21 150 137/81 Intake and Output 05/07/20 05/08/20 19:00 07:00 Intake Total 805 ml 898 ml Balance 805 ml 898 ml Intake Oral 0 ml 0 ml IV Total 805 ml 898 ml # Voids 3 # Bowel Movements 3 1 Objective General Appearance: somnolent, arousable, thin, elderly [place] male in NAD Lines, tubes and drains: peripheral HEENT: normocephalic, atraumatic, anicteric Neck: non-tender Respiratory/Chest: no respiratory distress, no accessory muscle use, few scattered rhonchi ; O2 via NRM Cardiovascular/Chest: SB, LUE PICC intact Abdomen: normal bowel sounds, non tender, soft Extremities: no calf tenderness, no edema Skin Exam: warm/dry Neurologic: abnormal gait Musculoskeletal: atrophy - BLE Microbiology Date/Time Source Procedure Growth Status 05/05/20 16:47 Nasal Not Otherwise Specified - Final Complete 05/05/20 16:47 Nasal Not Otherwise Specified - Final Complete Laboratory Tests 05/08/20 04:35: White Blood Count 19.0H, Red Blood Count 5.19, Hemoglobin 13.4L, Hematocrit 43.9, Mean Corpuscular Volume 85, Mean Corpuscular Hemoglobin 25.9L, Mean Corpuscular Hemoglobin Concent 30.6L, Red Cell Distribution Width 18.2H, Platelet Count 125L, Mean Platelet Volume 8.7, Neutrophils (%) (Auto) , Lymphocytes (%) (Auto) , Monocytes (%) (Auto) , Eosinophils (%) (Auto) , Basophils (%) (Auto) , Differential Total Cells Counted 100, Neutrophils % (Manual) 98H, Lymphocytes % (Manual) 1L, Monocytes % (Manual) 1, Eosinophils % (Manual) 0, Basophils % (Manual) 0, Band Neutrophils 0, Platelet Estimate DecreasedL, Platelet Morphology Normal, Hypochromasia 1+, Anisocytosis 1+, Sodium Level 149H, Potassium Level 4.2, Chloride Level 119H, Carbon Dioxide Level 16L, Anion Gap 14, Blood Urea Nitrogen 85H, Creatinine 1.9H, Estimat Glomerular Filtration Rate 33.9, Glucose Level 239H, Calcium Level 8.2L, C- Reactive Protein, Quantitative 19.4H Current Medications Medications (Trade) Dose Ordered Sig/Gilma Route PRN Reason Start Time Stop Time Status Last Admin Dose Admin Acetaminophen (Tylenol) 650 mg Q4H PRN ORAL Mild Pain (Pain Scale 1-3) 05/03/20 12:30 06/02/20 12:29 Acetaminophen (Tylenol) 650 mg Q4H PRN ORAL fever 05/03/20 12:30 06/02/20 12:29 Al Hydroxide/Mg Hydroxide (Mylanta) 30 ml Q4H PRN ORAL HICCUPS 05/03/20 12:30 06/02/20 12:29 Albuterol Sulfate (Proventil MDI) 1 puff Q4H PRN INH Shortness of Breath 05/03/20 12:45 08/01/20 12:44 Aspirin (ASA) 81 mg DAILY ORAL 05/03/20 12:30 06/17/20 12:29 05/06/20 10:07 Atorvastatin Calcium (Lipitor) 10 mg BEDTIME ORAL 05/03/20 21:00 08/01/20 20:59 05/05/20 21:01 Chlorhexidine Gluconate (Leilani-Hex 2%) 1 applic DAILY@2000 TOPIC 05/06/20 20:00 08/04/20 19:59 05/07/20 20:37 Dextrose 1,000 ml @ 150 mls/hr Q6H40M IV 05/07/20 14:15 06/06/20 14:14 05/08/20 10:47 Dextrose (Dextrose 50%) 25 ml Q30M PRN IV Hypoglycemia 05/03/20 12:30 08/01/20 12:29 Dextrose (Dextrose 50%) 50 ml Q30M PRN IV Hypoglycemia 05/03/20 12:30 08/01/20 12:29 Diltiazem HCl (Cardizem Tab) 60 mg Q6HR ORAL 05/07/20 06:00 06/03/20 11:59 Enoxaparin Sodium (Lovenox) 70 mg Q24H SUBQ 05/03/20 18:00 08/01/20 17:59 05/07/20 17:21 Famotidine (Pepcid) 20 mg BID ORAL 05/04/20 18:00 08/02/20 17:59 05/06/20 10:07 Gabapentin (Neurontin) 400 mg QHS ORAL 05/04/20 21:00 06/03/20 20:59 05/05/20 21:00 Heparin Sodium/ Sodium Chloride (Heparin 1000 units/500ml Premix) 1,000 unit ONCE PRN IV for line placement 05/06/20 14:00 05/09/20 13:59 Lidocaine HCl (Xylocaine 1% 30ml) 30 ml ONCE PRN INJ for line placement 05/06/20 14:00 05/09/20 13:59 Magnesium Hydroxide (Mom) 30 ml BIDPRN PRN ORAL Constipation 05/04/20 09:45 06/03/20 09:44 Memantine (Namenda) 5 mg BID ORAL 05/03/20 18:00 06/02/20 17:59 05/07/20 08:29 Methylprednisolone Sodium Succinate (Solu-MEDROL) 40 mg EVERY 12 HOURS IVP 05/07/20 12:00 08/05/20 11:59 05/08/20 08:24 Metoprolol Tartrate 10 mg/ Dextrose 65 ml @ 130 mls/hr Q6HR IVPB 05/07/20 10:30 06/06/20 10:29 05/07/20 23:13 Montelukast Sodium (Singulair) 10 mg DAILY ORAL 05/04/20 09:00 08/02/20 08:59 05/06/20 10:07 Nitroglycerin (Nitro-Bid) 1 inch BEDTIME TOPIC 05/04/20 21:00 06/03/20 20:59 05/07/20 20:39 Nitroglycerin (Ntg) 0.4 mg Q5M PRN SL Prn Chest Pain 05/03/20 12:30 06/02/20 12:29 Ondansetron HCl (Zofran) 4 mg Q6H PRN IVP Nausea & Vomiting 05/03/20 12:30 06/02/20 12:29 Polyethylene Glycol (Miralax) 17 gm DAILYPRN PRN ORAL Constipation 05/03/20 12:30 06/02/20 12:29 Sennosides (Senokot) 17.2 mg BID ORAL 05/03/20 18:00 06/02/20 17:59 05/06/20 10:07 Assessment/Plan Assessment/Plan ASSESSMENT COVID PNA Elevated troponin, possible NSTEMI Atrial fibrillation with rapid ventricular response KRISTINE Dehydration Transaminitis Protein calorie malnutrition Prostate cancer PLAN OF CARE DORIS isolation Date of sx onset: about 3 wks prior to presentation to ED Positive test: rapid COVID 05/03/20 + O2 15 L VM titrate to keep sat > 92% HFA Dex Day# 6 ( 05/03/20 -) REM not a candidate given renal function s/p Ivermectin x 1 05/04 DVT PPX: Lovenox D dimer -12.59-5.85 Venous Duplex BLE NGT Trend CRP- 59.8-19.4 Abx need -> per ID recs, currently off abx fup CXR BSSE noted, high aspiration risk aspiration precautions Aggressive hydration Monitor volumes and renal function, creat up again this am - per furtehr nephro recs serial troponin -trending down cardio follows , rate control - per cardio, on cardizem trend LFT nutritional consult Fup with consultants recs DNR/DNI status Discuss further GOC case discussed and evaluated by supervising physician Bethany Smith NP May 08, 2020 11:02
[2020-05-08 12:00] VITALS: BP 169/70
--- NOTE | 2020-05-08 12:09 | NUR ---
Straightening Machine OperatorParole Agent SI: Respiratory Failure, COVID PNA, Leukocytosis, NSTEMI, KRISTINE, Afib with RVR T-96.1 (ax), HR-53, RR 24, BP 169/78 15 L O2 NRM FiO2 100% WBC 79.0, BUN 85, Creatinine 1.9, NA+ 149 IS: SoluMedrol IV Metoprolol IV q 6 hrs D5 IV @ 150cc/hr Enoxaparin SQ ASA 81mg PO SDU Status
--- NOTE | 2020-05-08 13:03 | Diagnostic Imaging Report ---
Indication: Shortness of breath Technique: One view of the chest Comparison: 05/03/2020 Findings: Less optimal inspiration. Bilateral infiltrates are unchanged. Pleural spaces remain clear. Heart size is normal. Impression: Unchanged, over 5 days, findings as above.
--- NOTE | 2020-05-08 13:08 | Diagnostic Imaging Report ---
Clinical Indication:Pain and swelling Technique: 3 views of the right wrist Comparison: None Findings: Positioning is somewhat limited. No definite acute fracture. No dislocation. The joint spaces are preserved. The bones are osteoporotic. Unusually short fourth metacarpal, could be developmental or sequela of prior trauma. There is also ulnar minus variance. Some irregularity of the distal ulna could indicate prior healed trauma There is extensive vascular calcification. There is some dorsal soft tissue swelling Impression: No definite acute bony trauma
--- NOTE | 2020-05-08 13:53 | General Progress Note ---
Subjective ROS Limited/Unobtainable: Yes Allergies: Coded Allergies: No Known Allergies (Unverified , 08/05/12) Objective Last 24 Hour Vital Signs Date Time Temp Pulse Resp B/P (MAP) Pulse Ox O2 Delivery O2 Flow Rate FiO2 05/08/20 12:00 96.1 58 23 169/70 (103) 97 05/08/20 12:00 Non-Rebreather 15.0 05/08/20 12:00 15.0 100 05/08/20 12:00 53 169/78 05/08/20 12:00 62 05/08/20 08:00 15.0 100 05/08/20 08:00 Non-Rebreather 15.0 05/08/20 07:57 53 05/08/20 07:57 96.1 58 24 171/89 (116) 98 05/08/20 05:31 56 153/74 05/08/20 05:21 56 153/74 05/08/20 04:00 96.6 55 22 153/74 (100) 97 05/08/20 04:00 Non-Rebreather 15.0 05/08/20 04:00 15.0 100 05/08/20 03:02 57 05/08/20 00:43 63 05/08/20 00:00 97.9 68 22 117/62 (80) 93 05/08/20 00:00 Non-Rebreather 15.0 05/08/20 00:00 15.0 100 05/07/20 23:22 87 160/80 05/07/20 23:13 87 160/80 05/07/20 23:01 145 05/07/20 20:39 150/55 05/07/20 20:00 96.8 64 22 150/55 (86) 95 05/07/20 20:00 15.0 100 05/07/20 20:00 Non-Rebreather 15.0 05/07/20 19:02 73 05/07/20 17:42 152 131/78 05/07/20 17:22 66 131/78 05/07/20 16:00 15.0 100 05/07/20 16:00 96.4 66 24 131/78 (95) 94 05/07/20 16:00 Non-Rebreather 15.0 05/07/20 15:21 144 Intake and Output 05/07/20 05/08/20 19:00 07:00 Intake Total 805 ml 898 ml Balance 805 ml 898 ml Intake Oral 0 ml 0 ml IV Total 805 ml 898 ml # Voids 3 # Bowel Movements 3 1 Laboratory Tests 05/08/20 04:35: White Blood Count 19.0H, Red Blood Count 5.19, Hemoglobin 13.4L, Hematocrit 43.9, Mean Corpuscular Volume 85, Mean Corpuscular Hemoglobin 25.9L, Mean Corpuscular Hemoglobin Concent 30.6L, Red Cell Distribution Width 18.2H, Platelet Count 125L, Mean Platelet Volume 8.7, Neutrophils (%) (Auto) , Lympho cytes (%) (Auto) , Monocytes (%) (Auto) , Eosinophils (%) (Auto) , Basophils (%) (Auto) , Differential Total Cells Counted 100, Neutrophils % (Manual) 98H, Lymphocytes % (Manual) 1L, Monocytes % (Manual) 1, Eosinophils % (Manual) 0, Basophils % (Manual) 0, Band Neutrophils 0, Platelet Estimate DecreasedL, Platelet Morphology Normal, Hypochromasia 1+, Anisocytosis 1+, Sodium Level 149H , Potassium Level 4.2, Chloride Level 119H, Carbon Dioxide Level 16L, Anion Gap 14, Blood Urea Nitrogen 85H, Creatinine 1.9H, Estimat Glomerular Filtration Rate 33.9, Glucose Level 239H, Calcium Level 8.2L, C-Reactive Protein, Quantitative 19.4H Height (Feet): 5 Height (Inches): 2.00 Weight (Pounds): 132 General Appearance: lethargic, moderate distress EENT: normal ENT inspection Neck: normal alignment Cardiovascular: regular rhythm, bradycardia Respiratory/Chest: accessory muscle use Abdomen: soft Edema: no edema noted Arm (L), no edema noted Arm (R), no edema noted Leg (L), no edema noted Leg (R), no edema noted Pedal (L), no edema noted Pedal (R), no edema noted Generalized Neurologic: abnormal mysql developer II-XII Assessment/Plan Problem List: (1) NSTEMI (non-ST elevated myocardial infarction) ICD Codes: I21.4 - Non-ST elevation (NSTEMI) myocardial infarction SNOMED: 47174982 (2) Multifocal pneumonia ICD Codes: J18.9 - Pneumonia, unspecified organism SNOMED: 309076010 (3) COVID-19 ICD Codes: U07.1 - COVID-19 SNOMED: 877819307 (4) Atrial fibrillation with rapid ventricular response ICD Codes: I48.91 - Unspecified atrial fibrillation SNOMED: 729160894888576 (5) KRISTINE (acute kidney injury) ICD Codes: N17.9 - Acute kidney failure, unspecified SNOMED: 32966335 (6) Dehydration ICD Codes: E86.0 - Dehydration SNOMED: 48839606 (7) Gastritis ICD Codes: K29.70 - Gastritis, unspecified, without bleeding SNOMED: 0199866 Assessment/Plan: continue steroids, hydration iv adjusted pul m care, SS insulin diltiazem metoprolol tele, remains high risk discuss palliative care with family, all orders reviewed Quentin Marsh MD May 08, 2020 13:53
[2020-05-08 16:00] VITALS: BP 176/85
[2020-05-08] MEDS: Enoxaparin 80mg Inj SUBQ SCH (17:08)
[2020-05-08] MEDS ORDERED: Tubing IV Secondary IV ONE (17:32)
[2020-05-08] MEDS ORDERED: NS 275ml ONE (17:32)
--- NOTE | 2020-05-08 18:00 | NUR ---
NURSE NOTES: bladder scan done, resulted to 24 ml.
--- NOTE | 2020-05-08 18:21 | NUR ---
NURSE NOTES: paged dr stevenson for patients breathing and saturation level of 89%-91%. awaiting callback and new orders.
--- NOTE | 2020-05-08 19:20 | NUR ---
NURSE NOTES: pt report received from JORGE CHRISTIE. pt condition remains unchanged. pt is alert and oriented times 1, opens eyes to tactile stimuli. pt remains on bus monitor showing NSR, no acute distress noted. pt is on non rebreather showing 92% O2 sat, no acute resp distress noted. pt bed is low, locked, armed, call light within reach, bed rails up times 3. will follow plan of care.
--- NOTE | 2020-05-08 19:31 | NUR ---
NURSE HAND-OFF REPORT: Important Events on Shift:afib rvr, breathing changes, dr stevenson made aware, ordered abg Patient Status: dnr/dni Diet: regular pureed, ntl Pending Orders: [] Pending Results/Labs:[] Pending MD notification:[] Latest Vital Signs: Temperature 96.8 , Pulse 55 , B/P 176 /85 , Respiratory Rate 24 , O2 SAT 97 , Room Air, O2 Flow Rate 15.0 . Vital Sign Comment: stable EKG Rhythm: Sinus Rhythm Rhythm change?: N MD Notified?: Y -dr charlie BLACKWELL Response: paged Dr Phillips Latest Benge Fall Score: 70 Fall Risk: High Risk Safety Measures: Call light Within Reach, Bed Alarm Zone 2, Side Rails Side Rails x3, Bed position Low and Locked. Fall Precautions: Yellow Socks Report given to madison shaw.
[2020-05-08 20:00] VITALS: BP 170/80
[2020-05-08] MEDS: Nitroglycerin 2% oint pkt TOPIC SCH (20:45)
[2020-05-08] MEDS: Dyna-Hex 2% Top Sol 2oz TOPIC SCH (20:45)
--- NOTE | 2020-05-08 20:54 | Surgery Progress Note ---
Surgery Progress Note Subjective Additional Comments no acute events Objective Last 24 Hour Vital Signs Date Time Temp Pulse Resp B/P (MAP) Pulse Ox O2 Delivery O2 Flow Rate FiO2 05/08/20 20:45 180/80 05/08/20 20:00 15.0 100 05/08/20 20:00 97.9 63 30 170/80 (110) 96 05/08/20 20:00 Non-Rebreather 15.0 05/08/20 18:00 55 176/85 05/08/20 17:03 68 176/85 05/08/20 16:00 96.8 68 24 176/85 (115) 97 05/08/20 16:00 15.0 100 05/08/20 16:00 Non-Rebreather 15.0 05/08/20 15:54 180 169/70 05/08/20 15:30 66 05/08/20 12:00 96.1 58 23 169/70 (103) 97 05/08/20 12:00 Non-Rebreather 15.0 05/08/20 12:00 15.0 100 05/08/20 12:00 62 05/08/20 08:00 15.0 100 05/08/20 08:00 Non-Rebreather 15.0 05/08/20 07:57 53 05/08/20 07:57 96.1 58 24 171/89 (116) 98 05/08/20 05:31 56 153/74 05/08/20 05:21 56 153/74 05/08/20 04:00 96.6 55 22 153/74 (100) 97 05/08/20 04:00 Non-Rebreather 15.0 05/08/20 04:00 15.0 100 05/08/20 03:02 57 05/08/20 00:43 63 05/08/20 00:00 97.9 68 22 117/62 (80) 93 05/08/20 00:00 Non-Rebreather 15.0 05/08/20 00:00 15.0 100 05/07/20 23:22 87 160/80 05/07/20 23:13 87 160/80 05/07/20 23:01 145 I&O Intake and Output 05/07/20 05/08/20 18:59 06:59 Intake Total 805 ml 898 ml Balance 805 ml 898 ml Intake Oral 0 ml 0 ml IV Total 805 ml 898 ml # Voids 3 # Bowel Movements 3 1 Dressing: saturated Cardiovascular: RSR Respiratory: clear, decreased breath sounds Abdomen: soft, non-tender, present bowel sounds Extremities: no edema, no tenderness, no cyanosis, pulses, other Laboratory Tests Test 05/08/20 04:35 05/08/20 17:00 05/08/20 18:54 White Blood Count 19.0 K/UL (4.8-10.8) H Red Blood Count 5.19 M/UL (4.70-6.10) Hemoglobin 13.4 G/DL (14.2-18.0) L Hematocrit 43.9 % (42.0-52.0) Mean Corpuscular Volume 85 FL (80-99) Mean Corpuscular Hemoglobin 25.9 PG (27.0-31.0) L Mean Corpuscular Hemoglobin Concent 30.6 G/DL (32.0-36.0) L Red Cell Distribution Width 18.2 % (11.6-14.8) H Platelet Count 125 K/UL (150-450) L Mean Platelet Volume 8.7 FL (6.5-10.1) Neutrophils (%) (Auto) % (45.0-75.0) Lymphocytes (%) (Auto) % (20.0-45.0) Monocytes (%) (Auto) % (1.0-10.0) Eosinophils (%) (Auto) % (0.0-3.0) Basophils (%) (Auto) % (0.0-2.0) Differential Total Cells Counted 100 Neutrophils % (Manual) 98 % (45-75) H Lymphocytes % (Manual) 1 % (20-45) L Monocytes % (Manual) 1 % (1-10) Eosinophils % (Manual) 0 % (0-3) Basophils % (Manual) 0 % (0-2) Band Neutrophils 0 % (0-8) Platelet Estimate Decreased L Platelet Morphology Normal Hypochromasia 1+ Anisocytosis 1+ Sodium Level 149 MMOL/L (136-145) H Potassium Level 4.2 MMOL/L (3.5-5.1) Chloride Level 119 MMOL/L (98-107) H Carbon Dioxide Level 16 MMOL/L (21-32) L Anion Gap 14 mmol/L (5-15) Blood Urea Nitrogen 85 mg/dL (7-18) H Creatinine 1.9 MG/DL (0.55-1.30) H Estimat Glomerular Filtration Rate 33.9 mL/min (>60) Glucose Level 239 MG/DL (74-106) H Calcium Level 8.2 MG/DL (8.5-10.1) L C-Reactive Protein, Quantitative 19.4 mg/dL (0.00-0.90) H Urine Random Sodium < 20 mmol/L (20-110) L Urine Creatinine 64.9 MG/DL (30.0-125.0) Arterial Blood pH 7.314 (7.350-7.450) Arterial Blood Partial Pressure CO2 34.3 mmHg (35.0-45.0) L Arterial Blood Partial Pressure O2 69.5 mmHg (75.0-100.0) L Arterial Blood HCO3 17.0 mmol/L (22.0-26.0) *L Arterial Blood Oxygen Saturation 91.8 % (95-100) L Arterial Blood Base Excess -8.1 (-2-2) L Samson Test Positive Plan Problems: (1) Lactic acidosis Assessment & Plan: Patient with dehydration lactic acidosis abnormal labs requiring IV fluids and medications. Poor peripheral access at this time. Patient lost IV access. Considerations for central venous catheter was done. Given patient's condition overall comorbidities and current medications required including fluids will attempt further management with peripheral access though i t is very difficult in this patient. Will consider peripherally inserted tunneled catheter as well and then considerations of central venous catheter as well if necessary. For now was able to obtain a hand IV peripherally. We will continue for this. If falter failure will proceed with potential PICC for central venous. Thank you for allowing participation care will follow aurora mmendations Procedure performed at bedside. Procedural timeout performed. Ultrasound confirms patent compressible left brachial vein. Total sterile technique, including sterile probe cover and sterile gel, sterile gloves, hand hygiene, hat, mask,, sterile gown, large sterile drape, and preparation with 2% chlorhexidine utilized. Local anesthesia with 1% lidocaine. Under real-time ultrasound guidance, puncture trachea vein using 21-gauge needle, passage 0.018 guidewire, exchange for 4 Swazi peel-away sheath. 4 Swazi are dual-lumen power PICC cut to 37 cm. It was inserted through the peel-away sheath. Peel-away sheath and guidewire removed. Catheter fixed to the skin. Both catheter ports aspirated and flushed. Patient tolerated procedure well, without immediate complication. Followup chest x-ray obtained, documents catheter tip position at the innominate venous confluence (2) Renal failure (3) Hypoxia (4) NSTEMI (non-ST elevated myocardial infarction) (5) CHF exacerbation (6) Multifocal pneumonia (7) Gastritis (8) Prostate cancer (9) Hypertension (10) KRISTINE (acute kidney injury) (11) Atrial fibrillation with rapid ventricular response (12) COVID-19 Assessment & Plan: Covid positive on treatment Requiring fluids meds dec (13) Dehydration (14) Lumbar compression fracture (15) anemia (16) Gait abnormality (17) UTI (urinary tract infection) (18) Chest pain (19) Hypotension (20) GI bleed (21) Leaking of urine (22) Intractable hiccups (23) Abnormal urogenital findings (24) Chang catheter in place (25) Obstructed Chang catheter (26) anemia (27) anemia Yamil Oquendo May 08, 2020 20:54
--- NOTE | 2020-05-08 21:30 | NUR ---
NURSE NOTES: 9PM meds passed. pts condition remains unchanged. nitro patch place on pts center chest.
--- NOTE | 2020-05-08 22:05 | NUR ---
NURSE NOTES: called doctor Tabitha urgent line. left a message reported pts current ABG results with an emphasis on the HCO3. awaiting doctor call back. awaiting new orders.
[2020-05-09] VITALS: BP 136/65
--- NOTE | 2020-05-09 | NUR ---
NURSE NOTES: spoke to Dr Phillips in person. he stated to give/ start Cardizem IV Drip if pt does not convert back to sinus rhythm after midnight metoprolol IV.
--- NOTE | 2020-05-09 00:38 | NUR ---
NURSE NOTES: Bladder scan preformed with LOUIS Kline RN. 0 ML noted by bladder scan machine. 300 ML of yellow urine bag/ pouch.
--- NOTE | 2020-05-09 02:06 | Cardiology Progress Note ---
Subjective DATE OF SERVICE: May 09, 2020 Still with recurring episodes of rapid AFib - very high rates noted; req'd IV diltiazem and metoprolol almost daily. Cardizem drip started late last nite. No longer tolerating oral intake or crushed meds Saturating 95% on 6L N/C Monitor: Atrial fibrillation with rapid rates; when converted, has sinus bradycardia with slow rates at times. Objective Last 24 Hour Vital Signs Date Time Temp Pulse Resp B/P (MAP) Pulse Ox O2 Delivery O2 Flow Rate FiO2 05/09/20 00:00 15.0 100 05/09/20 00:00 97.7 65 30 136/65 (88) 94 05/09/20 00:00 Non-Rebreather 15.0 05/08/20 23:34 175 136/65 05/08/20 23:30 61 123/63 05/08/20 20:45 180/80 05/08/20 20:00 15.0 100 05/08/20 20:00 97.9 63 30 170/80 (110) 96 05/08/20 20:00 Non-Rebreather 15.0 05/08/20 18:00 55 176/85 05/08/20 17:03 68 176/85 05/08/20 16:00 96.8 68 24 176/85 (115) 97 05/08/20 16:00 15.0 100 05/08/20 16:00 Non-Rebreather 15.0 05/08/20 15:54 180 169/70 05/08/20 15:30 66 05/08/20 12:00 96.1 58 23 169/70 (103) 97 05/08/20 12:00 Non-Rebreather 15.0 05/08/20 12:00 15.0 100 05/08/20 12:00 62 05/08/20 08:00 15.0 100 05/08/20 08:00 Non-Rebreather 15.0 05/08/20 07:57 53 05/08/20 07:57 96.1 58 24 171/89 (116) 98 05/08/20 05:31 56 153/74 05/08/20 05:21 56 153/74 05/08/20 04:00 96.6 55 22 153/74 (100) 97 05/08/20 04:00 Non-Rebreather 15.0 05/08/20 04:00 15.0 100 05/08/20 03:02 57 ROS: unchanged from 05/03/20 HEENT: normal ENT inspection RHYTHM: NSR, SB, PACs, other - occ ventricular ectopy LUNGS: no accessory muscle use, bilateral rhonchi CARDIAC: normal S1 and S2, irregularly irregular ABDOMEN: normal bowel sounds, non tender, soft EXTREMITIES: normal range of motion, trace edema Laboratory Tests Test 05/08/20 04:35 05/08/20 17:00 05/08/20 18:54 White Blood Count 19.0 K/UL (4.8-10.8) H Red Blood Count 5.19 M/UL (4.70-6.10) Hemoglobin 13.4 G/DL (14.2-18.0) L Hematocrit 43.9 % (42.0-52.0) Mean Corpuscular Volume 85 FL (80-99) Mean Corpuscular Hemoglobin 25.9 PG (27.0-31.0) L Mean Corpuscular Hemoglobin Concent 30.6 G/DL (32.0-36.0) L Red Cell Distribution Width 18.2 % (11.6-14.8) H Platelet Count 125 K/UL (150-450) L Mean Platelet Volume 8.7 FL (6.5-10.1) Neutrophils (%) (Auto) % (45.0-75.0) Lymphocytes (%) (Auto) % (20.0-45.0) Monocytes (%) (Auto) % (1.0-10.0) Eosinophils (%) (Auto) % (0.0-3.0) Basophils (%) (Auto) % (0.0-2.0) Differential Total Cells Counted 100 Neutrophils % (Manual) 98 % (45-75) H Lymphocytes % (Manual) 1 % (20-45) L Monocytes % (Manual) 1 % (1-10) Eosinophils % (Manual) 0 % (0-3) Basophils % (Manual) 0 % (0-2) Band Neutrophils 0 % (0-8) Platelet Estimate Decreased L Platelet Morphology Normal Hypochromasia 1+ Anisocytosis 1+ Sodium Level 149 MMOL/L (136-145) H Potassium Level 4.2 MMOL/L (3.5-5.1) Chloride Level 119 MMOL/L (98-107) H Carbon Dioxide Level 16 MMOL/L (21-32) L Anion Gap 14 mmol/L (5-15) Blood Urea Nitrogen 85 mg/dL (7-18) H Creatinine 1.9 MG/DL (0.55-1.30) H Estimat Glomerular Filtration Rate 33.9 mL/min (>60) Glucose Level 239 MG/DL (74-106) H Calcium Level 8.2 MG/DL (8.5-10.1) L C-Reactive Protein, Quantitative 19.4 mg/dL (0.00-0.90) H Urine Random Sodium < 20 mmol/L (20-110) L Urine Creatinine 64.9 MG/DL (30.0-125.0) Arterial Blood pH 7.314 (7.350-7.450) Arterial Blood Partial Pressure CO2 34.3 mmHg (35.0-45.0) L Arterial Blood Partial Pressure O2 69.5 mmHg (75.0-100.0) L Arterial Blood HCO3 17.0 mmol/L (22.0-26.0) *L Arterial Blood Oxygen Saturation 91.8 % (95-100) L Arterial Blood Base Excess -8.1 (-2-2) L Samson Test Positive Assessment/Plan Assessment/Plan COVID 19 PNA PAFib with RVR Sinus bradycardia with PAC's due to meds. Ac/chr diastolic CHF Acute coronary insuff with possible NSTEMI Cerebrovascular disease with dementia Hx GI bleed due to gastritis Dysphagia IV therapy for rate control until oral intake resumes - will place on cardizem gtts for now. Anti-virals/steroids/anti-coagulation Resume meds that can be crushed once he can tolerate orals again. Jerad Phillips MD May 09, 2020 02:06
--- NOTE | 2020-05-09 02:30 | NUR ---
NURSE NOTES: pt is resting in bed. vital signs stable. HR as 63. no distress noted.
[2020-05-09 04:00] VITALS: BP 148/85
--- NOTE | 2020-05-09 04:40 | NUR ---
NURSE NOTES: pt resting in bed. IV fluid running as per Doctor orders. no distress noted.
[2020-05-09] MEDS: Metoprolol Tartrate 10 MG in D5W 55 ML IVPB SCH ×6 (05:50→22:46)
[2020-05-09 06:00] LABS: ANION GAP 12 mmol/L (5-15); BLOOD UREA NITROGEN 65 mg/dL (7-18); CALCIUM 8.4 MG/DL (8.5-10.1); CARBON DIOXIDE 19 MMOL/L (21-32); CHLORIDE 113 MMOL/L (98-107); CREATINE KINASE 145 U/L (26-308); CREATININE 1.5 MG/DL (0.55-1.30); POTASSIUM 4.3 MMOL/L (3.5-5.1); SODIUM 144 MMOL/L (136-145)
--- NOTE | 2020-05-09 06:00 | NUR ---
NURSE NOTES: bladder scan preformed. 0ML shown on bladder scanner. 200 ML of yellow urine noted in urine bag.
--- NOTE | 2020-05-09 07:27 | NUR ---
NURSE HAND-OFF REPORT: Important Events on Shift:[Monitor HR] Patient Status: [monitor HR] Diet: [as per doctor order. ] Pending Orders: [NA] Pending Results/Labs:[NA] Pending MD notification:[NA] Latest Vital Signs: Temperature 98.6 , Pulse 180 , B/P 134 /71 , Respiratory Rate 30 , O2 SAT 96 , Room Air, O2 Flow Rate 15.0 . Vital Sign Comment: [monitor HR] EKG Rhythm: Sinus Bradycardia Rhythm change?: N MD Notified?: Y -dr charlie BLACKWELL Response: paged Dr Phillips Latest Mayo Fall Score: 70 Fall Risk: High Risk Safety Measures: Call light Within Reach, Bed Alarm Zone 2, Side Rails Side Rails x3, Bed position Low and Locked. Fall Precautions: Yellow Socks Report given to [Maria A Lundy RN].
--- NOTE | 2020-05-09 07:33 | NUR ---
NURSE NOTES: Received report from PRATIK Farris. Pt is AOxO-1 resting in bed. pt is on 15 LPM NRB, with increased respiratory rate 22, saturating 95% spo2. Pt B arm swelling. Pt urine draining to catheter pouch. TED PICC running d5w at 100cc, asymptomatic and intact. pt bed low and locked, call light in reach and bed alarm on.
[2020-05-09 08:00] VITALS: BP 161/73
--- NOTE | 2020-05-09 08:30 | NUR ---
NURSE NOTES: Dr Marsh bedside w/ Pt at this time. Pt report updated to Dr Marsh. Pt is agonal, increased RR at this time 22. Md Marsh aware, visualized through window. No new orders at this time
[2020-05-09] MEDS: Aspirin Baby 81mg ORAL SCH (08:31)
[2020-05-09] MEDS: Memantine 5 MG TAB ORAL SCH ×3 (08:31→17:22)
[2020-05-09] MEDS: Montelukast 10mg tablet ORAL SCH ×2 (08:31→08:55)
[2020-05-09] MEDS: Sennosides 8.6mg tab ORAL SCH ×3 (08:32→17:23)
[2020-05-09] MEDS: Solu-MEDROL 40mg Inj IVP SCH ×2 (08:39→20:46)
--- NOTE | 2020-05-09 08:55 | NUR ---
NURSE NOTES: Pt is unable to swallow medication, lethargic. pt is otherwise stable. Md to be notified at rounds.
--- NOTE | 2020-05-09 10:07 | Infectious Diseases Prog Note ---
Assessment/Plan Assessment/Plan antibiotics : none A 1. COVID-19 pneumonia. on 15 liters of oxygen with O2 saturation of 97%. s/p ivermectin 2. History of bilateral knee replacement. 3. History of inguinal hernia. 4. Renal failure. P 1. continue solumedrol 2. Continue isolation. Subjective ROS Limited/Unobtainable: Yes Allergies: Coded Allergies: No Known Allergies (Unverified , 08/05/12) Objective Last 24 Hour Vital Signs Date Time Temp Pulse Resp B/P (MAP) Pulse Ox O2 Delivery O2 Flow Rate FiO2 05/09/20 08:00 Non-Rebreather 15.0 05/09/20 08:00 60 05/09/20 08:00 15.0 100 05/09/20 08:00 97.7 56 21 161/73 (102) 92 05/09/20 06:09 180 134/71 05/09/20 04:13 15.0 100 05/09/20 04:00 98.6 60 30 148/85 (106) 96 05/09/20 04:00 Non-Rebreather 15.0 05/09/20 04:00 56 05/09/20 00:00 15.0 100 05/09/20 00:00 97.7 65 30 136/65 (88) 94 05/09/20 00:00 Non-Rebreather 15.0 05/09/20 00:00 182 05/08/20 23:34 175 136/65 05/08/20 23:30 61 123/63 05/08/20 20:45 180/80 05/08/20 20:00 55 05/08/20 20:00 15.0 100 05/08/20 20:00 97.9 63 30 170/80 (110) 96 05/08/20 20:00 Non-Rebreather 15.0 05/08/20 19:12 95 Non-Rebreather 15.0 100 05/08/20 18:00 55 176/85 05/08/20 17:03 68 176/85 05/08/20 16:00 96.8 68 24 176/85 (115) 97 05/08/20 16:00 15.0 100 05/08/20 16:00 Non-Rebreather 15.0 05/08/20 15:54 180 169/70 05/08/20 15:30 66 05/08/20 12:00 96.1 58 23 169/70 (103) 97 05/08/20 12:00 Non-Rebreather 15.0 05/08/20 12:00 15.0 100 05/08/20 12:00 62 Height (Feet): 5 Height (Inches): 2.00 Weight (Pounds): 132 Laboratory Tests Test 05/08/20 17:00 05/08/20 18:54 05/09/20 02:50 Urine Random Sodium < 20 mmol/L (20-110) L Urine Creatinine 64.9 MG/DL (30.0-125.0) Arterial Blood pH 7.314 (7.350-7.450) Arterial Blood Partial Pressure CO2 34.3 mmHg (35.0-45.0) L Arterial Blood Partial Pressure O2 69.5 mmHg (75.0-100.0) L Arterial Blood HCO3 17.0 mmol/L (22.0-26.0) *L Arterial Blood Oxygen Saturation 91.8 % (95-100) L Arterial Blood Base Excess -8.1 (-2-2) L Samson Test Positive Sodium Level 144 MMOL/L (136-145) Potassium Level 4.3 MMOL/L (3.5-5.1) Chloride Level 113 MMOL/L (98-107) H Carbon Dioxide Level 19 MMOL/L (21-32) L Anion Gap 12 mmol/L (5-15) Blood Urea Nitrogen 65 mg/dL (7-18) H Creatinine 1.5 MG/DL (0.55-1.30) H Estimat Glomerular Filtration Rate 44.6 mL/min (>60) Glucose Level 252 MG/DL (74-106) H Calcium Level 8.4 MG/DL (8.5-10.1) L Total Creatine Kinase 145 U/L (26-308) Current Medications Medications (Trade) Dose Ordered Sig/Gilma Route PRN Reason Start Time Stop Time Status Last Admin Dose Admin Acetaminophen (Tylenol) 650 mg Q4H PRN ORAL Mild Pain (Pain Scale 1-3) 05/03/20 12:30 06/02/20 12:29 Acetaminophen (Tylenol) 650 mg Q4H PRN ORAL fever 05/03/20 12:30 06/02/20 12:29 Al Hydroxide/Mg Hydroxide (Mylanta) 30 ml Q4H PRN ORAL HICCUPS 05/03/20 12:30 06/02/20 12:29 Albuterol Sulfate (Proventil MDI) 1 puff Q4H PRN INH Shortness of Breath 05/03/20 12:45 08/01/20 12:44 Aspirin (ASA) 81 mg DAILY ORAL 05/03/20 12:30 06/17/20 12:29 05/09/20 08:31 Atorvastatin Calcium (Lipitor) 10 mg BEDTIME ORAL 05/03/20 21:00 08/01/20 20:59 05/08/20 20:45 Chlorhexidine Gluconate (Leilani-Hex 2%) 1 applic DAILY@2000 TOPIC 05/06/20 20:00 08/04/20 19:59 05/08/20 20:45 Dextrose 1,000 ml @ 75 mls/hr [id number] IV 05/07/20 14:15 06/06/20 14:14 05/09/20 08:31 Dextrose (Dextrose 50%) 25 ml Q30M PRN IV Hypoglycemia 05/03/20 12:30 08/01/20 12:29 Dextrose (Dextrose 50%) 50 ml Q30M PRN IV Hypoglycemia 05/03/20 12:30 08/01/20 12:29 Diltiazem HCl 125 mg/Dextrose 125 ml @ 10 mls/hr Q24H IVPB 05/08/20 23:30 06/01/20 23:29 Enoxaparin Sodium (Lovenox) 70 mg Q24H SUBQ 05/03/20 18:00 08/01/20 17:59 05/08/20 17:08 Famotidine (Pepcid I.v.) 20 mg BID IVP 05/08/20 18:00 06/07/20 17:59 05/09/20 08:39 Heparin Sodium/ Sodium Chloride (Heparin 1000 units/500ml Premix) 1,000 unit ONCE PRN IV for line placement 05/06/20 14:00 05/09/20 13:59 Lidocaine HCl (Xylocaine 1% 30ml) 30 ml ONCE PRN INJ for line placement 05/06/20 14:00 05/09/20 13:59 Magnesium Hydroxide (Mom) 30 ml BIDPRN PRN ORAL Constipation 05/04/20 09:45 06/03/20 09:44 Memantine (Namenda) 5 mg BID ORAL 05/03/20 18:00 06/02/20 17:59 05/07/20 08:29 Methylprednisolone Sodium Succinate (Solu-MEDROL) 40 mg EVERY 12 HOURS IVP 05/07/20 12:00 08/05/20 11:59 05/09/20 08:39 Metoprolol Tartrate 10 mg/ Dextrose 65 ml @ 130 mls/hr Q6HR IVPB 05/07/20 10:30 06/06/20 10:29 05/09/20 06:09 Montelukast Sodium (Singulair) 10 mg DAILY ORAL 05/04/20 09:00 08/02/20 08:59 05/06/20 10:07 Nitroglycerin (Nitro-Bid) 1 inch BEDTIME TOPIC 05/04/20 21:00 06/03/20 20:59 05/08/20 20:45 Nitroglycerin (Ntg) 0.4 mg Q5M PRN SL Prn Chest Pain 05/03/20 12:30 06/02/20 12:29 Ondansetron HCl (Zofran) 4 mg Q6H PRN IVP Nausea & Vomiting 05/03/20 12:30 06/02/20 12:29 Polyethylene Glycol (Miralax) 17 gm DAILYPRN PRN ORAL Constipation 05/03/20 12:30 06/02/20 12:29 Sennosides (Senokot) 17.2 mg BID ORAL 05/03/20 18:00 06/02/20 17:59 05/06/20 10:07 Evan Canales MD May 09, 2020 10:07
--- NOTE | 2020-05-09 11:23 | Pulmonology Progress Note ---
Subjective ROS Limited/Unobtainable: Yes Allergies: Coded Allergies: No Known Allergies (Unverified , 08/05/12) Subjective leukocytosis trending down, no fevers remains on 100% NRM with sat 91-92 %, tachypneic Objective Last 24 Hour Vital Signs Date Time Temp Pulse Resp B/P (MAP) Pulse Ox O2 Delivery O2 Flow Rate FiO2 05/09/20 08:00 Non-Rebreather 15.0 05/09/20 08:00 60 05/09/20 08:00 15.0 100 05/09/20 08:00 97.7 56 21 161/73 (102) 92 05/09/20 06:09 180 134/71 05/09/20 04:13 15.0 100 05/09/20 04:00 98.6 60 30 148/85 (106) 96 05/09/20 04:00 Non-Rebreather 15.0 05/09/20 04:00 56 05/09/20 00:00 15.0 100 05/09/20 00:00 97.7 65 30 136/65 (88) 94 05/09/20 00:00 Non-Rebreather 15.0 05/09/20 00:00 182 05/08/20 23:34 175 136/65 05/08/20 23:30 61 123/63 05/08/20 20:45 180/80 05/08/20 20:00 55 05/08/20 20:00 15.0 100 05/08/20 20:00 97.9 63 30 170/80 (110) 96 05/08/20 20:00 Non-Rebreather 15.0 05/08/20 19:12 95 Non-Rebreather 15.0 100 05/08/20 18:00 55 176/85 05/08/20 17:03 68 176/85 05/08/20 16:00 96.8 68 24 176/85 (115) 97 05/08/20 16:00 15.0 100 05/08/20 16:00 Non-Rebreather 15.0 05/08/20 15:54 180 169/70 05/08/20 15:30 66 05/08/20 12:00 96.1 58 23 169/70 (103) 97 05/08/20 12:00 Non-Rebreather 15.0 05/08/20 12:00 15.0 100 05/08/20 12:00 62 Intake and Output 05/08/20 05/09/20 19:00 07:00 Intake Total 1265 ml 1845 ml Output Total 100 ml 500 ml Balance 1165 ml 1345 ml Intake Oral 0 ml IV Total 1265 ml 1845 ml Output Urine Total 100 ml 500 ml # Bowel Movements 1 Objective General Appearance: somnolent, arousable, thin, elderly [place]an male in NAD Lines, tubes and drains: peripheral HEENT: normocephalic, atraumatic, anicteric Neck: non-tender Respiratory/Chest: no respiratory distress, no accessory muscle use, few scattered rhonchi ; O2 via NRM , tachypneic Cardiovascular/Chest: SB, LUE PICC intact Abdomen: normal bowel sounds, non tender, soft Extremities: no calf tenderness, no edema Skin Exam: warm/dry Neurologic: abnormal gait Musculoskeletal: atrophy - BLE Laboratory Tests 05/08/20 17:00: Urine Random Sodium < 20L, Urine Creatinine 64.9 05/08/20 18:54: Arterial Blood pH 7.314L, Arterial Blood Partial Pressure CO2 34.3L, Arterial B lood Partial Pressure O2 69.5L, Arterial Blood HCO3 17.0*L, Arterial Blood Oxygen Saturation 91.8L, Arterial Blood Base Excess -8.1L, Samson Test Positive 05/09/20 02:50: Sodium Level 144, Potassium Level 4.3, Chloride Level 113H, Carbon Dioxide Level 19L, Anion Gap 12, Blood Urea Nitrogen 65H, Creatinine 1.5H, Estimat Glomerular Filtration Rate 44.6, Glucose Level 252H, Calcium Level 8.4L, Total Creatine Kinase 145 Current Medications Medications (Trade) Dose Ordered Sig/Gilma Route PRN Reason Start Time Stop Time Status Last Admin Dose Admin Acetaminophen (Tylenol) 650 mg Q4H PRN ORAL Mild Pain (Pain Scale 1-3) 05/03/20 12:30 06/02/20 12:29 Acetaminophen (Tylenol) 650 mg Q4H PRN ORAL fever 05/03/20 12:30 06/02/20 12:29 Al Hydroxide/Mg Hydroxide (Mylanta) 30 ml Q4H PRN ORAL HICCUPS 05/03/20 12:30 06/02/20 12:29 Albuterol Sulfate (Proventil MDI) 1 puff Q4H PRN INH Shortness of Breath 05/03/20 12:45 08/01/20 12:44 Aspirin (ASA) 81 mg DAILY ORAL 05/03/20 12:30 06/17/20 12:29 05/09/20 08:31 Atorvastatin Calcium (Lipitor) 10 mg BEDTIME ORAL 05/03/20 21:00 08/01/20 20:59 05/08/20 20:45 Chlorhexidine Gluconate (Leilani-Hex 2%) 1 applic DAILY@2000 TOPIC 05/06/20 20:00 08/04/20 19:59 05/08/20 20:45 Dextrose 1,000 ml @ 75 mls/hr [id number] IV 05/07/20 14:15 06/06/20 14:14 05/09/20 08:31 Dextrose (Dextrose 50%) 25 ml Q30M PRN IV Hypoglycemia 05/03/20 12:30 08/01/20 12:29 Dextrose (Dextrose 50%) 50 ml Q30M PRN IV Hypoglycemia 05/03/20 12:30 08/01/20 12:29 Diltiazem HCl 125 mg/Dextrose 125 ml @ 10 mls/hr Q24H IVPB 05/08/20 23:30 06/01/20 23:29 Enoxaparin Sodium (Lovenox) 70 mg Q24H SUBQ 05/03/20 18:00 08/01/20 17:59 05/08/20 17:08 Famotidine (Pepcid I.v.) 20 mg BID IVP 05/08/20 18:00 06/07/20 17:59 05/09/20 08:39 Heparin Sodium/ Sodium Chloride (Heparin 1000 units/500ml Premix) 1,000 unit ONCE PRN IV for line placement 05/06/20 14:00 05/09/20 13:59 Lidocaine HCl (Xylocaine 1% 30ml) 30 ml ONCE PRN INJ for line placement 05/06/20 14:00 05/09/20 13:59 Magnesium Hydroxide (Mom) 30 ml BIDPRN PRN ORAL Constipation 05/04/20 09:45 06/03/20 09:44 Memantine (Namenda) 5 mg BID ORAL 05/03/20 18:00 06/02/20 17:59 05/07/20 08:29 Methylprednisolone Sodium Succinate (Solu-MEDROL) 40 mg EVERY 12 HOURS IVP 05/07/20 12:00 08/05/20 11:59 05/09/20 08:39 Metoprolol Tartrate 10 mg/ Dextrose 65 ml @ 130 mls/hr Q6HR IVPB 05/07/20 10:30 06/06/20 10:29 05/09/20 06:09 Montelukast Sodium (Singulair) 10 mg DAILY ORAL 05/04/20 09:00 08/02/20 08:59 05/06/20 10:07 Nitroglycerin (Nitro-Bid) 1 inch BEDTIME TOPIC 05/04/20 21:00 06/03/20 20:59 05/08/20 20:45 Nitroglycerin (Ntg) 0.4 mg Q5M PRN SL Prn Chest Pain 05/03/20 12:30 06/02/20 12:29 Ondansetron HCl (Zofran) 4 mg Q6H PRN IVP Nausea & Vomiting 05/03/20 12:30 06/02/20 12:29 Polyethylene Glycol (Miralax) 17 gm DAILYPRN PRN ORAL Constipation 05/03/20 12:30 06/02/20 12:29 Sennosides (Senokot) 17.2 mg BID ORAL 05/03/20 18:00 06/02/20 17:59 05/06/20 10:07 Assessment/Plan Assessment/Plan ASSESSMENT COVID PNA Elevated troponin, possible NSTEMI Atrial fibrillation with rapid ventricular response KRISTINE Dehydration Transaminitis Protein calorie malnutrition Prostate cancer PLAN OF CARE DORIS isolation Date of sx onset: about 3 wks prior to presentation to ED Positive test: rapid COVID 05/03/20 + O2 15 L VM titrate to keep sat > 92% HFA Dex Day# 7 ( 05/03/20 -) REM not a candidate given renal function s/p Ivermectin x 1 05/04 DVT PPX: Lovenox D dimer -12.59-5.85 Venous Duplex BLE NGT Trend CRP- 59.8-19.4 Abx need -> per ID recs, currently off abx fup CXR1/12 -> no change BSSE noted, high aspiration risk aspiration precautions hydration Monitor volumes and renal function, renal fx and e/lytes management -per further nephro recs serial troponin -trending down cardio follows , rate control - per cardio, on cardizem trend LFT nutritional consult Fup with consultants recs DNR/DNI status Discuss further C case discussed and evaluated by supervising physician Bethany Smith NP May 09, 2020 11:23
--- NOTE | 2020-05-09 11:41 | NUR ---
Sales And Marketing ProfessionalLottery Office Manager SI: Respiratory Failure, COVID PNA, Leukocytosis, NSTEMI, KRISTINE, Afib with RVR T-96.1 (ax), HR-55, RR 21, BP 155/60 15 L O2 NRM FiO2 100% O2 sat 100% WBC 19.0, BUN 65, Creatinine 1.5, IS: Cardizem GTT Pepcid IVP BID SoluMedrol IV BID Metoprolol IV q 6 hrs D5 IV @ 75cc/hr Lovenox SQ QD ASA 81mg PO SDU Status
[2020-05-09 12:00] VITALS: BP 149/77
--- NOTE | 2020-05-09 12:04 | NUR ---
NURSE NOTES: Metoprolol IV held d/t HR low 55-59, CI. otherwise stable Addendum: 05/09/20 at 1400 by Maria A Mera RN RN Pt HR 150-170s. Contacted Dr Phillips to give late. Md Phillips gave order ok to give late. order acknowledged and carried out.
--- NOTE | 2020-05-09 12:04 | NUR ---
NURSE NOTES: MD Marsh notified of Pt lethargy and Pt unable to take or tolerate PO meds at this time and did not admin morning meds. No new orders at this time. Addendum: 05/09/20 at 0 by Maria A Mera RN RN Additionally, asked Dr Marsh if we needed to have a POLST signed for Pt DNR DNI status. Per Dr Marsh, "no".
--- NOTE | 2020-05-09 14:12 | NUR ---
NURSE NOTES: Updated Pt family at this time, daughter via phone
--- NOTE | 2020-05-09 14:20 | NUR ---
NURSE NOTES: Pt HR 32 at 1408. Md notified. HR is back to 77 aT THIS TIME.
--- NOTE | 2020-05-09 15:30 | NUR ---
NURSE NOTES: Pt found in room with only one soft wrist restraint on. Pt removed by self the R soft restraint, attempting to pull on Bipap. Placed Pt back on B soft restraints and Pt education provided. pt nods in understanding. pt bed low and locked, call light in reach and bed alarm on. Addendum: 05/09/20 at 1851 by Maria A Mera RN RN disregard, wrong Pt
[2020-05-09 16:00] VITALS: BP 160/93
--- NOTE | 2020-05-09 16:58 | Surgery Progress Note ---
Surgery Progress Note Subjective Additional Comments comfortable appearing no n/v labs noted exam stable Objective Last 24 Hour Vital Signs Date Time Temp Pulse Resp B/P (MAP) Pulse Ox O2 Delivery O2 Flow Rate FiO2 05/09/20 16:00 15.0 100 05/09/20 16:00 61 05/09/20 16:00 Non-Rebreather 15.0 05/09/20 16:00 96.4 66 20 160/93 (115) 92 05/09/20 14:08 32 05/09/20 13:49 160 149/77 05/09/20 12:00 58 05/09/20 12:00 Non-Rebreather 15.0 05/09/20 12:00 15.0 100 05/09/20 12:00 97.0 53 21 149/77 (101) 92 05/09/20 08:00 Non-Rebreather 15.0 05/09/20 08:00 60 05/09/20 08:00 15.0 100 05/09/20 08:00 97.7 56 21 161/73 (102) 92 05/09/20 06:09 180 134/71 05/09/20 04:13 15.0 100 05/09/20 04:10 176 05/09/20 04:00 98.6 60 30 148/85 (106) 96 05/09/20 04:00 Non-Rebreather 15.0 05/09/20 04:00 56 05/09/20 00:00 15.0 100 05/09/20 00:00 97.7 65 30 136/65 (88) 94 05/09/20 00:00 Non-Rebreather 15.0 05/09/20 00:00 182 05/08/20 23:34 175 136/65 05/08/20 23:30 61 123/63 05/08/20 20:45 180/80 05/08/20 20:00 55 05/08/20 20:00 15.0 100 05/08/20 20:00 97.9 63 30 170/80 (110) 96 05/08/20 20:00 Non-Rebreather 15.0 05/08/20 19:12 95 Non-Rebreather 15.0 100 05/08/20 18:00 55 176/85 05/08/20 17:03 68 176/85 I&O Intake and Output 1/12/21 1/13/21 19:00 07:00 Intake Total 1265 ml 1845 ml Output Total 100 ml 500 ml Balance 1165 ml 1345 ml Intake Oral 0 ml IV Total 1265 ml 1845 ml Output Urine Total 100 ml 500 ml # Bowel Movements 1 Dressing: saturated Cardiovascular: RSR Respiratory: decreased breath sounds Abdomen: soft, non-tender, present bowel sounds Extremities: edema, no tenderness, no cyanosis Laboratory Tests Test 05/08/20 17:00 05/08/20 18:54 05/09/20 02:50 Urine Random Sodium < 20 mmol/L (20-110) L Urine Creatinine 64.9 MG/DL (30.0-125.0) Arterial Blood pH 7.314 (7.350-7.450) Arterial Blood Partial Pressure CO2 34.3 mmHg (35.0-45.0) L Arterial Blood Partial Pressure O2 69.5 mmHg (75.0-100.0) L Arterial Blood HCO3 17.0 mmol/L (22.0-26.0) *L Arterial Blood Oxygen Saturation 91.8 % (95-100) L Arterial Blood Base Excess -8.1 (-2-2) L Samson Test Positive Sodium Level 144 MMOL/L (136-145) Potassium Level 4.3 MMOL/L (3.5-5.1) Chloride Level 113 MMOL/L (98-107) H Carbon Dioxide Level 19 MMOL/L (21-32) L Anion Gap 12 mmol/L (5-15) Blood Urea Nitrogen 65 mg/dL (7-18) H Creatinine 1.5 MG/DL (0.55-1.30) H Estimat Glomerular Filtration Rate 44.6 mL/min (>60) Glucose Level 252 MG/DL (74-106) H Calcium Level 8.4 MG/DL (8.5-10.1) L Total Creatine Kinase 145 U/L (26-308) Plan Problems: (1) Lactic acidosis Assessment & Plan: Patient with dehydration lactic acidosis abnormal labs requiring IV fluids and medications. Poor peripheral access at this time. Patient lost IV access. Considerations for central venous catheter was done. Given patient's condition overall comorbidities and current medications required including fluids will attempt further management with peripheral access though it is very difficult in this patient. Will consider peripherally inserted tunneled catheter as well and then considerations of central venous catheter as well if necessary. For now was able to obtain a hand IV peripherally. We will continue for this. If falter failure will proceed with potential PICC for central venous. Thank you for allowing participation care will follow recommendations Procedure performed at bedside. Procedural timeout performed. Ultrasound confirms patent compressible left brachial vein. Total sterile technique, including sterile probe cover and sterile gel, sterile gloves, hand hygiene, hat, mask,, sterile gown, large sterile drape, and preparation with 2% chlorhexidine utilized. Local anesthesia with 1% lidocaine. Under real-time ultrasound guidance, puncture trachea vein using 21-gauge needle, passage 0.018 guidewire, exchange for 4 Guatemalan peel-away sheath. 4 [place]alan are dual-lumen power PICC cut to 37 cm. It was inserted through the peel-away sheath. Peel-away sheath and guidewire removed. Catheter fixed to the skin. Both catheter ports aspirated and flushed. Patient tolerated procedure well, without immediate complication. Followup chest x-ray obtained, documents catheter tip position at the innominate venous confluence (2) Renal failure (3) Hypoxia (4) NSTEMI (non-ST elevated myocardial infarction) (5) CHF exacerbation (6) Multifocal pneumonia (7) Gastritis (8) Prostate cancer (9) Hypertension (10) KRISTINE (acute kidney injury) (11) Atrial fibrillation with rapid ventricular response (12) COVID-19 Assessment & Plan: Covid positive on treatment Requiring fluids meds dec (13) Dehydration (14) Lumbar compression fracture (15) anemia (16) Gait abnormality (17) UTI (urinary tract infection) (18) Chest pain (19) Hypotension (20) GI bleed (21) Leaking of urine (22) Intractable hiccups (23) Abnormal urogenital findings (24) Chang catheter in place (25) Obstructed Chang catheter (26) anemia (27) anemia Yamil Oquendo May 09, 2020 16:58
--- NOTE | 2020-05-09 17:23 | NUR ---
NURSE HAND-OFF REPORT: Important Events on Shift: Pt lethargic, unable to take PO medications, Pt labored/agonal breathing, Pt not eating-- ROGELIO aware// episode of SB 32, ST 170 LESLIE aware Patient Status: dnr/dni Diet: full liquid, poor appetite Pending Orders: Pending Results/Labs: Pending MD notification: Latest Vital Signs: Temperature 96.4 , Pulse 61 , B/P 160 /93 , Respiratory Rate 20 , O2 SAT 92 , Room Air, O2 Flow Rate 15.0 . Vital Sign Comment: EKG Rhythm: Sinus Rhythm Rhythm change?: N Notified?: Carlitos Rene MD Response: paged Dr Phililps Latest Mayo Fall Score: 70 Fall Risk: High Risk Safety Measures: Call light Within Reach, Bed Alarm Zone 2, Side Rails Side Rails x3, Bed position Low and Locked. Fall Precautions: Yellow Socks Report to be given. . Addendum: 05/09/20 at 1749 by Maria A Mera RN RN held lovenox plt 125, trending down down. notify at rounds Addendum: 05/09/20 at 1910 by Maria A Mera RN RN Pt is stable, report given to Brenton. Addendum: 05/09/20 at 1910 by Maria A Mera RN RN PRATIK Farris*
--- NOTE | 2020-05-09 17:30 | NUR ---
NURSE NOTES: Contacted Dr Phillips regarding Pt low HR for metoprolol administration. Per Dr Phillips, Hold for HR <55. "can give later" Pt HR inconsistent, going up and down ranging from 40-50s. To be administered later. Addendum: 05/09/20 at 1911 by Maria A Mera RN RN Medication non admin.
[2020-05-09] MEDS: Enoxaparin 80mg Inj SUBQ SCH (17:42)
--- NOTE | 2020-05-09 17:47 | NUR ---
NURSE NOTES: Bladder scanner 145. urinary pouch draining to graVITY
--- NOTE | 2020-05-09 18:20 | NUR ---
NURSE NOTES: Pt BMx1. soft dark stool. Pt cleaned, repositioned, and linen changed again at this time.
--- NOTE | 2020-05-09 19:20 | NUR ---
NURSE NOTES: pt report received from Maria A Lundy RN. pt condition remains unchanged. pt is alert and oriented times 1, opens eyes to tactile stimuli. pt remains on senior analyst developer showing NSR, no acute distress noted. pt is on non rebreather showing 93% O2 sat, no acute resp distress noted. pt bed is low, locked, armed, call light within reach, bed rails up times 3. will follow plan of care.
[2020-05-09 20:00] VITALS: BP 119/73
--- NOTE | 2020-05-09 20:24 | General Progress Note ---
Subjective ROS Limited/Unobtainable: Yes Allergies: Coded Allergies: No Known Allergies (Unverified , 08/05/12) Objective Last 24 Hour Vital Signs Date Time Temp Pulse Resp B/P (MAP) Pulse Ox O2 Delivery O2 Flow Rate FiO2 05/09/20 18:00 53 160/93 05/09/20 16:00 15.0 100 05/09/20 16:00 61 05/09/20 16:00 Non-Rebreather 15.0 05/09/20 16:00 96.4 66 20 160/93 (115) 92 05/09/20 14:08 32 05/09/20 13:49 160 149/77 05/09/20 12:00 58 05/09/20 12:00 Non-Rebreather 15.0 05/09/20 12:00 15.0 100 05/09/20 12:00 97.0 53 21 149/77 (101) 92 05/09/20 08:00 Non-Rebreather 15.0 05/09/20 08:00 60 05/09/20 08:00 15.0 100 05/09/20 08:00 97.7 56 21 161/73 (102) 92 05/09/20 06:09 180 134/71 05/09/20 04:13 15.0 100 05/09/20 04:10 176 05/09/20 04:00 98.6 60 30 148/85 (106) 96 05/09/20 04:00 Non-Rebreather 15.0 05/09/20 04:00 56 05/09/20 00:00 15.0 100 05/09/20 00:00 97.7 65 30 136/65 (88) 94 05/09/20 00:00 Non-Rebreather 15.0 05/09/20 00:00 182 05/08/20 23:34 175 136/65 05/08/20 23:30 61 123/63 05/08/20 20:45 180/80 Intake and Output 05/08/20 05/09/20 19:00 07:00 Intake Total 1265 ml 1845 ml Output Total 100 ml 500 ml Balance 1165 ml 1345 ml Intake Oral 0 ml IV Total 1265 ml 1845 ml Output Urine Total 100 ml 500 ml # Bowel Movements 1 Laboratory Tests 05/09/20 02:50: Sodium Level 144, Potassium Level 4.3, Chloride Level 113H, Carbon Dioxide Level 19L, Anion Gap 12, Blood Urea Nitrogen 65H, Creatinine 1.5H, Estimat Glomerular Filtration Rate 44.6, Glucose Level 252H, Calcium Level 8.4L, Total Creatine Kinase 145 Height (Feet): 5 Height (Inches): 2.00 Weight (Pounds): 132 General Appearance: moderate distress Neck: normal alignment Cardiovascular: regular rhythm, arrhythmia Respiratory/Chest: accessory muscle use, rhonchi - bilaterally Abdomen: soft Edema: no edema noted Arm (L), no edema noted Arm (R), no edema noted Leg (L), no edema noted Leg (R), no edema noted Pedal (L), no edema noted Pedal (R), no edema noted Generalized Neurologic: abnormal assistant curator II-XII, motor weakness Assessment/Plan Problem List: (1) NSTEMI (non-ST elevated myocardial infarction) ICD Codes: I21.4 - Non-ST elevation (NSTEMI) myocardial infarction SNOMED: 04843598 (2) Multifocal pneumonia ICD Codes: J18.9 - Pneumonia, unspecified organism SNOMED: 272301353 (3) COVID-19 ICD Codes: U07.1 - COVID-19 SNOMED: 478331391 (4) Atrial fibrillation with rapid ventricular response ICD Codes: I48.91 - Unspecified atrial fibrillation SNOMED: 384571336481558 (5) KRISTINE (acute kidney injury) ICD Codes: N17.9 - Acute kidney failure, unspecified SNOMED: 83531503 (6) Dehydration ICD Codes: E86.0 - Dehydration SNOMED: 72483542 (7) Gastritis ICD Codes: K29.70 - Gastritis, unspecified, without bleeding SNOMED: 0869544 Assessment/Plan: continue steroids, hydration iv adjusted pul m care, SS insulin diltiazem metoprolol tele, remains high risk discuss palliative care with family,dnr all orders reviewed Quentin Marsh MD May 09, 2020 20:24
[2020-05-09] MEDS: Nitroglycerin 2% oint pkt TOPIC SCH (20:46)
[2020-05-09] MEDS: Dyna-Hex 2% Top Sol 2oz TOPIC SCH (20:46)
--- NOTE | 2020-05-09 21:30 | NUR ---
NURSE NOTES: 9PM meds passed. no change in pts condition. nitro patch placed on pts center chest. old nitro patch removed and body site cleaned.
--- NOTE | 2020-05-09 22:47 | NUR ---
NURSE NOTES: Lopressor given earlier than scheduled. pt HR noted to be 200s.
[2020-05-10] VITALS: BP 122/69
--- NOTE | 2020-05-10 | NUR ---
NURSE NOTES: bladder scan preformed. 10 ML noted with bladder scan machine. 300 ML yellow urine noted. in pts urine bag.
--- NOTE | 2020-05-10 00:44 | NUR ---
NURSE NOTES: pt resting in bed. HR currently in the 90s. no change in condition.
--- NOTE | 2020-05-10 02:00 | NUR ---
NURSE NOTES: pt resting in bed. HR showing NSR on monitor. no distress noted.
--- NOTE | 2020-05-10 03:30 | NUR ---
NURSE NOTES: Mi Enterprise Systems Architect in pts room withdrawing lab/ blood work.
[2020-05-10 04:00] VITALS: BP 124/92
[2020-05-10] MEDS: Metoprolol Tartrate 10 MG in D5W 55 ML IVPB SCH ×4 (05:46→20:58)
--- NOTE | 2020-05-10 06:00 | NUR ---
NURSE NOTES: preformed bladder scan. 500ML yellow urine emptied from pts urine bag.
[2020-05-10 06:29] LABS: CALCIUM 8.2 MG/DL (8.5-10.1); CREATININE 1.6 MG/DL (0.55-1.30); POTASSIUM 5.4 MMOL/L (3.5-5.1)
--- NOTE | 2020-05-10 07:07 | NUR ---
NURSE HAND-OFF REPORT: Important Events on Shift:[Monitor HR. ] Patient Status: [unchanged.] Diet: [as per doctor order.] Pending Orders: [NA] Pending Results/Labs:[NA] Pending MD notification:[NA] Latest Vital Signs: Temperature 97.7 , Pulse 70 , B/P 130 /79 , Respiratory Rate 20 , O2 SAT 98 , Room Air, O2 Flow Rate 15.0 . Vital Sign Comment: [monitor HR] EKG Rhythm: Sinus Rhythm Rhythm change?: N Notified?: Carlitos Rene MD Response: paged Dr Phillips Latest Mayo Fall Score: 70 Fall Risk: High Risk Safety Measures: Call light Within Reach, Bed Alarm Zone 2, Side Rails Side Rails x3, Bed position Low and Locked. Fall Precautions: Yellow Socks Report given to [Maria A Lundy RN].
--- NOTE | 2020-05-10 07:28 | NUR ---
NURSE NOTES: Received report update from PRATIK Farris. Pt is AOxO-1 resting in bed. pt is on 15 LPM NRB, with increased respiratory rate 22, saturating 100% spo2, moments of breathing with accessory muscle use. Pt B arm swelling, both elevated at this time. Pt urine draining to catheter pouch, dark yellow. TED PICC double lumen running d5w at 75cc, asymptomatic and intact. L wrist 24g SL, asymptomatic and intact. pt bed low and locked, call light in reach and bed alarm on.
[2020-05-10 08:00] VITALS: BP 160/60
--- NOTE | 2020-05-10 08:00 | NUR ---
NURSE NOTES: Pts HR 170-180 BPM on heart monitor and upon palpation. Pt given metoprolol 10mg IV scheduled for 1200 early.
[2020-05-10] MEDS: Solu-MEDROL 40mg Inj IVP SCH ×2 (08:15→20:57)
[2020-05-10] MEDS: Aspirin Baby 81mg ORAL SCH (08:16)
[2020-05-10] MEDS: Montelukast 10mg tablet ORAL SCH (08:16)
[2020-05-10] MEDS: Sennosides 8.6mg tab ORAL SCH ×2 (08:16→16:38)
[2020-05-10] MEDS: Memantine 5 MG TAB ORAL SCH ×2 (08:16→16:38)
--- NOTE | 2020-05-10 09:11 | NUR ---
RD ASSESSMENT & RECOMMENDATIONS SEE CARE ACTIVITY FOR COMPLETE ASSESSMENT DAILY ESTIMATED NEEDS: Needs based on Pulmonary, 60kg 25-30 kcals/kg 1500-1800kcal total kcals 1-1.5 g protein/kg 60-90 g total protein 25-30 mL/kg 5627-3486 total fluid mLs NUTRITION DIAGNOSIS: * Swallowing difficulty R/T h/o dysphagia, respiratory status, lethargy as evidenced by pureed moist texture diet w/ NTL ordered, pt lethargic, now unable to tolerate oral meds and diet, pt on NRB mask. CURRENT DIET:REGULAR, pureed moist w/ NTL PO DIET RECOMMENDATIONS: IF SAFE FOR ORAL DIET -> liberalized regular w/ poor PO (Texture per LABORATORY APPARATUS GLASS GRINDER) ENTERAL NUTRITION RECOMMENDATIONS: Nepro @ 40ml/hr x 24 hrs to provide 960ml, 1728kcal, 77g prot, 698ml free water * Rec NGT feeds if part of POC: pt lethargic, unable to tolerate PO diet and meds * Rec Nepro at this time due to episodes of hyperkalemia * W/ GI access, initiate Nepro @ 10ml/hr x 6hrs, advance 10ml q 4-6 hrs as tolerated to goal rate. ADDITIONAL RECOMMENDATIONS: * Calibrated bedscale wt * Rec NGT feeds if part of POC: pt lethargic, unable to tolerate meals/meds * Monitor lytes: episodes of hyperkalemia * NISS w/ TF + Solumedrol: elev BGs * Rec accuchecks * Check A1C
--- NOTE | 2020-05-10 09:29 | NUR ---
NURSE NOTES: Left message for Dr Marsh regarding Pt postassium level and Plt 125 inquiring whether or not to give lovenox scheduled later today.
--- NOTE | 2020-05-10 09:37 | Pulmonology Progress Note ---
Subjective ROS Limited/Unobtainable: Yes Allergies: Coded Allergies: No Known Allergies (Unverified , 08/05/12) Subjective leukocytosis trending down, no fevers remains on 100% NRM with sat 95 occasionally tachypneic, tachycardic Objective Last 24 Hour Vital Signs Date Time Temp Pulse Resp B/P (MAP) Pulse Ox O2 Delivery O2 Flow Rate FiO2 05/10/20 08:15 177 130/79 05/10/20 08:09 202 05/10/20 08:00 97.2 117 22 160/60 (93) 98 05/10/20 08:00 Non-Rebreather 15.0 05/10/20 08:00 62 05/10/20 08:00 15.0 100 05/10/20 05:46 70 130/79 05/10/20 04:00 69 05/10/20 04:00 15.0 100 05/10/20 04:00 Non-Rebreather 15.0 05/10/20 04:00 97.7 77 20 124/92 (103) 98 05/10/20 00:00 97.9 68 20 122/69 (86) 100 05/10/20 00:00 67 05/10/20 00:00 Non-Rebreather 15.0 05/10/20 00:00 15.0 100 05/09/20 22:46 190 153/71 05/09/20 22:44 180 156/76 05/09/20 20:46 167/82 05/09/20 20:00 Non-Rebreather 15.0 05/09/20 20:00 64 05/09/20 20:00 97.8 71 20 119/73 (88) 100 05/09/20 20:00 15.0 100 05/09/20 18:00 53 160/93 05/09/20 16:00 15.0 100 05/09/20 16:00 61 05/09/20 16:00 Non-Rebreather 15.0 05/09/20 16:00 96.4 66 20 160/93 (115) 92 05/09/20 14:08 32 05/09/20 13:49 160 149/77 05/09/20 12:00 58 05/09/20 12:00 Non-Rebreather 15.0 05/09/20 12:00 15.0 100 05/09/20 12:00 97.0 53 21 149/77 (101) 92 Intake and Output0 05/09/20 05/10/20 19:00 07:00 Intake Total 150 ml 1190 ml Output Total 500 ml Balance 150 ml 690 ml Intake Oral 0 ml IV Total 150 ml 1190 ml Output Urine Total 500 ml Objective General Appearance: somnolent, arousable, thin, elderly Tajik male in NAD Lines, tubes and drains: peripheral HEENT: normocephalic, atraumatic, anicteric Neck: non-tender Respiratory/Chest: no respiratory distress, no accessory muscle use, few scattered rhonchi ; O2 via NRM , tachypneic Cardiovascular/Chest: tachy, LUE PICC intact Abdomen: normal bowel sounds, non tender, soft Extremities: no calf tenderness, no edema Skin Exam: warm/dry Neurologic: abnormal gait Musculoskeletal: atrophy - BLE Laboratory Tests 05/10/20 02:40: Sodium Level 141, Potassium Level 5.4H, Chloride Level 112H, Carbon Dioxide Level 17L, Anion Gap 12, Blood Urea Nitrogen 68H, Creatinine 1.6H, Estimat Glomerular Filtration Rate 41.4, Glucose Level 176H, Calcium Level 8.2L Current Medications Medications (Trade) Dose Ordered Sig/Gilma Route PRN Reason Start Time Stop Time Status Last Admin Dose Admin Acetaminophen (Tylenol) 650 mg Q4H PRN ORAL Mild Pain (Pain Scale 1-3) 05/03/20 12:30 06/02/20 12:29 Acetaminophen (Tylenol) 650 mg Q4H PRN ORAL fever 05/03/20 12:30 06/02/20 12:29 Al Hydroxide/Mg Hydroxide (Mylanta) 30 ml Q4H PRN ORAL HICCUPS 05/03/20 12:30 06/02/20 12:29 Albuterol Sulfate (Proventil MDI) 1 puff Q4H PRN INH Shortness of Breath 05/03/20 12:45 08/01/20 12:44 Aspirin (ASA) 81 mg DAILY ORAL 05/03/20 12:30 06/17/20 12:29 05/09/20 08:31 Atorvastatin Calcium (Lipitor) 10 mg BEDTIME ORAL 05/03/20 21:00 08/01/20 20:59 05/08/20 20:45 Chlorhexidine Gluconate (Leilani-Hex 2%) 1 applic DAILY@2000 TOPIC 05/06/20 20:00 08/04/20 19:59 05/09/20 20:46 Dextrose 1,000 ml @ 75 mls/hr [id number] IV 05/07/20 14:15 06/06/20 14:14 05/10/20 04:03 Dextrose (Dextrose 50%) 25 ml Q30M PRN IV Hypoglycemia 05/03/20 12:30 08/01/20 12:29 Dextrose (Dextrose 50%) 50 ml Q30M PRN IV Hypoglycemia 05/03/20 12:30 08/01/20 12:29 Diltiazem HCl 125 mg/Dextrose 125 ml @ 10 mls/hr Q24H IVPB 05/08/20 23:30 06/01/20 23:29 Enoxaparin Sodium (Lovenox) 70 mg Q24H SUBQ 05/03/20 18:00 08/01/20 17:59 05/08/20 17:08 Famotidine (Pepcid I.v.) 20 mg BID IVP 05/08/20 18:00 06/07/20 17:59 05/10/20 08:16 Magnesium Hydroxide (Mom) 30 ml BIDPRN PRN ORAL Constipation 05/04/20 09:45 06/03/20 09:44 Memantine (Namenda) 5 mg BID ORAL 05/03/20 18:00 06/02/20 17:59 05/07/20 08:29 Methylprednisolone Sodium Succinate (Solu-MEDROL) 40 mg EVERY 12 HOURS IVP 05/07/20 12:00 08/05/20 11:59 05/10/20 08:15 Metoprolol Tartrate 10 mg/ Dextrose 65 ml @ 130 mls/hr Q6HR IVPB 05/07/20 10:30 06/06/20 10:29 05/10/20 08:15 Montelukast Sodium (Singulair) 10 mg DAILY ORAL 05/04/20 09:00 08/02/20 08:59 05/06/20 10:07 Nitroglycerin (Nitro-Bid) 1 inch BEDTIME TOPIC 05/04/20 21:00 06/03/20 20:59 05/09/20 20:46 Nitroglycerin (Ntg) 0.4 mg Q5M PRN SL Prn Chest Pain 05/03/20 12:30 06/02/20 12:29 Ondansetron HCl (Zofran) 4 mg Q6H PRN IVP Nausea & Vomiting 05/03/20 12:30 06/02/20 12:29 Polyethylene Glycol (Miralax) 17 gm DAILYPRN PRN ORAL Constipation 05/03/20 12:30 06/02/20 12:29 Sennosides (Senokot) 17.2 mg BID ORAL 05/03/20 18:00 06/02/20 17:59 05/06/20 10:07 Assessment/Plan Assessment/Plan ASSESSMENT COVID PNA Elevated troponin, possible NSTEMI Atrial fibrillation with rapid ventricular response KRISTINE Dehydration Transaminitis Protein calorie malnutrition Prostate cancer PLAN OF CARE DORIS isolation Date of sx onset: about 3 wks prior to presentation to ED Positive test: rapid COVID 05/03/20 + O2 15 L VM titrate to keep sat > 92% HFA Dex Day# 8 ( 05/03/20 -) REM not a candidate given renal function s/p Ivermectin x 1 05/04 DVT PPX: Lovenox D dimer -12.59-5.85 Venous Duplex BLE NGT Trend CRP- 59.8-19.4 Abx need -> per ID recs, currently off abx fup CXR 05/08 -> no change BSSE noted, high aspiration risk aspiration precautions hydration Monitor volumes and renal function, renal fx and e/lytes management -per further nephro recs serial troponin -trending down cardio follows , rate control - per cardio, on cardizem trend LFT nutritional consult fup with consultants recs DNR/DNI status discuss further GOC case discussed and evaluated by supervising physician Bethany Smith NP May 10, 2020 09:37
--- NOTE | 2020-05-10 09:46 | NUR ---
NURSE NOTES: Notified Dr. Marsh K- 5.4 Addendum: 05/10/20 at 0933 by Maria A Mera RN RN awaiting call back
--- NOTE | 2020-05-10 09:56 | General Progress Note ---
Subjective ROS Limited/Unobtainable: Yes Allergies: Coded Allergies: No Known Allergies (Unverified , 08/05/12) Objective Last 24 Hour Vital Signs Date Time Temp Pulse Resp B/P (MAP) Pulse Ox O2 Delivery O2 Flow Rate FiO2 05/10/20 08:15 177 130/79 05/10/20 08:09 202 05/10/20 08:00 97.2 117 22 160/60 (93) 98 05/10/20 08:00 Non-Rebreather 15.0 05/10/20 08:00 62 05/10/20 08:00 15.0 100 05/10/20 05:46 70 130/79 05/10/20 04:00 69 05/10/20 04:00 15.0 100 05/10/20 04:00 Non-Rebreather 15.0 05/10/20 04:00 97.7 77 20 124/92 (103) 98 05/10/20 00:00 97.9 68 20 122/69 (86) 100 05/10/20 00:00 67 05/10/20 00:00 Non-Rebreather 15.0 05/10/20 00:00 15.0 100 05/09/20 22:46 190 153/71 05/09/20 22:44 180 156/76 05/09/20 20:46 167/82 05/09/20 20:00 Non-Rebreather 15.0 05/09/20 20:00 64 05/09/20 20:00 97.8 71 20 119/73 (88) 100 05/09/20 20:00 15.0 100 05/09/20 18:00 53 160/93 05/09/20 16:00 15.0 100 05/09/20 16:00 61 05/09/20 16:00 Non-Rebreather 15.0 05/09/20 16:00 96.4 66 20 160/93 (115) 92 05/09/20 14:08 32 05/09/20 13:49 160 149/77 05/09/20 12:00 58 05/09/20 12:00 Non-Rebreather 15.0 05/09/20 12:00 15.0 100 05/09/20 12:00 97.0 53 21 149/77 (101) 92 Intake and Output 05/09/20 05/10/20 19:00 07:00 Intake Total 150 ml 1190 ml Output Total 500 ml Balance 150 ml 690 ml Intake Oral 0 ml IV Total 150 ml 1190 ml Output Urine Total 500 ml Laboratory Tests 05/10/20 02:40: Sodium Level 141, Potassium Level 5.4H, Chloride Level 112H, Carbon Dioxide Level 17L, Anion Gap 12, Blood Urea Nitrogen 68H, Creatinine 1.6H, Estimat Glomerular Filtration Rate 41.4, Glucose Level 176H, Calcium Level 8.2L Height (Feet): 5 Height (Inches): 2.00 Weight (Pounds): 132 General Appearance: severe distress EENT: normal ENT inspection Neck: normal alignment Cardiovascular: regularly irregular Respiratory/Chest: accessory muscle use, rhonchi - bilaterally Abdomen: non tender Edema: no edema noted Arm (L), no edema noted Arm (R), no edema noted Leg (L), no edema noted Leg (R), no edema noted Pedal (L), no edema noted Pedal (R), no edema noted Generalized Neurologic: unresponsive Assessment/Plan Problem List: (1) NSTEMI (non-ST elevated myocardial infarction) ICD Codes: I21.4 - Non-ST elevation (NSTEMI) myocardial infarction SNOMED: 17800913 (2) Multifocal pneumonia ICD Codes: J18.9 - Pneumonia, unspecified organism SNOMED: 971516519 (3) COVID-19 ICD Codes: U07.1 - COVID-19 SNOMED: 008215574 (4) Atrial fibrillation with rapid ventricular response ICD Codes: I48.91 - Unspecified atrial fibrillation SNOMED: 248604377810540 (5) KRISTINE (acute kidney injury) ICD Codes: N17.9 - Acute kidney failure, unspecified SNOMED: 81337077 (6) Dehydration ICD Codes: E86.0 - Dehydration SNOMED: 61305738 (7) Gastritis ICD Codes: K29.70 - Gastritis, unspecified, without bleeding SNOMED: 3362424 Assessment/Plan: continue steroids, hydration iv adjusted pul m care, SS insulin diltiazem metoprolol tele, remains high risk discuss palliative care with family,dnr all orders reviewed Quentin Marsh MD May 10, 2020 09:56
[2020-05-10] MEDS ORDERED: Morphine Sulfate 2mg/ml Inj(IV/IM USE ONLY) IVP PRN (10:00)
--- NOTE | 2020-05-10 10:14 | Infectious Diseases Prog Note ---
Assessment/Plan Assessment/Plan A; COVID19 pneumonia Acute renal failure improving Hypoxemia Atrial fibrillation NSTEMI Leukocytosis P: 1. Received ivermectin 2. Continue Solumedrol 3. Poor prognosis, DNR status 4. Continue isolation. Subjective ROS Limited/Unobtainable: Yes Constitutional: Denies: fever Allergies: Coded Allergies: No Known Allergies (Unverified , 08/05/12) Objective Last 24 Hour Vital Signs Date Time Temp Pulse Resp B/P (MAP) Pulse Ox O2 Delivery O2 Flow Rate FiO2 05/10/20 08:15 177 130/79 05/10/20 08:09 202 05/10/20 08:00 97.2 117 22 160/60 (93) 98 05/10/20 08:00 Non-Rebreather 15.0 05/10/20 08:00 62 05/10/20 08:00 15.0 100 05/10/20 05:46 70 130/79 05/10/20 04:00 69 05/10/20 04:00 15.0 100 05/10/20 04:00 Non-Rebreather 15.0 05/10/20 04:00 97.7 77 20 124/92 (103) 98 05/10/20 00:00 97.9 68 20 122/69 (86) 100 05/10/20 00:00 67 05/10/20 00:00 Non-Rebreather 15.0 05/10/20 00:00 15.0 100 05/09/20 22:46 190 153/71 05/09/20 22:44 180 156/76 05/09/20 20:46 167/82 05/09/20 20:00 Non-Rebreather 15.0 05/09/20 20:00 64 05/09/20 20:00 97.8 71 20 119/73 (88) 100 05/09/20 20:00 15.0 100 05/09/20 18:00 53 160/93 05/09/20 16:00 15.0 100 05/09/20 16:00 61 05/09/20 16:00 Non-Rebreather 15.0 05/09/20 16:00 96.4 66 20 160/93 (115) 92 05/09/20 14:08 32 05/09/20 13:49 160 149/77 05/09/20 12:00 58 1/13/21 12:00 Non-Rebreather 15.0 05/09/20 12:00 15.0 100 05/09/20 12:00 97.0 53 21 149/77 (101) 92 Height (Feet): 5 Height (Inches): 2.00 Weight (Pounds): 132 HEENT: mucous membranes moist Respiratory/Chest: other - oxygen by NRB, 15 L/min Cardiovascular: tachycardia, other - left arm PICC line Abdomen: soft, non tender Extremities: other - hands edema, SCD of legs, left arm deformity Neurologic/Psychiatric: unresponsiveness Laboratory Tests Test 05/10/20 02:40 Sodium Level 141 MMOL/L (136-145) Potassium Level 5.4 MMOL/L (3.5-5.1) H Chloride Level 112 MMOL/L (98-107) H Carbon Dioxide Level 17 MMOL/L (21-32) L Anion Gap 12 mmol/L (5-15) Blood Urea Nitrogen 68 mg/dL (7-18) H Creatinine 1.6 MG/DL (0.55-1.30) H Estimat Glomerular Filtration Rate 41.4 mL/min (>60) Glucose Level 176 MG/DL (74-106) H Calcium Level 8.2 MG/DL (8.5-10.1) L Current Medications Medications (Trade) Dose Ordered Sig/Gilma Route PRN Reason Start Time Stop Time Status Last Admin Dose Admin Acetaminophen (Tylenol) 650 mg Q4H PRN ORAL Mild Pain (Pain Scale 1-3) 05/03/20 12:30 06/02/20 12:29 Acetaminophen (Tylenol) 650 mg Q4H PRN ORAL fever 05/03/20 12:30 06/02/20 12:29 Al Hydroxide/Mg Hydroxide (Mylanta) 30 ml Q4H PRN ORAL HICCUPS 05/03/20 12:30 06/02/20 12:29 Albuterol Sulfate (Proventil MDI) 1 puff Q4H PRN INH Shortness of Breath 05/03/20 12:45 08/01/20 12:44 Aspirin (ASA) 81 mg DAILY ORAL 05/03/20 12:30 06/17/20 12:29 05/09/20 08:31 Atorvastatin Calcium (Lipitor) 10 mg BEDTIME ORAL 05/03/20 21:00 08/01/20 20:59 05/08/20 20:45 Chlorhexidine Gluconate (Leilani-Hex 2%) 1 applic DAILY@2000 TOPIC 05/06/20 20:00 08/04/20 19:59 05/09/20 20:46 Dextrose 1,000 ml @ 75 mls/hr [id number] IV 05/07/20 14:15 06/06/20 14:14 05/10/20 04:03 Dextrose (Dextrose 50%) 25 ml Q30M PRN IV Hypoglycemia 05/03/20 12:30 08/01/20 12:29 Dextrose (Dextrose 50%) 50 ml Q30M PRN IV Hypoglycemia 05/03/20 12:30 08/01/20 12:29 Diltiazem HCl 125 mg/Dextrose 125 ml @ 10 mls/hr Q24H IVPB 05/08/20 23:30 06/01/20 23:29 Enoxaparin Sodium (Lovenox) 70 mg Q24H SUBQ 05/03/20 18:00 08/01/20 17:59 05/08/20 17:08 Famotidine (Pepcid I.v.) 20 mg BID IVP 05/08/20 18:00 06/07/20 17:59 05/10/20 08:16 Magnesium Hydroxide (Mom) 30 ml BIDPRN PRN ORAL Constipation 05/04/20 09:45 06/03/20 09:44 Memantine (Namenda) 5 mg BID ORAL 05/03/20 18:00 06/02/20 17:59 05/07/20 08:29 Methylprednisolone Sodium Succinate (Solu-MEDROL) 40 mg EVERY 12 HOURS IVP 05/07/20 12:00 08/05/20 11:59 05/10/20 08:15 Metoprolol Tartrate 10 mg/ Dextrose 65 ml @ 130 mls/hr Q6HR IVPB 05/07/20 10:30 06/06/20 10:29 05/10/20 08:15 Montelukast Sodium (Singulair) 10 mg DAILY ORAL 05/04/20 09:00 08/02/20 08:59 05/06/20 10:07 Morphine Sulfate (Morphine Sulfate) 2 mg Q4H PRN IVP FOR MODERATE PAIN 05/10/20 10:00 05/17/20 09:59 Nitroglycerin (Nitro-Bid) 1 inch BEDTIME TOPIC 05/04/20 21:00 06/03/20 20:59 05/09/20 20:46 Nitroglycerin (Ntg) 0.4 mg Q5M PRN SL Prn Chest Pain 05/03/20 12:30 06/02/20 12:29 Ondansetron HCl (Zofran) 4 mg Q6H PRN IVP Nausea & Vomiting 05/03/20 12:30 06/02/20 12:29 Polyethylene Glycol (Miralax) 17 gm DAILYPRN PRN ORAL Constipation 05/03/20 12:30 06/02/20 12:29 Sennosides (Senokot) 17.2 mg BID ORAL 05/03/20 18:00 06/02/20 17:59 05/06/20 10:07 Juanito Grier MD May 10, 2020 10:14
--- NOTE | 2020-05-10 10:27 | NUR ---
NURSE NOTES: Dr Marsh bedside to see Pt. labs acknowledged and no new orders. Per , pt is going to be comfort measures, morphine drip ordered by Dr Marsh per TAJ Fisher.
[2020-05-10] MEDS ORDERED: PCA Morphine 1mg/ml 30 ML IV SCH (10:30)
[2020-05-10] MEDS ORDERED: Rate Change Narcotic Drip MISC PRN (10:45)
--- NOTE | 2020-05-10 11:23 | NUR ---
NURSE NOTES: Pt MANAGER ASSESSMENT comfort cont morphine drip started. Drip started w/ TAJ Fisher and Maria Antonia CHRISTIE from ICU. Pt o2 100% on 15LPM NRB and 19RR.
[2020-05-10 12:00] VITALS: BP 160/100
--- NOTE | 2020-05-10 12:43 | Surgery Progress Note ---
Surgery Progress Note Subjective Additional Comments leukocytosis improving on face mask no n/v comfortable Objective Last 24 Hour Vital Signs Date Time Temp Pulse Resp B/P (MAP) Pulse Ox O2 Delivery O2 Flow Rate FiO2 05/10/20 12:00 Non-Rebreather 15.0 05/10/20 12:00 15.0 100 05/10/20 12:00 73 05/10/20 12:00 97.2 63 20 160/100 (120) 100 05/10/20 11:32 97.2 05/10/20 08:15 177 130/79 05/10/20 08:09 202 05/10/20 08:00 97.2 117 22 160/60 (93) 98 05/10/20 08:00 Non-Rebreather 15.0 05/10/20 08:00 62 05/10/20 08:00 15.0 100 05/10/20 05:46 70 130/79 05/10/20 04:00 69 05/10/20 04:00 15.0 100 05/10/20 04:00 Non-Rebreather 15.0 05/10/20 04:00 97.7 77 20 124/92 (103) 98 05/10/20 00:00 97.9 68 20 122/69 (86) 100 05/10/20 00:00 67 05/10/20 00:00 Non-Rebreather 15.0 05/10/20 00:00 15.0 100 05/09/20 22:46 190 153/71 05/09/20 22:44 180 156/76 05/09/20 20:46 167/82 05/09/20 20:00 Non-Rebreather 15.0 05/09/20 20:00 64 05/09/20 20:00 97.8 71 20 119/73 (88) 100 05/09/20 20:00 15.0 100 05/09/20 18:00 53 160/93 05/09/20 16:00 15.0 100 05/09/20 16:00 61 05/09/20 16:00 Non-Rebreather 15.0 05/09/20 16:00 96.4 66 20 160/93 (115) 92 05/09/20 14:08 32 05/09/20 13:49 160 149/77 I&O Intake and Output 05/09/20 05/10/20 19:00 07:00 Intake Total 150 ml 1190 ml Output Total 500 ml Balance 150 ml 690 ml Intake Oral 0 ml IV Total 150 ml 1190 ml Output Urine Total 500 ml Dressing: other Wound: other Cardiovascular: RSR Respiratory: decreased breath sounds Abdomen: soft, non-tender, present bowel sounds, non-distended Extremities: no tenderness, no cyanosis Laboratory Tests Test 05/10/20 02:40 Sodium Level 141 MMOL/L (136-145) Potassium Level 5.4 MMOL/L (3.5-5.1) H Chloride Level 112 MMOL/L (98-107) H Carbon Dioxide Level 17 MMOL/L (21-32) L Anion Gap 12 mmol/L (5-15) Blood Urea Nitrogen 68 mg/dL (7-18) H Creatinine 1.6 MG/DL (0.55-1.30) H Estimat Glomerular Filtration Rate 41.4 mL/min (>60) Glucose Level 176 MG/DL (74-106) H Calcium Level 8.2 MG/DL (8.5-10.1) L Plan Problems: (1) Lactic acidosis Assessment & Plan: Patient with dehydration lactic acidosis abnormal labs requiring IV fluids and medications. Poor peripheral access at this time. Patient lost IV access. Considerations for central venous catheter was done. Given patient's condition overall comorbidities and current medications required including fluids will attempt further management with peripheral access though it is very difficult in this patient. Will consider peripherally inserted tunneled catheter as well and then considerations of central venous catheter as well if necessary. For now was able to obtain a hand IV peripherally. We will continue for this. If falter failure will proceed with potential PICC for central venous. Thank you for allowing participation care will follow recommendations Procedure performed at bedside. Procedural timeout performed. Ultrasound confirms patent compressible left brachial vein. Total sterile technique, inc luding sterile probe cover and sterile gel, sterile gloves, hand hygiene, hat, mask,, sterile gown, large sterile drape, and preparation with 2% chlorhexidine utilized. Local anesthesia with 1% lidocaine. Under real-time ultrasound guidance, puncture trachea vein using 21-gauge needle, passage 0.018 guidewire, exchange for 4 Tongan peel-away sheath. 4 Tongan are dual-lumen power PICC cut to 37 cm. It was inserted through the peel-away sheath. Peel-away sheath and guidewire removed. Catheter fixed to the skin. Both catheter ports aspirated and flushed. Patient tolerated procedure well, without immediate complication. Followup chest x-ray obtained, documents catheter tip position at the innominate venous confluence (2) Renal failure (3) Hypoxia (4) NSTEMI (non-ST elevated myocardial infarction) (5) CHF exacerbation (6) Multifocal pneumonia (7) Gastritis (8) Prostate cancer (9) Hypertension (10) KRISTINE (acute kidney injury) (11) Atrial fibrillation with rapid ventricular response (12) COVID-19 Assessment & Plan: Covid positive on treatment Requiring fluids meds dec (13) Dehydration (14) Lumbar compression fracture (15) anemia (16) Gait abnormality (17) UTI (urinary tract infection) (18) Chest pain (19) Hypotension (20) GI bleed (21) Leaking of urine (22) Intractable hiccups (23) Abnormal urogenital findings (24) Chang catheter in place (25) Obstructed Chang catheter (26) anemia (27) anemia Yamil Oquendo May 10, 2020 12:43
--- NOTE | 2020-05-10 14:02 | NUR ---
NURSE NOTES: Pt family brought [employer] Ipad in mesh bag w/ associate veterinarian for Pt to [employer]. pt belonging list updated. Pt gave verbal consent to utilize ipad to connect to [facility] [employer] and [employer] Pt.
[2020-05-10] MEDS: Narcotic Shift Volume MISC SCH ×2 (15:08→23:00)
--- NOTE | 2020-05-10 15:28 | NUR ---
NURSE NOTES: Metoprolol given early for sustained ST 180-200 BPM. Last time given 7 hrs ago, Q6 hr. to be notified at rounds. Addendum: 05/10/20 at 1545 by Maria A Mera RN RN ROSY Kirkpatrick Addendum: 05/10/20 at 1645 by Maria A Mera RN RN Dr Alan seay. Continue Metoprolol q6hr
[2020-05-10 16:00] VITALS: BP 121/62
[2020-05-10] MEDS ORDERED: dilTIAZem Premix 125mg/125ml 125 ML IVPB SCH (16:45)
--- NOTE | 2020-05-10 17:50 | NUR ---
NURSE HAND-OFF REPORT: Important Events on Shift: comfort measures-morphine drip, do not call MD phillips for arrythmia, ipad added to belongings list, Patient Status: dnr,dni Diet: regular, poor appetite, lethargic Pending Orders: Pending Results/Labs: Pending MD notification: Latest Vital Signs: Temperature 97.0 , Pulse 60 , B/P 121 /62 , Respiratory Rate 22 , O2 SAT 100 , Room Air, O2 Flow Rate 15.0 . Vital Sign Comment: EKG Rhythm: AFib w/ RVR Rhythm change?: Carlitos BLACKWELL Notified?: Carlitos Phillips MD Response: paged Dr Phillips Latest Mayo Fall Score: 70 Fall Risk: High Risk Safety Measures: Call light Within Reach, Bed Alarm Zone 2, Side Rails Side Rails x3, Bed position Low and Locked. Fall Precautions: Yellow Socks Report to be given. Addendum: 05/10/20 at 1920 by Maria A Mera RN RN Pt is stable and plan of care endorsed to Julissa Lynn RN.
[2020-05-10] MEDS: Enoxaparin 80mg Inj SUBQ SCH (17:59)
--- NOTE | 2020-05-10 18:41 | NUR ---
IPAD w/ retail brand ambassador and mesh bag belongs to granddaughter: [phone]
--- NOTE | 2020-05-10 19:20 | NUR ---
NURSE NOTES: Pt received from PRATIK Saha. A/O x O. On 15L NRB mask, saturating at 100%. On teletypesetter monitor showing SR with 72 Hr. IV site on L upper arm picc line asymptomatic and patent running morphine 1mg/hr and D5W at 75cc/hr. No signs of infiltration noted. Safety measures in place, bed in lowest position and locked, bed alarm on. Call light and belongings within reach. Will continue to monitor.
[2020-05-10 20:00] VITALS: BP 126/75
[2020-05-10] MEDS ORDERED: Metoprolol Tartrate 5mg/5ml Inj ONE (20:56)
[2020-05-10] MEDS: Dyna-Hex 2% Top Sol 2oz TOPIC SCH (20:57)
[2020-05-10] MEDS: Nitroglycerin 2% oint pkt TOPIC SCH (20:57)
--- NOTE | 2020-05-10 21:40 | NUR ---
NURSE NOTES: Tried to give the lipitor but pt doesn't open mouth. On comfort measures, risks for aspiration.
[2020-05-11] VITALS: BP 123/74
[2020-05-11] MEDS: Metoprolol Tartrate 10 MG in D5W 55 ML IVPB SCH (03:00)
--- NOTE | 2020-05-11 03:16 | NUR ---
NURSE NOTES: Sponge bath given, gown and linens change. Pt tolerated activity. Will continue to monitor
[2020-05-11 04:00] VITALS: BP 79/61
--- NOTE | 2020-05-11 04:20 | NUR ---
NURSE NOTES: Pt vital signs started trending down. Updated family regarding the status of the patient. Will continue to monitor and keep the pt comfortable as possible.
[2020-05-11] MEDS ORDERED: NS 275ml ONE (05:19)
[2020-05-11] MEDS ORDERED: NS 500ML ONE (05:19)
--- NOTE | 2020-05-11 05:19 | NUR ---
PRONOUNCEMENT: No Code. Called to pronounce patient. Absence of spontaneous respirations, no cardiac or breath sounds on auscultation. Pupils fixed and dilated. No carotid pulse or chest movement. Patient at 05:19. DR Garcia notified PER protocol. Family was notified at 05:20 am
--- NOTE | 2020-05-11 05:21 | NUR ---
NURSE NOTES: Called family and spoke with responsible libertarian (daughter), informed about pt . All belongings are endorsed to charge nurse.
--- NOTE | 2020-05-11 06:25 | NUR ---
NURSE NOTES: Post mortem care done. Belongings checked and sealed in the bag. Family called that they will come waste picker the belongings.
--- NOTE | 2020-05-11 06:35 | NUR ---
NURSE NOTES: Called and left a non-urgent message to Dr Marsh's office that the pt .
--- NOTE | 2020-05-11 15:30 | Discharge Summary ---
DATE OF ADMISSION: 05/03/2020 SUMMARY DATE OF EXPIRATION: 05/11/2020. PERTINENT HISTORY: The patient presents with shortness of breath and COVID pneumonia. There is a history of coronary artery disease and gastritis, prior CVA. PERTINENT PHYSICAL FINDINGS: See the dictated History and Physical. LUNGS: Show bilateral wheezing, in mild distress. HEART: Rhythm atrial fibrillation. No murmur. ABDOMEN: Soft without organomegaly. EXTREMITIES: No edema. 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 NEUROLOGIC: He is alert, weak. There is a facial asymmetry. COURSE IN THE HOSPITAL: The patient had hypoxemia, he was treated for COVID pneumonia with dexamethasone and supportive care. He required high-flow oxygen. He was switched to Solu-Medrol in view of his respiratory failure. He received ivermectin. He had atrial fibrillation with rapid ventricular response and was seen by Dr. Phillips, in Cardiology consultation, received Cardizem and metoprolol. He became unable to swallow and required intravenous medications. The patient had elevated troponin. He continued to do poorly and family wishes for no CPR were honored. He developed increasing respiratory failure. Comfort measures were given and he . FINAL DIAGNOSES: 1. COVID-19 pneumonia. 2. Acute respiratory failure. 3. Paroxysmal atrial fibrillation with rapid ventricular rate. 4. Acute coronary insufficiency and non-ST elevation myocardial infarction. 5. Chronic diastolic CHF. 6. History of gastritis. 7. History of prior CVA. 8. Dehydration. 9. Hypernatremia. 10. Glucose intolerance secondary to steroids. 11. History of gastritis. The patient . Family notified. Quentin Marsh M.D. DR: SONIYA/KIESHA JOB#: [id number] CC:
== END 2020-05-11 05:20 | disposition expired | DRG 177 ==
LOC: EMR 13:09 → 2W 13:18 → EDBEDREQ 16:04
PROC: 05H433Z Insertion of Infusion Device into Left Innominate Vein, Percutaneous Approach (ICD-10-PCS; principal; 2020-05-07)
DX: U07.1 COVID-19 (principal); J12.82 Pneumonia due to coronavirus disease 2019; I21.4 Non-ST elevation (NSTEMI) myocardial infarction; E43 Unspecified severe protein-calorie malnutrition; J96.01 Acute respiratory failure with hypoxia; I50.33 Acute on chronic diastolic (congestive) heart failure; N17.9 Acute kidney failure, unspecified; E87.0 Hyperosmolality and hypernatremia; I11.0 Hypertensive heart disease with heart failure; Z96.653 Presence of artificial knee joint, bilateral; Z96.641 Presence of right artificial hip joint; Z79.82 Long term (current) use of aspirin; Z85.46 Personal history of malignant neoplasm of prostate; Z86.73 Personal history of transient ischemic attack (TIA), and cerebral infarction without residual deficits; E86.0 Dehydration; Z66 Do not resuscitate; I25.10 Atherosclerotic heart disease of native coronary artery without angina pectoris; Z51.5 Encounter for palliative care; I48.0 Paroxysmal atrial fibrillation; E74.39 Other disorders of intestinal carbohydrate absorption; T38.0X5A Adverse effect of glucocorticoids and synthetic analogues, initial encounter; E78.5 Hyperlipidemia, unspecified; K29.70 Gastritis, unspecified, without bleeding; R26.9 Unspecified abnormalities of gait and mobility
CPT/HCPCS: 36415; 36569; 71045; 76937; 80048; 80053; 81003; 82550; 82570; 82728; 82803; 83605; 83615; 83690; 83735; 83880; 84100; 84300; 84484; 85007; 85025; 85379; 85610; 85730; 86140; 86710; 87040; 93005; 93970; 96361; 96365; 96367; 96375; 96376; 99291; 99292; J7030; U0002